=== PATIENT | female | born 1995 | race Two or more races ===

== ENCOUNTER 2024-10-20 09:49 | Inpatient (IN) | payer MEDICAID, SELFPAY ==
[2024-10-20 09:51] VITALS: BMI 21.5
[2024-10-20 10:08] VITALS: BP 112/73; PULSE 83; RESP 17; TEMP 37; O2SAT 100; BMI 20.9
--- NOTE | 2024-10-20 10:30 | XR_ITS ---
Examination: CT abdomen and pelvis without contrast. Coronal 3-D reconstructions. Sagittal 2-D reconstructions. Date and time of exam:October 20, 2024 1205 hours INDICATIONS: Left-sided abdominal pain beginning 3 days ago, history of ulcerative colitis CTDI: vol (mGy): 4.96 DLP: (mGycm): 233 Technique: Axial images of the abdomen have been obtained, 3 mm slice thickness Intravenous contrast material has not been administered. Low dose protocols were performed. One or more of the following dose reduction techniques were used; automated exposure control, adjustment of the mA and/or KV according to patient size, use of iterative reconstruction technique. Findings: No focal liver or splenic lesions Contracted gallbladder No pancreatic mass No renal or ureteral calculi Aorta normal size No bowel obstruction Normal appendix Retroverted uterus No adnexal mass No bladder mass No definite colitis on this noncontrast study Osseous structures intact IMPRESSION: No acute process on this noncontrast study
--- NOTE | 2024-10-20 10:30 | PD.EDRME ---
Rapid Medical Screening Exam RME Arrival date/time: 10/20/24 09:49 29-year-old female presents emergency department for complaints of rectal bleeding patient has diagnosis of ulcerative colitis Chief Complaint: GI Bleed Vital signs: Vital Signs Temperature 98.6 F 10/20/24 10:08 Pulse Rate 83 10/20/24 10:08 Respiratory Rate 17 10/20/24 10:08 Blood Pressure 112/73 10/20/24 10:08 Pulse Oximetry (%) 100 10/20/24 10:08 Oxygen Delivery Method Room Air 10/20/24 10:08
[2024-10-20 11:22] LABS: Basophils % (Auto) 0 % (0-2.5); Eosinophils # (Auto) 0.2 Thou/mm3 (0.0-0.5); Eosinophils % (Auto) 3 % (0-10); Hematocrit 26.9 % (36.0-46.0); Hemoglobin 8.1 g/dL (12.0-16.0); Immature Granulocytes % (Auto) 0 % (0-0); Immature Granulocytes Auto 0.02 Thou/mm3 (0.00-0.00); Lymphocytes # (Auto) 1.6 Thou/mm3 (1.0-4.8); Lymphocytes % (Auto) 21 % (10-50); Mean Corpuscular HGB Conc 30.1 g/dl (31.0-37.0); Mean Corpuscular Hemoglobin 19.1 pg (25.0-35.0); Mean Corpuscular Volume 63 fL (80-100); Monocytes # (Auto) 0.5 Thou/mm3 (0.0-0.8); Monocytes % (Auto) 7 % (0-12); Neutrophils % (Auto) 68 % (37-80); Nucleated Red Blood Cell % 0 /100 WBC (0); Platelet Count 282 Thou/mm3 (140-440); RDW Standard Deviation 37.9 fL (36.4-46.3); Red Blood Count 4.24 Miln/mm3 (4.00-5.20); White Blood Count 7.4 Thou/mm3 (3.6-11.0)
[2024-10-20 11:38] LABS: INR 1.1 (0.9-1.3); Partial Thromboplastin Time 24.7 Seconds (22.0-36.0); Prothrombin Time 12.1 Seconds (9.0-12.2)
[2024-10-20 11:42] LABS: HCG Qualitative,Urine Negative
[2024-10-20 11:49] LABS: Alanine Aminotransferase 11 U/L (10-49); Albumin, Serum 4.6 gm/dL (3.5-5.0); Albumin/Globulin Ratio 1.4 (1.2-2.2); Alkaline Phosphatase 80 U/L (46-116); Anion Gap 10 (7-16); Aspartate Amino Transferase 22 U/L (0-34); BUN/Creatinine Ratio 8 Ratio (12-20); Bilirubin,Total 0.3 mg/dL (0.3-1.2); Blood Urea Nitrogen 5 mg/dL (9-23); Calcium 8.6 mg/dL (8.3-10.6); Calcium (Corrected) 8.6 mg/dL (8.5-10.1); Carbon Dioxide 26.5 mMol/L (20.0-31.0); Chloride 105 mMol/L (98-107); Creatinine (Component) 0.6 mg/dL (0.6-1.3); Estimated Creatinine Clearance 90.9 mL/min (>60); Globulin 3.3 gm/dL (2.3-3.5); Glucose 104 mg/dL (74-106); Lipase 27 U/L (12-53); Osmolality,Calculated 278 (275-295); Potassium 3.6 mMol/L (3.4-5.1); Sodium 141 mMol/L (136-145); Total Protein 7.9 gm/dL (5.7-8.2); eGFR > 60 See Note
--- NOTE | 2024-10-20 13:33 | EDNOTE_ITS ---
<Statement entered by Ashlee Davies MD - 10/31/24 06:17> As co-signing physician, I was present and available for consult prn. I concur with the plan and care as documented by the midlevel provider. ED GI Bleed RME/HPI General Chief complaint: GI Bleed Stated complaint: DARK RED STOOLS Time Seen by Provider: 10/20/24 13:02 Arrival date/time: 10/20/24 09:49 RME / HPI RME / HPI Narrative: 29-year-old female patient with significant history of ulcerative colitis, came in for evaluation regarding bright red blood per rectum. Patient has been having worsening bright red blood per rectum for the last 3 days. Associated with abdominal discomfort. Patient denies any dizziness. Patient currently is not having any PCP however he was seen more than 6 months ago GI MD in [place]. She is not taking any medication for Crohn's disease. Patient denies any dizziness denies any vomiting denies any other complaints no medication was taken prior to arrival. 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 Related Data Previous Rx's ?Medication ?Instructions ?Recorded ferrous sulfate 325 mg (65 mg 325 mg PO BID Microcytos is #60 tabs 09/04/21 iron) tablet Allergies Allergy/AdvReac Type Severity Reaction Status Date / Time Penicillins Allergy Mild RASH Verified 10/20/24 09:51 vancomycin Allergy Mild REDNESS, Verified 10/20/24 09:51 ITCHING tree and shrub pollen Allergy Rash Verified 10/20/24 09:51 Review of Systems Review of Systems Narrative Review of Systems: Review of system reviewed and within normal limits except mentioned in HPI ED Exam Narrative Physical exam: VITAL SIGNS: Reviewed. GENERAL APPEARANCE: Alert and interactive, follows commands, no acute distress, HEAD AND FACE: Non-traumatic. ENT: PERRL, pink conjunctivitis, eyelid no trauma, Mucous membrane moist. NECK: Supple, nontender, no nuchal rigidity. CHEST: No tenderness, no crepitus, no paradoxical movement, no retractions. LUNGS: Clear, well ventilated, symmetric, no rales, no wheezing, no ronchi, no stridor, good breath sounds bilaterally. HEART: Regular rate, regular rhythm, no murmur, no gallops. ABDOMEN: Soft, positive bowel sounds, nondistended, no guarding, nontender, no rebound, no masses, RECTAL: Deferred. GENITAL: Deferred. NEUROLOGICAL: Gross motor function intact sensory function intact, Appropriate for age. MUSCULOSKELETAL: low back nontender, full range of motion. EXTREMITIES: Nontender, full range of motion. SKIN: Color pink, dry, no rash, no lacerations, no abrasions, no contusions. LYMPHATICS: Deferred. Course Quality Measures none Orders Category Date Time Status COVID-19 Screening Questionnaire NOW Care 10/20/24 14:31 Active Decision to Admit X1 Care 10/20/24 14:31 Active Consult to Gastroenterology Stat Cons 10/20/24 14:22 Ordered Diet Clear Liquid Diet 10/20/[address] abdomen pelvis wo con Stat Exams 10/20/24 10:30 Completed CBC Stat Lab 10/20/24 11:01 Completed Comprehensive Metabolic Panel Stat Lab 10/20/24 11:01 Completed HCG Qualitative,Urine Stat Lab 10/20/24 11:00 Completed Lipase Stat Lab 10/20/24 11:01 Completed Partial Thromboplastin Time Stat Lab 10/20/24 11:01 Completed Prothrombin Time with INR Stat Lab 10/20/24 11:01 Completed Stool Culture Stat Lab 10/20/24 15:01 Ordered Folic Acid Med 10/20/24 14:20 Discontinued 1 mg PO X1 ONE MethylPREDNISolone. [SoluMEDROL Inj] Med 10/20/24 14:30 Active 40 mg IVP BID sulfaSALAzine [Azulfidine] Med 10/20/24 14:30 Active 1,000 mg PO BID Vital Signs Vital signs: Vital Signs Temperature 98.6 F 10/20/24 10:08 Pulse Rate 83 10/20/24 10:08 Respiratory Rate 17 10/20/24 10:08 Blood Pressure 112/73 10/20/24 10:08 Pulse Oximetry (%) 100 10/20/24 10:08 Oxygen Delivery Method Room Air 10/20/24 10:08 GI Bleed MDM Narrative MDM Narrative:: 29-year-old female patient with significant history of ulcerative colitis, came in for evaluation regarding bright red blood per rectum. Patient has been having worsening bright red blood per rectum for the last 3 days. Associated with abdominal discomfort. Patient denies any dizziness. Patient currently is not having any PCP however he was seen more than 6 months ago GI MD in [place]. She is not taking any medication for ulcerative colitis. Patient denies any dizziness denies any vomiting denies any other complaints no medication was taken prior to arrival. 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 Patient's hemoglobin today was noted to be 8.1 it was 11.28 months ago. Currently patient is not seen by any GI specialist she had a hard time and not happy with her GI specialist from [place]. CT scan of the abdomen pelvis came back unremarkable. Patient was discharged with the patient. I consulted Dr. Strickland, GI specialist on-call, discussed the case, who advised me to admit the patient for further management. Thank you , Patient data External records reviewed:: None Clinical information provided by:: patient and family Social determinants that could affect healthcare access:: none Patient has the following chronic illnesses:: History of ulcerative colitis How is presenting disease/condition affected by chronic disease/condition?: exacerbated by Evaluation data The following diagnostics were reviewed and interpreted by me:: lab results and radiology exam(s) Lab and/or radiology exams considered but not ordered:: None Interpretation Summary: See results MDM Medications / Prescriptions Medications or Prescriptions considered but not ordered:: None Medication administrations:: Medication Administration History Methylprednisolone Sodium Succinate (Methylprednisolone Sod Succ 40 Mg Vial) 40 mg IVP BID ELAINE Stop: 10/27/24 14:29 Last Admin: 10/20/24 14:46 Dose: 40 mg Documented By: SL Sulfasalazine (Sulfasalazine 500 Mg Tablet) 1,000 mg PO BID ELAINE Stop: 11/19/24 14:29 Discontinued Medications Folic Acid (Folic Acid 1 Mg Tablet) 1 mg PO X1 ONE Stop: 10/20/24 14:21 Solu-Medrol, sulfasalazine, folic acid Consultations Consultation(s) initiated? (list below): Yes Consultation #1 (Physician, Specialty, Details): Dr. Strickland thank you Diagnosis GI bleed differential diagnosis: infectious diarrhea Most likely diagnosis given after review of the tests above:: Lower GI bleed, history of ulcerative colitis Admission Indicated Admission indicated?: indicated Admission Request Was there a request for admission?: Yes Admission Attestation Admission request attestation: Discussed case with [Dr. Gallardo] from Hospitalist service regarding admission. Discussed patients ED course, exam findings, labs, and radiology results. The Hospitalist [agrees] to accept the patient for admission. Disposition Plan Disposition Plan: Admit Discharge Plan Plan Patient Disposition: Admit Acute Care w/in Hospital Discharge Disposition comment: Stable Prescriptions/Referrals Prescriptions/Med Rec: No Action ferrous sulfate 325 mg (65 mg iron) tablet 325 mg PO BID Qty: 60 0RF Referrals: Abdon Garcia MD [Primary Care Provider] - In 1 week Problem List Clinical Impression: Acute lower GI bleeding, History of ulcerative colitis Patient/Caregiver Discharge Instructions Print Language: Malaysian Stand Alone Forms: Nancie Award Info., Patient Portal Info Letter
--- NOTE | 2024-10-20 15:03 | ESHP_ITS ---
Documentation for date of: 10/20/24 [facility] History of Present Illness Chief complaint: bloody bowel movements History of present illness: 29-year-old female with past medical history of ulcerative colitis was admitted to the hospital on 10/20/2024 with a come to the ED with complaints of of bright red blood per rectum for the past few days. On assessment patient stated that she has been having rectal bleeding around 6-7 times during the daytime, but that recently around 3 days ago she started noticing it was darker blood. She stated that she also had abdominal pain and cramping which did not improve with passing a bowel movement. She mentioned that at night even though she did not have a bowel movement normally she was very gassy. She mentioned that she has been seeing multiple pantry steward/stewardess given that she was previously seen 1 here in [facility], but he had close his office. She then follow-up with another pantry steward/stewardess in [place] who told her that she had ulcerative colitis and started her on some on mesalamine p.o. She mentioned that she has had multiple colonoscopies in the last 1 was 1 year ago and that showed ulcerative colitis. She mentions she is currently on no medications for her ulcerative colitis. She also stated that she started feeling weak and more or less dizzy as of lately as well as felt her heart racing. Patient also mentioned that most of her symptoms started around 3 years ago when she was with her child. Since then she has been having on and off bleeding ever since, but that specialist she had been seen prior did not start any medications. She denied any difficulty breathing, chest pain, blood in her urine, changes in vision, or headaches. ED course: Patient came in normotensive and afebrile. Initial labs were relevant for low hemoglobin (8.1), and otherwise unremarkable. Initial imaging included abdomen/pelvis CT which was unremarkable. ER provider contacted GI specialist who stated to admit the patient for colonoscopy and further also colitis workup. After examination of the patient and review of clinical data I feel this patient needs to be admitted to the hospital for further treatment and evaluation of ulcerative colitis. PMH: As above Surgical Hx: None per patient Medications: Multivitamin Social Hx: Admits smoking marijuana, denies any cigarette use or alcohol. Review of Systems Review of Systems Narrative Review of Systems: Constitutional: Denies sweats, Admits weight loss, Denies fever, Denies chills. HEENT: Denies hearing loss, Denies ear pain, Denies postnasal drip, Denies double vision, Denies blurry vision. Respiratory: Denies shortness of breath, Denies cough, Denies wheezing. Cardiovascular: Denies chest pain, Denies palpitations, Denies sudden loss of consciousness. GI: Admits blood in stool, Denies constipation, Admits abdominal pain, Denies difficulty swallowing, Admits nausea denies vomit. : Denies urinary incontinence, Denies pain while urinating, Denies increased urinary frequency. MSK: Denies joint pain, Denies joint swelling, Denies numbness. Skin: Denies rash, Denies itching, Denies easy bruising. Neuro: Denies headaches, Denies dizziness, Denies seizures. Past Medical History Past Medical History NEUROLOGIC: Negative Neurological Disorders or Seizures CARDIAC: Negative Cardiac Disorders or Congestive Heart Failure RESPIRATORY: Positive Asthma; Negative Chronic Obstructive Pulmonary Disease (COPD), Bronchitis, Emphysema, Pneumonia, Pulmonary Fibrosis, Cystic Fibrosis, Tuberculosis, Pulmonary Embolism, Pulmonary Edema or Sleep Apnea GASTROINTESTINAL: Negative Gastrointestinal Disorders GENITOURINARY: Negative Genitourinary Disorders or Renal Disease MUSCULOSKELETAL: Negative Musculoskeletal Disorders ENDOCRINE: Negative Endocrine Disorders, Diabetes Mellitus Type 1 or Diabetes Mellitus Type 2 HEMATOLOGIC: Positive Anemia (TAKES IRON BID); Negative Blood Disorders or Sickle Cell Disease OTHER HISTORY: Negative Autoimmune Disease, Blood Transfusions, Blood Transfusion Reaction, Anesthesia Reactions, Organ Transplant, VRSA, Clostridium Difficile or Cancer Family History FAMILY HISTORY: Positive Family Respiratory Disorders (FATHER-ASTHMA), Family Cardiac Disorders, Family Cancer and Family Surgery; Negative Family Psychiatric Problems, Family Gastrointestinal Problems or Family Anesthesia Reaction Surgical History SURGICAL: Negative Cardiac Surgery, Endocrine Surgery, Ear Surgery, Abdominal Surgery, Joint Replacement, Neurologic Surgery, Mastectomy or Organ Transplant Social History SMOKING STATUS: Never smoker Exam Vital Signs Temp Pulse Resp BP Pulse Ox O2 Del Method 98.6 F 83 17 112/73 100 Room Air 10/20/24 10:08 10/20/24 10:08 10/20/24 10:08 10/20/24 10:08 10/20/24 10:08 10/20/24 10:08 Narrative Exam General: A/O x3, no acute distress, well-nourished, well-developed Eyes: PERRL, EOMI. Anicteric, vision grossly intact. Ears: No ear pain, no ear discharge, Hearing grossly intact. Nose: No nasal discharge. Mouth/Throat: Moist mucous membranes, no redness, no lesions. Neck: Neck supple, non-tender, no cervical lymphadenopathy. Lungs: Clear DEMETRA to auscultation and percussion, No accessory muscle use. Cardio: Normal S1/S2, regular rhythm, no murmurs, no JVD Abdomen: Soft, non-tender, no palpable masses, peristalsis present, no guarding or rebound. Extremities: Symmetrical, no significant deformities, no peripheral edema , non-tender, peripheral pulses presents. Skin: No rashes, no lesions, warm to touch. Neuro: No focal neurological deficits. motor and sensory intact Psych: Cooperative, appropriate mood and effect. Results: Labs 10/21/24 05:21 10/21/24 05:21 Labs: Short CBC 10/20/24 Range/Units 11:01 WBC 7.4 (3.6-11.0) Thou/mm3 Hgb 8.1 L (12.0-16.0) g/dL Hct 26.9 L (36.0-46.0) % Plt Count 282 (140-440) Thou/mm3 BMP 10/20/24 11:01 Sodium 141 Potassium 3.6 Chloride 105 Carbon Dioxide 26.5 BUN 5 L Creatinine 0.6 Glucose 104 Calcium 8.6 Liver Function 10/20/24 Range/Units 11:01 Total Bilirubin 0.3 (0.3-1.2) mg/dL AST 22 (0-34) U/L ALT 11 (10-49) U/L Alkaline Phosphatase 80 (46-116) U/L Albumin 4.6 (3.5-5.0) gm/dL Quality Measures Quality Measures VTE prophylaxis Medications Home Medications and Allergies Home Medications ?Medication ?Instructions ?Recorded ?Confirmed ?Type multivitamin (Daily Multi-Vitamin 1 tab PO QAM 5 10/20/24 History tablet) Allergies Allergy/AdvReac Type Severity Reaction Status Date / Time Penicillins Allergy Mild RASH Verified 10/20/24 09:51 vancomycin Allergy Mild REDNESS, Verified 10/20/24 09:51 ITCHING tree and shrub pollen Allergy Rash Verified 10/20/24 09:51 Visit Medications Acetaminophen (Acetaminophen 325 Mg Tablet) 650 mg PO Q6H PRN PRN Reason: pain and Fever >100.4 Stop: 11/19/24 14:59 Hydrocodone Bitart/Acetaminophen (Hydrocodone/Apap 5/325 Tablet) 1 tab PO Q4HR PRN PRN Reason: PAIN SCALE 4-10(Mod-Sev Stop: 10/25/24 14:59 Methylprednisolone Sodium Succinate (Methylprednisolone Sod Succ 40 Mg Vial) 40 mg IVP BID ELAINE Stop: 10/27/24 14:29 Last Admin: 10/20/24 14:46 Dose: 40 mg Ondansetron HCl (Ondansetron Inj 2 Mg/Ml Inj 2 Ml) 4 mg IV Q6H PRN; Protocol PRN Reason: NAUSEA OR VOMITING Stop: 11/19/24 14:59 Pantoprazole Sodium (Pantoprazole Inj 40 Mg Vial) 40 mg IVP QDAY ELAINE Stop: 11/19/24 15:14 Sulfasalazine (Sulfasalazine 500 Mg Tablet) 1,000 mg PO BID ELAINE Stop: 11/19/24 14:29 Discontinued Medications Folic Acid (Folic Acid 1 Mg Tablet) 1 mg PO X1 ONE Stop: 10/20/24 14:21 Assessment & Plan Plan 29-year-old female with past medical history of ulcerative colitis was admitted to the hospital on 10/20/2024 for lower GI bleed secondary to ulcerative colitis flare and resulting in blood loss anemia. #Ulcerative colitis flareup #Lower GI bleed #Acute blood loss anemia Patient came in with hemoglobin of 8.1 and was previously 11.2 on 02/2024 Patient has been having 6-7 bowel movements per day and have all been bloody. Patient has not been taking any medication for ulcerative colitis at this time Last colonoscopy was 1 year ago. Plan: Type and screen Solu-Medrol 40 mg IV twice daily Sulfasalazine 1 g twice daily Protonix Will transfuse if hemoglobin less than 7 Clear liquid diet for possible colonoscopy tomorrow GI consulted, appreciate commendations Disposition: Patient admitted to med surg for UC flareup. Diet: clear liquid GI prophylaxis: protonix DVT prophylaxis: SCDs in setting of bleed Code: full Case disclosed with Attending Dr. Gill Sena PGY1 Disclaimer: Even though this this note was dictated by speech recognition and even though it was carefully revised there may still be minor errors in supervisor litharge due to voice recognition software. Attending Provider Attestation/Addendum I reviewed labs, imaging, EKG, home medications and prior available records. Face to face evaluation was performed by me. I have personally examined the patient and discussed assessment and plan with the IM team. I reviewed the resident note and agree with the plan with exceptions as below. Ulcerative colitis flare Acute anemia Bright blood per rectum Started IV corticosteroids Started mesalamine Consulted GI: Plan for colonoscopy Monitor H&H
[2024-10-20] MEDS: sulfaSALAzine 500 MG TABLET 1000 MG PO (15:15)
[2024-10-20] MEDS: HYDROcodone/APAP 5/325 TABLET 1 TAB PO (17:17)
[2024-10-20] MEDS: PANTOPRAZOLE INJ 40 MG VIAL IVP (17:27)
[2024-10-20] MEDS: ONDANSETRON INJ 2 MG/ML INJ 2 ML 4 MG IV (17:29)
[2024-10-20] MEDS: SODIUM CHLORIDE 0.9% 1000 ML 1,000 ML 60 ML IV (17:30)
--- NOTE | 2024-10-20 19:34 | ESCONSULT_ITS ---
HPI Data of Consult Requesting Physician: Michael Sena MD Primary Care Provider: Abdon Garcia MD Consult Narrative Reason for consult: Hematochezia bloody diarrhea History of present illness: 29-year-old female evaluated at the request of COKE BURNER/physician pediatric physical therapy assistant Zeke in the emergency room when she presented with weakness dizziness vertigo along with bloody stools getting worse for the last 3 to 4 days but has been having bleeding for the last 6 months He does carry diagnosis ulcerative colitis but has not seen either PCP or a wafer fabrication technician for months She is currently not taking any medication for her underlying diagnosis of ulcerative colitis She had a hemoglobin hematocrit of 11.2 and 34.8 on 02/16/2024 and today it was 8.1 and 26.9 with a platelet count of 282,000 Based on this significant drop in hemoglobin hematocrit and worsening diarrhea and no treatment and the severity of the disease unassessed A decision was made to admit the patient for further evaluation management cc:: cc: Michael Sena MD Review of Systems Review of Systems Systems Reviewed: All systems reviewed, normal except as documented Past Medical History Surgical History OTHER SURGICAL HX: As in the history of present illness Meds Home Medications and Allergies Allergies Allergy/AdvReac Type Severity Reaction Status Date / Time Penicillins Allergy Mild RASH Verified 10/20/24 09:51 vancomycin Allergy Mild REDNESS, Verified 10/20/24 09:51 ITCHING tree and shrub pollen Allergy Rash Verified 10/20/24 09:51 Exam Vital Signs Temp Pulse Resp BP Pulse Ox O2 Del Method 98.6 F 83 17 112/73 100 Room Air 10/20/24 10:08 10/20/24 10:08 10/20/24 10:08 10/20/24 10:08 10/20/24 10:08 10/20/24 10:08 Constitutional Comments: Chronically ill-appearing Routine Respiratory Exam Comments: Normal to auscultation Routine Abdominal Exam Comments: Positive bowel sounds tenderness on deep palpation Results Labs 10/20/24 11:01 10/20/24 11:01 Labs: Short CBC 10/20/24 Range/Units 11:01 WBC 7.4 (3.6-11.0) Thou/mm3 Hgb 8.1 L (12.0-16.0) g/dL Hct 26.9 L (36.0-46.0) % Plt Count 282 (140-440) Thou/mm3 BMP 10/20/24 11:01 Sodium 141 Potassium 3.6 Chloride 105 Carbon Dioxide 26.5 BUN 5 L Creatinine 0.6 Glucose 104 Calcium 8.6 Liver Function 10/20/24 Range/Units 11:01 Total Bilirubin 0.3 (0.3-1.2) mg/dL AST 22 (0-34) U/L ALT 11 (10-49) U/L Alkaline Phosphatase 80 (46-116) U/L Albumin 4.6 (3.5-5.0) gm/dL Assessment and Plan Additional Assessment & Plan Additional Plan: Acute exacerbation of the underlying inflammatory bowel disease Acute posthemorrhagic anemia Plan Complete stool panel Including culture and sensitivity Fecal calprotectin C. difficile by PCR Start the patient on IV Solu-Medrol 40 mg IV every 12 Sulfasalazine 500 mg 2 tablets twice daily will eventually increase it Folic acid 1 mg p.o. daily Once patient stabilizes we will assess the disease via colonoscopy prior to discharge with possible biopsies and further treatment options Thank you very much for the opportunity to participate in the care of this patient
[2024-10-20 20:01] VITALS: BP 100/53; PULSE 82; RESP 17; TEMP 36.9; O2SAT 99
--- NOTE | 2024-10-20 20:37 | PC.NURSE ---
Report called to Radha MAJOR at 2037pm for med surg admit rm [id number].
[2024-10-20 21:01] LABS: C-Reactive Protein < 0.5 mg/dL (0.0-0.9)
[2024-10-20 21:10] LABS: Sed Rate (ESR) 54 mm/hr (0-20)
[2024-10-20 21:32] VITALS: BMI 21.4
[2024-10-20 21:34] VITALS: BP 129/76; PULSE 81; RESP 17; RESP 98; TEMP 36.6; O2SAT 98
[2024-10-21] VITALS (7 sets, daily range): BP systolic 101–139; BP diastolic 60–80; PULSE 62–104; RESP 15–98; TEMP 36.2–37.6; O2SAT 96–100; BMI 21.4
[2024-10-21] MEDS: ACETAMINOPHEN 325 MG TABLET 650 MG PO (00:30)
[2024-10-21 01:43] LABS: Stool for WBCs 3+ (Negative)
[2024-10-21 06:36] LABS: Basophils % (Auto) 0 % (0-2.5); Eosinophils % (Auto) 0 % (0-10); Immature Granulocytes % (Auto) 0 % (0-0); Immature Granulocytes Auto 0.02 Thou/mm3 (0.00-0.00); Lymphocytes # (Auto) 0.9 Thou/mm3 (1.0-4.8); Lymphocytes % (Auto) 10 % (10-50); Mean Corpuscular HGB Conc 30.4 g/dl (31.0-37.0); Mean Corpuscular Hemoglobin 19.7 pg (25.0-35.0); Mean Corpuscular Volume 65 fL (80-100); Monocytes # (Auto) 0.3 Thou/mm3 (0.0-0.8); Monocytes % (Auto) 3 % (0-12); Neutrophils # (Auto) 7.8 Thou/mm3 (1.8-7.7); Neutrophils % (Auto) 87 % (37-80); Nucleated Red Blood Cell % 0 /100 WBC (0); Platelet Count 272 Thou/mm3 (140-440); RDW Standard Deviation 38.9 fL (36.4-46.3); Red Blood Count 4.02 Miln/mm3 (4.00-5.20)
[2024-10-21 06:40] LABS: Hemoglobin 7.9 g/dL (12.0-16.0)
[2024-10-21 07:29] LABS: Alanine Aminotransferase 8 U/L (10-49); Albumin, Serum 4.4 gm/dL (3.5-5.0); Albumin/Globulin Ratio 1.4 (1.2-2.2); Alkaline Phosphatase 74 U/L (46-116); Anion Gap 11 (7-16); Aspartate Amino Transferase 16 U/L (0-34); BUN/Creatinine Ratio 8 Ratio (12-20); Bilirubin,Total 0.4 mg/dL (0.3-1.2); Blood Urea Nitrogen < 5 mg/dL (9-23); Calcium 8.8 mg/dL (8.3-10.6); Calcium (Corrected) 8.8 mg/dL (8.5-10.1); Carbon Dioxide 23.1 mMol/L (20.0-31.0); Chloride 107 mMol/L (98-107); Creatinine (Component) 0.6 mg/dL (0.6-1.3); Estimated Creatinine Clearance 90.9 mL/min (>60); Globulin 3.2 gm/dL (2.3-3.5); Glucose 116 mg/dL (74-106); Magnesium 1.8 mg/dL (1.6-2.6); Osmolality,Calculated 279 (275-295); Potassium 4.4 mMol/L (3.4-5.1); Sodium 141 mMol/L (136-145); Total Protein 7.6 gm/dL (5.7-8.2); eGFR > 60 See Note
--- NOTE | 2024-10-21 09:16 | PD.RESPRO ---
Documentation for date of: 10/21/24 Subjective Subjective Interval history: Patient was seen and examined at bedside this morning. No acute overnight events. Patient this morning has had 3 bowel movements which she stated were better than the previous ones in the sense that they were only some streaks of blood and not entirely bloody. Patient was seen by GI specialist who will perform colonoscopy either tomorrow or Wednesday. Patient also stated that she has been feeling better from her abdominal pain has been tolerating clear liquid diet well. Hemoglobin has been stable at 7.9. No other complaints at this time. Exam Vital Signs Temp Pulse Resp BP Pulse Ox O2 Del Method 97.1 F 80 16 139/78 H 98 Room Air 10/21/24 08:00 10/21/24 08:00 10/21/24 08:00 10/21/24 08:00 10/21/24 08:00 10/21/24 08:00 Narrative Exam General: A/O x3, no acute distress, well-nourished, well-developed Eyes: PERRL, EOMI. Anicteric, vision grossly intact. Ears: No ear pain, no ear discharge, Hearing grossly intact. Nose: No nasal discharge. Mouth/Throat: Moist mucous membranes, no redness, no lesions. Neck: Neck supple, non-tender, no cervical lymphadenopathy. Lungs: Clear DEMETRA to auscultation and percussion, No accessory muscle use. Cardio: Normal S1/S2, regular rhythm, no murmurs, no JVD Abdomen: Soft, non-tender, no palpable masses, peristalsis present, no guarding or rebound. Extremities: Symmetrical, no significant deformities, no peripheral edema , non-tender, peripheral pulses presents. Skin: No rashes, no lesions, warm to touch. Neuro: No focal neurological deficits. motor and sensory intact Psych: Cooperative, appropriate mood and effect. Objective Labs 10/21/24 05:21 10/21/24 05:21 Labs: Laboratory Results - last 24 hr 10/20/24 10/20/24 10/20/24 11:00 11:01 15:34 WBC 7.4 RBC 4.24 Hgb 8.1 L Hct 26.9 L MCV 63 L MCH 19.1 L MCHC 30.1 L RDW Std Deviation 37.9 Plt Count 282 Neut % (Auto) 68 Lymph % (Auto) 21 [place] % (Auto) 7 Eos % (Auto) 3 Baso % (Auto) 0 Neut # (Auto) 5.0 Lymph # (Auto) 1.6 [place] # (Auto) 0.5 Eos # (Auto) 0.2 Baso # (Auto) 0.0 Immature Gran # (Auto) 0.02 H Absolute Nucleated RBC 0.00 Immature Gran % 0 Nucleated RBC % 0 ESR 54 H PT 12.1 INR 1.1 APTT 24.7 Sodium 141 Potassium 3.6 Chloride 105 Carbon Dioxide 26.5 Anion Gap 10 BUN 5 L Creatinine 0.6 Estim Creat Clear Calc 90.9 eGFR > 60 BUN/Creatinine Ratio 8 L Glucose 104 Calculated Osmolality 278 Calcium 8.6 Corrected Calcium 8.6 Magnesium Total Bilirubin 0.3 AST 22 ALT 11 Alkaline Phosphatase 80 C-Reactive Prot, Quant < 0.5 Total Protein 7.9 Albumin 4.6 Globulin 3.3 Albumin/Globulin Ratio 1.4 Lipase 27 TSH Urine HCG, Qual Negative Stool for White Cells Blood Type O Positive Antibody Screen NEGATIVE Blood Bank Wristband ID Yes 10/21/24 10/21/24 00:13 05:21 WBC 9.0 RBC 4.02 Hgb 7.9 L Hct 26.0 L MCV 65 L MCH 19.7 L MCHC 30.4 L RDW Std Deviation 38.9 Plt Count 272 Neut % (Auto) 87 H Lymph % (Auto) 10 [place] % (Auto) 3 Eos % (Auto) 0 Baso % (Auto) 0 Neut # (Auto) 7.8 H Lymph # (Auto) 0.9 L [place] # (Auto) 0.3 Eos # (Auto) 0.0 Baso # (Auto) 0.0 Immature Gran # (Auto) 0.02 H Absolute Nucleated RBC 0.00 Immature Gran % 0 Nucleated RBC % 0 ESR PT INR APTT Sodium 141 Potassium 4.4 D Chloride 107 Carbon Dioxide 23.1 Anion Gap 11 BUN < 5 L Creatinine 0.6 Estim Creat Clear Calc 90.9 eGFR > 60 BUN/Creatinine Ratio 8 L Glucose 116 H Calculated Osmolality 279 Calcium 8.8 Corrected Calcium 8.8 Magnesium 1.8 Total Bilirubin 0.4 AST 16 ALT 8 L Alkaline Phosphatase 74 C-Reactive Prot, Quant Total Protein 7.6 Albumin 4.4 Globulin 3.2 Albumin/Globulin Ratio 1.4 Lipase TSH 0.70 Urine HCG, Qual Stool for White Cells 3+ A Blood Type Antibody Screen Blood Bank Wristband ID Quality Measures Quality Measures VTE prophylaxis Assessment & Plan Assessment Current Active Medications: Generic Name Dose Route Start Last Admin Trade Name Freq PRN Reason Stop Dose Admin Acetaminophen 650 mg 10/20/24 15:00 10/21/24 00:30 Acetaminophen 325 Mg Tablet PO 11/19/24 14:59 650 mg Q6H PRN Administration pain 1-3 and Fever >100.4 Hydrocodone Bitart/Acetaminophen 1 tab 10/20/24 15:00 10/20/24 17:17 Hydrocodone/Apap 5/325 Tablet PO 10/25/24 14:59 1 tab Q4HR PRN Administration PAIN SCALE 4-10(Mod-Sev Folic Acid 1 mg 10/21/24 09:00 Folic Acid 1 Mg Tablet PO 11/20/24 08:59 QDAY ELAINE Methylprednisolone Sodium Succinate 40 mg 10/20/24 14:30 10/20/24 22:31 Methylprednisolone Sod Succ 40 Mg Vial IVP 10/27/24 14:29 40 mg BID ELAINE Administration Ondansetron HCl 4 mg 10/20/24 15:00 10/20/24 17:29 Ondansetron Inj 2 Mg/Ml Inj 2 Ml IV 11/19/24 14:59 4 mg Q6H PRN Administration NAUSEA OR VOMITING Protocol Pantoprazole Sodium 40 mg 10/20/24 15:15 10/20/24 17:27 Pantoprazole Inj 40 Mg Vial IVP 11/19/24 15:14 40 mg QDAY ELAINE Administration Sulfasalazine 1,000 mg 10/20/24 14:30 10/20/24 22:25 Sulfasalazine 500 Mg Tablet PO 11/19/24 14:29 Not Given BID ELAINE Plan 29-year-old female with past medical history of ulcerative colitis was admitted to the hospital on 10/20/2024 for lower GI bleed secondary to ulcerative colitis flare and resulting in blood loss anemia. #Ulcerative colitis flareup #Lower GI bleed #Acute blood loss anemia Patient came in with hemoglobin of 8.1 and was previously 11.2 on 02/2024 Patient has been having 6-7 bowel movements per day and have all been bloody. Patient has not been taking any medication for ulcerative colitis at this time Last colonoscopy was 1 year ago. Hgb today 7.9 Plan: Solu-Medrol 40 mg IV twice daily Sulfasalazine 1 g twice daily Protonix Folic acid Will transfuse if hemoglobin less than 7 Clear liquid diet for possible colonoscopy tomorrow or Wednesday GI consulted, appreciate commendations Disposition: Pending colonoscopy. Diet: clear liquid GI prophylaxis: protonix DVT prophylaxis: SCDs in setting of bleed Code: full Case disclosed with Attending Dr. Gill Sena PGY1 Disclaimer: Even though this this note was dictated by speech recognition and even though it was carefully revised there may still be minor errors in telephone repairer due to voice recognition software. Attending Provider Attestation/Addendum I reviewed labs, imaging, EKG, home medications and prior available records. Face to face evaluation was performed by me. I have personally examined the patient and discussed assessment and plan with the IM team. I reviewed the resident note and agree with the plan with exceptions as below. Ulcerative colitis flare Acute anemia Microcytic anemia Bright blood per rectum Started IV corticosteroids Started mesalamine Clear liquid diet Consulted GI: Plan for colonoscopy Monitor H&H: Stable
[2024-10-21] MEDS: FOLIC ACID 1 MG TABLET PO (09:38)
[2024-10-21] MEDS: sulfaSALAzine 500 MG TABLET 1000 MG PO ×2 (09:41→20:44)
[2024-10-21] MEDS: PANTOPRAZOLE INJ 40 MG VIAL IVP (09:44)
[2024-10-21 12:36] LABS: Path Review Blood Smear Sent to Pathologist
[2024-10-21 16:58] LABS: Clostridium Difficile PCR Negative (Negative)
--- NOTE | 2024-10-21 19:27 | PD.IMPROG ---
Documentation for date of: 10/21/24 Subjective Subjective Interval history: Stool C. difficile toxin negative Patient continues to have diarrhea GoLytely prep Colonoscopy scheduled for tomorrow Exam Vital Signs Temp Pulse Resp BP Pulse Ox O2 Del Method 98.0 F 81 15 105/71 98 Room Air 10/21/24 16:00 10/21/24 16:00 10/21/24 16:00 10/21/24 16:00 10/21/24 16:00 10/21/24 16:00 Objective Labs 10/21/24 05:21 10/21/24 05:21 Labs: Laboratory Results - last 24 hr 10/20/24 10/21/24 10/21/24 11:01 00:13 05:21 WBC 9.0 RBC 4.02 Hgb 7.9 L Hct 26.0 L MCV 65 L MCH 19.7 L MCHC 30.4 L RDW Std Deviation 38.9 Plt Count 272 Neut % (Auto) 87 H Lymph % (Auto) 10 [place] % (Auto) 3 Eos % (Auto) 0 Baso % (Auto) 0 Neut # (Auto) 7.8 H Lymph # (Auto) 0.9 L [place] # (Auto) 0.3 Eos # (Auto) 0.0 Baso # (Auto) 0.0 Immature Gran # (Auto) 0.02 H Absolute Nucleated RBC 0.00 Immature Gran % 0 Nucleated RBC % 0 Smear Path Review Sent to Pathologist ESR 54 H Sodium 141 Potassium 4.4 D Chloride 107 Carbon Dioxide 23.1 Anion Gap 11 BUN < 5 L Creatinine 0.6 Estim Creat Clear Calc 90.9 eGFR > 60 BUN/Creatinine Ratio 8 L Glucose 116 H Calculated Osmolality 279 Calcium 8.8 Corrected Calcium 8.8 Magnesium 1.8 Total Bilirubin 0.4 AST 16 ALT 8 L Alkaline Phosphatase 74 C-Reactive Prot, Quant < 0.5 Total Protein 7.6 Albumin 4.4 Globulin 3.2 Albumin/Globulin Ratio 1.4 TSH 0.70 Stool for White Cells 3+ A Stl C. diff Tox B Gene Negative Impressions Impression: # Chronic diarrhea most likely acute exacerbation of the underlying inflammatory bowel disease Stool for C. difficile negative GoLytely prep Colonoscopy a.m. Assessment & Plan A&P Narrative Acute exacerbation of the underlying inflammatory bowel disease Acute posthemorrhagic anemia Plan Complete stool panel Including culture and sensitivity Fecal calprotectin C. difficile by PCR Start the patient on IV Solu-Medrol 40 mg IV every 12 Sulfasalazine 500 mg 2 tablets twice daily will eventually increase it Folic acid 1 mg p.o. daily Once patient stabilizes we will assess the disease via colonoscopy prior to discharge with possible biopsies and further treatment options Thank you very much for the opportunity to participate in the care of this patient Time Spent With Patient Time: Total time spent is greater than 50% in coordination of care (as documented) at patient's floor/unit and/or counseling patient:
[2024-10-21] MEDS: NA SU/NAHCO3/KC/PEG (Golytely) 4,000 ML BTL 4000 ML PO (19:46)
[2024-10-22] VITALS (15 sets, daily range): BP systolic 97–132; BP diastolic 64–87; PULSE 69–98; RESP 12–97; TEMP 36.2–37.3; O2SAT 96–100
[2024-10-22 06:03] LABS: Basophils % (Auto) 0 % (0-2.5); Eosinophils % (Auto) 0 % (0-10); Hematocrit 23.7 % (36.0-46.0); Immature Granulocytes % (Auto) 0 % (0-0); Immature Granulocytes Auto 0.02 Thou/mm3 (0.00-0.00); Lymphocytes # (Auto) 1.5 Thou/mm3 (1.0-4.8); Lymphocytes % (Auto) 19 % (10-50); Mean Corpuscular HGB Conc 30.8 g/dl (31.0-37.0); Mean Corpuscular Hemoglobin 19.3 pg (25.0-35.0); Mean Corpuscular Volume 63 fL (80-100); Monocytes # (Auto) 0.7 Thou/mm3 (0.0-0.8); Monocytes % (Auto) 8 % (0-12); Neutrophils # (Auto) 5.6 Thou/mm3 (1.8-7.7); Neutrophils % (Auto) 72 % (37-80); Nucleated Red Blood Cell % 0 /100 WBC (0); Platelet Count 255 Thou/mm3 (140-440); RDW Standard Deviation 37.9 fL (36.4-46.3); Red Blood Count 3.79 Miln/mm3 (4.00-5.20); White Blood Count 7.8 Thou/mm3 (3.6-11.0)
[2024-10-22 06:16] LABS: Hemoglobin 7.3 g/dL (12.0-16.0)
[2024-10-22 06:17] LABS: Alanine Aminotransferase 10 U/L (10-49); Albumin, Serum 4.4 gm/dL (3.5-5.0); Albumin/Globulin Ratio 1.5 (1.2-2.2); Alkaline Phosphatase 65 U/L (46-116); Anion Gap 8 (7-16); Aspartate Amino Transferase 16 U/L (0-34); BUN/Creatinine Ratio 12 Ratio (12-20); Bilirubin,Total 0.3 mg/dL (0.3-1.2); Blood Urea Nitrogen 6 mg/dL (9-23); Calcium 9.1 mg/dL (8.3-10.6); Calcium (Corrected) 9.1 mg/dL (8.5-10.1); Carbon Dioxide 27.7 mMol/L (20.0-31.0); Chloride 103 mMol/L (98-107); Creatinine (Component) 0.5 mg/dL (0.6-1.3); Estimated Creatinine Clearance 111.4 mL/min (>60); Globulin 2.9 gm/dL (2.3-3.5); Glucose 110 mg/dL (74-106); Magnesium 1.7 mg/dL (1.6-2.6); Osmolality,Calculated 276 (275-295); Potassium 3.5 mMol/L (3.4-5.1); Sodium 139 mMol/L (136-145); Total Protein 7.3 gm/dL (5.7-8.2); eGFR > 60 See Note
--- NOTE | 2024-10-22 06:20 | ESPR_ITS ---
Documentation for date of: 10/22/24 Subjective Subjective Interval history: Patient was seen and examined at bedside this morning. No acute overnight events. Patient stated that yesterday she had a total of around 14-15 bowel movements and that they became bloody by the end of the day. This morning she also had a bloody bowel movement with a lot of mucus and she finished one of the bottles of GoLytely therefore she was started the other 1. Pending colonoscopy. Hemoglobin downtrending to 7.3. Exam Vital Signs Temp Pulse Resp BP Pulse Ox O2 Del Method 97.1 F 76 17 102/64 96 Room Air 10/22/24 04:00 10/22/24 04:00 10/22/24 04:00 10/22/24 04:00 10/22/24 04:00 10/22/24 04:00 Narrative Exam General: A/O x3, no acute distress, well-nourished, well-developed Eyes: PERRL, EOMI. Anicteric, vision grossly intact. Ears: No ear pain, no ear discharge, Hearing grossly intact. Nose: No nasal discharge. Mouth/Throat: Moist mucous membranes, no redness, no lesions. Neck: Neck supple, non-tender, no cervical lymphadenopathy. Lungs: Clear DEMETRA to auscultation and percussion, No accessory muscle use. Cardio: Normal S1/S2, regular rhythm, no murmurs, no JVD Abdomen: Soft, non-tender, no palpable masses, peristalsis present, no guarding or rebound. Extremities: Symmetrical, no significant deformities, no peripheral edema , non-tender, peripheral pulses presents. Skin: No rashes, no lesions, warm to touch. Neuro: No focal neurological deficits. motor and sensory intact Psych: Cooperative, appropriate mood and effect. Objective Labs 10/22/24 15:38 10/22/24 05:04 Labs: Laboratory Results - last 24 hr 10/21/24 10/21/24 10/22/24 00:13 05:21 05:04 WBC 9.0 7.8 RBC 4.02 3.79 L Hgb 7.9 L 7.3 L Hct 26.0 L 23.7 L MCV 65 L 63 L MCH 19.7 L 19.3 L MCHC 30.4 L 30.8 L RDW Std Deviation 38.9 37.9 Plt Count 272 255 Neut % (Auto) 87 H 72 Lymph % (Auto) 10 19 [place] % (Auto) 3 8 Eos % (Auto) 0 0 Baso % (Auto) 0 0 Neut # (Auto) 7.8 H 5.6 Lymph # (Auto) 0.9 L 1.5 [place] # (Auto) 0.3 0.7 Eos # (Auto) 0.0 0.0 Baso # (Auto) 0.0 0.0 Immature Gran # (Auto) 0.02 H 0.02 H Absolute Nucleated RBC 0.00 0.00 Immature Gran % 0 0 Nucleated RBC % 0 0 Smear Path Review Sent to Pathologist Sodium 141 Potassium 4.4 D Chloride 107 Carbon Dioxide 23.1 Anion Gap 11 BUN < 5 L Creatinine 0.6 Estim Creat Clear Calc 90.9 eGFR > 60 BUN/Creatinine Ratio 8 L Glucose 116 H Calculated Osmolality 279 Calcium 8.8 Corrected Calcium 8.8 Magnesium 1.8 Total Bilirubin 0.4 AST 16 ALT 8 L Alkaline Phosphatase 74 Total Protein 7.6 Albumin 4.4 Globulin 3.2 Albumin/Globulin Ratio 1.4 TSH 0.70 Stl C. diff Tox B Gene Negative Quality Measures Quality Measures VTE prophylaxis Assessment & Plan Assessment Current Active Medications: Generic Name Dose Route Start Last Admin Trade Name Freq PRN Reason Stop Dose Admin Acetaminophen 650 mg 10/20/24 15:00 10/21/24 00:30 Acetaminophen 325 Mg Tablet PO 11/19/24 14:59 650 mg Q6H PRN Administration pain 1-3 and Fever >100.4 Hydrocodone Bitart/Acetaminophen 1 tab 10/20/24 15:00 10/20/24 17:17 Hydrocodone/Apap 5/325 Tablet PO 10/25/24 14:59 1 tab Q4HR PRN Administration PAIN SCALE 4-10(Mod-Sev Folic Acid 1 mg 10/21/24 09:00 10/21/24 09:38 Folic Acid 1 Mg Tablet PO 11/20/24 08:59 1 mg QDAY ELAINE Administration Methylprednisolone Sodium Succinate 40 mg 10/20/24 14:30 10/21/24 20:43 Methylprednisolone Sod Succ 40 Mg Vial IVP 10/27/24 14:29 40 mg BID ELAINE Administration Ondansetron HCl 4 mg 10/20/24 15:00 10/20/24 17:29 Ondansetron Inj 2 Mg/Ml Inj 2 Ml IV 11/19/24 14:59 4 mg Q6H PRN Administration NAUSEA OR VOMITING Protocol Pantoprazole Sodium 40 mg 10/20/24 15:15 10/21/24 09:44 Pantoprazole Inj 40 Mg Vial IVP 11/19/24 15:14 40 mg QDAY ELAINE Administration Sulfasalazine 1,000 mg 10/20/24 14:30 10/21/24 20:44 Sulfasalazine 500 Mg Tablet PO 11/19/24 14:29 1,000 mg BID ELAINE Administration Plan 29-year-old female with past medical history of ulcerative colitis was admitted to the hospital on 10/20/2024 for lower GI bleed secondary to ulcerative colitis flare and resulting in blood loss anemia. #Ulcerative colitis flareup #Lower GI bleed #Acute blood loss anemia Patient came in with hemoglobin of 8.1 and was previously 11.2 on 02/2024 Patient has been having 6-7 bowel movements per day and have all been bloody. Patient has not been taking any medication for ulcerative colitis at this time Last colonoscopy was 1 year ago. Hgb today 7.3 Plan: Solu-Medrol 40 mg IV twice daily Sulfasalazine 1 g twice daily Protonix Folic acid Repeat H/H at 4pm. Will transfuse if hemoglobin less than 7 Clear liquid diet for possible colonoscopy today GI consulted, appreciate commendations Disposition: Pending colonoscopy. Diet: clear liquid GI prophylaxis: protonix DVT prophylaxis: SCDs in setting of bleed Code: full Case disclosed with Attending Dr. Gill Sena PGY1 Disclaimer: Even though this this note was dictated by speech recognition and even though it was carefully revised there may still be minor errors in logistics specialist due to voice recognition software. Attending Provider Attestation/Addendum I reviewed labs, imaging, EKG, home medications and prior available records. Face to face evaluation was performed by me. I have personally examined the patient and discussed assessment and plan with the IM team. I reviewed the resident note and agree with the plan with exceptions as below. Ulcerative colitis flare Acute anemia Microcytic anemia Bright blood per rectum Started IV corticosteroids Started mesalamine Clear liquid diet Consulted GI: Plan for colonoscopy Monitor H&H: Stable
[2024-10-22] MEDS: FOLIC ACID 1 MG TABLET PO (07:30)
[2024-10-22] MEDS: PANTOPRAZOLE INJ 40 MG VIAL IVP (07:30)
[2024-10-22] MEDS: NA SU/NAHCO3/KC/PEG (Golytely) 4,000 ML BTL 4000 ML PO (07:30)
--- NOTE | 2024-10-22 07:40 | PC.SS ---
Patient Noa Ochoa is a 29 Year old female admitted for GI Bleed, UC Flare.?Patient confirmed demographic and contact information. Patient resides at home with family. She reports her mother, Nadiya Batres is her surrogate decision maker [phone]. Patient reports she does not utilize any source of DME to assist with ambulation. Patient is able to complete all ADL's independently. Patient states she wishes to return back home when medically cleared.? D/C plan:? Return home Next of Kin: Mother, Nadiya Batres PCP:? Gill Krishnamurthy
[2024-10-22] MEDS: sulfaSALAzine 500 MG TABLET 1000 MG PO ×2 (08:10→21:23)
[2024-10-22 16:09] LABS: Hematocrit 26.6 % (36.0-46.0)
--- NOTE | 2024-10-22 16:38 | PC.NURSE ---
[facility]24 from [id number].
--- NOTE | 2024-10-22 20:13 | SUR.PHASEI ---
2009. REPORT GIVEN TO KRISTOPHER MAJOR, PATIENT TRANSFERRED BACK TO HER ROOM IN STABLE CONDITION BY RAVEN MAJOR.
[2024-10-23] VITALS (8 sets, daily range): BP systolic 92–129; BP diastolic 57–82; PULSE 67–106; RESP 15–99; TEMP 36–37.2; O2SAT 98–100
[2024-10-23 06:56] LABS: Basophils % (Auto) 0 % (0-2.5); Eosinophils % (Auto) 0 % (0-10); Hematocrit 25.4 % (36.0-46.0); Immature Granulocytes % (Auto) 0 % (0-0); Immature Granulocytes Auto 0.03 Thou/mm3 (0.00-0.00); Lymphocytes # (Auto) 1.3 Thou/mm3 (1.0-4.8); Lymphocytes % (Auto) 15 % (10-50); Mean Corpuscular HGB Conc 29.9 g/dl (31.0-37.0); Mean Corpuscular Hemoglobin 19.3 pg (25.0-35.0); Mean Corpuscular Volume 65 fL (80-100); Monocytes # (Auto) 0.4 Thou/mm3 (0.0-0.8); Monocytes % (Auto) 4 % (0-12); Neutrophils # (Auto) 7.1 Thou/mm3 (1.8-7.7); Neutrophils % (Auto) 80 % (37-80); Nucleated Red Blood Cell % 0 /100 WBC (0); Platelet Count 268 Thou/mm3 (140-440); RDW Standard Deviation 38.7 fL (36.4-46.3); Red Blood Count 3.94 Miln/mm3 (4.00-5.20); White Blood Count 8.9 Thou/mm3 (3.6-11.0)
[2024-10-23 07:07] LABS: Hemoglobin 7.6 g/dL (12.0-16.0)
[2024-10-23 07:16] LABS: Alanine Aminotransferase 9 U/L (10-49); Albumin, Serum 4.4 gm/dL (3.5-5.0); Albumin/Globulin Ratio 1.5 (1.2-2.2); Alkaline Phosphatase 66 U/L (46-116); Anion Gap 12 (7-16); Aspartate Amino Transferase 16 U/L (0-34); BUN/Creatinine Ratio 15 Ratio (12-20); Bilirubin,Total 0.3 mg/dL (0.3-1.2); Blood Urea Nitrogen 9 mg/dL (9-23); Calcium 8.8 mg/dL (8.3-10.6); Calcium (Corrected) 8.8 mg/dL (8.5-10.1); Carbon Dioxide 26.2 mMol/L (20.0-31.0); Chloride 103 mMol/L (98-107); Creatinine (Component) 0.6 mg/dL (0.6-1.3); Estimated Creatinine Clearance 92.8 mL/min (>60); Glucose 105 mg/dL (74-106); Osmolality,Calculated 279 (275-295); Potassium 3.9 mMol/L (3.4-5.1); Sodium 141 mMol/L (136-145); Total Protein 7.4 gm/dL (5.7-8.2); eGFR > 60 See Note
[2024-10-23] MEDS: sulfaSALAzine 500 MG TABLET 1000 MG PO ×2 (08:36→20:11)
[2024-10-23] MEDS: FOLIC ACID 1 MG TABLET PO (08:36)
[2024-10-23] MEDS: PANTOPRAZOLE INJ 40 MG VIAL IVP (08:36)
--- NOTE | 2024-10-23 09:20 | ESPR_ITS ---
Documentation for date of: 10/23/24 Subjective Subjective Interval history: Patient evaluated Added azathioprine to the schedule Diseases problem up to proximal transverse colon Terminal ileum in the right colon is spared Will try to send the patient home once diarrhea is under control Exam Vital Signs Temp Pulse Resp BP Pulse Ox O2 Del Method O2 Flow Rate 98.1 F 84 18 129/82 100 Room Air 3 10/23/24 07:55 10/23/24 07:55 10/23/24 07:55 10/23/24 07:55 10/23/24 07:55 10/23/24 07:55 10/22/24 19:45 Objective Labs 10/23/24 04:30 10/23/24 04:30 Labs: Laboratory Results - last 24 hr 10/22/24 10/23/24 15:38 04:30 WBC 8.9 RBC 3.94 L Hgb 8.0 L 7.6 L Hct 26.6 L 25.4 L MCV 65 L MCH 19.3 L MCHC 29.9 L RDW Std Deviation 38.7 Plt Count 268 Neut % (Auto) 80 Lymph % (Auto) 15 [place] % (Auto) 4 Eos % (Auto) 0 Baso % (Auto) 0 Neut # (Auto) 7.1 Lymph # (Auto) 1.3 [place] # (Auto) 0.4 Eos # (Auto) 0.0 Baso # (Auto) 0.0 Immature Gran # (Auto) 0.03 H Absolute Nucleated RBC 0.00 Immature Gran % 0 Nucleated RBC % 0 Sodium 141 Potassium 3.9 Chloride 103 Carbon Dioxide 26.2 Anion Gap 12 BUN 9 Creatinine 0.6 Estim Creat Clear Calc 92.8 eGFR > 60 BUN/Creatinine Ratio 15 Glucose 105 Calculated Osmolality 279 Calcium 8.8 Corrected Calcium 8.8 Magnesium 2.0 Total Bilirubin 0.3 AST 16 ALT 9 L Alkaline Phosphatase 66 Total Protein 7.4 Albumin 4.4 Globulin 3.0 Albumin/Globulin Ratio 1.5 Impressions Impression: Acute exacerbation of the underlying inflammatory bowel disease Add azathioprine 50 mg p.o. daily Assessment & Plan A&P Narrative Acute exacerbation of the underlying inflammatory bowel disease Acute posthemorrhagic anemia Plan Complete stool panel Including culture and sensitivity Fecal calprotectin C. difficile by PCR Start the patient on IV Solu-Medrol 40 mg IV every 12 Sulfasalazine 500 mg 2 tablets twice daily will eventually increase it Folic acid 1 mg p.o. daily Once patient stabilizes we will assess the disease via colonoscopy prior to discharge with possible biopsies and further treatment options Thank you very much for the opportunity to participate in the care of this patient Time Spent With Patient Time: Total time spent is greater than 50% in coordination of care (as documented) at patient's floor/unit and/or counseling patient:
--- NOTE | 2024-10-23 09:58 | PD.RESPRO ---
Documentation for date of: 10/23/24 Subjective Subjective Interval history: Patient was seen examined bedside this morning. No acute events. Patient underwent colonoscopy yesterday and was found to have inflammatory changes of the left-sided colon up to transverse colon. GI specialist stated that he would like to keep patient for 1 more night for monitoring and advancing diet. Otherwise patient yesterday only had a bowel movements throughout the day and tonight she did not have any bowel movements, but this morning she did have 4 bowel movements which were mostly diarrhea and sometimes with a little bit of blood. No other complaints at this time. Exam Vital Signs Temp Pulse Resp BP Pulse Ox O2 Del Method O2 Flow Rate 98.1 F 84 18 129/82 100 Room Air 3 10/23/24 07:55 10/23/24 07:55 10/23/24 07:55 10/23/24 07:55 10/23/24 07:55 10/23/24 07:55 10/22/24 19:45 Narrative Exam General: A/O x3, no acute distress, well-nourished, well-developed Eyes: PERRL, EOMI. Anicteric, vision grossly intact. Ears: No ear pain, no ear discharge, Hearing grossly intact. Nose: No nasal discharge. Mouth/Throat: Moist mucous membranes, no redness, no lesions. Neck: Neck supple, non-tender, no cervical lymphadenopathy. Lungs: Clear DEMETRA to auscultation and percussion, No accessory muscle use. Cardio: Normal S1/S2, regular rhythm, no murmurs, no JVD Abdomen: Soft, non-tender, no palpable masses, peristalsis present, no guarding or rebound. Extremities: Symmetrical, no significant deformities, no peripheral edema , non-tender, peripheral pulses presents. Skin: No rashes, no lesions, warm to touch. Neuro: No focal neurological deficits. motor and sensory intact Psych: Cooperative, appropriate mood and effect. Objective Labs 10/23/24 04:30 10/23/24 04:30 Labs: Laboratory Results - last 24 hr 10/22/24 10/23/24 15:38 04:30 WBC 8.9 RBC 3.94 L Hgb 8.0 L 7.6 L Hct 26.6 L 25.4 L MCV 65 L MCH 19.3 L MCHC 29.9 L RDW Std Deviation 38.7 Plt Count 268 Neut % (Auto) 80 Lymph % (Auto) 15 [place] % (Auto) 4 Eos % (Auto) 0 Baso % (Auto) 0 Neut # (Auto) 7.1 Lymph # (Auto) 1.3 [place] # (Auto) 0.4 Eos # (Auto) 0.0 Baso # (Auto) 0.0 Immature Gran # (Auto) 0.03 H Absolute Nucleated RBC 0.00 Immature Gran % 0 Nucleated RBC % 0 Sodium 141 Potassium 3.9 Chloride 103 Carbon Dioxide 26.2 Anion Gap 12 BUN 9 Creatinine 0.6 Estim Creat Clear Calc 92.8 eGFR > 60 BUN/Creatinine Ratio 15 Glucose 105 Calculated Osmolality 279 Calcium 8.8 Corrected Calcium 8.8 Magnesium 2.0 Total Bilirubin 0.3 AST 16 ALT 9 L Alkaline Phosphatase 66 Total Protein 7.4 Albumin 4.4 Globulin 3.0 Albumin/Globulin Ratio 1.5 Quality Measures Quality Measures VTE prophylaxis Assessment & Plan Assessment Current Active Medications: Generic Name Dose Route Start Last Admin Trade Name Freq PRN Reason Stop Dose Admin Acetaminophen 650 mg 10/20/24 15:00 10/21/24 00:30 Acetaminophen 325 Mg Tablet PO 11/19/24 14:59 650 mg Q6H PRN Administration pain 1-3 and Fever >100.4 Hydrocodone Bitart/Acetaminophen 1 tab 10/20/24 15:00 10/20/24 17:17 Hydrocodone/Apap 5/325 Tablet PO 10/25/24 14:59 1 tab Q4HR PRN Administration PAIN SCALE 4-10(Mod-Sev Folic Acid 1 mg 10/21/24 09:00 10/23/24 08:36 Folic Acid 1 Mg Tablet PO 11/20/24 08:59 1 mg QDAY ELAINE Administration Methylprednisolone Sodium Succinate 40 mg 10/20/24 14:30 10/23/24 08:35 Methylprednisolone Sod Succ 40 Mg Vial IVP 10/27/24 14:29 40 mg BID ELAINE Administration Ondansetron HCl 4 mg 10/20/24 15:00 10/20/24 17:29 Ondansetron Inj 2 Mg/Ml Inj 2 Ml IV 11/19/24 14:59 4 mg Q6H PRN Administration NAUSEA OR VOMITING Protocol Pantoprazole Sodium 40 mg 10/20/24 15:15 10/23/24 08:36 Pantoprazole Inj 40 Mg Vial IVP 11/19/24 15:14 40 mg QDAY ELAINE Administration Sulfasalazine 1,000 mg 10/20/24 14:30 10/23/24 08:36 Sulfasalazine 500 Mg Tablet PO 11/19/24 14:29 1,000 mg BID ELAINE Administration Plan 29-year-old female with past medical history of ulcerative colitis was admitted to the hospital on 10/20/2024 for lower GI bleed secondary to ulcerative colitis flare and resulting in blood loss anemia. #Ulcerative colitis flareup #Lower GI bleed #Acute blood loss anemia Patient came in with hemoglobin of 8.1 and was previously 11.2 on 02/2024 Patient has been having 6-7 bowel movements per day and have all been bloody. Patient has not been taking any medication for ulcerative colitis at this time Last colonoscopy was 1 year ago. Hgb today 7.6 Colonoscopy that showed inflammatory changes on the left-sided colon all the way to the transverse colon with bleeding. Plan: Solu-Medrol 40 mg IV twice daily Sulfasalazine 1 g twice daily Azthioprine 50 mg qday Protonix Folic acid Will transfuse if hemoglobin less than 7 GI consulted, appreciate commendations Disposition: Pending improvement in numbers of BM. Diet: low fiber GI prophylaxis: protonix DVT prophylaxis: SCDs in setting of bleed Code: full Case disclosed with Attending Dr. Gill Sena PGY1 Disclaimer: Even though this this note was dictated by speech recognition and even though it was carefully revised there may still be minor errors in volunteer services supervisor due to voice recognition software. Attending Provider Attestation/Addendum I reviewed labs, imaging, EKG, home medications and prior available records. Face to face evaluation was performed by me. I have personally examined the patient and discussed assessment and plan with the IM team. I reviewed the resident note and agree with the plan with exceptions as below. Ulcerative colitis flare Acute anemia Microcytic anemia Bright blood per rectum Started IV corticosteroids Started mesalamine Clear liquid diet S/p colonoscopy that showed hemorrhoids and friable rectal mucosa. Biopsy was obtained Monitor H&H: Stable Discussed with GI: Added azathioprine 50 mg daily. Keep for 1 more day
[2024-10-23] MEDS: azaTHIOprine 50 MG TABLET PO (10:58)
--- NOTE | 2024-10-23 15:30 | PC.SS ---
SS follow up note; Pending Dr. Strickland's clearance. Poss discharge home tomorrow.
[2024-10-24] VITALS: BP 102/67; PULSE 86; RESP 18; TEMP 36.4; O2SAT 99
[2024-10-24 04:00] VITALS: BP 102/67; PULSE 86; RESP 18; TEMP 36.4; O2SAT 99
[2024-10-24 05:55] LABS: Basophils % (Auto) 0 % (0-2.5); Eosinophils % (Auto) 0 % (0-10); Hematocrit 26.6 % (36.0-46.0); Immature Granulocytes % (Auto) 0 % (0-0); Immature Granulocytes Auto 0.03 Thou/mm3 (0.00-0.00); Lymphocytes # (Auto) 1.5 Thou/mm3 (1.0-4.8); Lymphocytes % (Auto) 16 % (10-50); Mean Corpuscular HGB Conc 30.1 g/dl (31.0-37.0); Mean Corpuscular Hemoglobin 19.1 pg (25.0-35.0); Mean Corpuscular Volume 64 fL (80-100); Monocytes # (Auto) 0.7 Thou/mm3 (0.0-0.8); Monocytes % (Auto) 8 % (0-12); Neutrophils # (Auto) 6.8 Thou/mm3 (1.8-7.7); Neutrophils % (Auto) 75 % (37-80); Nucleated Red Blood Cell % 0 /100 WBC (0); Platelet Count 281 Thou/mm3 (140-440); RDW Standard Deviation 37.5 fL (36.4-46.3); Red Blood Count 4.19 Miln/mm3 (4.00-5.20)
[2024-10-24 06:21] LABS: Alanine Aminotransferase 7 U/L (10-49); Albumin, Serum 4.7 gm/dL (3.5-5.0); Albumin/Globulin Ratio 1.5 (1.2-2.2); Alkaline Phosphatase 71 U/L (46-116); Anion Gap 8 (7-16); Aspartate Amino Transferase 12 U/L (0-34); BUN/Creatinine Ratio 13 Ratio (12-20); Bilirubin,Total 0.3 mg/dL (0.3-1.2); Blood Urea Nitrogen 8 mg/dL (9-23); Calcium 8.8 mg/dL (8.3-10.6); Calcium (Corrected) 8.8 mg/dL (8.5-10.1); Chloride 104 mMol/L (98-107); Creatinine (Component) 0.6 mg/dL (0.6-1.3); Estimated Creatinine Clearance 92.8 mL/min (>60); Globulin 3.1 gm/dL (2.3-3.5); Glucose 117 mg/dL (74-106); Magnesium 1.9 mg/dL (1.6-2.6); Osmolality,Calculated 278 (275-295); Potassium 4.1 mMol/L (3.4-5.1); Sodium 140 mMol/L (136-145); Total Protein 7.8 gm/dL (5.7-8.2); eGFR > 60 See Note
--- NOTE | 2024-10-24 07:19 | PC.NURSE ---
Pt called, had a bloody BM in the toilet . Upon checking, toilet water is red no stool seen, pt denies dizziness of any problem. will cont to monitor.
[2024-10-24 07:59] VITALS: BP 114/87; PULSE 89; RESP 18; TEMP 36.5; O2SAT 100
[2024-10-24] MEDS: PANTOPRAZOLE 40 MG TABLET PO (08:59)
[2024-10-24] MEDS: FOLIC ACID 1 MG TABLET PO (08:59)
[2024-10-24] MEDS: predniSONE 20 MG TABLET 50 MG PO (08:59)
[2024-10-24] MEDS: sulfaSALAzine 500 MG TABLET 1000 MG PO (08:59)
[2024-10-24] MEDS: azaTHIOprine 50 MG TABLET PO (08:59)
--- NOTE | 2024-10-24 09:23 | PC.SS ---
SS follow up note; Patient will discharge, will need to have bowl movement before discharging home today.
[2024-10-24 10:09] LABS: Hemoglobin 8.3 g/dL (12.0-16.0)
--- NOTE | 2024-10-24 12:03 | ESDS_ITS ---
Planned Discharge Date 10/24/24 DS: Providers Provider Date of admission: 10/20/24 15:57 Primary care physician: Abdon Garcia MD Admitting Provider: Raghu Garland MD Attending Provider on Admission: Akin Stevens MD Consults: 10/20/24 14:22 Consult to Gastroenterology Stat Comment: Lower GI bleed Consulting Provider: Eddie Strickland 10/20/24 21:50 Referral Registered Dietitian Routine Comment: Attending Provider on DC: Akin Stevens MD Discharging Provider: Akin Stevens MD DS: Diagnosis Problem List Completed Was Problem List Reviewed/Reconciled?: Yes Hospital Course Hospital Course Hospital course: 29-year-old female with past medical history of ulcerative colitis was admitted to the hospital on 10/20/2024 for lower GI bleed secondary to ulcerative colitis flare and resulting in blood loss anemia. Came into the ED with complaints of of bright red blood per rectum for the past few days.Patient came in normotensive and afebrile. Initial labs were relevant for low hemoglobin (8.1), and otherwise unremarkable. Initial imaging included abdomen/pelvis CT which was unremarkable. Patient was placed on Solu-Medrol 40 mg twice daily and sulfasalazine 1 g twice daily as well as folic acid. Patient underwent colonoscopy which found friable tissue on the left-sided colon of the way to the transverse colon. Patient remained stable and had less bowel movements by the time of discharge where she was having only around 4-6 bowel movements. Repeat hemoglobin prior to discharge was also stable. Patient did not require any b lood transfusion throughout the hospital stay. At the time of discharge patient was stable enough to be discharged home. Discharge plan: Please follow your primary care physician within 1 week upon discharge You have been started on azathioprine 50 mg daily You have been started on folic acid 1 mg tablet daily You have been started pantoprazole 40 mg daily for 30 days You have been started on sulfasalazine 1000 mg twice daily You have been started on prednisone 5 mg tablets with taper instructions. Taper instructions are as follows 25 mg (5 tablets) twice daily for 7 days 20 mg (4 tablets) twice daily for 7 days 15 mg (3 tablets) twice daily for 7 days 10 mg (2 tablets) twice daily for 7 days 5 mg (1 tablet) twice daily for 7 days 5 mg (1 tablet) (daily for 7 days Please come back to the ER if symptoms persist or worsen Problem list: #Ulcerative colitis flareup #Lower GI bleed #Acute blood loss anemia Case disclosed with Attending Dr. Rodney Sena PGY1 Disclaimer: Even though this this note was dictated by speech recognition and even though it was carefully revised there may still be minor errors in electrifier operator due to voice recognition software. Status at Discharge Overall status at discharge: patient is progressing back to baseline Time Spent with Patient Time attestation: Total time spent providing and/or coordinating discharge services:>30 min Time spent: Less than 30 minutes Exam Vital Signs Temp Pulse Resp BP Pulse Ox O2 Del Method O2 Flow Rate 97.7 F 89 18 114/87 H 100 Room Air 3 10/24/24 07:59 10/24/24 07:59 10/24/24 07:59 10/24/24 07:59 10/24/24 07:59 10/24/24 07:59 10/24/24 04:00 Narrative Exam General: A/O x3, no acute distress, well-nourished, well-developed Eyes: PERRL, EOMI. Anicteric, vision grossly intact. Ears: No ear pain, no ear discharge, Hearing grossly intact. Nose: No nasal discharge. Mouth/Throat: Moist mucous membranes, no redness, no lesions. Neck: Neck supple, non-tender, no cervical lymphadenopathy. Lungs: Clear DEMETRA to auscultation and percussion, No accessory muscle use. Cardio: Normal S1/S2, regular rhythm, no murmurs, no JVD Abdomen: Soft, non-tender, no palpable masses, peristalsis present, no guarding or rebound. Extremities: Symmetrical, no significant deformities, no peripheral edema , non-tender, peripheral pulses presents. Skin: No rashes, no lesions, warm to touch. Neuro: No focal neurological deficits. motor and sensory intact Psych: Cooperative, appropriate mood and effect. Discharge Plan Plan Patient Disposition: HOME (Self Care) Care Plan Goals: Please follow your primary care physician within 1 week upon discharge You have been started on azathioprine 50 mg daily You have been started on folic acid 1 mg tablet daily You have been started pantoprazole 40 mg daily for 30 days You have been started on sulfasalazine 1000 mg twice daily You have been started on prednisone 5 mg tablets with taper instructions. Taper instructions are as follows 25 mg (5 tablets) twice daily for 7 days 20 mg (4 tablets) twice daily for 7 days 15 mg (3 tablets) twice daily for 7 days 10 mg (2 tablets) twice daily for 7 days 5 mg (1 tablet) twice daily for 7 days 5 mg (1 tablet) (daily for 7 days Please come back to the ER if symptoms persist or worsen Prescriptions/Referrals Prescriptions/Med Rec: New sulfasalazine 500 mg Tablet 1,000 mg PO BID 30 Days Qty: 120 0RF azathioprine 50 mg Tablet 50 mg PO QDAY 30 Days Qty: 30 0RF folic acid 1 mg Tablet 1 mg PO QDAY 30 Days Qty: 30 0RF prednisone 5 mg tablet See Taper PO QDAY Qty: 217 0RF Taper: Prednisone Taper 25 mg TWICE A DAY for 7 Days and 0 Hour 20 mg TWICE A DAY for 7 Days and 0 Hour 15 mg TWICE A DAY for 7 Days and 0 Hour 10 mg TWICE A DAY for 7 Days 5 mg TWICE A DAY for 7 Days 5 mg DAILY for 7 Days pantoprazole 40 mg tablet,delayed release (DR/EC) 40 mg PO QDAY Qty: 30 0RF Continued multivitamin [Daily Multi-Vitamin] Tablet 1 tab PO QAM Referrals: [facility] [Outside] Abdon Garcia MD [Primary Care Provider] - Patient/Caregiver Discharge Instructions Other Discharge Activity Instructions:: Please follow your primary care physician within 1 week upon discharge If you do not have a primary care physician you can follow up at the [facility]. You have been started on azathioprine 50 mg daily You have been started on folic acid 1 mg tablet daily You have been started pantoprazole 40 mg daily for 30 days You have been started on sulfasalazine 1000 mg twice daily You have been started on prednisone 5 mg tablets with taper instructions. Taper instructions are as follows 25 mg (5 tablets) twice daily for 7 days 20 mg (4 tablets) twice daily for 7 days 15 mg (3 tablets) twice daily for 7 days 10 mg (2 tablets) twice daily for 7 days 5 mg (1 tablet) twice daily for 7 days 5 mg (1 tablet) (daily for 7 days Please come back to the ER if symptoms persist or worsen Education Materials: Colitis Ulcerative Dc Print Language: Faroese Stand Alone Forms: Nancie Award Info., Patient Portal Info Letter Discharge Order Discharge Orders: Discharge (Routine); Ordered 10/24/24 Ordered By: Michael Sena Quality Discharge Quality Measures VTE prophylaxis Attestestation MD Attestation I attest that I was physically present for the evaluation, physical examination, lab and imaging review of the patient with the residents. I discussed the case with the residents and agree with the findings and plans of care as documented above. Akin Stevens MD
--- NOTE | 2024-10-24 19:53 | PD.IMPROG ---
Documentation for date of: 10/24/24 Subjective Subjective Interval history: Late entry for the note Case discussed with internal medicine team Patient will be sent home with the following medications Prednisone 50 mg once a day to be tapered off over 6 weeks Sulfasalazine 500 mg tablet 2 tablets twice daily Folic acid 1 mg p.o. daily Azathioprine 50 mg once a day Patient will be followed in the [facility] internal medicine clinic Exam Vital Signs Temp Pulse Resp BP Pulse Ox O2 Del Method O2 Flow Rate 97.7 F 89 18 114/87 H 100 Room Air 3 10/24/24 07:59 10/24/24 07:59 10/24/24 07:59 10/24/24 07:59 10/24/24 07:59 10/24/24 07:59 10/24/24 04:00 Objective Labs 10/24/24 09:20 10/24/24 04:40 Labs: Laboratory Results - last 24 hr 10/24/24 10/24/24 04:40 09:20 WBC 9.0 RBC 4.19 Hgb 8.0 L 8.3 L Hct 26.6 L 27.0 L MCV 64 L MCH 19.1 L MCHC 30.1 L RDW Std Deviation 37.5 Plt Count 281 Neut % (Auto) 75 Lymph % (Auto) 16 [place] % (Auto) 8 Eos % (Auto) 0 Baso % (Auto) 0 Neut # (Auto) 6.8 Lymph # (Auto) 1.5 [place] # (Auto) 0.7 Eos # (Auto) 0.0 Baso # (Auto) 0.0 Immature Gran # (Auto) 0.03 H Absolute Nucleated RBC 0.00 Immature Gran % 0 Nucleated RBC % 0 Sodium 140 Potassium 4.1 Chloride 104 Carbon Dioxide 28.0 Anion Gap 8 BUN 8 L Creatinine 0.6 Estim Creat Clear Calc 92.8 eGFR > 60 BUN/Creatinine Ratio 13 Glucose 117 H Calculated Osmolality 278 Calcium 8.8 Corrected Calcium 8.8 Magnesium 1.9 Total Bilirubin 0.3 AST 12 ALT 7 L Alkaline Phosphatase 71 Total Protein 7.8 Albumin 4.7 Globulin 3.1 Albumin/Globulin Ratio 1.5 Impressions Impression: Acute exacerbation of the underlying inflammatory bowel disease Plan As under HPI Assessment & Plan A&P Narrative Acute exacerbation of the underlying inflammatory bowel disease Acute posthemorrhagic anemia Plan Complete stool panel Including culture and sensitivity Fecal calprotectin C. difficile by PCR Start the patient on IV Solu-Medrol 40 mg IV every 12 Sulfasalazine 500 mg 2 tablets twice daily will eventually increase it Folic acid 1 mg p.o. daily Once patient stabilizes we will assess the disease via colonoscopy prior to discharge with possible biopsies and further treatment options Thank you very much for the opportunity to participate in the care of this patient Time Spent With Patient Time: Total time spent is greater than 50% in coordination of care (as documented) at patient's floor/unit and/or counseling patient:
[2024-10-26 06:30] LABS: Giardia Result NOT DETECTED
[2024-10-31 06:56] LABS: Calprotectin, Stool* 3040 mcg/g
[2024-11-02 06:24] LABS: ANCA Screen POSITIVE (NEGATIVE); Myeloperoxidase Ab <1.0 AI (<1.0); Proteinase-3 Ab <1.0 AI (<1.0)
== END 2024-10-24 11:09 | disposition home or self-care (01) | DRG 245 ==
LOC: SERX 14:31 → SERHOLD 17:37 → S3NX 10-21 15:26
PROVIDERS: Nurse Practitioner Primary Care; Specialist; Admitting Provider Student in an Organized Health Care Education/Training Program; Emergency Provider Emergency Medicine; PCP Family Medicine; Visit Provider Student in an Organized Health Care Education/Training Program
PROC: 0DJD8ZZ Inspection of Lower Intestinal Tract, Via Natural or Artificial Opening Endoscopic (ICD-10-PCS; CPT 45378; principal; 2024-10-22 19:00)
DX: K51.911 Ulcerative colitis, unspecified with rectal bleeding (principal); D62 Acute posthemorrhagic anemia; D50.9 Iron deficiency anemia, unspecified; K64.9 Unspecified hemorrhoids; Z79.624 Long term (current) use of inhibitors of nucleotide synthesis
CPT/HCPCS: 36415; 74176; 80053; 81025; 83690; 83735; 83993; 84443; 85014; 85018; 85025; 85610; 85652; 85730; 86021; 86036; 86140; 86850; 86900; 86901; 87015; 87045; 87046; 87205; 87329; 87493; 87899; 96374; 96375; 99285; J1200; J2250; J2405; J2470; J2919; J3010; J7030; J7500; J7512; A9270

== ENCOUNTER 2024-10-31 14:46 | Outpatient (AMB) | payer MEDICAID, SELFPAY ==
[2024-10-31 15:24] VITALS: BP 129/86; PULSE 81; RESP 17; TEMP 36.8; O2SAT 100
--- NOTE | 2024-10-31 15:24 | PD.RESCLINIC ---
Vital Signs 10/31/24 15:24 Height 1.47 m Height Method Stated Weight 43.602 kg Weight Measurement Method Standing Scale BMI 20.0 BP 129/86 H Blood Pressure Source Automatic Cuff Blood Pressure Location Right Upper Arm Position Sitting Respiration 17 Pulse 81 Pulse Source Monitor Temp 98.2 F Temp Source Temporal Artery Scan Pulse Oximetry (%) 100 Oxygen Delivery Method Room Air Allergies/Meds Allergies & Medications Allergies Penicillins Allergy (Mild, Verified 10/31/24 15:25) RASH vancomycin Allergy (Mild, Verified 10/31/24 15:25) REDNESS, ITCHING tree and shrub pollen Allergy (Verified 10/31/24 15:25) Rash Medication Reconciliation multivitamin (Daily Multi-Vitamin tablet) 1 tab PO QAM 10/20/24 [History Confirmed 10/31/24] prednisone 5 mg tablet See Taper PO QDAY #217 tabs 10/24/24 [Rx Confirmed 10/31/24] azathioprine 50 mg tablet 50 mg PO BID 30 days #60 tabs 10/31/24 [Rx] folic acid 1 mg tablet 1 mg PO QDAY 30 days #30 tabs 10/31/24 [Rx] pantoprazole 40 mg tablet,delayed release 40 mg PO QDAY #30 tabs 10/31/24 [Rx] sulfasalazine 500 mg tablet 1,000 mg (2 x 500 mg) PO TID 30 days #180 tabs 10/31/24 [Rx] MA Intake Visit Data Collection New Patient or Established: Established Patient (seen at [facility] within 3 years) Seen by Clinical Staff ONLY (RN/MA): No Pain Present Currently: Yes Pain Location: Abdomen Pain scale:: 7 Pain Scale Used: Goldman-Waters/Numerical Swing Ride Operator Required: No PCP or OBGYN visit in last 3 months: Yes Date of Last PCP or OBGYN visit: 10/24/24 Hx Now: No Date of Last Menstrual Period: 10/17/24 Do You Feel Safe at Home: Yes Authorities Contacted: N/A Smoking Status Smoking Status: Never smoker Immunization / Flu Flu Vaccine in the Last 12 Months: No Flu Vaccine Exclusion Criteria: No Exclusion Criteria Past Medical History Past Medical History NEUROLOGIC: Negative Neurological Disorders or Seizures CARDIAC: Negative Cardiac Disorders or Congestive Heart Failure RESPIRATORY: Positive Asthma (under control. Did not need to use inhaler in yrs.); Negative Chronic Obstructive Pulmonary Disease (COPD), Bronchitis, Emphysema, Pneumonia, Pulmonary Fibrosis, Cystic Fibrosis, Tuberculosis, Pulmonary Embolism, Pulmonary Edema or Sleep Apnea GASTROINTESTINAL: Positive Gastrointestinal Disorders, Gastrointestinal Bleed (x4 yrs heavy rectal bleeding, clots at times) and Ulcerative Colitis (x4 yrs); Negative Diverticulitis or Ulcer GENITOURINARY: Negative Genitourinary Disorders or Renal Disease ENDOCRINE: Negative Endocrine Disorders, Diabetes Mellitus Type 1 or Diabetes Mellitus Type 2 HEMATOLOGIC: Positive Anemia; Negative Blood Disorders or Sickle Cell Disease OTHER HISTORY: Negative Autoimmune Disease, Falls, Blood Transfusions, Anesthesia Reactions, Organ Transplant, VRSA, Clostridium Difficile or Cancer Family History FAMILY HISTORY: Positive Family Respiratory Disorders (uncle- stage 4 lung ca), Family Cardiac Disorders, Family Gastrointestinal Problems (uncle- stage 4 cirrhosis, hep B, ), Family Cancer (uncle- lung ca) and Family Surgery; Negative Family Psychiatric Problems or Family Anesthesia Reaction Surgical History SURGICAL: Negative Organ Transplant Social History SMOKING STATUS: Smoking status: Never smoker SECOND HAND EXPOSURE: second hand exposure: No (heavy medical marijuana x10 yrs- QUIT a month ago.) ALCOHOL: Alcohol Intake: Never HOUSING: Housing: Apartment LIVES WITH: Lives With: Family Patient Portal Questionaires PHQ-9 PHQ-2 Over the last 2 weeks, how often have you been bothered by any of the following problems? 1. Little interest or pleasure in doing things: not at all 2. Feeling down, depressed, or hopeless: not at all Total score: 0 PHQ-9 3. Trouble falling or staying asleep, or sleeping too much: Not at all 4. Feeling tired or having little energy: Not at all 5. Poor appetite or overeating: Not at all 6. Feeling bad about yourself - or that you are a failure or have let yourself or your family down: Not at all 7. Trouble concentrating on things, such as reading the newspaper or watching television: Not at all 8. Moving or speaking so slowly that other people could have noticed? - Or the opposite - being so fidgety or restless that you have been moving around a lot more than usual: not at all 9. Thoughts that you would be better off or of hurting yourself in some way: Not at all Total score: 0 If you checked off any problems, how difficult have these problems made it for you to do your work, take care of things at home, or get along with other people?: not difficult at all Source: Developed by Drs. Jony Milner, Becca Reid, Mario Ramsey and colleagues, with an educational jakob from [employer]. Depression screen completed yes Social History Living Situation History Marital Status: Single Lives With: Family Housing: Apartment Housing Other:: Patient resides in an apartment with his fiance, daughter, and mother. Tobacco History Smoking Status: Never smoker Second Hand Smoke Exposure: No (heavy medical marijuana x10 yrs- QUIT a month ago.) Alcohol History Alcohol Intake: Never Substance Use History Substance Use: last taken a month ago Domestic Abuse History Do You Feel Safe at Home: Yes Review of Systems Report any current symptoms Only answer those that you have currently: Past Medical History Past Medical History Have you ever been diagnosed with any of the following: Neurological Problems Seizures: No Cardiology Problems Congestive Heart Failure: No Respiratory Problems Chronic Obstructive Pulmonary Disease (COPD): No Asthma: Yes (under control. Did not need to use inhaler in yrs.) Bronchitis: No Emphysema: No Pneumonia: No Pulmonary Fibrosis: No Tuberculosis: No Pulmonary Embolism: No Pulmonary Edema: No Sleep Apnea: No Stomache/Intestinal Problems Gastrointestinal Bleed: Yes (x4 yrs heavy rectal bleeding, clots at times) Ulcerative Colitis: Yes (x4 yrs) Diverticulitis: No Ulcer: No Genital/Urinary Problems Renal Disease: No Endocrine Problems Diabetes Mellitus Type 1: No Diabetes Mellitus Type 2: No Blood Problems Anemia: Yes Sickle Cell Disease: No Other Problems Autoimmune Disease: No Falls: No Blood Transfusions: No Anesthesia Reactions: No Organ Transplant: No VRSA: No Clostridium Difficile: No Cancer: No History of Present Illness HPI Narrative 29-year-old female with past medical history of ulcerative colitis was seen at the [facility] due to recent hospital admission due to UC flare. Patient was discharged on regimen for UC, but states that she is still having around 10 bloody BM per day with atleast 4 at night which wake her up. She also states she has been having abdominal pain and cramps as well. She mentioned she has felt chills and weakness, but has not felt dizzy. Patient also mentioned she noticed her urine change color. No other complaints at this time. Discussed with GI specialist who stated to change azathioprine to 50mg BID and sulfasalazine to 3gm per day. Review of Systems Review of Systems Narrative Review of Systems: Constitutional: Denies sweats, Denies weight loss/gain, Denies fever, Admits chills. HEENT: Denies hearing loss, Denies ear pain, Denies postnasal drip, Denies double vision, Denies blurry vision. Respiratory: Denies shortness of breath, Denies cough, Denies wheezing. Cardiovascular: Denies chest pain, Denies palpitations, Denies sudden loss of consciousness. GI: Admits blood in stool, Denies constipation, Admits abdominal pain, Denies difficulty swallowing, Denies nausea or vomit. : Denies urinary incontinence, Denies pain while urinating, Admits changes in urine Denies increased urinary frequency. MSK: Denies joint pain, Denies joint swelling, Denies numbness. Skin: Denies rash, Denies itching, Denies easy bruising. Neuro: Denies headaches, Denies dizziness, Denies seizures. Objective/Exam General Limitations: no limitations General Appearance: alert, cooperative and well groomed Head Head exam: atraumatic, normocephalic and normal inspection Eye Eye exam: Present normal appearance, PERRL and EOMI ENT ENT exam: Present normal exam, normal oropharynx and mucous membranes moist Neck Neck exam: Present normal inspection and full ROM Resp Respiratory exam: Present normal lung sounds bilaterally Card Cardiovascular exam: Present regular rate, normal rhythm and normal heart sounds Abdominal Abdominal exam: Present soft and normal bowel sounds Abdominal tenderness: Present LUQ and LLQ Extremities Extremities exam: Present normal inspection, full ROM and normal capillary refill Neuro Neurological exam: Present alert, oriented X3 and CN II-XII intact Psych Psychiatric exam: Present normal affect and normal mood Assessment & Plan Diagnosis / Problem List (1) Ulcerative colitis: Status: Acute Qualifiers: Ulcerative colitis location: unspecified ulcerative colitis location Digestive disease complication type: unspecified complication Qualified Code(s): K51.919 - Ulcerative colitis, unspecified with unspecified complications Assessment & Plan: Patient still having around 10 bloody BM per day with atleast 4 been at night. Also having Abd pain and cramping Plan: Increase azathioprine to 50mg BID and sulfasalazine to 1 gm TID Ordered CBC to assess hemoglobin Continue prednisone taper refilled folic acid and pantoprazole (2) Unspecified abnormal findings in urine: Status: Acute Assessment & Plan: Patient states having dark urine Plan: UA ordered Additional Plan Disincrease azathioprine and sulfasalzine Case disclosed with Attending Dr. Gopal Sena PGY1 Disclaimer: Even though this this note was dictated by speech recognition and even though it was carefully revised there may still be minor errors in specialist physician due to voice recognition software. Office Procedures [facility] Level of Care Nursing/Assessment Patient Status: Established Patient Nursing Assessment/Reassessment: Medication Reconciliation, Update PMH in EMR and Vital Signs Coordination of Care: Complex Care and Chronic Disease 1-5, Education Complex Pt/Fam, Consent,records obtained, informed consent, Lab and Imaging orders, Results/Orders obtained and Staff clarify orders Established Patient Charge Established Patient Point Assignment: 110 Established Patient Point Charge: EP Level 3 (80-115)
== END 2024-10-31 15:44 | disposition home or self-care (01) ==
LOC: HODAHC 14:46
PROVIDERS: Supervising Provider Internal Medicine
DX: K51.90 Ulcerative colitis, unspecified, without complications (principal); R82.998 Other abnormal findings in urine
CPT/HCPCS: 99213; G0463

== ENCOUNTER 2024-11-01 08:37 | Inpatient (IN) | payer MEDICAID, SELFPAY ==
[2024-11-01 08:46] VITALS: BP 150/76; PULSE 139; RESP 16; TEMP 37.3; O2SAT 99; BMI 20.5
--- NOTE | 2024-11-01 08:52 | PD.EDRME ---
Rapid Medical Screening Exam [facility] Arrival date/time: 11/01/24 08:37 29-year-old female with a history of ulcerative colitis presents to the emergency room with a chief complaint of rectal bleeding. Patient states she has more than 10 episodes of bloody stools. Patient was admitted for a flareup of ulcerative colitis last week and was sent to the emergency room by Dr. Gallardo. I have greeted and performed a focused initial assessment of this patient. A comprehensive ED assessment and evaluation of the patient, analysis of all test results, and completion of the medical decision making process will be conducted by additional ED providers. Chief Complaint: GI Bleed Vital signs: Vital Signs Temperature 99.2 F 11/01/24 08:46 Pulse Rate 139 H 11/01/24 08:46 Respiratory Rate 16 11/01/24 08:46 Blood Pressure 150/76 H 11/01/24 08:46 Pulse Oximetry (%) 99 11/01/24 08:46 Oxygen Delivery Method Room Air 11/01/24 08:46 Vital signs reviewed by provider: Yes
[2024-11-01 09:30] LABS: Basophils # (Auto) 0.1 Thou/mm3 (0.0-0.2); Basophils % (Auto) 0 % (0-2.5); Eosinophils % (Auto) 0 % (0-10); Hematocrit 29.1 % (36.0-46.0); Immature Granulocytes % (Auto) 1 % (0-0); Immature Granulocytes Auto 0.17 Thou/mm3 (0.00-0.00); Lymphocytes # (Auto) 2.9 Thou/mm3 (1.0-4.8); Lymphocytes % (Auto) 16 % (10-50); Mean Corpuscular HGB Conc 29.6 g/dl (31.0-37.0); Mean Corpuscular Volume 64 fL (80-100); Monocytes # (Auto) 1.8 Thou/mm3 (0.0-0.8); Monocytes % (Auto) 10 % (0-12); Neutrophils # (Auto) 13.5 Thou/mm3 (1.8-7.7); Neutrophils % (Auto) 73 % (37-80); Nucleated Red Blood Cell % 1 /100 WBC (0); Platelet Count 436 Thou/mm3 (140-440); Red Blood Count 4.53 Miln/mm3 (4.00-5.20); White Blood Count 18.4 Thou/mm3 (3.6-11.0)
[2024-11-01 09:38] LABS: Collection Type, Urine Clean Catch
[2024-11-01 09:45] LABS: HCG Qualitative,Urine Negative
[2024-11-01 09:47] LABS: Hemoglobin 8.6 g/dL (12.0-16.0)
[2024-11-01 09:50] LABS: INR 1.2 (0.9-1.3); Prothrombin Time 12.7 Seconds (9.0-12.2)
[2024-11-01 09:53] LABS: Alanine Aminotransferase 8 U/L (10-49); Albumin, Serum 4.7 gm/dL (3.5-5.0); Albumin/Globulin Ratio 1.6 (1.2-2.2); Alkaline Phosphatase 68 U/L (46-116); Anion Gap 14 (7-16); Aspartate Amino Transferase 19 U/L (0-34); BUN/Creatinine Ratio 14 Ratio (12-20); Bilirubin,Total 0.3 mg/dL (0.3-1.2); Blood Urea Nitrogen 10 mg/dL (9-23); Calcium 9.4 mg/dL (8.3-10.6); Calcium (Corrected) 9.4 mg/dL (8.5-10.1); Carbon Dioxide 27.3 mMol/L (20.0-31.0); Chloride 98 mMol/L (98-107); Creatinine (Component) 0.7 mg/dL (0.6-1.3); Estimated Creatinine Clearance 77.9 mL/min (>60); Globulin 2.9 gm/dL (2.3-3.5); Glucose 103 mg/dL (74-106); Lipase 27 U/L (12-53); Osmolality,Calculated 276 (275-295); Potassium 3.2 mMol/L (3.4-5.1); Sodium 139 mMol/L (136-145); Total Protein 7.6 gm/dL (5.7-8.2); eGFR > 60 See Note
[2024-11-01 09:55] LABS: Bacteria,Urine Rare; Bilirubin,Urine Negative (Negative); Blood,Urine Trace (Negative); Color,Urine Drk-Yellow (Lt Yel-Yel); Glucose, Urine Negative (Negative); Ketones,Urine Negative (Negative); Leukocyte Esterase,Urine Positive (Negative); Nitrite,Urine Negative (Negative); PH,Urine 6.5 (5.0-7.0); Protein,Urine 1+ (Neg - Trace); RBC,Urine 8 /hpf (0-3); Specific Gravity,Urine 1.026 (1.001-1.035); Squamous Epithelial Cell,Urine 13 /hpf (0-5); Urobilinogen,Urine Negative mg/dL (0.0-1.0); WBC,Urine 9 /hpf (0-5)
[2024-11-01 09:59] LABS: Clarity,Urine Hazy (Clear/Hazy)
[2024-11-01 10:05] VITALS: BP 127/86; PULSE 93; RESP 18; TEMP 37.3; O2SAT 100
--- NOTE | 2024-11-01 10:25 | PD.EDADULT ---
ED General RME/HPI General Chief complaint: GI Bleed Stated complaint: DR MEEKS SENT FOR BLEEDING ULCERATIVE COLITISGERMAIN Time Seen by Provider: 11/01/24 08:55 Arrival date/time: 11/01/24 08:37 RME / HPI RME / HPI narrative: 11/01/24 08:37 29-year-old female with a history of ulcerative colitis presents to the emergency room with a chief complaint of rectal bleeding. Patient states she has more than 10 episodes of bloody stools. Patient was admitted for a flareup of ulcerative colitis last week and was sent to the emergency room by Dr. Meeks. I have greeted and performed a focused initial assessment of this patient. A comprehensive ED assessment and evaluation of the patient, analysis of all test results, and completion of the medical decision making process will be conducted by additional ED providers. DR. DAVIES MAIN ED EVALUATION: 29 year old female with past medical history significant for ulcerative colitis, currently being treated, presents to the Emergency Department with complaints of nausea, vomiting x7-8 episodes, diarrhea with rectal bleeding x10+ episodes with mucus but mostly blood, and left-sided abdominal pain. Onset of symptoms today. Associated symptoms include generalized weakness, shakiness, chills, and subjective fevers. She states she is currently being treated for ulcerative colitis but the medicines are not working. She had a colonoscopy done last week by Dr. Strickland. Related Data Home Medications ?Medication ?Instructions ?Recorded ?Confirmed multivitamin (Daily Multi-Vitamin 1 tab PO QAM 10/20/24 10/31/24 tablet) Previous Rx's ?Medication ?Instructions ?Recorded prednisone 5 mg tablet See Taper PO QDAY #217 tabs 10/24/24 azathioprine 50 mg tablet 50 mg PO BID 30 days #60 tabs 10/31/24 folic acid 1 mg tablet 1 mg PO QDAY 30 days #30 tabs 10/31/24 pantoprazole 40 mg tablet,delayed 40 mg PO QDAY #30 tabs 10/31/24 release sulfasalazine 500 mg tablet 1,000 mg (2 x 500 mg) PO TID 30 10/31/24 days #180 tabs Allergies Allergy/AdvReac Type Severity Reaction Status Date / Time Penicillins Allergy Mild RASH Verified 11/01/24 08:40 vancomycin Allergy Mild REDNESS, Verified 11/01/24 08:40 ITCHING tree and shrub pollen Allergy Rash Verified 11/01/24 08:40 Review of Systems Review of Systems Systems Reviewed: All systems reviewed, normal except as documented Narrative Review of Systems: GEN: + shakiness, + chills, + subjective fevers, no weight loss EYES: No discharge, no visual changes, no pain HEENT: No ear pain, no congestion, no sore throat PULM: No shortness of breath, no cough, no congestion CV: No chest pain, no dyspnea on exertion, no palpitations GI: + nausea, + vomiting x7-8 episodes, + diarrhea with rectal bleeding x10+ episodes with mucus but mostly blood, + left-sided abdominal pain, no constipation : No frequency, no urgency and no dysuria MUSC/SKEL: No joint pain, no back pain SKIN: No rash PSYCH: No hallucinations, no depression HEME/LYMPH: No easy bleeding or bruising tendencies NEURO: + generalized weakness, no headache Past Medical History Past Medical History RESPIRATORY: Positive Asthma (under control. Did not need to use inhaler in yrs.) GASTROINTESTINAL: Positive Gastrointestinal Disorders, Gastrointestinal Bleed (x4 yrs heavy rectal bleeding, clots at times) and Ulcerative Colitis (x4 yrs) HEMATOLOGIC: Positive Anemia Family History FAMILY HISTORY: Positive Family Respiratory Disorders, Family Cardiac Disorders, Family Gastrointestinal Problems, Family Cancer and Family Surgery Surgical History SURGICAL: Positive Oral Surgery ([place] teeth removed) Social History SMOKING STATUS: Never smoker SECOND HAND EXPOSURE: No (heavy medical marijuana x10 yrs- QUIT a month ago.) SUBSTANCE USE: does not use ALCOHOL: Never ED Exam Narrative Physical exam: GENERAL APPEARANCE: alert and oriented x 4, well-developed, well-nourished, no acute distress, pallor VITALS: All vitals were reviewed and the pulse ox is 100% on room air, which is normal according to my interpretation. HEENT: Normocephalic, atraumatic; pupils equal, round, reactive to light; EOMI; mucous membranes pink, moist; oropharynx clear NECK: Supple LUNGS: CTABL; no wheezes, no rales, no rhonchi HEART: Regular rate, regular rhythm; normal S1, S2; no murmurs ABDOMEN: non distended; normal BS; soft, there is left lower quadrant tenderness, no rebound; no masses, no organomegaly, no hernia BACK: no CVA tenderness EXTREMITIES: atraumatic; no edema NEUROLOGIC: awake; alert and oriented x4; cranial nerves II-XII grossly intact; no focal sensory or motor deficits PSYCHIATRIC: appropriate mood and affect SKIN: warm, dry, pallor; no rashes Course Quality Measures none Orders Category Date Time Status CT Screening NOW Care 11/01/24 10:25 Active Insert IV NOW Care 11/01/24 11:[address] abdomen pelvis w con Stat Exams 11/01/24 10:25 Completed Blood Culture (Lab) Stat Lab 11/01/24 10:28 Received CBC Stat Lab 11/01/24 09:20 Completed CMP [Comprehensive Metabolic Panel] Stat Lab 11/01/24 09:20 Completed Cocci Serology IgM with reflex to IgG [Cocci Serology, Lab 11/01/24 13:05 Received Unk History] Stat HCG Qualitative,Urine Stat Lab 11/01/24 09:23 Completed Lactate (Lactic Acid) Stat Lab 11/01/24 10:22 Completed Lipase Stat Lab 11/01/24 09:20 Completed PT [Prothrombin Time with INR] Stat Lab 11/01/24 09:20 Completed PTT [Partial Thromboplastin Time] Stat Lab 11/01/24 09:20 Completed Procalcitonin Stat Lab 11/01/24 10:22 Completed Quantiferon-TB* Stat Lab 11/01/24 13:05 Received Type and Screen Stat Lab 11/01/24 09:20 Completed UA [Urinalysis] Stat Lab 11/01/24 09:23 Completed Urine Culture Stat Lab 11/01/24 09:23 Received MethylPREDNISolone. [SoluMEDROL Inj] Med 11/01/24 12:49 Discontinued 40 mg IVP X1 ONE Ondansetron Inj [Zofran Inj] Med 11/01/24 10:32 Discontinued 4 mg IVP X1 ONE Sodium Chloride 0.9% 1000 ml [Ns] 1,000 ml Med 11/01/24 10:32 Discontinued IV 999 mls/hr Vital Signs Vital signs: Vital Signs Temperature 99.2 F 11/01/24 08:46 Pulse Rate 139 H 11/01/24 08:46 Respiratory Rate 16 11/01/24 08:46 Blood Pressure 150/76 H 11/01/24 08:46 Pulse Oximetry (%) 99 11/01/24 08:46 Oxygen Delivery Method Room Air 11/01/24 08:46 Discharge Plan Plan Patient Disposition: Admit Acute Care w/in Hospital Prescriptions/Referrals Prescriptions/Med Rec: No Action azathioprine 50 mg tablet 50 mg PO BID 30 Days Qty: 60 1RF folic acid 1 mg tablet 1 mg PO QDAY 30 Days Qty: 30 0RF pantoprazole 40 mg tablet,delayed release (DR/EC) 40 mg PO QDAY Qty: 30 0RF sulfasalazine 500 mg tablet 1,000 mg PO TID 30 Days Qty: 180 1RF multivitamin [Daily Multi-Vitamin] Tablet 1 tab PO QAM prednisone 5 mg tablet See Taper PO QDAY Qty: 217 0RF Taper: Prednisone Taper 25 mg TWICE A DAY for 7 Days and 0 Hour 20 mg TWICE A DAY for 7 Days and 0 Hour 15 mg TWICE A DAY for 7 Days and 0 Hour 10 mg TWICE A DAY for 7 Days 5 mg TWICE A DAY for 7 Days 5 mg DAILY for 7 Days Referrals: Michael Bueno MD [Primary Care Provider] - In 1 week Problem List Clinical Impression: Ulcerative colitis, Exacerbation of ulcerative colitis, Rectal bleed Patient/Caregiver Discharge Instructions Print Language: Lithuanian Stand Alone Forms: Nancie Award Info., Patient Portal Info Letter MDM Narrative [facility] hospital course: I, Mounika Sotelo am scribing for and in the presence of Dr. Davies. Clinical Information Provided by patient and spouse Medical Records Reviewed [facility] Meds/Rx Considered, not Ordered None Labs/Rad/Tests considered, not Ordered None Chronic Illness/Social Conditions Add or document further as needed: She states she is currently being treated for ulcerative colitis but the medicines are not working. She had a colonoscopy done last week by Dr. Strickland. Lab Interpretation Labs: interpreted by pa Lab(s) interpretation(s): ulcerative colitis WBC 18.4 Imaging Radiology reports / interpretation(s): Procedure(s): CT abdomen pelvis w con Accession Number(s): [id number] cc: Giovani Sherman MD; Michael Bueno MD; Ashlee Davies MD~ Examination: CT abdomen with intravenous contrast CT pelvis with intravenous contrast 2-D coronal reconstructions 2-D sagittal reconstructions Date and time of exam:October 24, 2024 1121 hours COMPARISON: October 20, 2024 INDICATIONS: Diagnosis of ulcerative colitis, rectal bleeding today. CTDI: vol (mGy) 4.52 DLP: (mGycm) 212 Technique: Multiple axial sections of the abdomen and pelvis have been obtained. 64 slice high-resolution scanner used. 3 mm axial sections have been obtained, post intravenous injection 60 cc [id number] 2-D sagittal, coronal reconstructions obtained. Low dose protocols were performed. One or more of the following dose reduction techniques were used; automated exposure control, adjustment of the mA and/or KV according to patient size, use of iterative reconstruction technique. Findings: No focal liver or splenic lesion No gallstones No pancreatic mass No renal or ureteral calculi, no hydronephrosis Aorta normal size No pericecal inflammatory change The entire colon shows wall thickening and hyperemia including the rectum, colitis pattern 16mm left ovarian cyst Urinary bladder intact IMPRESSION: Diffuse moderately severe colitis pattern consistent with the patient's diagnosis of ulcerative colitis 16mm left ovarian cyst Dictated By: Giovani Sherman MD Medication Administration(s) Medication Administration History Discontinued Medications Sodium Chloride (Ns) 1,000 mls @ 999 mls/hr IV .Q1H1M ONE Stop: 11/01/24 11:32 Last Infusion: 11/01/24 13:08 Dose: Infused Documented By: Admin: 11/01/24 11:42 Dose: 999 mls/hr Documented By: ASHOK Methylprednisolone Sodium Succinate (Methylprednisolone Sod Succ 40 Mg Vial) 40 mg IVP X1 ONE Stop: 11/01/24 12:50 Ondansetron HCl (Ondansetron Inj 2 Mg/Ml Inj 2 Ml) 4 mg IVP X1 ONE; Protocol Stop: 11/01/24 10:33 Last Admin: 11/01/24 11:42 Dose: 4 mg Documented By: ASHOK Consultations/Discussions re: Management Consult #1: Date/time: 11/01/24 12:50 pm Physician, specialty, service, details: Discussed test HPI, PMHx, lab, radiology results and/or management with Dr. Strickland. Will consult an admission to the hospitalist. Dr. Strickland recommended cocci, TB test, and starting the patient on Solumedrol Inj 40 mg IVP x1. Consult #2: Date/time: 11/01/24 1:12 pm Physician, specialty, service, details: Discussed test HPI, PMHx, lab, radiology results and/or management with hospitalist Dr. Queen. Will admit for further evaluation and management. Accepts patient for admission. Diagnosis Differential diagnosis: ulcerative colitis, GI bleed, abdominal pain Most likely dx, and/or detailed dx discussion: Ulcerative colitis Exacerbation of ulcerative colitis Rectal bleeding Dispositon Disposition: Admit
[2024-11-01 10:38] LABS: Lactate (Lactic Acid) 1.5 mMol/L (0.4-2.0)
[2024-11-01 11:04] LABS: Procalcitonin 0.13 ng/ml (0.0-0.49)
[2024-11-01] MEDS: ONDANSETRON INJ 2 MG/ML INJ 2 ML 4 MG IVP (11:42)
[2024-11-01] MEDS: SODIUM CHLORIDE 0.9% 1000 ML 1,000 ML 999 ML IV (11:42)
[2024-11-01 13:10] LABS: Quantiferon-TB* See Sep Rpt
[2024-11-01] MEDS: RINGERS LACTATED 1000 ML 1,000 ML 75 ML IV (13:35)
--- NOTE | 2024-11-01 14:53 | ESHP_ITS ---
<Statement entered by Keyona Queen MD - 11/06/24 14:41> I reviewed above note and agree with findings and plans. I have also personally examined the patient with medicine team and went over assessment and plan with medical team including hospitality intern and resident physician. Documentation for date of: 11/01/24 HPI History of Present Illness Chief complaint: n/v and bloody diarrhea History of present illness: Ms. Ochoa is a 29-year-old female with past medical history significant for ulcerative colitis who presented to the ED with bloody diarrhea x 10 episodes at least and nausea/vomiting x 7 episodes this morning. Patient states that she was just discharged last week, and saw her PCP yesterday, with similar symptoms of persistent bloody diarrhea up to at least 10 times a day, and often wakes her up at night. However, the nausea vomiting is new, and started this morning. Patient also noticed that her urine has changed to bright yellow. Patient also endorses chills, weakness bilateral flank pain and severe abdominal cramps prior to having the urge to defecate. Patient's home medications of azathioprine was increased from 50 mg daily to 50 mg twice daily as well as sulfasalazine 1 g to 3 g total. Patient also was on her steroid taper at 25 mg daily. Otherwise, patient denies any foul smell in her urine, frequency and urine, chest pain, headaches, dizziness, blurry vision. Of note, patient's last menstrual period was 10/17/2024. In the ED, patient was given Zofran, 1 L bolus, methylprednisolone 40 mg IV x 1. ED course: Patient presented with blood pressure 150/76, with a heart rate of 139, temp 99.2, suggesting hemodynamically stable vitals. Labs significant for leukocytosis of 18.4, low hemoglobin of 8.6, microcytic anemia, elevated PT, low potassium of 3.2, 1+ protein in urine, trace blood in urine 8 RBC and urine. Cocci IgM pending, hepatitis panel nonreactive, TB test pending. CT abdomen pelvis showed diffuse moderately severe colitis and a 16 mm left ovarian cyst. No renal or ureteral calculi seen or pyelonephritis seen. Patient was admitted for further management of IBD flare. After examination of the patient and review of clinical data I feel this patient needs to be admitted to the hospital for further treatment and evaluation of ulcerative colitis flare. Review of Systems Review of Systems Systems Reviewed: All systems reviewed, normal except as documented Past Medical History Past Medical History Comments PMH COMMENT: PMH: As above Surgical Hx: None per patient Medications: Multivitamin Social Hx: Admits smoking marijuana, denies any cigarette use or alcohol. Exam Vital Signs Temp Pulse Resp BP Pulse Ox O2 Del Method 99.1 F 93 18 127/86 H 100 Room Air 11/01/24 10:05 11/01/24 10:11/01/24 10:05 11/01/24 10:05 11/01/24 10:11/01/24 10:05 Narrative Exam General Appearance: Pt in mild distress, ill-appearing, young female. Conversational, well developed. HEENT: NC/AT, no scleral icterus, no conjunctival pallor, dry mucous membranes Lungs: CTAB, no wheezes or crackles appreciated CVS: RRR, S1/S2 heard, no murmurs or rubs appreciated ABD: Soft, mild tenderness to suprapubic region and bilateral costovertebral regions, bowel sounds heard EXT: no deformity/edema/lesions/cyanosis/clubbing, radial pulses 2+ BL, DP pulses 2 + BL SKIN: Skin exam normal without any rashes. Neuro: A&O x 3. No gross neurological deficits. Motor and sensory grossly intact in B/L UL and LL. Psych: Appropriate mood and affect Results: Labs 11/01/24 09:20 11/01/24 09:20 Labs: Short CBC 11/01/24 Range/Units 09:20 WBC 18.4 H (3.6-11.0) Thou/mm3 Hgb 8.6 L (12.0-16.0) g/dL Hct 29.1 L (36.0-46.0) % Plt Count 436 D (140-440) Thou/mm3 BMP 11/01/24 09:20 Sodium 139 Potassium 3.2 L Chloride 98 Carbon Dioxide 27.3 BUN 10 Creatinine 0.7 Glucose 103 Calcium 9.4 Liver Function 11/01/24 Range/Units 09:20 Total Bilirubin 0.3 (0.3-1.2) mg/dL AST 19 (0-34) U/L ALT 8 L (10-49) U/L Alkaline Phosphatase 68 (46-116) U/L Albumin 4.7 (3.5-5.0) gm/dL Urine 11/01/24 Range/Units 09:23 Urine Color Drk-Yellow A (Lt Yel-Yel) Urine Clarity Hazy (Clear/Hazy) Urine pH 6.5 (5.0-7.0) Ur Specific [place] 1.026 (1.001-1.035) Urine Protein 1+ A (Neg - Trace) Urine Glucose (UA) Negative (Negative) Quality Measures Quality Measures none Medications Home Medications and Allergies Home Medications ?Medication ?Instructions ?Recorded ?Confirmed ?Type multivitamin (Daily Multi-Vitamin 1 tab PO QAM 5 10/31/24 History tablet) Allergies Allergy/AdvReac Type Severity Reaction Status Date / Time Penicillins Allergy Mild RASH Verified 11/01/24 08:40 vancomycin Allergy Mild REDNESS, Verified 11/01/24 08:40 ITCHING tree and shrub pollen Allergy Rash Verified 11/01/24 08:40 Visit Medications Acetaminophen (Acetaminophen 325 Mg Tablet) 650 mg PO Q6H PRN PRN Reason: Fever > 100.4 or Pain 1-3 Stop: 12/01/24 13:13 Azathioprine (Azathioprine 50 Mg Tablet) 50 mg PO BID [facility] Stop: 12/01/24 14:14 Folic Acid (Folic Acid 1 Mg Tablet) 1 mg PO QDAY [facility] Stop: 12/01/24 14:14 Lactated Ringer's (Lactated Ringers) 1,000 mls @ 75 mls/hr IV .[id number] [facility] Stop: 12/01/24 13:14 Last Admin: 11/01/24 13:35 Dose: 75 mls/hr Methylprednisolone Sodium Succinate (Methylprednisolone Sod Succ 40 Mg Vial) 40 mg IVP QDAY [facility] Stop: 11/09/24 08:59 Ondansetron HCl (Ondansetron Inj 2 Mg/Ml Inj 2 Ml) 4 mg IVP Q6HR PRN; Protocol PRN Reason: NAUSEA OR VOMITING Stop: 12/01/24 13:19 Pantoprazole Sodium (Pantoprazole Inj 40 Mg Vial) 40 mg IVP Q12HR [facility] Stop: 12/01/24 20:59 Sulfasalazine (Sulfasalazine 500 Mg Tablet) 1,000 mg PO TID [facility] Stop: 12/01/24 14:14 Discontinued Medications Sodium Chloride (Ns) 1,000 mls @ 999 mls/hr IV .Q1H1M ONE Stop: 11/01/24 11:32 Last Infusion: 11/01/24 13:08 Dose: Infused Methylprednisolone Sodium Succinate (Methylprednisolone Sod Succ 40 Mg Vial) 40 mg IVP X1 ONE Stop: 11/01/24 12:50 Last Admin: 11/01/24 13:33 Dose: 40 mg Ondansetron HCl (Ondansetron Inj 2 Mg/Ml Inj 2 Ml) 4 mg IVP X1 ONE; Protocol Stop: 11/01/24 10:33 Last Admin: 11/01/24 11:42 Dose: 4 mg Assessment & Plan Plan 29-year-old female with past medical history of ulcerative colitis was admitted to the hospital on 10/20/2024 for lower GI bleed secondary to ulcerative colitis flare and resulting in blood loss anemia. #Ulcerative colitis flareup #Lower GI bleed #Acute blood loss anemia Patient came in with hemoglobin of 8.1 and was previously 11.2 on 02/2024 Patient has been having 6-7 bowel movements per day and have all been bloody. Patient has not been taking any medication for ulcerative colitis at this time Last colonoscopy was 1 year ago and last admission, 1 week ago Plan: Type and screen Solu-Medrol 40 mg IV twice daily Sulfasalazine 1 g TID daily Azathioprine 100mg QD Protonix IV BID Will transfuse if hemoglobin less than 7 CLD Stool studies C-diff Cocci, Hep panel, TB for biologics GI consulted, appreciate commendations Disposition: Patient admitted to [facility] for UC flareup. Diet: clear liquid GI prophylaxis: protonix DVT prophylaxis: SCDs in setting of bleed Code: full Patient's plan and care discussed with my attending, Dr. Bret Xie MD PGY-2
[2024-11-01 14:59] VITALS: BP 111/75; PULSE 98; RESP 18; TEMP 37.1; O2SAT 100
[2024-11-01 15:13] LABS: Hepatitis A Antibody IgM Non Reactive (Non React); Hepatitis B Core Antibody IgM Non Reactive (Non React); Hepatitis B Surface Antigen Non Reactive (Non React); Hepatitis C Antibody Non Reactive (Non React)
[2024-11-01] MEDS: FOLIC ACID 1 MG TABLET PO (15:21)
[2024-11-01] MEDS: sulfaSALAzine 500 MG TABLET 1000 MG PO ×2 (15:21→21:44)
[2024-11-01] MEDS: azaTHIOprine 50 MG TABLET PO ×2 (15:21→16:24)
[2024-11-01] MEDS: LEVOFLOXACIN/D5W 750MG IVPB 750 MG/150 ML BAG 100 MG IV (15:21)
[2024-11-01 17:29] VITALS: BP 117/76; PULSE 83; RESP 16; TEMP 36.5; O2SAT 100
[2024-11-01 17:30] VITALS: BMI 19.5
--- NOTE | 2024-11-01 19:29 | PD.IMCONS ---
HPI Data of Consult Requesting Physician: Keyona Qeuen MD Primary Care Provider: Michael Sena MD Consult Narrative Reason for consult: Bloody stools multiple episodes History of present illness: 29 years old female sent to the emergency room with multiple episodes of bloody diarrhea She has a history of confirmed inflammatory bowel disease on the previous colonoscopy done on previous admission which shows inflammatory changes all the way up to the proximal transverse colon Patient was started on sulfasalazine folic acid azathioprine and IV Solu-Medrol in the hospital and she was sent home on a tapering dose of prednisone The problems have not improved And she came back to the emergency room CT scan of the abdomen pelvis shows inflammatory changes of the colon on the left side cc:: cc: Keyona Queen MD Review of Systems Review of Systems Systems Reviewed: All systems reviewed, normal except as documented Past Medical History Surgical History OTHER SURGICAL HX: As in the history of present illness Meds Home Medications and Allergies Home Medications ?Medication ?Instructions ?Recorded ?Confirmed ?Type multivitamin (Daily Multi-Vitamin 1 tab PO QAM 10/20/24 10/31/24 History tablet) Allergies Allergy/AdvReac Type Severity Reaction Status Date / Time Penicillins Allergy Mild RASH Verified 11/01/24 08:40 vancomycin Allergy Mild REDNESS, Verified 11/01/24 08:40 ITCHING tree and shrub pollen Allergy Rash Verified 11/01/24 08:40 Exam Vital Signs Temp Pulse Resp BP Pulse Ox O2 Del Method 97.7 F 83 16 117/76 100 Room Air 11/01/24 17:29 11/01/24 17:29 11/01/24 17:29 11/01/24 17:29 11/01/24 17:29 11/01/24 17:29 Constitutional Comments: Chronically ill-appearing Routine Respiratory Exam Comments: Normal to auscultation Routine Abdominal Exam Comments: Tenderness minimal positive bowel sounds Results Labs 11/03/24 04:55 11/03/24 04:55 Labs: Short CBC 11/01/24 Range/Units 09:20 WBC 18.4 H (3.6-11.0) Thou/mm3 Hgb 8.6 L (12.0-16.0) g/dL Hct 29.1 L (36.0-46.0) % Plt Count 436 D (140-440) Thou/mm3 BMP 11/01/24 09:20 Sodium 139 Potassium 3.2 L Chloride 98 Carbon Dioxide 27.3 BUN 10 Creatinine 0.7 Glucose 103 Calcium 9.4 Liver Function 11/01/24 Range/Units 09:20 Total Bilirubin 0.3 (0.3-1.2) mg/dL AST 19 (0-34) U/L ALT 8 L (10-49) U/L Alkaline Phosphatase 68 (46-116) U/L Albumin 4.7 (3.5-5.0) gm/dL Urine 11/01/24 Range/Units 09:23 Urine Color Drk-Yellow A (Lt Yel-Yel) Urine Clarity Hazy (Clear/Hazy) Urine pH 6.5 (5.0-7.0) Ur Specific [place] 1.026 (1.001-1.035) Urine Protein 1+ A (Neg - Trace) Urine Glucose (UA) Negative (Negative) Assessment and Plan Additional Assessment & Plan Additional Plan: # Acute exacerbation of the underlying inflammatory bowel disease ulcerative colitis , No response to conservative management with sulfasalazine folic acid oral prednisone and azathioprine Plan Complete stool panel IV Solu-Medrol Cocci serologies QuantiFERON serum testing for TB Once the above results come back negative Recommend Inflectra 5 mg/kg body weight first dose in the hospital after proper authorization from the insurance carrier for the whole year Dosing is as follows 0-week first dose Week 2 second dose Week 4 third dose After that dose every 8 weeks CRP Thank you very much for the opportunity to participate in the care of this patient
[2024-11-01 20:00] VITALS: BP 129/73; PULSE 79; RESP 18; TEMP 36.2; O2SAT 100
[2024-11-01 21:14] LABS: Stool for WBCs 2+ (Negative)
[2024-11-01] MEDS: PANTOPRAZOLE INJ 40 MG VIAL IVP (21:43)
[2024-11-02] VITALS (13 sets, daily range): BP systolic 106–139; BP diastolic 56–90; PULSE 72–89; RESP 16–18; TEMP 36.1–37; O2SAT 99–100
[2024-11-02] MEDS: RINGERS LACTATED 1000 ML 1,000 ML 75 ML IV ×2 (02:35→17:32)
[2024-11-02] MEDS: sulfaSALAzine 500 MG TABLET 1000 MG PO ×3 (05:47→21:14)
[2024-11-02 06:19] LABS: Basophils % (Auto) 0 % (0-2.5); Eosinophils % (Auto) 0 % (0-10); Hematocrit 20.2 % (36.0-46.0); Immature Granulocytes % (Auto) 1 % (0-0); Immature Granulocytes Auto 0.11 Thou/mm3 (0.00-0.00); Lymphocytes # (Auto) 1.6 Thou/mm3 (1.0-4.8); Lymphocytes % (Auto) 13 % (10-50); Mean Corpuscular HGB Conc 30.7 g/dl (31.0-37.0); Mean Corpuscular Hemoglobin 19.2 pg (25.0-35.0); Mean Corpuscular Volume 63 fL (80-100); Monocytes # (Auto) 1.1 Thou/mm3 (0.0-0.8); Monocytes % (Auto) 9 % (0-12); Neutrophils # (Auto) 9.5 Thou/mm3 (1.8-7.7); Neutrophils % (Auto) 77 % (37-80); Nucleated Red Blood Cell # 0.04 Thou/mm3 (0.00-0.00); Nucleated Red Blood Cell % 0 /100 WBC (0); Platelet Count 261 Thou/mm3 (140-440); Red Blood Count 3.23 Miln/mm3 (4.00-5.20); White Blood Count 12.3 Thou/mm3 (3.6-11.0)
[2024-11-02 06:22] LABS: Hemoglobin 6.2 g/dL (12.0-16.0)
[2024-11-02 06:41] LABS: Alanine Aminotransferase < 7 U/L (10-49); Albumin, Serum 3.6 gm/dL (3.5-5.0); Albumin/Globulin Ratio 1.7 (1.2-2.2); Alkaline Phosphatase 49 U/L (46-116); Anion Gap 12 (7-16); Aspartate Amino Transferase < 10 U/L (0-34); BUN/Creatinine Ratio 13 Ratio (12-20); Bilirubin,Total 0.3 mg/dL (0.3-1.2); Blood Urea Nitrogen < 5 mg/dL (9-23); Calcium 8.1 mg/dL (8.3-10.6); Calcium (Corrected) 8.4 mg/dL (8.5-10.1); Chloride 103 mMol/L (98-107); Creatinine (Component) 0.4 mg/dL (0.6-1.3); Estimated Creatinine Clearance 136.4 mL/min (>60); Globulin 2.1 gm/dL (2.3-3.5); Glucose 109 mg/dL (74-106); Magnesium 1.8 mg/dL (1.6-2.6); Osmolality,Calculated 277 (275-295); Potassium 3.8 mMol/L (3.4-5.1); Sodium 140 mMol/L (136-145); Total Protein 5.7 gm/dL (5.7-8.2); eGFR > 60 See Note
--- NOTE | 2024-11-02 06:42 | PC.NURSE ---
pt's HGB 6.2, HCT 20.2, Dr. Fletcher was made aware.
[2024-11-02] MEDS: POTASSIUM CHLORIDE 20 mEq TABCR PO (09:27)
[2024-11-02] MEDS: FOLIC ACID 1 MG TABLET PO (09:28)
[2024-11-02] MEDS: Magnesium Sulfate 2 GM Ivpb 2 GM/50 ML BAG IV (09:28)
[2024-11-02] MEDS: PANTOPRAZOLE INJ 40 MG VIAL IVP ×2 (09:28→21:14)
--- NOTE | 2024-11-02 10:37 | PC.SS ---
Noa Ochoa is a 29-year-old female admitted to Med Surg for IBD Flare Vs Intractable N/V/D. SS conducted bedside contact with the patient to complete initial assessment and to discuss discharge planning. Role and reason explained. Patient confirmed demographic information. Patient identifies her Mother Nadiya Batres [phone] as her surrogate decision maker. Pt states she is able to complete all ADL?s independently. No need for any source of DME. Pts PCP is Dr. Sami Sena. Pharmacy of choice is [facility] on [address]. Discharge options discussed and the pt wishes to return home.? Family will provide transportation upon DC. No further intervention required at this time, health social work professor would be available to address any further concerns. DC Plan: Home Contact: Mother Nadiya Address: Confirmed on face sheet PCP: Gretchen
[2024-11-02] MEDS: azaTHIOprine 50 MG TABLET 100 MG PO (10:46)
[2024-11-02 11:35] LABS: Clostridium Difficile PCR Negative (Negative)
[2024-11-02 11:57] LABS: Cocci Serology, IgM Positive (Negative)
[2024-11-02 11:58] LABS: Cocid Sro, CF/ID (UCD) NO CHG* See Sep Rpt
--- NOTE | 2024-11-02 14:24 | ESPR_ITS ---
<Statement entered by Keyona Queen MD - 11/08/24 15:43> I reviewed above note and agree with findings and plans. I have also personally examined the patient with medicine team and went over assessment and plan with medical team including agriculture internship and resident physician. Documentation for date of: 11/02/24 Subjective Subjective Interval history: Overnight, no acute events reported. Patient continues to have bloody bowel movements, and has had about 5 since this morning at 4 AM. Patient's vital signs are stable. White count has decreased from 18-12. Patient hemoglobin was low at 6.2, and will transfuse 2 units packed RBCs. Otherwise, patient denies having any nausea or vomiting. And would like to have more solid foods. C. difficile is negative. Pending TB testing. Cocci IgM positive. Exam Vital Signs Temp Pulse Resp BP Pulse Ox O2 Del Method 97.6 F 80 18 107/60 99 Room Air 11/02/24 13:32 11/02/24 13:32 11/02/24 13:32 11/02/24 13:32 11/02/24 13:32 11/02/24 08:00 Narrative Exam General Appearance: Pt in mild distress, ill-appearing, young female. Conversational, well developed. HEENT: NC/AT, no scleral icterus, no conjunctival pallor, dry mucous membranes Lungs: CTAB, no wheezes or crackles appreciated CVS: RRR, S1/S2 heard, no murmurs or rubs appreciated ABD: Soft, mild tenderness to suprapubic region and bilateral costovertebral regions, bowel sounds heard EXT: no deformity/edema/lesions/cyanosis/clubbing, radial pulses 2+ BL, DP pulses 2 + BL SKIN: Skin exam normal without any rashes. Neuro: A&O x 3. No gross neurological deficits. Motor and sensory grossly intact in B/L UL and LL. Psych: Appropriate mood and affect Objective Labs 11/02/24 05:31 11/02/24 05:31 Labs: Laboratory Results - last 24 hr 11/01/24 11/01/24 11/01/24 09:20 10:22 13:05 WBC RBC Hgb Hct MCV MCH MCHC RDW Std Deviation Plt Count Neut % (Auto) Lymph % (Auto) [place] % (Auto) Eos % (Auto) Baso % (Auto) Neut # (Auto) Lymph # (Auto) [place] # (Auto) Eos # (Auto) Baso # (Auto) Immature Gran # (Auto) Absolute Nucleated RBC Immature Gran % Nucleated RBC % Sodium Potassium Chloride Carbon Dioxide Anion Gap BUN Creatinine Estim Creat Clear Calc eGFR BUN/Creatinine Ratio Glucose Calculated Osmolality Calcium Corrected Calcium Magnesium Total Bilirubin AST ALT Alkaline Phosphatase Total Protein Albumin Globulin Albumin/Globulin Ratio Stool for White Cells Stl C. diff Tox B Gene Coccidioides IgM Ab Positive A Hepatitis A IgM Ab Non Reactive Hep Bs Antigen Non Reactive Hep B Core IgM Ab Non Reactive Hepatitis C Antibody Non Reactive Blood Type O Positive Antibody Screen NEGATIVE Crossmatch See Detail Blood Bank Wristband ID Yes 11/01/24 11/02/24 18:10 05:31 WBC 12.3 H D RBC 3.23 L Hgb 6.2 L* D Hct 20.2 L* MCV 63 L MCH 19.2 L MCHC 30.7 L RDW Std Deviation 38.0 Plt Count 261 D Neut % (Auto) 77 Lymph % (Auto) 13 [place] % (Auto) 9 Eos % (Auto) 0 Baso % (Auto) 0 Neut # (Auto) 9.5 H Lymph # (Auto) 1.6 [place] # (Auto) 1.1 H Eos # (Auto) 0.0 Baso # (Auto) 0.0 Immature Gran # (Auto) 0.11 H Absolute Nucleated RBC 0.04 H Immature Gran % 1 H Nucleated RBC % 0 Sodium 140 Potassium 3.8 D Chloride 103 Carbon Dioxide 25.0 Anion Gap 12 BUN < 5 L Creatinine 0.4 L Estim Creat Clear Calc 136.4 eGFR > 60 BUN/Creatinine Ratio 13 Glucose 109 H Calculated Osmolality 277 Calcium 8.1 L Corrected Calcium 8.4 L Magnesium 1.8 Total Bilirubin 0.3 AST < 10 ALT < 7 L Alkaline Phosphatase 49 D Total Protein 5.7 Albumin 3.6 D Globulin 2.1 L Albumin/Globulin Ratio 1.7 Stool for White Cells 2+ A Stl C. diff Tox B Gene Negative Coccidioides IgM Ab Hepatitis A IgM Ab Hep Bs Antigen Hep B Core IgM Ab Hepatitis C Antibody Blood Type Antibody Screen Crossmatch Blood Bank Wristband ID Quality Measures Quality Measures none Assessment & Plan Assessment Current Active Medications: Generic Name Dose Route Start Last Admin Trade Name Freq PRN Reason Stop Dose Admin Acetaminophen 650 mg 11/01/24 13:14 Acetaminophen 325 Mg Tablet PO 12/01/24 13:13 Q6H PRN Fever > 100.4 or Pain 1-3 Azathioprine 100 mg 11/02/24 09:00 11/02/24 10:46 Azathioprine 50 Mg Tablet PO 12/02/24 08:59 100 mg DAILY ELAINE Administration Folic Acid 1 mg 11/01/24 14:15 11/02/24 09:28 Folic Acid 1 Mg Tablet PO 12/01/24 14:14 1 mg QDAY ELAINE Administration Lactated Ringer's 1,000 mls @ 75 mls/hr 11/01/24 13:15 11/02/24 02:35 Lactated Ringers IV 12/01/24 13:14 75 mls/hr .[id number] ELAINE Administration Methylprednisolone Sodium Succinate 40 mg 11/01/24 21:00 11/02/24 09:28 Methylprednisolone Sod Succ 40 Mg Vial IVP 11/08/24 20:59 40 mg BID ELAINE Administration Ondansetron HCl 4 mg 11/01/24 13:20 Ondansetron Inj 2 Mg/Ml Inj 2 Ml IVP 12/01/24 13:19 Q6HR PRN NAUSEA OR VOMITING Protocol Pantoprazole Sodium 40 mg 11/01/24 21:00 11/02/24 09:28 Pantoprazole Inj 40 Mg Vial IVP 12/01/24 20:59 40 mg Q12HR ELAINE Administration Sulfasalazine 1,000 mg 11/01/24 14:15 11/02/24 13:15 Sulfasalazine 500 Mg Tablet PO 12/01/24 14:14 1,000 mg TID ELAINE Administration Plan 29-year-old female with past medical history of ulcerative colitis was admitted to the hospital on 10/20/2024 for lower GI bleed secondary to ulcerative colitis flare and resulting in blood loss anemia. #Ulcerative colitis flareup #Lower GI bleed #Acute blood loss anemia Patient came in with hemoglobin of 8.1 and was previously 11.2 on 02/2024 Patient has been having 6-7 bowel movements per day and have all been bloody. Patient has not been taking any medication for ulcerative colitis at this time Last colonoscopy was 1 year ago and last admission, 1 week ago Cdiff, Hep panel negative Plan: Solu-Medrol 40 mg IV twice daily Sulfasalazine 1 g TID daily Azathioprine 100mg QD Protonix IV BID Will transfuse if hemoglobin less than 7 CLD transition to solids Stool studies TB testing GI consulted, appreciate commendations #Coccidiomycosis Patient denied any URTI except for chills and night sweats. During routine lab workup prior to starting possible biologics for patients IBD flare, Cocci IgM was positive -Ordered CXR 2V -Fluconazole 400mg QD -Consider ID consult Health Maintenance: Disposition: Patient admitted to [facility] for UC flareup. Diet: clear liquid --> solids GI prophylaxis: protonix DVT prophylaxis: SCDs in setting of bleed Code: full Patient's plan and care discussed with my attending, Dr. Bret Xie MD PGY-2
--- NOTE | 2024-11-02 15:08 | XR_ITS ---
Examination: PA and lateral chest 2 views TECHNIQUE: Upright PA and lateral chest 2 views Date and time: November 02, 2024 2155 hours INDICATIONS: Positive cocci titer with chills today FINDINGS: Normal heart size Lungs are clear. The osseous structures are intact IMPRESSION: No active disease
[2024-11-02 16:47] LABS: Hematocrit 33.2 % (36.0-46.0); Hemoglobin 10.9 g/dL (12.0-16.0)
[2024-11-02] MEDS: FLUCONAZOLE 100 MG TABLET 400 MG PO (17:30)
[2024-11-03] VITALS (7 sets, daily range): BP systolic 108–126; BP diastolic 67–77; PULSE 61–96; RESP 17–18; TEMP 36.1–36.8; O2SAT 98–100; BMI 19.6
[2024-11-03] MEDS: sulfaSALAzine 500 MG TABLET 1000 MG PO ×3 (05:00→21:00)
[2024-11-03] MEDS: RINGERS LACTATED 1000 ML 1,000 ML 75 ML IV ×2 (05:02→19:07)
[2024-11-03 05:13] LABS: Basophils % (Auto) 0 % (0-2.5); Eosinophils % (Auto) 0 % (0-10); Hematocrit 31.9 % (36.0-46.0); Hemoglobin 10.3 g/dL (12.0-16.0); Immature Granulocytes % (Auto) 1 % (0-0); Immature Granulocytes Auto 0.13 Thou/mm3 (0.00-0.00); Lymphocytes % (Auto) 9 % (10-50); Mean Corpuscular HGB Conc 32.3 g/dl (31.0-37.0); Mean Corpuscular Hemoglobin 22.4 pg (25.0-35.0); Mean Corpuscular Volume 69 fL (80-100); Monocytes # (Auto) 0.5 Thou/mm3 (0.0-0.8); Monocytes % (Auto) 4 % (0-12); Neutrophils # (Auto) 9.4 Thou/mm3 (1.8-7.7); Neutrophils % (Auto) 85 % (37-80); Nucleated Red Blood Cell # 0.02 Thou/mm3 (0.00-0.00); Nucleated Red Blood Cell % 0 /100 WBC (0); Platelet Count 264 Thou/mm3 (140-440)
[2024-11-03 05:41] LABS: Alanine Aminotransferase < 7 U/L (10-49); Albumin, Serum 3.8 gm/dL (3.5-5.0); Albumin/Globulin Ratio 1.6 (1.2-2.2); Alkaline Phosphatase 55 U/L (46-116); Anion Gap 11 (7-16); Aspartate Amino Transferase 10 U/L (0-34); BUN/Creatinine Ratio 10 Ratio (12-20); Bilirubin,Total 0.4 mg/dL (0.3-1.2); Blood Urea Nitrogen < 5 mg/dL (9-23); Calcium 8.6 mg/dL (8.3-10.6); Calcium (Corrected) 8.8 mg/dL (8.5-10.1); Carbon Dioxide 24.8 mMol/L (20.0-31.0); Chloride 104 mMol/L (98-107); Creatinine (Component) 0.5 mg/dL (0.6-1.3); Estimated Creatinine Clearance 109.1 mL/min (>60); Globulin 2.4 gm/dL (2.3-3.5); Glucose 145 mg/dL (74-106); Osmolality,Calculated 279 (275-295); Potassium 4.4 mMol/L (3.4-5.1); Sodium 140 mMol/L (136-145); Total Protein 6.2 gm/dL (5.7-8.2); eGFR > 60 See Note
[2024-11-03] MEDS: FLUCONAZOLE 100 MG TABLET 400 MG PO (08:22)
[2024-11-03] MEDS: FOLIC ACID 1 MG TABLET PO (08:23)
[2024-11-03] MEDS: azaTHIOprine 50 MG TABLET 100 MG PO (08:23)
[2024-11-03] MEDS: PANTOPRAZOLE INJ 40 MG VIAL IVP ×2 (08:23→20:47)
--- NOTE | 2024-11-03 11:54 | ESPR_ITS ---
<Statement entered by Keyona Queen MD - 11/08/24 15:44> I reviewed above note and agree with findings and plans. I have also personally examined the patient with medicine team and went over assessment and plan with medical team including legal internship and resident physician. Documentation for date of: 11/03/24 Subjective Subjective Interval history: Patient seen examined at bedside this morning. No acute overnight events. Patient still having multiple bowel movements which are mostly bloody. Yesterday she had a total of around 10 bowel movements and most of them were bloody. Overnight around 3 AM patient started having bowel movements and up to this morning she had already had 7 bowel movements which were bloody, but the last 1 she stated that did not have any blood and was a little bit more solid than previous ones. Patient was a little bit sentimental given that she knew that if her ulcerative colitis did not improve she will require surgery. Patient was given comfort and she was more calm by the end of the assessment knowing that surgery is the last resort and that we will try and control her flareup with medication at this time. She had no other complaints. Exam Vital Signs Temp Pulse Resp BP Pulse Ox O2 Del Method 98.0 F 75 18 126/75 99 Room Air 11/03/24 08:00 11/03/24 11:27 11/03/24 08:00 11/03/24 08:00 11/03/24 08:00 11/03/24 08:00 Narrative Exam General: A/O x3, no acute distress, well-nourished, well-developed Eyes: PERRL, EOMI. Anicteric, vision grossly intact. Ears: No ear pain, no ear discharge, Hearing grossly intact. Nose: No nasal discharge. Mouth/Throat: Moist mucous membranes, no redness, no lesions. Neck: Neck supple, non-tender, no cervical lymphadenopathy. Lungs: Clear DEMETRA to auscultation and percussion, No accessory muscle use. Cardio: Normal S1/S2, regular rhythm, no murmurs, no JVD Abdomen: Soft, non-tender, no palpable masses, peristalsis present, no guarding or rebound. Extremities: Symmetrical, no significant deformities, no peripheral edema , non-tender, peripheral pulses presents. Skin: No rashes, no lesions, warm to touch. Neuro: No focal neurological deficits. motor and sensory intact Psych: Cooperative, appropriate mood and effect. Objective Labs 11/03/24 04:55 11/03/24 04:55 Labs: Laboratory Results - last 24 hr 11/01/24 11/01/24 11/02/24 09:20 13:05 16:40 WBC RBC Hgb 10.9 L D Hct 33.2 L D MCV MCH MCHC RDW Std Deviation Plt Count Neut % (Auto) Lymph % (Auto) [place] % (Auto) Eos % (Auto) Baso % (Auto) Neut # (Auto) Lymph # (Auto) [place] # (Auto) Eos # (Auto) Baso # (Auto) Immature Gran # (Auto) Absolute Nucleated RBC Immature Gran % Nucleated RBC % Sodium Potassium Chloride Carbon Dioxide Anion Gap BUN Creatinine Estim Creat Clear Calc eGFR BUN/Creatinine Ratio Glucose Calculated Osmolality Calcium Corrected Calcium Magnesium Total Bilirubin AST ALT Alkaline Phosphatase Total Protein Albumin Globulin Albumin/Globulin Ratio Coccidioides IgM Ab Positive A Blood Type O Positive Antibody Screen NEGATIVE Crossmatch See Detail Blood Bank Wristband ID Yes 11/03/24 04:55 WBC 11.0 RBC 4.60 Hgb 10.3 L Hct 31.9 L MCV 69 L MCH 22.4 L MCHC 32.3 RDW Std Deviation 54.0 H Plt Count 264 Neut % (Auto) 85 H Lymph % (Auto) 9 L [place] % (Auto) 4 Eos % (Auto) 0 Baso % (Auto) 0 Neut # (Auto) 9.4 H Lymph # (Auto) 1.0 [place] # (Auto) 0.5 Eos # (Auto) 0.0 Baso # (Auto) 0.0 Immature Gran # (Auto) 0.13 H Absolute Nucleated RBC 0.02 H Immature Gran % 1 H Nucleated RBC % 0 Sodium 140 Potassium 4.4 D Chloride 104 Carbon Dioxide 24.8 Anion Gap 11 BUN < 5 L Creatinine 0.5 L Estim Creat Clear Calc 109.1 eGFR > 60 BUN/Creatinine Ratio 10 L Glucose 145 H Calculated Osmolality 279 Calcium 8.6 Corrected Calcium 8.8 Magnesium 2.0 Total Bilirubin 0.4 AST 10 ALT < 7 L Alkaline Phosphatase 55 Total Protein 6.2 Albumin 3.8 Globulin 2.4 Albumin/Globulin Ratio 1.6 Coccidioides IgM Ab Blood Type Antibody Screen Crossmatch Blood Bank Wristband ID Quality Measures Quality Measures none Assessment & Plan Assessment Current Active Medications: Generic Name Dose Route Start Last Admin Trade Name Freq PRN Reason Stop Dose Admin Acetaminophen 650 mg 11/01/24 13:14 Acetaminophen 325 Mg Tablet PO 12/01/24 13:13 Q6H PRN Fever > 100.4 or Pain 1-3 Azathioprine 100 mg 11/02/24 09:00 11/03/24 08:23 Azathioprine 50 Mg Tablet PO 12/02/24 08:59 100 mg DAILY ELAINE Administration Fluconazole 400 mg 11/02/24 17:00 11/03/24 08:22 Fluconazole 100 Mg Tablet PO 11/09/24 16:59 400 mg QDAY ELAINE Administration Folic Acid 1 mg 11/01/24 14:15 11/03/24 08:23 Folic Acid 1 Mg Tablet PO 12/01/24 14:14 1 mg QDAY ELAINE Administration Lactated Ringer's 1,000 mls @ 75 mls/hr 11/01/24 13:15 11/03/24 05:02 Lactated Ringers IV 12/01/24 13:14 75 mls/hr .[id number] ELAINE Administration Methylprednisolone Sodium Succinate 40 mg 11/01/24 21:00 11/03/24 08:23 Methylprednisolone Sod Succ 40 Mg Vial IVP 11/08/24 20:59 40 mg BID ELAINE Administration Ondansetron HCl 4 mg 11/01/24 13:20 Ondansetron Inj 2 Mg/Ml Inj 2 Ml IVP 12/01/24 13:19 Q6HR PRN NAUSEA OR VOMITING Protocol Pantoprazole Sodium 40 mg 11/01/24 21:00 11/03/24 08:23 Pantoprazole Inj 40 Mg Vial IVP 12/01/24 20:59 40 mg Q12HR ELAINE Administration Sulfasalazine 1,000 mg 11/01/24 14:15 11/03/24 05:00 Sulfasalazine 500 Mg Tablet PO 12/01/24 14:14 1,000 mg TID ELAINE Administration Plan 29-year-old female with past medical history of ulcerative colitis was admitted to the hospital on 10/20/2024 for lower GI bleed secondary to ulcerative colitis flare and resulting in blood loss anemia. #Ulcerative colitis flareup #Lower GI bleed #Acute blood loss anemia Patient came in with hemoglobin of 6.2 and was previously 8.6 on 11/01/2024 Patient has been having 6-7 bowel movements per day and have all been bloody. Patient has not been taking any medication for ulcerative colitis at this time Hgb today 10.3 Colonoscopy on previous admission showed inflammatory changes on the left-sided colon all the way to the transverse colon with bleeding. Got 2 units of PRBC transfused during this admission at the time of this note. Plan: Solu-Medrol 40 mg IV twice daily Sulfasalazine 1 g three times a daily Azthioprine 100 mg qday Protonix BID Folic acid Will transfuse if hemoglobin less than 7 GI consulted, appreciate commendations #Coccidiomycosis Patient denied any URTI except for chills and night sweats. During routine lab workup prior to starting possible biologics for patients IBD flare, Cocci IgM was positive -Ordered CXR 2V -Fluconazole 400mg QD -repeat cocci -ID consulted, appreciate recommendations Disposition: Pending improvement in numbers of BM and repeat cocci Diet: PUD GI prophylaxis: protonix DVT prophylaxis: SCDs in setting of bleed Code: full Case disclosed with Attending Dr. Bret Sena PGY1 Disclaimer: Even though this this note was dictated by speech recognition and even though it was carefully revised there may still be minor errors in web methods developer due to voice recognition software.
[2024-11-03 12:43] LABS: Cocci Serology, IgM Negative (Negative)
--- NOTE | 2024-11-03 13:25 | ESPR_ITS ---
Documentation for date of: 11/03/24 Subjective Subjective Interval history: Patient evaluated asked internal medicine team to repeat the cocci serologies Blood sample from the previous cocci serology has been already sent to [facility] Exam Vital Signs Temp Pulse Resp BP Pulse Ox O2 Del Method 97.4 F 85 17 108/69 100 Room Air 11/03/24 12:00 11/03/24 12:00 11/03/24 12:00 11/03/24 12:00 11/03/24 12:00 11/03/24 12:00 Objective Labs 11/03/24 04:55 11/03/24 04:55 Labs: Laboratory Results - last 24 hr 11/01/24 11/02/24 11/03/24 09:20 16:40 04:55 WBC 11.0 RBC 4.60 Hgb 10.9 L D 10.3 L Hct 33.2 L D 31.9 L MCV 69 L MCH 22.4 L MCHC 32.3 RDW Std Deviation 54.0 H Plt Count 264 Neut % (Auto) 85 H Lymph % (Auto) 9 L [place] % (Auto) 4 Eos % (Auto) 0 Baso % (Auto) 0 Neut # (Auto) 9.4 H Lymph # (Auto) 1.0 [place] # (Auto) 0.5 Eos # (Auto) 0.0 Baso # (Auto) 0.0 Immature Gran # (Auto) 0.13 H Absolute Nucleated RBC 0.02 H Immature Gran % 1 H Nucleated RBC % 0 Sodium 140 Potassium 4.4 D Chloride 104 Carbon Dioxide 24.8 Anion Gap 11 BUN < 5 L Creatinine 0.5 L Estim Creat Clear Calc 109.1 eGFR > 60 BUN/Creatinine Ratio 10 L Glucose 145 H Calculated Osmolality 279 Calcium 8.6 Corrected Calcium 8.8 Magnesium 2.0 Total Bilirubin 0.4 AST 10 ALT < 7 L Alkaline Phosphatase 55 Total Protein 6.2 Albumin 3.8 Globulin 2.4 Albumin/Globulin Ratio 1.6 Coccidioides IgM Ab Crossmatch See Detail 11/03/24 10:14 WBC RBC Hgb Hct MCV MCH MCHC RDW Std Deviation Plt Count Neut % (Auto) Lymph % (Auto) [place] % (Auto) Eos % (Auto) Baso % (Auto) Neut # (Auto) Lymph # (Auto) [place] # (Auto) Eos # (Auto) Baso # (Auto) Immature Gran # (Auto) Absolute Nucleated RBC Immature Gran % Nucleated RBC % Sodium Potassium Chloride Carbon Dioxide Anion Gap BUN Creatinine Estim Creat Clear Calc eGFR BUN/Creatinine Ratio Glucose Calculated Osmolality Calcium Corrected Calcium Magnesium Total Bilirubin AST ALT Alkaline Phosphatase Total Protein Albumin Globulin Albumin/Globulin Ratio Coccidioides IgM Ab Negative Crossmatch Impressions Impression: # Acute exacerbation of the underlying inflammatory bowel disease that is ulcerative colitis # Posthemorrhagic anemia secondary to above Waiting cocci serologies confirmation Assessment & Plan A&P Narrative # Acute exacerbation of the underlying inflammatory bowel disease ulcerative colitis , No response to conservative management with sulfasalazine folic acid oral prednisone and azathioprine Plan Complete stool panel IV Solu-Medrol Cocci serologies QuantiFERON serum testing for TB Once the above results come back negative Recommend Inflectra 5 mg/kg body weight first dose in the hospital after proper authorization from the insurance carrier for the whole year Dosing is as follows 0-week first dose Week 2 second dose Week 4 third dose After that dose every 8 weeks CRP Thank you very much for the opportunity to participate in the care of this patient Time Spent With Patient Time: Total time spent is greater than 50% in coordination of care (as documented) at patient's floor/unit and/or counseling patient:
--- NOTE | 2024-11-03 15:26 | PC.SS ---
Rounding: on IV Steroids, will DC home when ready
[2024-11-04] VITALS (8 sets, daily range): BP systolic 106–130; BP diastolic 62–92; PULSE 70–98; RESP 16–21; TEMP 36.1–36.8; O2SAT 98–99
[2024-11-04] MEDS: sulfaSALAzine 500 MG TABLET 1000 MG PO ×3 (05:12→21:14)
[2024-11-04 05:27] LABS: Basophils % (Auto) 0 % (0-2.5); Eosinophils % (Auto) 0 % (0-10); Hematocrit 29.2 % (36.0-46.0); Hemoglobin 9.5 g/dL (12.0-16.0); Immature Granulocytes % (Auto) 1 % (0-0); Immature Granulocytes Auto 0.11 Thou/mm3 (0.00-0.00); Lymphocytes # (Auto) 1.3 Thou/mm3 (1.0-4.8); Lymphocytes % (Auto) 9 % (10-50); Mean Corpuscular HGB Conc 32.5 g/dl (31.0-37.0); Mean Corpuscular Hemoglobin 22.5 pg (25.0-35.0); Mean Corpuscular Volume 69 fL (80-100); Monocytes # (Auto) 0.8 Thou/mm3 (0.0-0.8); Monocytes % (Auto) 6 % (0-12); Neutrophils # (Auto) 12.2 Thou/mm3 (1.8-7.7); Neutrophils % (Auto) 84 % (37-80); Nucleated Red Blood Cell % 0 /100 WBC (0); Platelet Count 289 Thou/mm3 (140-440); RDW Standard Deviation 55.1 fL (36.4-46.3); Red Blood Count 4.23 Miln/mm3 (4.00-5.20); White Blood Count 14.5 Thou/mm3 (3.6-11.0)
[2024-11-04 06:12] LABS: Alanine Aminotransferase < 7 U/L (10-49); Albumin, Serum 3.6 gm/dL (3.5-5.0); Albumin/Globulin Ratio 1.6 (1.2-2.2); Alkaline Phosphatase 56 U/L (46-116); Anion Gap 12 (7-16); Aspartate Amino Transferase 10 U/L (0-34); BUN/Creatinine Ratio 16 Ratio (12-20); Bilirubin,Total 0.3 mg/dL (0.3-1.2); Blood Urea Nitrogen 8 mg/dL (9-23); Calcium 8.2 mg/dL (8.3-10.6); Calcium (Corrected) 8.5 mg/dL (8.5-10.1); Chloride 103 mMol/L (98-107); Creatinine (Component) 0.5 mg/dL (0.6-1.3); Globulin 2.2 gm/dL (2.3-3.5); Glucose 133 mg/dL (74-106); Magnesium 1.8 mg/dL (1.6-2.6); Osmolality,Calculated 283 (275-295); Potassium 4.2 mMol/L (3.4-5.1); Sodium 142 mMol/L (136-145); Total Protein 5.8 gm/dL (5.7-8.2); eGFR > 60 See Note
--- NOTE | 2024-11-04 07:51 | ESPR_ITS ---
<Statement entered by Keyona Queen MD - 11/08/24 15:45> I reviewed above note and agree with findings and plans. I have also personally examined the patient with medicine team and went over assessment and plan with medical team including news intern and resident physician. Documentation for date of: 11/04/24 Subjective Subjective Interval history: Patient seen examined at bedside this morning. Patient says she has been nauseated since yesterday evening after dinner.. Yesterday patient had around 8-10 bowel movements with most of them still being bloody. This morning patient has already had around 4 bowel movements since last night. Hemoglobin is 9.5 today from 10.3 yesterday and she did spike WBC which is most likely reactive due to steroids. Patient's repeat cocci IgM came back negative. Otherwise labs look fairly unremarkable. Exam Vital Signs Temp Pulse Resp BP Pulse Ox O2 Del Method 97.6 F 70 16 117/63 99 Room Air 11/04/24 04:00 11/04/24 04:00 11/04/24 04:00 11/04/24 04:00 11/04/24 04:00 11/04/24 04:00 Narrative Exam General: A/O x3, no acute distress, well-nourished, well-developed Eyes: PERRL, EOMI. Anicteric, vision grossly intact. Ears: No ear pain, no ear discharge, Hearing grossly intact. Nose: No nasal discharge. Mouth/Throat: Moist mucous membranes, no redness, no lesions. Neck: Neck supple, non-tender, no cervical lymphadenopathy. Lungs: Clear DEMETRA to auscultation and percussion, No accessory muscle use. Cardio: Normal S1/S2, regular rhythm, no murmurs, no JVD Abdomen: Soft, non-tender, no palpable masses, peristalsis present, no guarding or rebound. Extremities: Symmetrical, no significant deformities, no peripheral edema , non-tender, peripheral pulses presents. Skin: No rashes, no lesions, warm to touch. Neuro: No focal neurological deficits. motor and sensory intact Psych: Cooperative, appropriate mood and effect. Objective Labs 11/04/24 04:41 11/04/24 04:41 Labs: Laboratory Results - last 24 hr 11/03/24 11/04/24 10:14 04:41 WBC 14.5 H RBC 4.23 Hgb 9.5 L Hct 29.2 L MCV 69 L MCH 22.5 L MCHC 32.5 RDW Std Deviation 55.1 H Plt Count 289 Neut % (Auto) 84 H Lymph % (Auto) 9 L [place] % (Auto) 6 Eos % (Auto) 0 Baso % (Auto) 0 Neut # (Auto) 12.2 H Lymph # (Auto) 1.3 [place] # (Auto) 0.8 Eos # (Auto) 0.0 Baso # (Auto) 0.0 Immature Gran # (Auto) 0.11 H Absolute Nucleated RBC 0.00 Immature Gran % 1 H Nucleated RBC % 0 Sodium 142 Potassium 4.2 Chloride 103 Carbon Dioxide 27.0 Anion Gap 12 BUN 8 L Creatinine 0.5 L Estim Creat Clear Calc 103.0 eGFR > 60 BUN/Creatinine Ratio 16 Glucose 133 H Calculated Osmolality 283 Calcium 8.2 L Corrected Calcium 8.5 Magnesium 1.8 Total Bilirubin 0.3 AST 10 ALT < 7 L Alkaline Phosphatase 56 Total Protein 5.8 Albumin 3.6 Globulin 2.2 L Albumin/Globulin Ratio 1.6 Coccidioides IgM Ab Negative Quality Measures Quality Measures none Assessment & Plan Assessment Current Active Medications: Generic Name Dose Route Start Last Admin Trade Name Freq PRN Reason Stop Dose Admin Acetaminophen 650 mg 11/01/24 13:14 Acetaminophen 325 Mg Tablet PO 12/01/24 13:13 Q6H PRN Fever > 100.4 or Pain 1-3 Azathioprine 100 mg 11/02/24 09:00 11/03/24 08:23 Azathioprine 50 Mg Tablet PO 12/02/24 08:59 100 mg DAILY ELAINE Administration Fluconazole 400 mg 11/02/24 17:00 11/03/24 08:22 Fluconazole 100 Mg Tablet PO 11/09/24 16:59 400 mg QDAY ELAINE Administration Folic Acid 1 mg 11/01/24 14:15 11/03/24 08:23 Folic Acid 1 Mg Tablet PO 12/01/24 14:14 1 mg QDAY ELAINE Administration Lactated Ringer's 1,000 mls @ 75 mls/hr 11/01/24 13:15 11/03/24 19:07 Lactated Ringers IV 12/01/24 13:14 75 mls/hr .[id number] ELAINE Administration Methylprednisolone Sodium Succinate 40 mg 11/01/24 21:00 11/03/24 20:46 Methylprednisolone Sod Succ 40 Mg Vial IVP 11/08/24 20:59 40 mg BID ELAINE Administration Ondansetron HCl 4 mg 11/01/24 13:20 Ondansetron Inj 2 Mg/Ml Inj 2 Ml IVP 12/01/24 13:19 Q6HR PRN NAUSEA OR VOMITING Protocol Pantoprazole Sodium 40 mg 11/01/24 21:00 11/03/24 20:47 Pantoprazole Inj 40 Mg Vial IVP 12/01/24 20:59 40 mg Q12HR ELAINE Administration Sulfasalazine 1,000 mg 11/01/24 14:15 11/04/24 05:12 Sulfasalazine 500 Mg Tablet PO 12/01/24 14:14 1,000 mg TID ELAINE Administration Plan 29-year-old female with past medical history of ulcerative colitis was admitted to the hospital on 10/20/2024 for lower GI bleed secondary to ulcerative colitis flare and resulting in blood loss anemia. #Ulcerative colitis flareup #Lower GI bleed #Acute blood loss anemia Patient came in with hemoglobin of 6.2 and was previously 8.6 on 11/01/2024 Patient has been having 6-7 bowel movements per day and have all been bloody. Patient has not been taking any medication for ulcerative colitis at this time Hgb today 9.5 Colonoscopy on previous admission showed inflammatory changes on the left-sided colon all the way to the transverse colon with bleeding. Got 2 units of PRBC transfused during this admission at the time of this note. Still having 8-10 BM mostly bloody Plan: Solu-Medrol 40 mg IV twice daily Sulfasalazine 1 g three times a daily Azthioprine 100 mg qday Protonix BID Folic acid Will start Inflectra 5 mg/kg body weight first dose in the hospital on Wednesday if Nestor states cocci was negative. Will transfuse if hemoglobin less than 7 GI consulted, appreciate commendations #Nausea Patient has been having nausea since yesterday evening No blood in vomit, today had 400ml output in vomit Plan: Abd XR did not show SBO Zofran as needed Will continue to monitor #Coccidiomycosis Patient denied any URTI except for chills and night sweats. During routine lab workup prior to starting possible biologics for patients IBD flare, Cocci IgM was positive Plan: -Discontinued Fluconazole 400mg QD -repeat cocci negative -ID consulted, appreciate recommendations Disposition: Pending improvement in numbers of BM and repeat cocci Diet: PUD GI prophylaxis: protonix DVT prophylaxis: SCDs in setting of bleed Code: full Case disclosed with Attending Dr. Bret Sena PGY1 Disclaimer: Even though this this note was dictated by speech recognition and even though it was carefully revised there may still be minor errors in cable assembler due to voice recognition software.
[2024-11-04] MEDS: ONDANSETRON INJ 2 MG/ML INJ 2 ML 4 MG IVP (08:17)
--- NOTE | 2024-11-04 08:17 | PC.NURSE ---
dr Gallardo in to see pt, emesis of 400mls noted at this time, will cont. to monitor.
[2024-11-04] MEDS: RINGERS LACTATED 1000 ML 1,000 ML 75 ML IV ×2 (08:20→20:33)
[2024-11-04] MEDS: PANTOPRAZOLE INJ 40 MG VIAL IVP ×2 (08:54→20:33)
[2024-11-04] MEDS: FOLIC ACID 1 MG TABLET PO (08:55)
[2024-11-04] MEDS: FLUCONAZOLE 100 MG TABLET 400 MG PO (08:55)
[2024-11-04] MEDS: azaTHIOprine 50 MG TABLET 100 MG PO (08:56)
--- NOTE | 2024-11-04 10:09 | XR_ITS ---
Examination: Abdomen AP single view Technique: AP portable supine abdomen, single view Exam date and time: November 04, 2024 1019 hrs. Indications: Abdominal pain beginning 4 days ago Findings: Moderate stool throughout the colon No obstruction No free air Osseous structures intact Impression: Nonobstructive bowel gas pattern
[2024-11-04 14:14] LABS: Cocci Serology, IgG Negative (Negative)
--- NOTE | 2024-11-04 14:16 | ESPR_ITS ---
Documentation for date of: 11/04/24 Subjective Subjective Interval history: Spoke with the internal medicine team Repeat cocci serology is negative After discussion we will wait for the [facility] test And hold off infusion of Inflectra Exam Vital Signs Temp Pulse Resp BP Pulse Ox O2 Del Method 97.8 F 78 18 124/92 H 99 Room Air 11/04/24 11:50 11/04/24 11:50 11/04/24 11:50 11/04/24 11:50 11/04/24 11:50 11/04/24 11:50 Objective Labs 11/04/24 04:41 11/04/24 04:41 Labs: Laboratory Results - last 24 hr 11/03/24 11/04/24 10:14 04:41 WBC 14.5 H RBC 4.23 Hgb 9.5 L Hct 29.2 L MCV 69 L MCH 22.5 L MCHC 32.5 RDW Std Deviation 55.1 H Plt Count 289 Neut % (Auto) 84 H Lymph % (Auto) 9 L [place] % (Auto) 6 Eos % (Auto) 0 Baso % (Auto) 0 Neut # (Auto) 12.2 H Lymph # (Auto) 1.3 [place] # (Auto) 0.8 Eos # (Auto) 0.0 Baso # (Auto) 0.0 Immature Gran # (Auto) 0.11 H Absolute Nucleated RBC 0.00 Immature Gran % 1 H Nucleated RBC % 0 Sodium 142 Potassium 4.2 Chloride 103 Carbon Dioxide 27.0 Anion Gap 12 BUN 8 L Creatinine 0.5 L Estim Creat Clear Calc 103.0 eGFR > 60 BUN/Creatinine Ratio 16 Glucose 133 H Calculated Osmolality 283 Calcium 8.2 L Corrected Calcium 8.5 Magnesium 1.8 Total Bilirubin 0.3 AST 10 ALT < 7 L Alkaline Phosphatase 56 Total Protein 5.8 Albumin 3.6 Globulin 2.2 L Albumin/Globulin Ratio 1.6 Coccidioides IgG Ab Negative Impressions Impression: # Inflammatory bowel disease acute exacerbation not responding to traditional therapy I feel comfortable giving her the Inflectra but we can wait for the cocci serologies to come back from [facility] Repeat cocci serology testing is negative here I do believe it was a laboratory error on the first 1 Assessment & Plan A&P Narrative # Acute exacerbation of the underlying inflammatory bowel disease ulcerative colitis , No response to conservative management with sulfasalazine folic acid oral prednisone and azathioprine Plan Complete stool panel IV Solu-Medrol Cocci serologies QuantiFERON serum testing for TB Once the above results come back negative Recommend Inflectra 5 mg/kg body weight first dose in the hospital after proper authorization from the insurance carrier for the whole year Dosing is as follows 0-week first dose Week 2 second dose Week 4 third dose After that dose every 8 weeks CRP Thank you very much for the opportunity to participate in the care of this patient Time Spent With Patient Time: Total time spent is greater than 50% in coordination of care (as documented) at patient's floor/unit and/or counseling patient:
[2024-11-05] VITALS (8 sets, daily range): BP systolic 107–120; BP diastolic 65–85; PULSE 61–95; RESP 16–20; TEMP 36.2–36.9; O2SAT 96–100
[2024-11-05] MEDS: sulfaSALAzine 500 MG TABLET 1000 MG PO ×3 (05:13→21:54)
[2024-11-05 05:57] LABS: Basophils # (Auto) 0.1 Thou/mm3 (0.0-0.2); Basophils % (Auto) 0 % (0-2.5); Eosinophils % (Auto) 0 % (0-10); Hematocrit 31.3 % (36.0-46.0); Hemoglobin 9.9 g/dL (12.0-16.0); Immature Granulocytes % (Auto) 1 % (0-0); Immature Granulocytes Auto 0.16 Thou/mm3 (0.00-0.00); Lymphocytes # (Auto) 1.4 Thou/mm3 (1.0-4.8); Lymphocytes % (Auto) 8 % (10-50); Mean Corpuscular HGB Conc 31.6 g/dl (31.0-37.0); Mean Corpuscular Hemoglobin 22.7 pg (25.0-35.0); Mean Corpuscular Volume 72 fL (80-100); Monocytes # (Auto) 1.1 Thou/mm3 (0.0-0.8); Monocytes % (Auto) 6 % (0-12); Neutrophils # (Auto) 14.9 Thou/mm3 (1.8-7.7); Neutrophils % (Auto) 84 % (37-80); Nucleated Red Blood Cell % 0 /100 WBC (0); Platelet Count 298 Thou/mm3 (140-440); RDW Standard Deviation 58.9 fL (36.4-46.3); Red Blood Count 4.36 Miln/mm3 (4.00-5.20); White Blood Count 17.6 Thou/mm3 (3.6-11.0)
[2024-11-05 06:58] LABS: Alanine Aminotransferase < 7 U/L (10-49); Albumin, Serum 3.9 gm/dL (3.5-5.0); Albumin/Globulin Ratio 1.6 (1.2-2.2); Alkaline Phosphatase 60 U/L (46-116); Anion Gap 13 (7-16); Aspartate Amino Transferase 11 U/L (0-34); BUN/Creatinine Ratio 12 Ratio (12-20); Bilirubin,Total 0.4 mg/dL (0.3-1.2); Blood Urea Nitrogen 6 mg/dL (9-23); Calcium 8.6 mg/dL (8.3-10.6); Calcium (Corrected) 8.7 mg/dL (8.5-10.1); Carbon Dioxide 25.2 mMol/L (20.0-31.0); Chloride 101 mMol/L (98-107); Creatinine (Component) 0.5 mg/dL (0.6-1.3); Globulin 2.4 gm/dL (2.3-3.5); Glucose 108 mg/dL (74-106); Magnesium 1.8 mg/dL (1.6-2.6); Osmolality,Calculated 276 (275-295); Potassium 4.2 mMol/L (3.4-5.1); Sodium 139 mMol/L (136-145); Total Protein 6.3 gm/dL (5.7-8.2); eGFR > 60 See Note
[2024-11-05] MEDS: FOLIC ACID 1 MG TABLET PO (09:44)
[2024-11-05] MEDS: azaTHIOprine 50 MG TABLET 100 MG PO (09:44)
[2024-11-05] MEDS: PANTOPRAZOLE INJ 40 MG VIAL IVP ×2 (09:45→20:50)
[2024-11-05] MEDS: RINGERS LACTATED 1000 ML 1,000 ML 75 ML IV ×2 (09:46→23:01)
--- NOTE | 2024-11-05 10:49 | ESPR_ITS ---
Documentation for date of: 11/05/24 Subjective Subjective Interval history: Waiting results from [facility] for confirmation of the cocci serologies although I do believe the repeat cocci serology are negative She is asymptomatic I feel extremely comfortable giving her the Inflectra Exam Vital Signs Temp Pulse Resp BP Pulse Ox O2 Del Method 98.0 F 90 18 120/79 99 Room Air 11/05/24 07:45 11/05/24 07:45 11/05/24 07:45 11/05/24 07:45 11/05/24 07:45 11/05/24 04:00 Objective Labs 11/05/24 05:41 11/05/24 05:41 Labs: Laboratory Results - last 24 hr 11/03/24 11/05/24 10:14 05:41 WBC 17.6 H RBC 4.36 Hgb 9.9 L Hct 31.3 L MCV 72 L MCH 22.7 L MCHC 31.6 RDW Std Deviation 58.9 H Plt Count 298 Neut % (Auto) 84 H Lymph % (Auto) 8 L [place] % (Auto) 6 Eos % (Auto) 0 Baso % (Auto) 0 Neut # (Auto) 14.9 H Lymph # (Auto) 1.4 [place] # (Auto) 1.1 H Eos # (Auto) 0.0 Baso # (Auto) 0.1 Immature Gran # (Auto) 0.16 H Absolute Nucleated RBC 0.00 Immature Gran % 1 H Nucleated RBC % 0 Sodium 139 Potassium 4.2 Chloride 101 Carbon Dioxide 25.2 Anion Gap 13 BUN 6 L Creatinine 0.5 L Estim Creat Clear Calc 103.0 eGFR > 60 BUN/Creatinine Ratio 12 Glucose 108 H Calculated Osmolality 276 Calcium 8.6 Corrected Calcium 8.7 Magnesium 1.8 Total Bilirubin 0.4 AST 11 ALT < 7 L Alkaline Phosphatase 60 Total Protein 6.3 Albumin 3.9 Globulin 2.4 Albumin/Globulin Ratio 1.6 Coccidioides IgG Ab Negative Impressions Impression: # Inflammatory bowel disease with acute exacerbation responded to the addition of therapy Recommend Inflectra infusion after [facility] results Assessment & Plan A&P Narrative # Acute exacerbation of the underlying inflammatory bowel disease ulcerative colitis , No response to conservative management with sulfasalazine folic acid oral prednisone and azathioprine Plan Complete stool panel IV Solu-Medrol Cocci serologies QuantiFERON serum testing for TB Once the above results come back negative Recommend Inflectra 5 mg/kg body weight first dose in the hospital after proper authorization from the insurance carrier for the whole year Dosing is as follows 0-week first dose Week 2 second dose Week 4 third dose After that dose every 8 weeks CRP Thank you very much for the opportunity to participate in the care of this patient Time Spent With Patient Time: Total time spent is greater than 50% in coordination of care (as documented) at patient's floor/unit and/or counseling patient:
--- NOTE | 2024-11-05 10:53 | ESPR_ITS ---
<Statement entered by Keyona Queen MD - 11/10/24 12:35> I reviewed above note and agree with findings and plans. I have also personally examined the patient with medicine team and went over assessment and plan with medical team including international accounting manager and resident physician. Documentation for date of: 11/05/24 Subjective Subjective Interval history: No acute overnight events. Patient seen and examined at bedside and states that she has already had 3 BMs today that are bloody. She also endorses nausea that is well-controlled with antiemetics on board. Updated her that we are currently awaiting her cocci results from [facility] and depending on those results may or may not start infliximab. Otherwise, vital signs stable, WBC increased from 14 to 17, hemoglobin stable at 9.9, CHEM panel unremarkable. Stool culture final result negative. Exam Vital Signs Temp Pulse Resp BP Pulse Ox O2 Del Method 98.0 F 90 18 120/79 99 Room Air 11/05/24 07:45 11/05/24 07:45 11/05/24 07:45 11/05/24 07:45 11/05/24 07:45 11/05/24 04:00 Narrative Exam General: AOx3, no acute distress, able to speak full sentences HEENT: NC/AT, mucous membranes moist, bilateral sclera anicteric Cardiovascular: regular rate and rhythm, S1/S2 present, no murmurs appreciated Pulmonary: clear to auscultation bilaterally, no rales/rhonchi/wheezes Abdominal: tender to palpation in left abdomen, soft, non-distended, no rebound/guarding, normal bowel sounds present Musculoskeletal: normal ROM, no peripheral edema Skin: warm and dry, intact, no rashes Neuro: CN II-XII intact, no focal deficits Objective Labs 11/05/24 05:41 11/05/24 05:41 Labs: Laboratory Results - last 24 hr 11/03/24 11/05/24 10:14 05:41 WBC 17.6 H RBC 4.36 Hgb 9.9 L Hct 31.3 L MCV 72 L MCH 22.7 L MCHC 31.6 RDW Std Deviation 58.9 H Plt Count 298 Neut % (Auto) 84 H Lymph % (Auto) 8 L [place] % (Auto) 6 Eos % (Auto) 0 Baso % (Auto) 0 Neut # (Auto) 14.9 H Lymph # (Auto) 1.4 [place] # (Auto) 1.1 H Eos # (Auto) 0.0 Baso # (Auto) 0.1 Immature Gran # (Auto) 0.16 H Absolute Nucleated RBC 0.00 Immature Gran % 1 H Nucleated RBC % 0 Sodium 139 Potassium 4.2 Chloride 101 Carbon Dioxide 25.2 Anion Gap 13 BUN 6 L Creatinine 0.5 L Estim Creat Clear Calc 103.0 eGFR > 60 BUN/Creatinine Ratio 12 Glucose 108 H Calculated Osmolality 276 Calcium 8.6 Corrected Calcium 8.7 Magnesium 1.8 Total Bilirubin 0.4 AST 11 ALT < 7 L Alkaline Phosphatase 60 Total Protein 6.3 Albumin 3.9 Globulin 2.4 Albumin/Globulin Ratio 1.6 Coccidioides IgG Ab Negative Quality Measures Quality Measures none Assessment & Plan Assessment Current Active Medications: Generic Name Dose Route Start Last Admin Trade Name Freq PRN Reason Stop Dose Admin Acetaminophen 650 mg 11/01/24 13:14 Acetaminophen 325 Mg Tablet PO 12/01/24 13:13 Q6H PRN Fever > 100.4 or Pain 1-3 Azathioprine 100 mg 11/02/24 09:00 11/05/24 09:44 Azathioprine 50 Mg Tablet PO 12/02/24 08:59 100 mg DAILY ELAINE Administration Folic Acid 1 mg 11/01/24 14:15 11/05/24 09:44 Folic Acid 1 Mg Tablet PO 12/01/24 14:14 1 mg QDAY ELAINE Administration Lactated Ringer's 1,000 mls @ 75 mls/hr 11/01/24 13:15 11/05/24 09:46 Lactated Ringers IV 12/01/24 13:14 75 mls/hr .[id number] ELAINE Administration Methylprednisolone Sodium Succinate 40 mg 11/01/24 21:00 11/05/24 09:44 Methylprednisolone Sod Succ 40 Mg Vial IVP 11/08/24 20:59 40 mg BID ELAINE Administration Ondansetron HCl 4 mg 11/01/24 13:20 11/04/24 08:17 Ondansetron Inj 2 Mg/Ml Inj 2 Ml IVP 12/01/24 13:19 4 mg Q6HR PRN Administration NAUSEA OR VOMITING Protocol Pantoprazole Sodium 40 mg 11/01/24 21:00 11/05/24 09:45 Pantoprazole Inj 40 Mg Vial IVP 06/27/25 20:59 40 mg Q12HR ELAINE Administration Sulfasalazine 1,000 mg 11/01/24 14:15 11/05/24 05:13 Sulfasalazine 500 Mg Tablet PO 12/01/24 14:14 1,000 mg TID ELAINE Administration Plan Noa Ochoa is a 29-year-old female with a past medical history of ulcerative colitis who was admitted on 11/01/2024 for lower GI bleed secondary to ulcerative colitis flare resulting in blood loss anemia. #Ulcerative colitis flare #Lower GI bleed #Acute blood loss anemia Presented on 11/01 with hemoglobin of 8.6 that dropped to 6.2 overnight and was transfused 2 unit PRBC. Prior to admission, endorsed having 15+ BMs per day and recently has been in the single digits. Colonoscopy on previous admission showed inflammatory changes on the left-sided colon all the way to the transverse colon with bleeding. CT A/P showed severe colitis pattern of entire colon. Pathology report of left colon showed chronic active colitis with architectural changes and cryptitis, ANCA positive, P ANCA titer 1:80. On 10/21, stool positive for 3+ WBCs and calprotectin 3040. C. difficile negative, pending Giardia, H. pylori, and norovirus. ? GI following, appreciate recommendations ? Methylprednisolone 40 mg IV twice daily (11/01-) ? Sulfasalazine 1 g p.o. 3 times daily (11/01-) ? Azathioprine 100 mg p.o. daily (11/02-) ? Follow-up [facility] cocci results and if negative, start Inflectra 5 mg/kg body weight #Nausea/vomiting Patient endorses nausea and nonbloody emesis. Abdominal XR did not show signs of SBO. ? Zofran as needed #Coccidiomycosis Denies any URTI except for chills and night sweats. Routine lab workup prior to starting possible biologics for IBD flare showed positive Cocci IgM, however repeat was negative. Fluconazole has since been discontinued. ? ID following, appreciate recommendations ? Follow-up [facility] results Hospital management: Disposition: Pending [facility] cocci results and possibly infliximab treatment Fluids: Not indicated Diet: PUD/GERD diet Lines: PIV DVT prophylaxis: SCDs given GI bleed GI prophylaxis: Pantoprazole 40 mg IV twice daily CODE STATUS: full code ----- Plan discussed with attending physician Dr. Bret Baker MD PGY-1 Internal Medicine
[2024-11-05] MEDS: ONDANSETRON INJ 2 MG/ML INJ 2 ML 4 MG IVP (21:18)
[2024-11-06] VITALS (8 sets, daily range): BP systolic 107–139; BP diastolic 71–90; PULSE 72–129; RESP 15–21; TEMP 36.1–37; O2SAT 98–99
[2024-11-06] MEDS: sulfaSALAzine 500 MG TABLET 1000 MG PO ×3 (05:09→21:06)
[2024-11-06 05:23] LABS: Basophils % (Auto) 0 % (0-2.5); Eosinophils % (Auto) 0 % (0-10); Hematocrit 28.2 % (36.0-46.0); Hemoglobin 9.2 g/dL (12.0-16.0); Immature Granulocytes % (Auto) 1 % (0-0); Immature Granulocytes Auto 0.09 Thou/mm3 (0.00-0.00); Lymphocytes % (Auto) 8 % (10-50); Mean Corpuscular HGB Conc 32.6 g/dl (31.0-37.0); Mean Corpuscular Hemoglobin 22.7 pg (25.0-35.0); Mean Corpuscular Volume 70 fL (80-100); Monocytes # (Auto) 0.6 Thou/mm3 (0.0-0.8); Monocytes % (Auto) 5 % (0-12); Neutrophils # (Auto) 10.6 Thou/mm3 (1.8-7.7); Neutrophils % (Auto) 86 % (37-80); Nucleated Red Blood Cell % 0 /100 WBC (0); Platelet Count 283 Thou/mm3 (140-440); RDW Standard Deviation 56.8 fL (36.4-46.3); Red Blood Count 4.06 Miln/mm3 (4.00-5.20); White Blood Count 12.3 Thou/mm3 (3.6-11.0)
[2024-11-06] MEDS: RINGERS LACTATED 1000 ML 1,000 ML 75 ML IV ×2 (05:57→21:10)
[2024-11-06 06:02] LABS: Alanine Aminotransferase < 7 U/L (10-49); Albumin, Serum 3.5 gm/dL (3.5-5.0); Albumin/Globulin Ratio 1.6 (1.2-2.2); Alkaline Phosphatase 51 U/L (46-116); Anion Gap 11 (7-16); Aspartate Amino Transferase 12 U/L (0-34); BUN/Creatinine Ratio 13 Ratio (12-20); Bilirubin,Total 0.4 mg/dL (0.3-1.2); Blood Urea Nitrogen < 5 mg/dL (9-23); Calcium 8.1 mg/dL (8.3-10.6); Calcium (Corrected) 8.5 mg/dL (8.5-10.1); Carbon Dioxide 26.2 mMol/L (20.0-31.0); Chloride 103 mMol/L (98-107); Creatinine (Component) 0.4 mg/dL (0.6-1.3); Estimated Creatinine Clearance 128.7 mL/min (>60); Globulin 2.2 gm/dL (2.3-3.5); Glucose 102 mg/dL (74-106); Magnesium 1.8 mg/dL (1.6-2.6); Osmolality,Calculated 276 (275-295); Potassium 4.1 mMol/L (3.4-5.1); Sodium 140 mMol/L (136-145); Total Protein 5.7 gm/dL (5.7-8.2); eGFR > 60 See Note
[2024-11-06 07:39] LABS: Giardia Result NOT DETECTED; Norovirus, EIA (Stool)* NOT DETECTED
--- NOTE | 2024-11-06 08:20 | PC.NURSE ---
Rounding with MD lobato, pt currently having episodes of tachycardia reaching 180's however not sustaining no complains of chest pain. VS 133/87- 118 HR 0/10 pain, 98% RA. New orders EKG.
[2024-11-06] MEDS: azaTHIOprine 50 MG TABLET 100 MG PO (08:30)
[2024-11-06] MEDS: ONDANSETRON INJ 2 MG/ML INJ 2 ML 4 MG IVP ×2 (08:31→16:16)
[2024-11-06] MEDS: PANTOPRAZOLE INJ 40 MG VIAL IVP ×2 (08:31→21:05)
[2024-11-06] MEDS: FOLIC ACID 1 MG TABLET PO (08:35)
--- NOTE | 2024-11-06 08:42 | EKG_ITS ---
[facility] Test Date: 2024-11-06 Pat Name: [employer] [facility] Gender: Female Visualization Developer: BRIANNA : 1995 Requested By: Tigre Baker Order Number: [id number] Reading MD: Tigre Baker Measurements Intervals [place] Rate: 93 P: 71 [place]: 131 QRS: 53 QRSD: 79 T: 57 QT: 308 QTc: 385 Interpretive Statements SINUS RHYTHM POSSIBLE LEFT ATRIAL ENLARGEMENT Compared to ECG 07/12/2022 12:15:32 No significant changes /store/S0/[id number]/[id number].pdf
--- NOTE | 2024-11-06 09:27 | ESPR_ITS ---
<Statement entered by Keyona Queen MD - 11/10/24 14:49> I reviewed above note and agree with findings and plans. I have also personally examined the patient with medicine team and went over assessment and plan with medical team including food and beverage intern and resident physician. Documentation for date of: 11/06/24 Subjective Subjective Interval history: No acute overnight events. Seen and examined at bedside and patient recently had blood bowel movement with subsequent nausea and vomiting. Heart rate noted to be in 160s-180s per staff and upon evaluation in 160s that decreased to 110s after giving antiemetic. Reevaluation later showed HR in 90s and EKG revealed NSR, also with HR in 90s. Patient did endorse palpitations but no chest pain, lightheadedness, or shortness of breath. Otherwise, spoke to infectious disease regarding cocci results, which have not been received by [facility] but also pending TB QuantiFERON gold. Thus, will have to continue to wait prior to starting infliximab. Exam Vital Signs Temp Pulse Resp BP Pulse Ox O2 Del Method 98.1 F 72 15 114/74 99 Room Air 11/06/24 04:00 11/06/24 04:00 11/06/24 04:00 11/06/24 04:00 11/06/24 04:00 11/06/24 04:00 Narrative Exam General: AOx3, mild distress from N/V, able to speak full sentences HEENT: NC/AT, mucous membranes moist, bilateral sclera anicteric Cardiovascular: tachycardic, regular rhythm, S1/S2 present, no murmurs appreciated Pulmonary: clear to auscultation bilaterally, no rales/rhonchi/wheezes Abdominal: tender to palpation in left abdomen, soft, non-distended, no rebound/guarding, normal bowel sounds present Musculoskeletal: normal ROM, no peripheral edema Skin: warm and dry, intact, no rashes Neuro: CN II-XII intact, no focal deficits Objective Labs 11/06/24 04:56 11/06/24 04:56 Labs: Laboratory Results - last 24 hr 11/01/24 11/06/24 18:10 04:56 WBC 12.3 H D RBC 4.06 Hgb 9.2 L Hct 28.2 L MCV 70 L MCH 22.7 L MCHC 32.6 RDW Std Deviation 56.8 H Plt Count 283 Neut % (Auto) 86 H Lymph % (Auto) 8 L [place] % (Auto) 5 Eos % (Auto) 0 Baso % (Auto) 0 Neut # (Auto) 10.6 H Lymph # (Auto) 1.0 [place] # (Auto) 0.6 Eos # (Auto) 0.0 Baso # (Auto) 0.0 Immature Gran # (Auto) 0.09 H Absolute Nucleated RBC 0.00 Immature Gran % 1 H Nucleated RBC % 0 Sodium 140 Potassium 4.1 Chloride 103 Carbon Dioxide 26.2 Anion Gap 11 BUN < 5 L Creatinine 0.4 L Estim Creat Clear Calc 128.7 eGFR > 60 BUN/Creatinine Ratio 13 Glucose 102 Calculated Osmolality 276 Calcium 8.1 L Corrected Calcium 8.5 Magnesium 1.8 Total Bilirubin 0.4 AST 12 ALT < 7 L Alkaline Phosphatase 51 Total Protein 5.7 Albumin 3.5 Globulin 2.2 L Albumin/Globulin Ratio 1.6 Stl Giardia Antigen NOT DETECTED Stool Norovirus Ag NOT DETECTED Quality Measures Quality Measures none Assessment & Plan Assessment Current Active Medications: Generic Name Dose Route Start Last Admin Trade Name Freq PRN Reason Stop Dose Admin Acetaminophen 650 mg 11/01/24 13:14 Acetaminophen 325 Mg Tablet PO 12/01/24 13:13 Q6H PRN Fever > 100.4 or Pain 1-3 Azathioprine 100 mg 11/02/24 09:00 11/06/24 08:30 Azathioprine 50 Mg Tablet PO 12/02/24 08:59 100 mg DAILY ELAINE Administration Folic Acid 1 mg 11/01/24 14:15 11/06/24 08:35 Folic Acid 1 Mg Tablet PO 12/01/24 14:14 1 mg QDAY ELAINE Administration Lactated Ringer's 1,000 mls @ 75 mls/hr 11/01/24 13:15 11/06/24 05:57 Lactated Ringers IV 12/01/24 13:14 75 mls/hr .[id number] ELAINE Administration Methylprednisolone Sodium Succinate 40 mg 11/01/24 21:00 11/06/24 08:35 Methylprednisolone Sod Succ 40 Mg Vial IVP 11/08/24 20:59 40 mg BID ELAINE Administration Ondansetron HCl 4 mg 11/01/24 13:20 11/06/24 08:31 Ondansetron Inj 2 Mg/Ml Inj 2 Ml IVP 12/01/24 13:19 4 mg Q6HR PRN Administration NAUSEA OR VOMITING Protocol Pantoprazole Sodium 40 mg 11/01/24 21:00 11/06/24 08:31 Pantoprazole Inj 40 Mg Vial IVP 12/01/24 20:59 40 mg Q12HR ELAINE Administration Simethicone 80 mg 11/05/24 14:26 Simethicone 80 Mg Chew PO 12/05/24 14:25 QID PRN GAS Sulfasalazine 1,000 mg 11/01/24 14:15 11/06/24 05:09 Sulfasalazine 500 Mg Tablet PO 12/01/24 14:14 1,000 mg TID ELAINE Administration Plan Noa Ochoa is a 29-year-old female with a past medical history of ulcerative colitis who was admitted on 11/01/2024 for lower GI bleed secondary to ulcerative colitis flare resulting in blood loss anemia. #Ulcerative colitis flare #Lower GI bleed #Acute blood loss anemia Presented on 11/01 with hemoglobin of 8.6 that dropped to 6.2 overnight and was transfused 2 unit PRBC. Prior to admission, endorsed having 15+ BMs per day and recently has been in the single digits. Colonoscopy on previous admission showed inflammatory changes on the left-sided colon all the way to the transverse colon with bleeding. CT A/P showed severe colitis pattern of entire colon. Pathology report of left colon showed chronic active colitis with architectural changes and cryptitis, ANCA positive, P ANCA titer 1:80. On 10/21, stool positive for 3+ WBCs and calprotectin 3040. C. difficile negative, pending Giardia, H. pylori, and norovirus. ? GI following, appreciate recommendations ? Methylprednisolone 40 mg IV twice daily (11/01-) ? Sulfasalazine 1 g p.o. 3 times daily (11/01-) ? Azathioprine 100 mg p.o. daily (11/02-) ? Follow-up [facility] cocci results and if negative, start Inflectra 5 mg/kg body weight #Nausea/vomiting Patient endorses nausea and nonbloody emesis. Abdominal XR did not show signs of SBO. ? Zofran as needed #Coccidiomycosis Denies any URTI except for chills and night sweats. Routine lab workup prior to starting possible biologics for IBD flare showed positive Cocci IgM, however repeat was negative. Fluconazole has since been discontinued. ? ID following, appreciate recommendations ? Follow-up [facility] results Hospital management: Disposition: Pending [facility] cocci results and possibly infliximab treatment Fluids: Not indicated Diet: PUD/GERD diet Lines: PIV DVT prophylaxis: SCDs given GI bleed GI prophylaxis: Pantoprazole 40 mg IV twice daily CODE STATUS: full code ----- Plan discussed with attending physician Dr. Bret Baker MD PGY-1 Internal Medicine
--- NOTE | 2024-11-06 09:35 | ESPR_ITS ---
Subjective Subjective Interval history: cocci neg on f/u but original should still be sent to [facility]. if not, then be sure it is sent. empiric flucon 400/day ok in the interim. ok to wait for qtf too for the biological agent to start. Exam Vital Signs Temp Pulse Resp BP Pulse Ox O2 Del Method 98.1 F 72 15 114/74 99 Room Air 11/06/24 04:00 11/06/24 04:00 11/06/24 04:00 11/06/24 04:00 11/06/24 04:00 11/06/24 04:00 Narrative Exam no O2 need. no rash. cxr neg. ok to give flucon 400/day till data back even with neg test 2d later and neg cxr as the rx for ibd is immunosuppressive Objective - Internal Medicine Labs 11/06/24 04:56 11/06/24 04:56 Labs: Laboratory Results - last 24 hr 11/01/24 11/06/24 18:10 04:56 WBC 12.3 H D RBC 4.06 Hgb 9.2 L Hct 28.2 L MCV 70 L MCH 22.7 L MCHC 32.6 RDW Std Deviation 56.8 H Plt Count 283 Neut % (Auto) 86 H Lymph % (Auto) 8 L [place] % (Auto) 5 Eos % (Auto) 0 Baso % (Auto) 0 Neut # (Auto) 10.6 H Lymph # (Auto) 1.0 [place] # (Auto) 0.6 Eos # (Auto) 0.0 Baso # (Auto) 0.0 Immature Gran # (Auto) 0.09 H Absolute Nucleated RBC 0.00 Immature Gran % 1 H Nucleated RBC % 0 Sodium 140 Potassium 4.1 Chloride 103 Carbon Dioxide 26.2 Anion Gap 11 BUN < 5 L Creatinine 0.4 L Estim Creat Clear Calc 128.7 eGFR > 60 BUN/Creatinine Ratio 13 Glucose 102 Calculated Osmolality 276 Calcium 8.1 L Corrected Calcium 8.5 Magnesium 1.8 Total Bilirubin 0.4 AST 12 ALT < 7 L Alkaline Phosphatase 51 Total Protein 5.7 Albumin 3.5 Globulin 2.2 L Albumin/Globulin Ratio 1.6 Stl Giardia Antigen NOT DETECTED Stool Norovirus Ag NOT DETECTED Assessment & Plan A&P Narrative will screen for hiv. note that hep c testing neg and cocci may be false pos as repeat test neg 2d later us with flare multiple allergies ok to treat with flucon 400/day and ok to wait on the qtf before starting the biological agent as that is often more immunosuppressive than steroids alone although for short term, steroid rx often works rather well Time Spent With Patient Time: Total time spent is greater than 50% in coordination of care (as documented) at patient's floor/unit and/or counseling patient:
--- NOTE | 2024-11-06 09:36 | PD.RESHP ---
Documentation for date of: 11/06/24 HPI History of Present Illness History of present illness: Ms. Ochoa is a 29-year-old female with past medical history of ulcerative colitis that presented to the hospital with multiple episodes of bloody bowel movements. ID was consulted due to positive cocci IgM. Repeat cocci was negative for IgM and IgG. Pending Nestor confirmatory test. Patient seen and assessed at bedside and she is denying any signs of shortness of breath or coughing. Patient also denies any recent contact with people with TB which is also pending. We will check HIV and start patient on fluconazole 400 mg daily as patient is immunocompromised from medication for ulcerative colitis. Once UC Nestor test comes back we will adjust medication pending results. Dr Grider spoke with [facility] and unfortunately they did not have any results as of now. Exam Vital Signs Temp Pulse Resp BP Pulse Ox O2 Del Method 98.1 F 72 15 114/74 99 Room Air 11/06/24 04:00 11/06/24 04:00 11/06/24 04:00 11/06/24 04:00 11/06/24 04:00 11/06/24 04:00 Narrative Exam General: AOx3, patient resting comfortably in bed. Not in acute distress. Cardiovascular: tachycardic, regular rhythm, S1/S2 present, no murmurs appreciated Pulmonary: clear to auscultation bilaterally, no rales/rhonchi/wheezes, breathing well on room air. Abdominal: Mild tenderness to palpation in left abdomen, soft, non-distended, no rebound/guarding, normal bowel sounds present Musculoskeletal: normal ROM, no peripheral edema Skin: warm and dry, intact, no rashes Results: Labs 11/06/24 04:56 11/06/24 04:56 Labs: Short CBC 11/06/24 Range/Units 04:56 WBC 12.3 H D (3.6-11.0) Thou/mm3 Hgb 9.2 L (12.0-16.0) g/dL Hct 28.2 L (36.0-46.0) % Plt Count 283 (140-440) Thou/mm3 BMP 11/06/24 04:56 Sodium 140 Potassium 4.1 Chloride 103 Carbon Dioxide 26.2 BUN < 5 L Creatinine 0.4 L Glucose 102 Calcium 8.1 L Liver Function 11/06/24 Range/Units 04:56 Total Bilirubin 0.4 (0.3-1.2) mg/dL AST 12 (0-34) U/L ALT < 7 L (10-49) U/L Alkaline Phosphatase 51 (46-116) U/L Albumin 3.5 (3.5-5.0) gm/dL Quality Measures Quality Measures none Medications Home Medications and Allergies Home Medications ?Medication ?Instructions ?Recorded ?Confirmed ?Type multivitamin (Daily Multi-Vitamin 1 tab PO QAM 10/20/24 10/31/24 History tablet) Allergies Allergy/AdvReac Type Severity Reaction Status Date / Time Penicillins Allergy Mild RASH Verified 11/01/24 08:40 vancomycin Allergy Mild REDNESS, Verified 11/01/24 08:40 ITCHING tree and shrub pollen Allergy Rash Verified 11/01/24 08:40 Visit Medications Acetaminophen (Acetaminophen 325 Mg Tablet) 650 mg PO Q6H PRN PRN Reason: Fever > 100.4 or Pain 1-3 Stop: 12/01/24 13:13 Azathioprine (Azathioprine 50 Mg Tablet) 100 mg PO DAILY [facility] Stop: 12/02/24 08:59 Last Admin: 11/06/24 08:30 Dose: 100 mg Folic Acid (Folic Acid 1 Mg Tablet) 1 mg PO QDAY [facility] Stop: 12/01/24 14:14 Last Admin: 11/06/24 08:35 Dose: 1 mg Lactated Ringer's (Lactated Ringers) 1,000 mls @ 75 mls/hr IV .[id number] [facility] Stop: 12/01/24 13:14 Last Admin: 11/06/24 05:57 Dose: 75 mls/hr Methylprednisolone Sodium Succinate (Methylprednisolone Sod Succ 40 Mg Vial) 40 mg IVP BID [facility] Stop: 11/08/24 20:59 Last Admin: 11/06/24 08:35 Dose: 40 mg Ondansetron HCl (Ondansetron Inj 2 Mg/Ml Inj 2 Ml) 4 mg IVP Q6HR PRN; Protocol PRN Reason: NAUSEA OR VOMITING Stop: 12/01/24 13:19 Last Admin: 11/06/24 08:31 Dose: 4 mg Pantoprazole Sodium (Pantoprazole Inj 40 Mg Vial) 40 mg IVP Q12HR [facility] Stop: 12/01/24 20:59 Last Admin: 11/06/24 08:31 Dose: 40 mg Simethicone (Simethicone 80 Mg Chew) 80 mg PO QID PRN PRN Reason: GAS Stop: 12/05/24 14:25 Sulfasalazine (Sulfasalazine 500 Mg Tablet) 1,000 mg PO TID [facility] Stop: 12/01/24 14:14 Last Admin: 11/06/24 05:09 Dose: 1,000 mg Discontinued Medications Azathioprine (Azathioprine 50 Mg Tablet) 50 mg PO BID [facility] Stop: 12/01/24 14:14 Last Admin: 11/01/24 15:21 Dose: 50 mg Azathioprine (Azathioprine 50 Mg Tablet) 50 mg PO X1 ONE Stop: 11/01/24 16:01 Last Admin: 11/01/24 16:24 Dose: 50 mg Fluconazole (Fluconazole 100 Mg Tablet) 400 mg PO QDAY [facility] Stop: 11/09/24 16:59 Last Admin: 11/04/24 08:55 Dose: 400 mg Sodium Chloride (Ns) 1,000 mls @ 999 mls/hr IV .Q1H1M ONE Stop: 11/01/24 11:32 Last Infusion: 11/01/24 13:08 Dose: Infused Levofloxacin/Dextrose (Levaquin Ivpb) 750 mg in 150 mls @ 100 mls/hr IV X1 ONE Stop: 11/01/24 16:35 Last Infusion: 11/01/24 16:51 Dose: Infused Magnesium Sulfate (Magnesium Sulfate Ivpb) 2 gm in 50 mls @ 25 mls/hr IV X1 ONE Stop: 11/02/24 10:31 Last Admin: 11/02/24 09:28 Dose: 25 mls/hr Methylprednisolone Sodium Succinate (Methylprednisolone Sod Succ 40 Mg Vial) 40 mg IVP X1 ONE Stop: 11/01/24 12:50 Last Admin: 11/01/24 13:33 Dose: 40 mg Methylprednisolone Sodium Succinate (Methylprednisolone Sod Succ 40 Mg Vial) 40 mg IVP QDAY [facility] Stop: 11/09/24 08:59 Ondansetron HCl (Ondansetron Inj 2 Mg/Ml Inj 2 Ml) 4 mg IVP X1 ONE; Protocol Stop: 11/01/24 10:33 Last Admin: 11/01/24 11:42 Dose: 4 mg Potassium Chloride (Potassium Chloride 20 Meq Tabcr) 20 meq PO X1 ONE Stop: 11/02/24 08:34 Last Admin: 11/02/24 09:27 Dose: 20 meq Assessment & Plan Plan Noa Ochoa is a 29-year-old female with a past medical history of ulcerative colitis who was admitted on 11/01/2024 for lower GI bleed secondary to ulcerative colitis flare resulting in blood loss anemia. ID consulted due to positive cocci IgM. #Coccidiomycosis Denies any URTI. Ppositive Cocci IgM, however repeat was negative. Fluconazole 400 mg daily given immune compression from UC medications ? Follow-up [facility] results - Follow-up rapid HIV test results #Ulcerative colitis flare #Lower GI bleed #Acute blood loss anemia #Nausea/vomiting Continue management per primary team Case discussed with attending Dr Marni Ford MD PGY3
--- NOTE | 2024-11-06 09:42 | PD.IMPROG ---
Documentation for date of: 11/06/24 Subjective Subjective Interval history: Cocci serologies are pending from [facility] Patient remains symptomatic No pulmonary symptoms Patient is on Diflucan Will follow the ID recommendations Exam Vital Signs Temp Pulse Resp BP Pulse Ox O2 Del Method 98.1 F 72 15 114/74 99 Room Air 11/06/24 04:00 11/06/24 04:00 11/06/24 04:00 11/06/24 04:00 11/06/24 04:00 11/06/24 04:00 Objective Labs 11/06/24 14:44 11/06/24 04:56 Labs: Laboratory Results - last 24 hr 11/01/24 11/06/24 18:10 04:56 WBC 12.3 H D RBC 4.06 Hgb 9.2 L Hct 28.2 L MCV 70 L MCH 22.7 L MCHC 32.6 RDW Std Deviation 56.8 H Plt Count 283 Neut % (Auto) 86 H Lymph % (Auto) 8 L Greer % (Auto) 5 Eos % (Auto) 0 Baso % (Auto) 0 Neut # (Auto) 10.6 H Lymph # (Auto) 1.0 Greer # (Auto) 0.6 Eos # (Auto) 0.0 Baso # (Auto) 0.0 Immature Gran # (Auto) 0.09 H Absolute Nucleated RBC 0.00 Immature Gran % 1 H Nucleated RBC % 0 Sodium 140 Potassium 4.1 Chloride 103 Carbon Dioxide 26.2 Anion Gap 11 BUN < 5 L Creatinine 0.4 L Estim Creat Clear Calc 128.7 eGFR > 60 BUN/Creatinine Ratio 13 Glucose 102 Calculated Osmolality 276 Calcium 8.1 L Corrected Calcium 8.5 Magnesium 1.8 Total Bilirubin 0.4 AST 12 ALT < 7 L Alkaline Phosphatase 51 Total Protein 5.7 Albumin 3.5 Globulin 2.2 L Albumin/Globulin Ratio 1.6 Stl Giardia Antigen NOT DETECTED Stool Norovirus Ag NOT DETECTED Impressions Impression: Acute exacerbation of the underlying inflammatory bowel disease Initial set of cocci serologies positive for IgM the second set is negative Results are pending from [facility] Continue current management Assessment & Plan A&P Narrative will screen for hiv. note that hep c testing neg and cocci may be false pos as repeat test neg 2d later us with flare multiple allergies Time Spent With Patient Time: Total time spent is greater than 50% in coordination of care (as documented) at patient's floor/unit and/or counseling patient:
--- NOTE | 2024-11-06 10:28 | ESCONSULT_ITS ---
<Statement entered by Todd Grider MD - 11/08/24 13:34> pt seen with resident. all findings confirmed. plans/recs as listed HPI Data of Consult Requesting Physician: Keyona Queen MD Admitting Provider: Keyona Queen MD Attending Provider: Keyona Queen MD Primary Care Provider: Michael Sena MD Consult Narrative History of present illness: Ms. Ochoa is a 29-year-old female with past medical history of ulcerative colitis that presented to the hospital with multiple episodes of bloody bowel movements. ID was consulted due to positive cocci IgM. Repeat cocci was negative for IgM and IgG. Pending Nestor confirmatory test. Patient seen and assessed at bedside and she is denying any signs of shortness of breath or coughing. Patient also denies any recent contact with people with TB which is also pending. We will check HIV and start patient on fluconazole 400 mg daily as patient is immunocompromised from medication for ulcerative colitis. Once UC Nestor test comes back we will adjust medication pending results. Dr Grider spoke with [facility] and unfortunately they did not have any results as of now. cc:: cc: Keyona Queen MD Exam Vital Signs Temp Pulse Resp BP Pulse Ox O2 Del Method 97 F 129 H 16 120/86 H 99 Room Air 11/06/24 08:00 11/06/24 10:09 11/06/24 08:00 11/06/24 08:00 11/06/24 08:00 11/06/24 08:00 Narrative Exam General: AOx3, patient resting comfortably in bed. Not in acute distress. Cardiovascular: tachycardic, regular rhythm, S1/S2 present, no murmurs appreciated Pulmonary: clear to auscultation bilaterally, no rales/rhonchi/wheezes, breathing well on room air. Abdominal: Mild tenderness to palpation in left abdomen, soft, non-distended, no rebound/guarding, normal bowel sounds present Musculoskeletal: normal ROM, no peripheral edema Skin: warm and dry, intact, no rashes Results Labs 11/06/24 04:56 11/06/24 04:56 Labs: Short CBC 11/06/24 Range/Units 04:56 WBC 12.3 H D (3.6-11.0) Thou/mm3 Hgb 9.2 L (12.0-16.0) g/dL Hct 28.2 L (36.0-46.0) % Plt Count 283 (140-440) Thou/mm3 BMP 11/06/24 04:56 Sodium 140 Potassium 4.1 Chloride 103 Carbon Dioxide 26.2 BUN < 5 L Creatinine 0.4 L Glucose 102 Calcium 8.1 L Liver Function 11/06/24 Range/Units 04:56 Total Bilirubin 0.4 (0.3-1.2) mg/dL AST 12 (0-34) U/L ALT < 7 L (10-49) U/L Alkaline Phosphatase 51 (46-116) U/L Albumin 3.5 (3.5-5.0) gm/dL Quality Measures Quality Measures none Medications Home Medications and Allergies Home Medications ?Medication ?Instructions ?Recorded ?Confirmed ?Type multivitamin (Daily Multi-Vitamin 1 tab PO QAM 5 10/31/24 History tablet) Allergies Allergy/AdvReac Type Severity Reaction Status Date / Time Penicillins Allergy Mild RASH Verified 11/01/24 08:40 vancomycin Allergy Mild REDNESS, Verified 11/01/24 08:40 ITCHING tree and shrub pollen Allergy Rash Verified 11/01/24 08:40 Visit Medications Acetaminophen (Acetaminophen 325 Mg Tablet) 650 mg PO Q6H PRN PRN Reason: Fever > 100.4 or Pain 1-3 Stop: 12/01/24 13:13 Azathioprine (Azathioprine 50 Mg Tablet) 100 mg PO DAILY [facility] Stop: 12/02/24 08:59 Last Admin: 11/06/24 08:30 Dose: 100 mg Fluconazole (Fluconazole 100 Mg Tablet) 400 mg PO QDAY [facility] Stop: 11/14/24 08:59 Folic Acid (Folic Acid 1 Mg Tablet) 1 mg PO QDAY [facility] Stop: 12/01/24 14:14 Last Admin: 11/06/24 08:35 Dose: 1 mg Lactated Ringer's (Lactated Ringers) 1,000 mls @ 75 mls/hr IV .[id number] [facility] Stop: 12/01/24 13:14 Last Admin: 11/06/24 05:57 Dose: 75 mls/hr Methylprednisolone Sodium Succinate (Methylprednisolone Sod Succ 40 Mg Vial) 40 mg IVP BID [facility] Stop: 11/08/24 20:59 Last Admin: 11/06/24 08:35 Dose: 40 mg Ondansetron HCl (Ondansetron Inj 2 Mg/Ml Inj 2 Ml) 4 mg IVP Q6HR PRN; Protocol PRN Reason: NAUSEA OR VOMITING Stop: 12/01/24 13:19 Last Admin: 11/06/24 08:31 Dose: 4 mg Pantoprazole Sodium (Pantoprazole Inj 40 Mg Vial) 40 mg IVP Q12HR [facility] Stop: 12/01/24 20:59 Last Admin: 11/06/24 08:31 Dose: 40 mg Simethicone (Simethicone 80 Mg Chew) 80 mg PO QID PRN PRN Reason: GAS Stop: 12/05/24 14:25 Sulfasalazine (Sulfasalazine 500 Mg Tablet) 1,000 mg PO TID [facility] Stop: 12/01/24 14:14 Last Admin: 11/06/24 05:09 Dose: 1,000 mg Discontinued Medications Azathioprine (Azathioprine 50 Mg Tablet) 50 mg PO BID [facility] Stop: 12/01/24 14:14 Last Admin: 11/01/24 15:21 Dose: 50 mg Azathioprine (Azathioprine 50 Mg Tablet) 50 mg PO X1 ONE Stop: 11/01/24 16:01 Last Admin: 11/01/24 16:24 Dose: 50 mg Fluconazole (Fluconazole 100 Mg Tablet) 400 mg PO QDAY [facility] Stop: 11/09/24 16:59 Last Admin: 11/04/24 08:55 Dose: 400 mg Sodium Chloride (Ns) 1,000 mls @ 999 mls/hr IV .Q1H1M ONE Stop: 11/01/24 11:32 Last Infusion: 11/01/24 13:08 Dose: Infused Levofloxacin/Dextrose (Levaquin Ivpb) 750 mg in 150 mls @ 100 mls/hr IV X1 ONE Stop: 11/01/24 16:35 Last Infusion: 11/01/24 16:51 Dose: Infused Magnesium Sulfate (Magnesium Sulfate Ivpb) 2 gm in 50 mls @ 25 mls/hr IV X1 ONE Stop: 11/02/24 10:31 Last Admin: 11/02/24 09:28 Dose: 25 mls/hr Methylprednisolone Sodium Succinate (Methylprednisolone Sod Succ 40 Mg Vial) 40 mg IVP X1 ONE Stop: 11/01/24 12:50 Last Admin: 11/01/24 13:33 Dose: 40 mg Methylprednisolone Sodium Succinate (Methylprednisolone Sod Succ 40 Mg Vial) 40 mg IVP QDAY [facility] Stop: 11/09/24 08:59 Ondansetron HCl (Ondansetron Inj 2 Mg/Ml Inj 2 Ml) 4 mg IVP X1 ONE; Protocol Stop: 11/01/24 10:33 Last Admin: 11/01/24 11:42 Dose: 4 mg Potassium Chloride (Potassium Chloride 20 Meq Tabcr) 20 meq PO X1 ONE Stop: 11/02/24 08:34 Last Admin: 11/02/24 09:27 Dose: 20 meq Assessment & Plan Plan Noa Ochoa is a 29-year-old female with a past medical history of ulcerative colitis who was admitted on 11/01/2024 for lower GI bleed secondary to ulcerative colitis flare resulting in blood loss anemia. ID consulted due to positive cocci IgM. #Coccidiomycosis Denies any URTI. Ppositive Cocci IgM, however repeat was negative. Fluconazole 400 mg daily given immune compression from UC medications ? Follow-up [facility] results - Follow-up rapid HIV test results #Ulcerative colitis flare #Lower GI bleed #Acute blood loss anemia #Nausea/vomiting Continue management per primary team Case discussed with attending Dr Marni Ford MD PGY3
[2024-11-06 12:41] LABS: Coccid Serology, CF (UCD)* See Sep Rpt
--- NOTE | 2024-11-06 14:25 | PC.NURSE ---
CLEANER WALL called d/t tachycardia, sob per pt.
--- NOTE | 2024-11-06 14:46 | ESCONSULT_ITS ---
RE: [employer] : 1995 DATE OF CONSULTATION: 11/06/2024 REFERRING PHYSICIAN: Dr. Queen. REASON FOR CONSULTATION: Inflammatory bowel disease flare-up. HISTORY OF PRESENT ILLNESS: The patient is a 29-year-old who has been having some blood in her stools for a few weeks. She had blood in her stools before and was given a diagnosis of ulcerative colitis. She was followed by others and had some mesalamine and other treatments, none of which seemed to work very well. More recently, she was changed to infliximab as noted by GI. She has a past history of no surgeries. ALLERGIES: NOTED WITH VANCOMYCIN AND PENICILLIN LISTED AND THERE IS ALSO SOME ENVIRONMENTAL ALLERGIES. IMMUNIZATIONS: Unavailable. FAMILY HISTORY: Noncontributory with no significant family history other than there is a maternal uncle with cirrhosis and lung cancer noted. He in August. Father has had some other illnesses. SH: lives with an uncle and a brother MEDICAL PROBLEMS: Include primarily the ulcerative colitis. She is 1, para 1. PHYSICAL EXAMINATION: The patient has a benign abdomen. She has been breathing comfortably on room air. There is no distress. She is loquacious and not ill-appearing. 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 She does not recall a prior PPD skin test or prior TB. 2. Probable false positive cocci w/o data from [facility] we cannot be sure and she has no respiratory symptoms. It makes sense to just leave her on fluconazole 400 mg daily until the test results are back from [facility]. If they were not sent to [facility] inadvertently, then you can ask for one to be sent there and draw it today or tomorrow morning. The positives from today will be sent out to [facility] tomorrow, so I will check on her briefly on Wednesday if she remains, but she should go home very soon. If you want to wait for her QuantiFERON test, that would be fine but it can be followed up on as an outpatient as well. DT: 09:58:59 TT: 10:47:00 Ref: [id number] - TID: [id number] MTDD
--- NOTE | 2024-11-06 14:47 | EVENTNT_ITS ---
Documentation for date of: 11/06/24 Event Note Event Note: Rapid response called at approximately 2:30 PM for tachycardia with heart rate in low 100s and shortness of breath. Upon arrival, BP 133/88, saturating 90% on room air. Patient states that she feels palpitations and some shortness of breath but no chest pain or lightheadedness. Noted to have sinus tachycardia in a.m. as shown by EKG after episode of emesis but resolved. Given episode of emesis and bloody BMs, H&H ordered that showed stable hemoglobin and given 1 L bolus of LR for possible hypovolemia. Otherwise, patient's vitals remained stable and will continue to monitor at this time. If patient remains symptomat ic, will consider starting beta-michael if symptoms persist. ----- Plan discussed with attending physician Dr. Bret Baker MD PGY-1 Internal Medicine
[2024-11-06 14:53] LABS: Hematocrit 30.6 % (36.0-46.0)
[2024-11-06 15:32] LABS: Thyroid Stimulating Hormone 0.53 uIU/mL (0.55-4.78)
[2024-11-06] MEDS: RINGERS LACTATED 1000 ML 500 ML 999 ML IV (16:23)
[2024-11-07] VITALS: BP 96/64; PULSE 82; RESP 16; TEMP 36.1; O2SAT 96
[2024-11-07 04:00] VITALS: BP 96/64; PULSE 78; RESP 18; TEMP 36.1; O2SAT 99
[2024-11-07 05:37] LABS: Basophils % (Auto) 0 % (0-2.5); Eosinophils % (Auto) 0 % (0-10); Hematocrit 26.7 % (36.0-46.0); Immature Granulocytes % (Auto) 1 % (0-0); Immature Granulocytes Auto 0.04 Thou/mm3 (0.00-0.00); Lymphocytes % (Auto) 12 % (10-50); Mean Corpuscular HGB Conc 32.6 g/dl (31.0-37.0); Mean Corpuscular Hemoglobin 22.8 pg (25.0-35.0); Mean Corpuscular Volume 70 fL (80-100); Monocytes # (Auto) 0.4 Thou/mm3 (0.0-0.8); Monocytes % (Auto) 5 % (0-12); Neutrophils % (Auto) 83 % (37-80); Nucleated Red Blood Cell % 0 /100 WBC (0); Platelet Count 235 Thou/mm3 (140-440); RDW Standard Deviation 58.3 fL (36.4-46.3); Red Blood Count 3.81 Miln/mm3 (4.00-5.20); White Blood Count 8.5 Thou/mm3 (3.6-11.0)
[2024-11-07 06:01] LABS: Anion Gap 12 (7-16); BUN/Creatinine Ratio 13 Ratio (12-20); Blood Urea Nitrogen < 5 mg/dL (9-23); Calcium 7.9 mg/dL (8.3-10.6); Carbon Dioxide 26.3 mMol/L (20.0-31.0); Chloride 103 mMol/L (98-107); Creatinine (Component) 0.4 mg/dL (0.6-1.3); Estimated Creatinine Clearance 128.7 mL/min (>60); Glucose 107 mg/dL (74-106); Magnesium 1.8 mg/dL (1.6-2.6); Osmolality,Calculated 278 (275-295); Phosphorous 4.3 mg/dL (2.4-5.1); Potassium 3.8 mMol/L (3.4-5.1); Sodium 141 mMol/L (136-145); eGFR > 60 See Note
[2024-11-07] MEDS: sulfaSALAzine 500 MG TABLET 1000 MG PO ×3 (06:03→21:17)
[2024-11-07 06:09] LABS: Hemoglobin 8.7 g/dL (12.0-16.0)
[2024-11-07 08:00] VITALS: BP 113/73; PULSE 78; PULSE 83; RESP 16; TEMP 36.2; O2SAT 98
[2024-11-07] MEDS: ONDANSETRON INJ 2 MG/ML INJ 2 ML 4 MG IVP ×2 (08:25→17:21)
[2024-11-07] MEDS: PANTOPRAZOLE INJ 40 MG VIAL IVP ×2 (08:27→20:05)
[2024-11-07] MEDS: azaTHIOprine 50 MG TABLET 100 MG PO (08:27)
[2024-11-07] MEDS: FLUCONAZOLE 100 MG TABLET 400 MG PO (08:28)
[2024-11-07] MEDS: FOLIC ACID 1 MG TABLET PO (08:28)
[2024-11-07 09:11] LABS: HIV (1&2) Antibody Rapid Non-Reactive
--- NOTE | 2024-11-07 09:14 | PD.RESPRO ---
Documentation for date of: 11/07/24 Subjective Subjective Interval history: No acute overnight events. Seen and examined at bedside and had another episode of nausea and vomiting after her bowel movement. States that she tends to have most of her bowel movements in the morning after waking up and feels nauseous afterwards. Recommended to request for antiemetic prior to breakfast or in AM before BM to help alleviate symptoms. Otherwise, she does not have any other complaints. Noted to have mildly elevated HR in 110s but noted to happen prior after N/V. ID started fluconazole to empirically treat for cocci and now currently awaiting for QuantiFERON gold results prior to starting infliximab. Exam Vital Signs Temp Pulse Resp BP Pulse Ox O2 Del Method 96.9 F 78 18 96/64 99 Room Air 11/07/24 04:00 11/07/24 04:00 11/07/24 04:00 11/07/24 04:00 11/07/24 04:00 11/07/24 04:00 Narrative Exam General: AOx3, mild distress from N/V, able to speak full sentences HEENT: NC/AT, mucous membranes moist, bilateral sclera anicteric Cardiovascular: tachycardic, regular rhythm, S1/S2 present, no murmurs appreciated Pulmonary: clear to auscultation bilaterally, no rales/rhonchi/wheezes Abdominal: tender to palpation in left abdomen, soft, non-distended, no rebound/guarding, normal bowel sounds present Musculoskeletal: normal ROM, no peripheral edema Skin: warm and dry, intact, no rashes Neuro: CN II-XII intact, no focal deficits Objective Labs 11/12/24 05:32 11/12/24 05:32 Labs: Laboratory Results - last 24 hr 11/06/24 11/07/24 14:44 04:51 WBC 8.5 RBC 3.81 L Hgb 10.0 L 8.7 L Hct 30.6 L 26.7 L MCV 70 L MCH 22.8 L MCHC 32.6 RDW Std Deviation 58.3 H Plt Count 235 D Neut % (Auto) 83 H Lymph % (Auto) 12 [place] % (Auto) 5 Eos % (Auto) 0 Baso % (Auto) 0 Neut # (Auto) 7.0 Lymph # (Auto) 1.0 [place] # (Auto) 0.4 Eos # (Auto) 0.0 Baso # (Auto) 0.0 Immature Gran # (Auto) 0.04 H Absolute Nucleated RBC 0.00 Immature Gran % 1 H Nucleated RBC % 0 Sodium 141 Potassium 3.8 Chloride 103 Carbon Dioxide 26.3 Anion Gap 12 BUN < 5 L Creatinine 0.4 L Estim Creat Clear Calc 128.7 eGFR > 60 BUN/Creatinine Ratio 13 Glucose 107 H Calculated Osmolality 278 Calcium 7.9 L Phosphorus 4.3 Magnesium 1.8 TSH 0.53 L Free T4 1.70 HIV 1&2 Antibody Rapid Non-Reactive Quality Measures Quality Measures none Assessment & Plan Assessment Current Active Medications: Generic Name Dose Route Start Last Admin Trade Name Freq PRN Reason Stop Dose Admin Acetaminophen 650 mg 11/01/24 13:14 Acetaminophen 325 Mg Tablet PO 12/01/24 13:13 Q6H PRN Fever > 100.4 or Pain 1-3 Azathioprine 100 mg 11/02/24 09:00 11/07/24 08:27 Azathioprine 50 Mg Tablet PO 12/02/24 08:59 100 mg DAILY ELAINE Administration Fluconazole 400 mg 11/07/24 09:00 11/07/24 08:28 Fluconazole 100 Mg Tablet PO 11/14/24 08:59 400 mg QDAY ELAINE Administration Folic Acid 1 mg 11/01/24 14:15 11/07/24 08:28 Folic Acid 1 Mg Tablet PO 12/01/24 14:14 1 mg QDAY ELAINE Administration Lactated Ringer's 1,000 mls @ 75 mls/hr 11/01/24 13:15 11/06/24 21:10 Lactated Ringers IV 12/01/24 13:14 75 mls/hr .[id number] ELAINE Administration Methylprednisolone Sodium Succinate 40 mg 11/01/24 21:00 11/07/24 08:27 Methylprednisolone Sod Succ 40 Mg Vial IVP 11/08/24 20:59 40 mg BID ELAINE Administration Ondansetron HCl 4 mg 11/01/24 13:20 11/07/24 08:25 Ondansetron Inj 2 Mg/Ml Inj 2 Ml IVP 12/01/24 13:19 4 mg Q6HR PRN Administration NAUSEA OR VOMITING Protocol Pantoprazole Sodium 40 mg 11/01/24 21:00 11/07/24 08:27 Pantoprazole Inj 40 Mg Vial IVP 12/01/24 20:59 40 mg Q12HR ELAINE Administration Simethicone 80 mg 06/01/25 14:26 Simethicone 80 Mg Chew PO 12/05/24 14:25 QID PRN GAS Sulfasalazine 1,000 mg 11/01/24 14:15 11/07/24 06:03 Sulfasalazine 500 Mg Tablet PO 12/01/24 14:14 1,000 mg TID ELAINE Administration Plan Noa Ochoa is a 29-year-old female with a past medical history of ulcerative colitis who was admitted on 11/01/2024 for lower GI bleed secondary to ulcerative colitis flare resulting in blood loss anemia. #Ulcerative colitis flare #Lower GI bleed #Acute blood loss anemia, resolved s/p transfusion Presented on 11/01 with hemoglobin of 8.6 that dropped to 6.2 overnight and was transfused 2 unit PRBC. Prior to admission, endorsed having 15+ BMs per day and recently has been in the single digits. Colonoscopy on previous admission showed inflammatory changes on the left-sided colon all the way to the transverse colon with bleeding. CT A/P showed severe colitis pattern of entire colon. Pathology report of left colon showed chronic active colitis with architectural changes and cryptitis, ANCA positive, P ANCA titer 1:80. On 10/21, stool positive for 3+ WBCs and calprotectin 3040. C. difficile, Giardia, norovirus negative, pending H. pylori. ? GI following, appreciate recommendations ? Methylprednisolone 40 mg IV twice daily (11/01-) ? Sulfasalazine 1 g p.o. 3 times daily (11/01-) ? Azathioprine 100 mg p.o. daily (11/02-) ? Follow-up [facility] cocci results and QuantiFERON gold and if negative, start Inflectra 5 mg/kg body weight ? Monitor hemoglobin and transfuse if less than 7 #Nausea/vomiting Patient endorses nausea and nonbloody emesis. Abdominal XR did not show signs of SBO. ? Zofran as needed #Coccidiomycosis Denies any URTI except for chills and night sweats. Routine lab workup prior to starting possible biologics for IBD flare showed positive Cocci IgM, however repeat was negative. Fluconazole has since been discontinued. ? ID following, appreciate recommendations ? Fluconazole 400 mg p.o. daily ? Follow-up [facility] results Hospital management: Disposition: Pending [facility] cocci QuantiFERON gold results and possibly infliximab treatment Diet: PUD/GERD diet Lines: PIV DVT prophylaxis: SCDs given GI bleed GI prophylaxis: Pantoprazole 40 mg IV twice daily CODE STATUS: full code ----- Plan discussed with attending physician Dr. Bret Baker MD PGY-1 Internal Medicine Attending Provider Attestation/Addendum 29-year-old with ulcerative colitis presenting with bloody diarrhea found to have ulcerative colitis flare and blood loss anemia. Patient initially started on steroids, sulfasalazine, azathioprine with minimal improvement and still continues to have +10 bowel movements. Plan to start patient on immunologic's however coccidiomycosis IgM positive for which we will wait for confirmatory test and QuantiFERON pending prior to starting any immunologic therapy. Will continue to monitor the patient closely and reassured patient about our plan.I reviewed above note and agree with findings and plans. I have also personally examined the patient with medicine team and went over assessment and plan with medical team including video intern and resident physician.
--- NOTE | 2024-11-07 10:43 | PC.SS ---
SS follow up note; Patient is still having bloody Bowl movements and nausea. Patient will discharge home when medically cleared.
--- NOTE | 2024-11-07 11:47 | ESPR_ITS ---
Documentation for date of: 11/07/24 Subjective Subjective Interval history: Reading serum QuantiFERON testing As well as cocci results from [facility] Did have episode of nausea vomiting in the morning and none since then I agree with the plan of giving antiemetics in the morning but given at nighttime before she goes to sleep so she can have a better morning Exam Vital Signs Temp Pulse Resp BP Pulse Ox O2 Del Method 97.1 F 83 16 113/73 98 Room Air 11/07/24 08:00 11/07/24 08:00 11/07/24 08:00 11/07/24 08:00 11/07/24 08:00 11/07/24 08:00 Objective Labs 11/07/24 04:51 11/07/24 04:51 Labs: Laboratory Results - last 24 hr 11/06/24 11/07/24 14:44 04:51 WBC 8.5 RBC 3.81 L Hgb 10.0 L 8.7 L Hct 30.6 L 26.7 L MCV 70 L MCH 22.8 L MCHC 32.6 RDW Std Deviation 58.3 H Plt Count 235 D Neut % (Auto) 83 H Lymph % (Auto) 12 [place] % (Auto) 5 Eos % (Auto) 0 Baso % (Auto) 0 Neut # (Auto) 7.0 Lymph # (Auto) 1.0 [place] # (Auto) 0.4 Eos # (Auto) 0.0 Baso # (Auto) 0.0 Immature Gran # (Auto) 0.04 H Absolute Nucleated RBC 0.00 Immature Gran % 1 H Nucleated RBC % 0 Sodium 141 Potassium 3.8 Chloride 103 Carbon Dioxide 26.3 Anion Gap 12 BUN < 5 L Creatinine 0.4 L Estim Creat Clear Calc 128.7 eGFR > 60 BUN/Creatinine Ratio 13 Glucose 107 H Calculated Osmolality 278 Calcium 7.9 L Phosphorus 4.3 Magnesium 1.8 TSH 0.53 L Free T4 1.70 HIV 1&2 Antibody Rapid Non-Reactive Impressions Impression: Acute exacerbation of the underlying inflammatory bowel disease/ulcerative colitis Awaiting appropriate testing to make the decision Assessment & Plan A&P Narrative will screen for hiv. note that hep c testing neg and cocci may be false pos as repeat test neg 2d later us with flare multiple allergies ok to treat with flucon 400/day and ok to wait on the qtf before starting the biological agent as that is often more immunosuppressive than steroids alone although for short term, steroid rx often works rather well Time Spent With Patient Time: Total time spent is greater than 50% in coordination of care (as documented) at patient's floor/unit and/or counseling patient:
[2024-11-07 12:00] VITALS: BP 112/76; PULSE 83; PULSE 91; RESP 16; TEMP 37; O2SAT 98
[2024-11-07] MEDS: RINGERS LACTATED 1000 ML 1,000 ML 75 ML IV (13:30)
[2024-11-07 16:00] VITALS: BP 119/73; PULSE 80; PULSE 91; RESP 16; TEMP 36.1; O2SAT 100
[2024-11-07 20:00] VITALS: BP 117/77; PULSE 90; RESP 16; TEMP 37.1; O2SAT 97
[2024-11-07] MEDS: ACETAMINOPHEN 325 MG TABLET 650 MG PO (21:17)
[2024-11-08] VITALS: BP 102/65; PULSE 62; PULSE 70; RESP 16; TEMP 36.6; O2SAT 98
[2024-11-08] MEDS: RINGERS LACTATED 1000 ML 1,000 ML 75 ML IV ×2 (03:07→16:50)
[2024-11-08 04:00] VITALS: BP 113/74; PULSE 74; PULSE 92; RESP 16; TEMP 36.8; O2SAT 99
[2024-11-08] MEDS: sulfaSALAzine 500 MG TABLET 1000 MG PO ×3 (05:18→21:10)
[2024-11-08 05:48] LABS: Basophils % (Auto) 0 % (0-2.5); Eosinophils % (Auto) 0 % (0-10); Hematocrit 30.3 % (36.0-46.0); Hemoglobin 9.4 g/dL (12.0-16.0); Immature Granulocytes % (Auto) 1 % (0-0); Immature Granulocytes Auto 0.05 Thou/mm3 (0.00-0.00); Lymphocytes # (Auto) 0.9 Thou/mm3 (1.0-4.8); Lymphocytes % (Auto) 10 % (10-50); Mean Corpuscular Hemoglobin 22.9 pg (25.0-35.0); Mean Corpuscular Volume 74 fL (80-100); Monocytes # (Auto) 0.4 Thou/mm3 (0.0-0.8); Monocytes % (Auto) 5 % (0-12); Neutrophils # (Auto) 7.3 Thou/mm3 (1.8-7.7); Neutrophils % (Auto) 84 % (37-80); Nucleated Red Blood Cell % 0 /100 WBC (0); Platelet Count 211 Thou/mm3 (140-440); RDW Standard Deviation 61.1 fL (36.4-46.3); White Blood Count 8.7 Thou/mm3 (3.6-11.0)
[2024-11-08 06:37] LABS: Anion Gap 13 (7-16); BUN/Creatinine Ratio 10 Ratio (12-20); Blood Urea Nitrogen < 5 mg/dL (9-23); Calcium 8.6 mg/dL (8.3-10.6); Carbon Dioxide 27.1 mMol/L (20.0-31.0); Chloride 101 mMol/L (98-107); Creatinine (Component) 0.5 mg/dL (0.6-1.3); Glucose 136 mg/dL (74-106); Magnesium 1.8 mg/dL (1.6-2.6); Osmolality,Calculated 280 (275-295); Phosphorous 4.6 mg/dL (2.4-5.1); Potassium 4.1 mMol/L (3.4-5.1); Sodium 141 mMol/L (136-145); eGFR > 60 See Note
[2024-11-08 06:48] LABS: Calprotectin, Stool* 3350 mcg/g; Helicobacter pylori Ag, Stool* NOT DETECTED (NOT DETECTED)
[2024-11-08 08:00] VITALS: BP 119/76; PULSE 91; PULSE 94; RESP 20; TEMP 36.8; O2SAT 100
[2024-11-08] MEDS: ONDANSETRON INJ 2 MG/ML INJ 2 ML 4 MG IVP (08:14)
[2024-11-08] MEDS: PANTOPRAZOLE INJ 40 MG VIAL IVP ×2 (08:15→21:11)
[2024-11-08] MEDS: FLUCONAZOLE 100 MG TABLET 400 MG PO (08:15)
[2024-11-08] MEDS: FOLIC ACID 1 MG TABLET PO (08:16)
[2024-11-08] MEDS: azaTHIOprine 50 MG TABLET 100 MG PO (08:16)
[2024-11-08 08:49] VITALS: BMI 19.6
--- NOTE | 2024-11-08 11:04 | PD.RESPRO ---
Documentation for date of: 11/08/24 Subjective Subjective Interval history: No acute overnight events. Seen and examined at bedside and heart rate elevated in 160s after an emotional phone call with family at home. Did have 4 episodes of bloody bowel movements this morning but was able to hold down her breakfast. Still pending cocci results from [facility] as well as TB results. Other than tachycardia, vital signs stable. Hemoglobin stable at 9.4 and chem panel largely unremarkable. GI and ID following, appreciate recommendations. Exam Vital Signs Temp Pulse Resp BP Pulse Ox O2 Del Method 98.3 F 94 20 119/76 100 Room Air 11/08/24 08:00 11/08/24 08:00 11/08/24 08:00 11/08/24 08:00 11/08/24 08:00 11/08/24 08:00 Narrative Exam General: AOx3, mild distress from N/V, able to speak full sentences HEENT: NC/AT, mucous membranes moist, bilateral sclera anicteric Cardiovascular: tachycardic, regular rhythm, S1/S2 present, no murmurs appreciated Pulmonary: clear to auscultation bilaterally, no rales/rhonchi/wheezes Abdominal: tender to palpation in left abdomen, soft, non-distended, no rebound/guarding, normal bowel sounds present Musculoskeletal: normal ROM, no peripheral edema Skin: warm and dry, intact, no rashes Neuro: CN II-XII intact, no focal deficits Objective Labs 11/12/24 05:32 11/12/24 05:32 Labs: Laboratory Results - last 24 hr 11/01/24 11/08/24 18:10 05:10 WBC 8.7 RBC 4.10 Hgb 9.4 L Hct 30.3 L MCV 74 L MCH 22.9 L MCHC 31.0 RDW Std Deviation 61.1 H Plt Count 211 Neut % (Auto) 84 H Lymph % (Auto) 10 [place] % (Auto) 5 Eos % (Auto) 0 Baso % (Auto) 0 Neut # (Auto) 7.3 Lymph # (Auto) 0.9 L [place] # (Auto) 0.4 Eos # (Auto) 0.0 Baso # (Auto) 0.0 Immature Gran # (Auto) 0.05 H Absolute Nucleated RBC 0.00 Immature Gran % 1 H Nucleated RBC % 0 Sodium 141 Potassium 4.1 Chloride 101 Carbon Dioxide 27.1 Anion Gap 13 BUN < 5 L Creatinine 0.5 L Estim Creat Clear Calc 103.0 eGFR > 60 BUN/Creatinine Ratio 10 L Glucose 136 H Calculated Osmolality 280 Calcium 8.6 Phosphorus 4.6 Magnesium 1.8 Stool Calprotectin 3350 H Stool H. pylori Ag NOT DETECTED Quality Measures Quality Measures none Assessment & Plan Assessment Current Active Medications: Generic Name Dose Route Start Last Admin Trade Name Freq PRN Reason Stop Dose Admin Acetaminophen 650 mg 11/01/24 13:14 11/07/24 21:17 Acetaminophen 325 Mg Tablet PO 12/01/24 13:13 650 mg Q6H PRN Administration Fever > 100.4 or Pain 1-3 Azathioprine 100 mg 11/02/24 09:00 11/08/24 08:16 Azathioprine 50 Mg Tablet PO 12/02/24 08:59 100 mg DAILY ELAINE Administration Fluconazole 400 mg 11/07/24 09:00 11/08/24 08:15 Fluconazole 100 Mg Tablet PO 11/14/24 08:59 400 mg QDAY ELAINE Administration Folic Acid 1 mg 11/01/24 14:15 11/08/24 08:16 Folic Acid 1 Mg Tablet PO 12/01/24 14:14 1 mg QDAY ELAINE Administration Lactated Ringer's 1,000 mls @ 75 mls/hr 11/01/24 13:15 11/08/24 03:07 Lactated Ringers IV 12/01/24 13:14 75 mls/hr .[id number] ELAINE Administration Methylprednisolone Sodium Succinate 40 mg 11/01/24 21:00 11/08/24 08:15 Methylprednisolone Sod Succ 40 Mg Vial IVP 11/08/24 20:59 40 mg BID ELAINE Administration Ondansetron HCl 4 mg 11/01/24 13:20 11/08/24 08:14 Ondansetron Inj 2 Mg/Ml Inj 2 Ml IVP 12/01/24 13:19 4 mg Q6HR PRN Administration NAUSEA OR VOMITING Protocol Pantoprazole Sodium 40 mg 11/01/24 21:00 11/08/24 08:15 Pantoprazole Inj 40 Mg Vial IVP 12/01/24 20:59 40 mg Q12HR ELAINE Administration Simethicone 80 mg 11/05/24 14:26 Simethicone 80 Mg Chew PO 12/05/24 14:25 QID PRN GAS Sulfasalazine 1,000 mg 11/01/24 14:15 11/08/24 05:18 Sulfasalazine 500 Mg Tablet PO 12/01/24 14:14 1,000 mg TID ELAINE Administration Plan Noa Ochoa is a 29-year-old female with a past medical history of ulcerative colitis who was admitted on 11/01/2024 for lower GI bleed secondary to ulcerative colitis flare resulting in blood loss anemia. #Ulcerative colitis flare #Lower GI bleed #Acute blood loss anemia, resolved s/p transfusion Presented on 11/01 with hemoglobin of 8.6 that dropped to 6.2 overnight and was transfused 2 unit PRBC. Prior to admission, endorsed having 15+ BMs per day and recently has been in the single digits. Colonoscopy on previous admission showed inflammatory changes on the left-sided colon all the way to the transverse colon with bleeding. CT A/P showed severe colitis pattern of entire colon. Pathology report of left colon showed chronic active colitis with architectural changes and cryptitis, ANCA positive, P ANCA titer 1:80. On 10/21, stool positive for 3+ WBCs and calprotectin 3040. C. difficile, Giardia, norovirus negative, pending H. pylori. ? GI following, appreciate recommendations ? Methylprednisolone 40 mg IV twice daily (11/01-) ? Sulfasalazine 1 g p.o. 3 times daily (11/01-) ? Azathioprine 100 mg p.o. daily (11/02-) ? Follow-up [facility] cocci results and QuantiFERON gold and if negative, start Inflectra 5 mg/kg body weight ? Monitor hemoglobin and transfuse if less than 7 #Nausea/vomiting Patient endorses nausea and nonbloody emesis. Abdominal XR did not show signs of SBO. ? Zofran as needed #Coccidiomycosis Denies any URTI except for chills and night sweats. Routine lab workup prior to starting possible biologics for IBD flare showed positive Cocci IgM, however repeat was negative. Fluconazole has since been discontinued. ? ID following, appreciate recommendations ? Fluconazole 400 mg p.o. daily ? Follow-up [facility] results Hospital management: Disposition: Pending [facility] cocci QuantiFERON gold results and possibly infliximab treatment Diet: PUD/GERD diet Lines: PIV DVT prophylaxis: SCDs given GI bleed GI prophylaxis: Pantoprazole 40 mg IV twice daily CODE STATUS: full code ----- Plan discussed with attending physician Dr. Bret Baker MD PGY-1 Internal Medicine Attending Provider Attestation/Addendum 29-year-old with ulcerative colitis presenting with bloody diarrhea found to have ulcerative colitis flare and blood loss anemia. Patient initially started on steroids, sulfasalazine, azathioprine with minimal improvement and still continues to have +10 bowel movements. Plan to start patient on immunologic's however coccidiomycosis IgM positive for which we will wait for confirmatory test and QuantiFERON pending prior to starting any immunologic therapy. Will continue to monitor the patient closely and reassured patient about our plan.I reviewed above note and agree with findings and plans. I have also personally examined the patient with medicine team and went over assessment and plan with medical team including internal audit consultant and resident physician.
[2024-11-08 12:00] VITALS: BP 108/67; PULSE 89; RESP 18; TEMP 37.2; O2SAT 99
--- NOTE | 2024-11-08 13:35 | PD.IMPROG ---
Documentation for date of: 11/08/24 Subjective Subjective Interval history: Patient has been asymptomatic with blood in the stool and diarrhea Waiting QuantiFERON testing as well as cocci serology results from [facility] Exam Vital Signs Temp Pulse Resp BP Pulse Ox O2 Del Method 98.3 F 94 20 119/76 100 Room Air 11/08/24 08:00 11/08/24 08:00 11/08/24 08:00 11/08/24 08:00 11/08/24 08:00 11/08/24 08:00 Objective Labs 11/08/24 05:10 11/08/24 05:10 Labs: Laboratory Results - last 24 hr 11/01/24 11/08/24 18:10 05:10 WBC 8.7 RBC 4.10 Hgb 9.4 L Hct 30.3 L MCV 74 L MCH 22.9 L MCHC 31.0 RDW Std Deviation 61.1 H Plt Count 211 Neut % (Auto) 84 H Lymph % (Auto) 10 [place] % (Auto) 5 Eos % (Auto) 0 Baso % (Auto) 0 Neut # (Auto) 7.3 Lymph # (Auto) 0.9 L [place] # (Auto) 0.4 Eos # (Auto) 0.0 Baso # (Auto) 0.0 Immature Gran # (Auto) 0.05 H Absolute Nucleated RBC 0.00 Immature Gran % 1 H Nucleated RBC % 0 Sodium 141 Potassium 4.1 Chloride 101 Carbon Dioxide 27.1 Anion Gap 13 BUN < 5 L Creatinine 0.5 L Estim Creat Clear Calc 103.0 eGFR > 60 BUN/Creatinine Ratio 10 L Glucose 136 H Calculated Osmolality 280 Calcium 8.6 Phosphorus 4.6 Magnesium 1.8 Stool Calprotectin 3350 H Stool H. pylori Ag NOT DETECTED Impressions Impression: # Acute exacerbation of the underlying inflammatory bowel disease Waiting QuantiFERON serum testing as well as cocci serology from [facility] Assessment & Plan A&P Narrative will screen for hiv. note that hep c testing neg and cocci may be false pos as repeat test neg 2d later us with flare multiple allergies ok to treat with flucon 400/day and ok to wait on the qtf before starting the biological agent as that is often more immunosuppressive than steroids alone although for short term, steroid rx often works rather well Time Spent With Patient Time: Total time spent is greater than 50% in coordination of care (as documented) at patient's floor/unit and/or counseling patient:
--- NOTE | 2024-11-08 13:40 | PD.IDPROG ---
Subjective Subjective Interval history: ok to wait on qtf and cocci as outpt as cxr neg Exam Vital Signs Temp Pulse Resp BP Pulse Ox O2 Del Method 98.3 F 94 20 119/76 100 Room Air 11/08/24 08:00 11/08/24 08:00 11/08/24 08:00 11/08/24 08:00 11/08/24 08:00 11/08/24 08:00 Narrative Exam limited visit Objective - Internal Medicine Labs 11/08/24 05:10 11/08/24 05:10 Labs: Laboratory Results - last 24 hr 11/01/24 11/08/24 18:10 05:10 WBC 8.7 RBC 4.10 Hgb 9.4 L Hct 30.3 L MCV 74 L MCH 22.9 L MCHC 31.0 RDW Std Deviation 61.1 H Plt Count 211 Neut % (Auto) 84 H Lymph % (Auto) 10 [place] % (Auto) 5 Eos % (Auto) 0 Baso % (Auto) 0 Neut # (Auto) 7.3 Lymph # (Auto) 0.9 L [place] # (Auto) 0.4 Eos # (Auto) 0.0 Baso # (Auto) 0.0 Immature Gran # (Auto) 0.05 H Absolute Nucleated RBC 0.00 Immature Gran % 1 H Nucleated RBC % 0 Sodium 141 Potassium 4.1 Chloride 101 Carbon Dioxide 27.1 Anion Gap 13 BUN < 5 L Creatinine 0.5 L Estim Creat Clear Calc 103.0 eGFR > 60 BUN/Creatinine Ratio 10 L Glucose 136 H Calculated Osmolality 280 Calcium 8.6 Phosphorus 4.6 Magnesium 1.8 Stool Calprotectin 3350 H Stool H. pylori Ag NOT DETECTED Assessment & Plan A&P Narrative will screen for hiv. note that hep c testing neg and cocci may be false pos as repeat test neg 2d later us with flare multiple allergies ok to treat with flucon 400/day and ok to wait on the qtf before starting the biological agent as that is often more immunosuppressive than steroids alone although for short term, steroid rx often works rather well ok to monitor as outpt as cxr is neg Time Spent With Patient Time: Total time spent is greater than 50% in coordination of care (as documented) at patient's floor/unit and/or counseling patient:
[2024-11-08 16:00] VITALS: BP 126/77; PULSE 83; RESP 16; TEMP 36.4; O2SAT 100
[2024-11-08 20:00] VITALS: BP 130/87; PULSE 76; PULSE 89; RESP 17; TEMP 37.2; O2SAT 100
[2024-11-09] VITALS (8 sets, daily range): BP systolic 114–150; BP diastolic 75–96; PULSE 80–147; RESP 16–20; TEMP 36.3–38.1; O2SAT 98–100
[2024-11-09] MEDS: sulfaSALAzine 500 MG TABLET 1000 MG PO ×3 (05:24→21:33)
[2024-11-09 05:26] LABS: Anion Gap 11 (7-16); BUN/Creatinine Ratio 10 Ratio (12-20); Blood Urea Nitrogen < 5 mg/dL (9-23); Calcium 7.7 mg/dL (8.3-10.6); Chloride 102 mMol/L (98-107); Creatinine (Component) 0.5 mg/dL (0.6-1.3); Glucose 93 mg/dL (74-106); Magnesium 1.7 mg/dL (1.6-2.6); Osmolality,Calculated 278 (275-295); Phosphorous 2.7 mg/dL (2.4-5.1); Potassium 3.4 mMol/L (3.4-5.1); Sodium 141 mMol/L (136-145); eGFR > 60 See Note
[2024-11-09] MEDS: RINGERS LACTATED 1000 ML 1,000 ML 75 ML IV (05:28)
[2024-11-09] MEDS: ONDANSETRON INJ 2 MG/ML INJ 2 ML 4 MG IVP ×2 (05:53→16:28)
[2024-11-09 06:08] LABS: Basophils % (Auto) 1 % (0-2.5); Eosinophils # (Auto) 0.1 Thou/mm3 (0.0-0.5); Eosinophils % (Auto) 1 % (0-10); Hematocrit 27.5 % (36.0-46.0); Immature Granulocytes % (Auto) 1 % (0-0); Immature Granulocytes Auto 0.05 Thou/mm3 (0.00-0.00); Lymphocytes # (Auto) 1.3 Thou/mm3 (1.0-4.8); Lymphocytes % (Auto) 15 % (10-50); Mean Corpuscular HGB Conc 31.3 g/dl (31.0-37.0); Mean Corpuscular Hemoglobin 23.3 pg (25.0-35.0); Mean Corpuscular Volume 75 fL (80-100); Monocytes # (Auto) 0.4 Thou/mm3 (0.0-0.8); Monocytes % (Auto) 5 % (0-12); Neutrophils # (Auto) 6.5 Thou/mm3 (1.8-7.7); Neutrophils % (Auto) 77 % (37-80); Nucleated Red Blood Cell % 0 /100 WBC (0); Platelet Count 260 Thou/mm3 (140-440); RDW Standard Deviation 62.4 fL (36.4-46.3); Red Blood Count 3.69 Miln/mm3 (4.00-5.20); White Blood Count 8.4 Thou/mm3 (3.6-11.0)
[2024-11-09 06:12] LABS: Hemoglobin 8.6 g/dL (12.0-16.0)
[2024-11-09] MEDS: PANTOPRAZOLE INJ 40 MG VIAL IVP ×2 (08:48→21:32)
[2024-11-09] MEDS: POTASSIUM CHLORIDE 20 mEq TABCR 40 MEQ PO (08:48)
[2024-11-09] MEDS: azaTHIOprine 50 MG TABLET 100 MG PO (08:48)
[2024-11-09] MEDS: FLUCONAZOLE 100 MG TABLET 400 MG PO (08:48)
[2024-11-09] MEDS: FOLIC ACID 1 MG TABLET PO (08:49)
--- NOTE | 2024-11-09 11:17 | ESPR_ITS ---
Documentation for date of: 11/09/24 Subjective Subjective Interval history: No acute overnight events. Seen and examined at bedside and heart rate slightly elevated in low 100s and patient endorses palpitations. Given drop in hemoglobin from 9.4 to 8.6, suspect hypovolemia and will give IVF bolus according to patient's body weight. Otherwise, had 4 bloody bowel movements this morning and after experienced nausea but no vomiting. Quantiferon results came back indeterminate and cocci reults from [facility] still pending at this time, so will reach out to infectious disease for further recommendations. Exam Vital Signs Temp Pulse Resp BP Pulse Ox O2 Del Method 98.8 F 130 H 18 150/96 H 99 Room Air 11/09/24 08:00 11/09/24 08:00 11/09/24 08:00 11/09/24 08:00 11/09/24 08:00 11/09/24 08:00 Narrative Exam General: AOx3, mild distress from N/V, able to speak full sentences HEENT: NC/AT, mucous membranes moist, bilateral sclera anicteric Cardiovascular: tachycardic, regular rhythm, S1/S2 present, no murmurs appreciated Pulmonary: clear to auscultation bilaterally, no rales/rhonchi/wheezes Abdominal: tender to palpation in left abdomen, soft, non-distended, no rebound/guarding, normal bowel sounds present Musculoskeletal: normal ROM, no peripheral edema Skin: warm and dry, intact, no rashes Neuro: CN II-XII intact, no focal deficits Objective Labs 11/12/24 05:32 11/12/24 05:32 Labs: Laboratory Results - last 24 hr 11/01/24 11/09/24 13:05 04:35 WBC 8.4 RBC 3.69 L Hgb 8.6 L Hct 27.5 L MCV 75 L MCH 23.3 L MCHC 31.3 RDW Std Deviation 62.4 H Plt Count 260 D Neut % (Auto) 77 Lymph % (Auto) 15 [place] % (Auto) 5 Eos % (Auto) 1 Baso % (Auto) 1 Neut # (Auto) 6.5 Lymph # (Auto) 1.3 [place] # (Auto) 0.4 Eos # (Auto) 0.1 Baso # (Auto) 0.0 Immature Gran # (Auto) 0.05 H Absolute Nucleated RBC 0.00 Immature Gran % 1 H Nucleated RBC % 0 Sodium 141 Potassium 3.4 D Chloride 102 Carbon Dioxide 28.0 Anion Gap 11 BUN < 5 L Creatinine 0.5 L Estim Creat Clear Calc 103.0 eGFR > 60 BUN/Creatinine Ratio 10 L Glucose 93 Calculated Osmolality 278 Calcium 7.7 L Phosphorus 2.7 Magnesium 1.7 TB Test (QFT) See Sep Rpt Quality Measures Quality Measures none Assessment & Plan Assessment Current Active Medications: Generic Name Dose Route Start Last Admin Trade Name Freq PRN Reason Stop Dose Admin Acetaminophen 650 mg 11/01/24 13:14 11/07/24 21:17 Acetaminophen 325 Mg Tablet PO 12/01/24 13:13 650 mg Q6H PRN Administration Fever > 100.4 or Pain 1-3 Azathioprine 100 mg 11/02/24 09:00 11/09/24 08:48 Azathioprine 50 Mg Tablet PO 12/02/24 08:59 100 mg DAILY ELAINE Administration Fluconazole 400 mg 11/07/24 09:00 11/09/24 08:48 Fluconazole 100 Mg Tablet PO 11/14/24 08:59 400 mg QDAY ELAINE Administration Folic Acid 1 mg 11/01/24 14:15 11/09/24 08:49 Folic Acid 1 Mg Tablet PO 12/01/24 14:14 1 mg QDAY ELAINE Administration Lactated Ringer's 1,000 mls @ 75 mls/hr 11/01/24 13:15 11/09/24 05:28 Lactated Ringers IV 12/01/24 13:14 75 mls/hr .[id number] ELAINE Administration Ondansetron HCl 4 mg 11/01/24 13:20 11/09/24 05:53 Ondansetron Inj 2 Mg/Ml Inj 2 Ml IVP 12/01/24 13:19 4 mg Q6HR PRN Administration NAUSEA OR VOMITING Protocol Pantoprazole Sodium 40 mg 11/01/24 21:00 11/09/24 08:48 Pantoprazole Inj 40 Mg Vial IVP 12/01/24 20:59 40 mg Q12HR ELAINE Administration Simethicone 80 mg 11/05/24 14:26 Simethicone 80 Mg Chew PO 12/05/24 14:25 QID PRN GAS Sulfasalazine 1,000 mg 11/01/24 14:15 11/09/24 05:24 Sulfasalazine 500 Mg Tablet PO 12/01/24 14:14 1,000 mg TID [facility] Administration Plan Noa Ochoa is a 29-year-old female with a past medical history of ulcerative colitis who was admitted on 11/01/2024 for lower GI bleed secondary to ulcerative colitis flare resulting in blood loss anemia. #Ulcerative colitis flare #Lower GI bleed #Acute blood loss anemia, resolved s/p transfusion Presented on 11/01 with hemoglobin of 8.6 that dropped to 6.2 overnight and was transfused 2 unit PRBC. Prior to admission, endorsed having 15+ BMs per day and recently has been in the single digits. Colonoscopy on previous admission showed inflammatory changes on the left-sided colon all the way to the transverse colon with bleeding. CT A/P showed severe colitis pattern of entire colon. Pathology report of left colon showed chronic active colitis with architectural changes and cryptitis, ANCA positive, P ANCA titer 1:80. On 10/21, stool positive for 3+ WBCs and calprotectin 3040. C. difficile, Giardia, norovirus negative, pending H. pylori. ? GI following, appreciate recommendations ? Methylprednisolone 40 mg IV BID (11/01-11/08) -> TID (11/09-) ? Sulfasalazine 1 g p.o. 3 times daily (11/01-) ? Azathioprine 100 mg p.o. daily (11/02-) ? Follow-up [facility] cocci results and QuantiFERON gold and if negative, start Inflectra 5 mg/kg body weight ? QuantiFERON indeterminate ? Cocci results pending from [facility] ? Monitor hemoglobin and transfuse if less than 7 #Nausea/vomiting #Sinus tachycardia Patient endorses nausea and nonbloody emesis. Abdominal XR did not show signs of SBO. Sinus tachycardia likely secondary to nausea/vomiting and loose, bloody bowel movements. ? Zofran as needed ? 500 cc IVF bolus x1; if continues to be tachycardic, will give an additional 500 cc IVF bolus #Chronic normocytic anemia #Mixed blood loss anemia from ulcerative colitis and iron deficiency anemia Iron 9, TIBC wnl, iron saturation 3%, ferritin wnl. ? Ferrous sulfate 325 mg p.o. every other day #Coccidiomycosis Denies any URTI except for chills and night sweats. Routine lab workup prior to starting possible biologics for IBD flare showed positive Cocci IgM, however repeat was negative. Fluconazole has since been discontinued. ? ID following, appreciate recommendations ? Fluconazole 400 mg p.o. daily ? Follow-up [facility] results Hospital management: Disposition: Pending [facility] cocci QuantiFERON gold results and possibly infliximab treatment Diet: PUD/GERD diet Lines: PIV DVT prophylaxis: SCDs given GI bleed GI prophylaxis: Pantoprazole 40 mg IV twice daily CODE STATUS: full code ----- Plan discussed with attending physician Dr. Bret Baker MD PGY-1 Internal Medicine Attending Provider Attestation/Addendum 29-year-old with ulcerative colitis presenting with bloody diarrhea found to have ulcerative colitis flare and blood loss anemia. Patient initially started on steroids, sulfasalazine, azathioprine with minimal improvement and still continues to have +10 bowel movements. Plan to start patient on immunologic's however coccidiomycosis IgM positive for which we will wait for confirmatory test and QuantiFERON pending prior to starting any immunologic therapy. Will continue to monitor the patient closely and reassured patient about our plan.I reviewed above note and agree with findings and plans. I have also personally examined the patient with medicine team and went over assessment and plan with medical team including music intern and resident physician.
[2024-11-09] MEDS: RINGERS LACTATED 1000 ML 500 ML 999 ML IV ×2 (11:26→15:04)
--- NOTE | 2024-11-09 13:37 | PC.SS ---
Rounding: Pending TB and Cocci
[2024-11-09 13:52] LABS: Quantiferon-TB* See Sep Rpt
--- NOTE | 2024-11-09 14:47 | EKG_ITS ---
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
[2024-11-09] MEDS: LORazepam 0.5 MG TABLET PO (14:57)
[2024-11-09] MEDS: RINGERS LACTATED 1000 ML 1,000 ML 90 ML IV (15:18)
[2024-11-09 15:29] LABS: Hematocrit 29.8 % (36.0-46.0); Hemoglobin 9.2 g/dL (12.0-16.0)
[2024-11-09] MEDS: Magnesium Sulfate 4 GM Ivpb 4 GM/50 ML BAG IV (15:36)
[2024-11-09] MEDS: POTASSIUM CHLORIDE 20 mEq TABCR PO (15:37)
[2024-11-09 15:50] LABS: Ferritin 18 ng/mL (7.3-270.7); Iron 9 mcg/dL (50-170); Percent Iron Saturation 3 % (20-55); Total Iron Binding Capacity 299 mcg/dL (250-425); Unsaturated Iron Binding 290 (225-295)
--- NOTE | 2024-11-09 16:11 | PD.RESEVENT ---
Documentation for date of: 11/09/24 Event Note Event Note: Rapid response called for elevated heart rate in 160s to 180s at around 3 PM. At bedside patient endorsed palpitations but no shortness of breath or chest pain. Saturating 90% on room air, BP 127/90, afebrile. She has noted to go tachycardic when standing up and using the restroom but states that she also feels palpitations when lying down at times as well. She was given 500 cc LR bolus in a.m. and will give another 500 cc LR bolus now, give low-dose Ativan (0.5 mg x 1), obtain H&H, iron panel, and repeat EKG. K this morning 3.4 and given 40 mill equivalents, will give another 20 mEq now. Magnesium 1.7 and will start giving 4 g now as well. Consider giving propranolol vs metoprolol if heart rate continues to be elevated. H&H noted to be improved from this morning, increasing from 8.6 to 9.2 and EKG showed sinus tachycardia. ----- Plan discussed with attending physician Dr. Bret Baker MD PGY-1 Internal Medicine
[2024-11-09] MEDS: METOPROLOL SUCCINATE XL 25 MG TABCR PO (17:35)
[2024-11-09] MEDS: FERROUS SULF 325 MG TABLET PO (17:35)
[2024-11-09] MEDS: RINGERS LACTATED 1000 ML 1,000 ML 999 ML IV (17:36)
[2024-11-09] MEDS: ACETAMINOPHEN 325 MG TABLET 650 MG PO (18:03)
--- NOTE | 2024-11-09 20:18 | PD.IMPROG ---
Documentation for date of: 11/09/24 Subjective Subjective Interval history: Patient evaluated She had a bout of tachycardia requiring IV fluids Cocci serology still pending QuantiFERON is indeterminate Exam Vital Signs Temp Pulse Resp BP Pulse Ox O2 Del Method 97.4 F 147 H 18 137/90 H 98 Room Air 11/09/24 16:00 11/09/24 17:35 11/09/24 16:00 11/09/24 17:35 11/09/24 16:00 11/09/24 16:00 Objective Labs 11/09/24 14:53 11/09/24 04:35 Labs: Laboratory Results - last 24 hr 11/01/24 11/09/24 11/09/24 13:05 04:35 14:53 WBC 8.4 RBC 3.69 L Hgb 8.6 L 9.2 L Hct 27.5 L 29.8 L MCV 75 L MCH 23.3 L MCHC 31.3 RDW Std Deviation 62.4 H Plt Count 260 D Neut % (Auto) 77 Lymph % (Auto) 15 [place] % (Auto) 5 Eos % (Auto) 1 Baso % (Auto) 1 Neut # (Auto) 6.5 Lymph # (Auto) 1.3 [place] # (Auto) 0.4 Eos # (Auto) 0.1 Baso # (Auto) 0.0 Immature Gran # (Auto) 0.05 H Absolute Nucleated RBC 0.00 Immature Gran % 1 H Nucleated RBC % 0 Sodium 141 Potassium 3.4 D Chloride 102 Carbon Dioxide 28.0 Anion Gap 11 BUN < 5 L Creatinine 0.5 L Estim Creat Clear Calc 103.0 eGFR > 60 BUN/Creatinine Ratio 10 L Glucose 93 Calculated Osmolality 278 Calcium 7.7 L Phosphorus 2.7 Magnesium 1.7 Iron 9 L TIBC 299 Iron Saturation 3 L Unsat Iron Binding 290 Ferritin 18 TB Test (QFT) See Sep Rpt Impressions Impression: # Acute resolution of the underlying inflammatory bowel disease that is ulcerative colitis with failure of therapy at the moment # Recurrent bouts of tachycardia recommend cardiology consultation Awaiting final results of cocci serologies and ID recommendations for anti-TNF's Assessment & Plan A&P Narrative will screen for hiv. note that hep c testing neg and cocci may be false pos as repeat test neg 2d later us with flare multiple allergies ok to treat with flucon 400/day and ok to wait on the qtf before starting the biological agent as that is often more immunosuppressive than steroids alone although for short term, steroid rx often works rather well ok to monitor as outpt as cxr is neg Time Spent With Patient Time: Total time spent is greater than 50% in coordination of care (as documented) at patient's floor/unit and/or counseling patient:
[2024-11-10] VITALS (12 sets, daily range): BP systolic 106–134; BP diastolic 68–84; PULSE 80–130; RESP 14–22; TEMP 36–36.7; O2SAT 96–99
[2024-11-10] MEDS: sulfaSALAzine 500 MG TABLET 1000 MG PO ×3 (05:29→21:17)
[2024-11-10] MEDS: RINGERS LACTATED 1000 ML 1,000 ML 90 ML IV ×2 (05:29→17:51)
[2024-11-10 06:10] LABS: Basophils % (Auto) 1 % (0-2.5); Eosinophils % (Auto) 0 % (0-10); Hematocrit 26.6 % (36.0-46.0); Immature Granulocytes % (Auto) 1 % (0-0); Immature Granulocytes Auto 0.05 Thou/mm3 (0.00-0.00); Lymphocytes # (Auto) 1.2 Thou/mm3 (1.0-4.8); Lymphocytes % (Auto) 15 % (10-50); Mean Corpuscular HGB Conc 32.7 g/dl (31.0-37.0); Mean Corpuscular Volume 70 fL (80-100); Monocytes # (Auto) 0.6 Thou/mm3 (0.0-0.8); Monocytes % (Auto) 7 % (0-12); Neutrophils # (Auto) 6.3 Thou/mm3 (1.8-7.7); Neutrophils % (Auto) 77 % (37-80); Nucleated Red Blood Cell % 0 /100 WBC (0); Platelet Count 328 Thou/mm3 (140-440); RDW Standard Deviation 60.4 fL (36.4-46.3); Red Blood Count 3.78 Miln/mm3 (4.00-5.20); White Blood Count 8.1 Thou/mm3 (3.6-11.0)
[2024-11-10 06:14] LABS: Hemoglobin 8.7 g/dL (12.0-16.0)
[2024-11-10 06:37] LABS: Alanine Aminotransferase < 7 U/L (10-49); Albumin, Serum 3.5 gm/dL (3.5-5.0); Albumin/Globulin Ratio 1.8 (1.2-2.2); Alkaline Phosphatase 44 U/L (46-116); Anion Gap 11 (7-16); Aspartate Amino Transferase 11 U/L (0-34); BUN/Creatinine Ratio 13 Ratio (12-20); Bilirubin,Total 0.4 mg/dL (0.3-1.2); Blood Urea Nitrogen < 5 mg/dL (9-23); Calcium (Corrected) 8.4 mg/dL (8.5-10.1); Carbon Dioxide 26.3 mMol/L (20.0-31.0); Chloride 99 mMol/L (98-107); Creatinine (Component) 0.4 mg/dL (0.6-1.3); Estimated Creatinine Clearance 128.7 mL/min (>60); Glucose 94 mg/dL (74-106); Magnesium 1.8 mg/dL (1.6-2.6); Osmolality,Calculated 269 (275-295); Phosphorous 3.4 mg/dL (2.4-5.1); Sodium 136 mMol/L (136-145); Total Protein 5.5 gm/dL (5.7-8.2); eGFR > 60 See Note
[2024-11-10] MEDS: FLUCONAZOLE 100 MG TABLET 400 MG PO (08:50)
[2024-11-10] MEDS: FOLIC ACID 1 MG TABLET PO (08:51)
[2024-11-10] MEDS: PANTOPRAZOLE INJ 40 MG VIAL IVP ×2 (08:51→21:17)
[2024-11-10] MEDS: azaTHIOprine 50 MG TABLET 100 MG PO (08:51)
--- NOTE | 2024-11-10 09:03 | ESPR_ITS ---
Subjective Subjective Interval history: here per others. will review again prn Exam Vital Signs Temp Pulse Resp BP Pulse Ox O2 Del Method 97.3 F 107 H 18 134/79 H 99 Room Air 11/10/24 04:00 11/10/24 04:00 11/10/24 04:00 11/10/24 04:00 11/10/24 04:00 11/10/24 04:00 Narrative Exam limited eval Objective - Internal Medicine Labs 11/10/24 05:39 11/10/24 05:39 Labs: Laboratory Results - last 24 hr 11/09/24 11/10/24 14:53 05:39 WBC 8.1 RBC 3.78 L Hgb 9.2 L 8.7 L Hct 29.8 L 26.6 L MCV 70 L MCH 23.0 L MCHC 32.7 RDW Std Deviation 60.4 H Plt Count 328 D Neut % (Auto) 77 Lymph % (Auto) 15 [place] % (Auto) 7 Eos % (Auto) 0 Baso % (Auto) 1 Neut # (Auto) 6.3 Lymph # (Auto) 1.2 [place] # (Auto) 0.6 Eos # (Auto) 0.0 Baso # (Auto) 0.0 Immature Gran # (Auto) 0.05 H Absolute Nucleated RBC 0.00 Immature Gran % 1 H Nucleated RBC % 0 Sodium 136 Potassium 4.0 D Chloride 99 Carbon Dioxide 26.3 Anion Gap 11 BUN < 5 L Creatinine 0.4 L Estim Creat Clear Calc 128.7 eGFR > 60 BUN/Creatinine Ratio 13 Glucose 94 Calculated Osmolality 269 L Calcium 8.0 L Corrected Calcium 8.4 L Phosphorus 3.4 Magnesium 1.8 Iron 9 L TIBC 299 Iron Saturation 3 L Unsat Iron Binding 290 Ferritin 18 Total Bilirubin 0.4 AST 11 ALT < 7 L Alkaline Phosphatase 44 L Total Protein 5.5 L Albumin 3.5 Globulin 2.0 L Albumin/Globulin Ratio 1.8 Assessment & Plan A&P Narrative will screen for hiv. note that hep c testing neg and cocci may be false pos as repeat test neg 2d later us with flare multiple allergies ok to treat with flucon 400/day and ok to wait on the qtf before starting the biological agent as that is often more immunosuppressive than steroids alone although for short term, steroid rx often works rather well ok to monitor as outpt as cxr is neg. it may take several days to get the qtf back, so your choice to have her here or at home. response to rx is not instantaneous. will see again prn Time Spent With Patient Time: Total time spent is greater than 50% in coordination of care (as documented) at patient's floor/unit and/or counseling patient:
[2024-11-10] MEDS: ONDANSETRON INJ 2 MG/ML INJ 2 ML 4 MG IVP (09:20)
--- NOTE | 2024-11-10 10:36 | PD.IMPROG ---
Documentation for date of: 11/10/24 Subjective Subjective Interval history: Results from [facility] are not back As per ID recommendation I believe patient can be discharged home tomorrow on Diflucan to be followed in the internal medicine clinic of the [facility] Exam Vital Signs Temp Pulse Resp BP Pulse Ox O2 Del Method 97.9 F 124 H 18 121/77 99 Room Air 11/10/24 08:00 11/10/24 08:00 11/10/24 08:00 11/10/24 08:00 11/10/24 08:00 11/10/24 08:00 Objective Labs 11/10/24 05:39 11/10/24 05:39 Labs: Laboratory Results - last 24 hr 11/09/24 11/10/24 14:53 05:39 WBC 8.1 RBC 3.78 L Hgb 9.2 L 8.7 L Hct 29.8 L 26.6 L MCV 70 L MCH 23.0 L MCHC 32.7 RDW Std Deviation 60.4 H Plt Count 328 D Neut % (Auto) 77 Lymph % (Auto) 15 [place] % (Auto) 7 Eos % (Auto) 0 Baso % (Auto) 1 Neut # (Auto) 6.3 Lymph # (Auto) 1.2 [place] # (Auto) 0.6 Eos # (Auto) 0.0 Baso # (Auto) 0.0 Immature Gran # (Auto) 0.05 H Absolute Nucleated RBC 0.00 Immature Gran % 1 H Nucleated RBC % 0 Sodium 136 Potassium 4.0 D Chloride 99 Carbon Dioxide 26.3 Anion Gap 11 BUN < 5 L Creatinine 0.4 L Estim Creat Clear Calc 128.7 eGFR > 60 BUN/Creatinine Ratio 13 Glucose 94 Calculated Osmolality 269 L Calcium 8.0 L Corrected Calcium 8.4 L Phosphorus 3.4 Magnesium 1.8 Iron 9 L TIBC 299 Iron Saturation 3 L Unsat Iron Binding 290 Ferritin 18 Total Bilirubin 0.4 AST 11 ALT < 7 L Alkaline Phosphatase 44 L Total Protein 5.5 L Albumin 3.5 Globulin 2.0 L Albumin/Globulin Ratio 1.8 Impressions Impression: 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 note that hep c testing neg and cocci may be false pos as repeat test neg 2d later us with flare multiple allergies ok to treat with flucon 400/day and ok to wait on the qtf before starting the biological agent as that is often more immunosuppressive than steroids alone although for short term, steroid rx often works rather well ok to monitor as outpt as cxr is neg. it may take several days to get the qtf back, so your choice to have her here or at home. response to rx is not instantaneous. will see again prn Time Spent With Patient Time: Total time spent is greater than 50% in coordination of care (as documented) at patient's floor/unit and/or counseling patient:
--- NOTE | 2024-11-10 10:58 | PD.RESPRO ---
Documentation for date of: 11/10/24 Subjective Subjective Interval history: No acute overnight events. 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 Still endorses nausea but well-controlled with current antiemetic. Steroids increased to TID instead of BID and currently pending [facility] cocci results as well as repeat quanti-FERON results prior to starting infliximab. Called [facility] regarding cocci results and those collected 11/02 and those collected on 11/06 will be read on Wednesday. Regarding sinus tachycardia, patient received 2 L IV fluid on top of maintenance IVF yesterday. Reviewed medications and none that likely contributed sinus tachycardia. Did have a temperature of 100.6 ?F yesterday and was given Tylenol. Given that heart rate remained elevated given one-time dose of metoprolol succinate 25 mg and on next day heart rate improved into the low 100s, but will give another unit PRBC as likely causes due to hypovolemia from nausea and vomiting and bloody stools. Exam Vital Signs Temp Pulse Resp BP Pulse Ox O2 Del Method 97.9 F 124 H 18 121/77 99 Room Air 11/10/24 08:00 11/10/24 08:00 11/10/24 08:00 11/10/24 08:00 11/10/24 08:00 11/10/24 08:00 Narrative Exam General: AOx3, mild distress from N/V, able to speak full sentences HEENT: NC/AT, mucous membranes moist, bilateral sclera anicteric Cardiovascular: tachycardic, regular rhythm, S1/S2 present, no murmurs appreciated Pulmonary: clear to auscultation bilaterally, no rales/rhonchi/wheezes Abdominal: tender to palpation in left abdomen, soft, non-distended, no rebound/guarding, normal bowel sounds present Musculoskeletal: normal ROM, no peripheral edema Skin: warm and dry, intact, no rashes Neuro: CN II-XII intact, no focal deficits Objective Labs 11/12/24 05:32 11/12/24 05:32 Labs: Laboratory Results - last 24 hr 11/09/24 11/10/24 14:53 05:39 WBC 8.1 RBC 3.78 L Hgb 9.2 L 8.7 L Hct 29.8 L 26.6 L MCV 70 L MCH 23.0 L MCHC 32.7 RDW Std Deviation 60.4 H Plt Count 328 D Neut % (Auto) 77 Lymph % (Auto) 15 [place] % (Auto) 7 Eos % (Auto) 0 Baso % (Auto) 1 Neut # (Auto) 6.3 Lymph # (Auto) 1.2 [place] # (Auto) 0.6 Eos # (Auto) 0.0 Baso # (Auto) 0.0 Immature Gran # (Auto) 0.05 H Absolute Nucleated RBC 0.00 Immature Gran % 1 H Nucleated RBC % 0 Sodium 136 Potassium 4.0 D Chloride 99 Carbon Dioxide 26.3 Anion Gap 11 BUN < 5 L Creatinine 0.4 L Estim Creat Clear Calc 128.7 eGFR > 60 BUN/Creatinine Ratio 13 Glucose 94 Calculated Osmolality 269 L Calcium 8.0 L Corrected Calcium 8.4 L Phosphorus 3.4 Magnesium 1.8 Iron 9 L TIBC 299 Iron Saturation 3 L Unsat Iron Binding 290 Ferritin 18 Total Bilirubin 0.4 AST 11 ALT < 7 L Alkaline Phosphatase 44 L Total Protein 5.5 L Albumin 3.5 Globulin 2.0 L Albumin/Globulin Ratio 1.8 Quality Measures Quality Measures none Assessment & Plan Assessment Current Active Medications: Generic Name Dose Route Start Last Admin Trade Name Freq PRN Reason Stop Dose Admin Acetaminophen 650 mg 11/01/24 13:14 11/09/24 18:03 Acetaminophen 325 Mg Tablet PO 12/01/24 13:13 650 mg Q6H PRN Administration Fever > 100.4 or Pain 1-3 Azathioprine 100 mg 11/02/24 09:00 11/10/24 08:51 Azathioprine 50 Mg Tablet PO 12/02/24 08:59 100 mg DAILY ELAINE Administration Fluconazole 400 mg 11/07/24 09:00 11/10/24 08:50 Fluconazole 100 Mg Tablet PO 11/14/24 08:59 400 mg QDAY ELAINE Administration Folic Acid 1 mg 11/01/24 14:15 11/10/24 08:51 Folic Acid 1 Mg Tablet PO 12/01/24 14:14 1 mg QDAY ELAINE Administration Lactated Ringer's 1,000 mls @ 90 mls/hr 11/09/24 11:53 11/10/24 05:29 Lactated Ringers IV 12/09/24 11:52 90 mls/hr .[id number] ELAINE Administration Methylprednisolone Sodium Succinate 40 mg 11/09/24 17:00 11/10/24 05:29 Methylprednisolone Sod Succ 40 Mg Vial IVP 11/16/24 16:59 40 mg Q8HR ELAINE Administration Ondansetron HCl 4 mg 11/01/24 13:20 11/10/24 09:20 Ondansetron Inj 2 Mg/Ml Inj 2 Ml IVP 12/01/24 13:19 4 mg Q6HR PRN Administration NAUSEA OR VOMITING Protocol Pantoprazole Sodium 40 mg 11/01/24 21:00 11/10/24 08:51 Pantoprazole Inj 40 Mg Vial IVP 12/01/24 20:59 40 mg Q12HR ELAINE Administration Simethicone 80 mg 11/05/24 14:26 Simethicone 80 Mg Chew PO 12/05/24 14:25 QID PRN GAS Sulfasalazine 1,000 mg 11/01/24 14:15 11/10/24 05:29 Sulfasalazine 500 Mg Tablet PO 12/01/24 14:14 1,000 mg TID ELAINE Administration Plan Noa Ochoa is a 29-year-old female with a past medical history of ulcerative colitis who was admitted on 11/01/2024 for lower GI bleed secondary to ulcerative colitis flare resulting in blood loss anemia. #Ulcerative colitis flare #Lower GI bleed #Acute blood loss anemia, resolved s/p transfusion Presented on 11/01 with hemoglobin of 8.6 that dropped to 6.2 overnight and was transfused 2 unit PRBC. Prior to admission, endorsed having 15+ BMs per day and recently has been in the single digits. Colonoscopy on previous admission showed inflammatory changes on the left-sided colon all the way to the transverse colon with bleeding. CT A/P showed severe colitis pattern of entire colon. Pathology report of left colon showed chronic active colitis with architectural changes and cryptitis, ANCA positive, P ANCA titer 1:80. On 10/21, stool positive for 3+ WBCs and calprotectin 3040. C. difficile, Giardia, norovirus negative, pending H. pylori. ? GI following, appreciate recommendations ? Methylprednisolone 40 mg IV BID (11/01-11/08) -> TID (11/09-) ? Sulfasalazine 1 g p.o. 3 times daily (11/01-) ? Azathioprine 100 mg p.o. daily (11/02-) ? Follow-up [facility] cocci results and QuantiFERON gold and if negative, start Inflectra 5 mg/kg body weight ? QuantiFERON indeterminate, repeat ordered ? Cocci results pending from [facility] ? Monitor hemoglobin and transfuse if less than 7 #Nausea/vomiting #Sinus tachycardia Patient endorses nausea and nonbloody emesis. Abdominal XR did not show signs of SBO. Sinus tachycardia likely secondary to nausea/vomiting and loose, bloody bowel movements. Received 2 L IV fluid on top of maintenance IVF yesterday. Reviewed medications and none that likely contributed sinus tachycardia. Did have a temperature of 100.6 ?F yesterday and was given Tylenol. Given that heart rate remained elevated given one-time dose of metoprolol succinate 25 mg and on next day heart rate improved into the low 100s, but will give another unit PRBC as likely causes due to hypovolemia from nausea and vomiting and bloody stools. ? Zofran as needed ? Will transfuse 1 unit PRBC ? Follow-up posttransfusion H&H #Chronic normocytic anemia #Mixed blood loss anemia from ulcerative colitis and iron deficiency anemia Iron 9, TIBC wnl, iron saturation 3%, ferritin wnl. ? Recommend iron supplementation upon discharge or outpatient given currently in IBD flare #Coccidiomycosis Denies any URTI except for chills and night sweats. Routine lab workup prior to starting possible biologics for IBD flare showed positive Cocci IgM, however repeat was negative. Fluconazole has since been discontinued. ? ID following, appreciate recommendations ? Fluconazole 400 mg p.o. daily ? Follow-up [facility] results Hospital management: Disposition: Pending [facility] cocci QuantiFERON gold results and possibly infliximab treatment Diet: PUD/GERD diet Lines: PIV DVT prophylaxis: SCDs given GI bleed GI prophylaxis: Pantoprazole 40 mg IV twice daily CODE STATUS: full code ----- Plan discussed with attending physician Dr. Brte Baker MD PGY-1 Internal Medicine Attending Provider Attestation/Addendum 29-year-old with ulcerative colitis presenting with bloody diarrhea found to have ulcerative colitis flare and blood loss anemia. Patient initially started on steroids, sulfasalazine, azathioprine with minimal improvement and still continues to have +10 bowel movements. Plan to start patient on immunologic's however coccidiomycosis IgM positive for which we will wait for confirmatory test and QuantiFERON indeterminant for which we will need a repeat test. Continues to have significant bowel movements anywhere ranging from 5-10 with blood-tinged. Will continue to monitor the patient closely and reassured patient about our plan.I reviewed above note and agree with findings and plans. I have also personally examined the patient with medicine team and went over assessment and plan with medical team including internal controls manager and resident physician.
--- NOTE | 2024-11-10 14:19 | PC.SS ---
SS follow up note; Patient is pending Cocci and TB results.
[2024-11-10 19:53] LABS: Hematocrit 30.7 % (36.0-46.0); Hemoglobin 10.1 g/dL (12.0-16.0)
[2024-11-10] MEDS: ACETAMINOPHEN 325 MG TABLET 650 MG PO (20:47)
--- NOTE | 2024-11-10 23:28 | PC.NURSE ---
patient transferred to room 277 at [id number]
[2024-11-11] VITALS (8 sets, daily range): BP systolic 117–136; BP diastolic 74–85; PULSE 65–110; RESP 15–21; TEMP 36.1–36.4; O2SAT 98–99
[2024-11-11] MEDS: sulfaSALAzine 500 MG TABLET 1000 MG PO ×3 (05:12→21:09)
[2024-11-11 06:29] LABS: Basophils # (Auto) 0.1 Thou/mm3 (0.0-0.2); Basophils % (Auto) 1 % (0-2.5); Eosinophils % (Auto) 0 % (0-10); Hematocrit 32.5 % (36.0-46.0); Hemoglobin 10.5 g/dL (12.0-16.0); Immature Granulocytes % (Auto) 1 % (0-0); Immature Granulocytes Auto 0.09 Thou/mm3 (0.00-0.00); Lymphocytes # (Auto) 1.4 Thou/mm3 (1.0-4.8); Lymphocytes % (Auto) 12 % (10-50); Mean Corpuscular HGB Conc 32.3 g/dl (31.0-37.0); Mean Corpuscular Hemoglobin 23.6 pg (25.0-35.0); Mean Corpuscular Volume 73 fL (80-100); Monocytes # (Auto) 0.8 Thou/mm3 (0.0-0.8); Monocytes % (Auto) 8 % (0-12); Neutrophils # (Auto) 8.8 Thou/mm3 (1.8-7.7); Neutrophils % (Auto) 79 % (37-80); Nucleated Red Blood Cell % 0 /100 WBC (0); Platelet Count 354 Thou/mm3 (140-440); RDW Standard Deviation 62.3 fL (36.4-46.3); Red Blood Count 4.45 Miln/mm3 (4.00-5.20); White Blood Count 11.2 Thou/mm3 (3.6-11.0)
[2024-11-11 06:44] LABS: Alanine Aminotransferase 10 U/L (10-49); Albumin/Globulin Ratio 1.7 (1.2-2.2); Alkaline Phosphatase 48 U/L (46-116); Anion Gap 12 (7-16); BUN/Creatinine Ratio 10 Ratio (12-20); Bilirubin,Total 0.5 mg/dL (0.3-1.2); Blood Urea Nitrogen < 5 mg/dL (9-23); Calcium 9.4 mg/dL (8.3-10.6); Calcium (Corrected) 9.4 mg/dL (8.5-10.1); Carbon Dioxide 26.8 mMol/L (20.0-31.0); Chloride 98 mMol/L (98-107); Creatinine (Component) 0.5 mg/dL (0.6-1.3); Globulin 2.3 gm/dL (2.3-3.5); Glucose 131 mg/dL (74-106); Magnesium 1.8 mg/dL (1.6-2.6); Osmolality,Calculated 273 (275-295); Phosphorous 4.8 mg/dL (2.4-5.1); Potassium 3.8 mMol/L (3.4-5.1); Sodium 137 mMol/L (136-145); Total Protein 6.3 gm/dL (5.7-8.2); eGFR > 60 See Note
[2024-11-11] MEDS: RINGERS LACTATED 1000 ML 1,000 ML 90 ML IV ×2 (06:44→18:29)
[2024-11-11] MEDS: ONDANSETRON INJ 2 MG/ML INJ 2 ML 4 MG IVP (07:34)
[2024-11-11] MEDS: FLUCONAZOLE 100 MG TABLET 400 MG PO (08:53)
[2024-11-11] MEDS: FOLIC ACID 1 MG TABLET PO (08:54)
[2024-11-11] MEDS: PANTOPRAZOLE INJ 40 MG VIAL IVP ×2 (08:54→21:09)
[2024-11-11] MEDS: azaTHIOprine 50 MG TABLET 100 MG PO (10:48)
--- NOTE | 2024-11-11 11:20 | PC.NURSE ---
Pt HR went up to 165 but when entering room back down to 119. Dr. Fisher notified.
--- NOTE | 2024-11-11 12:09 | ESPR_ITS ---
<Statement entered by Ebony Hendrix MD - 11/11/24 13:49> I Ebony Hendrix MD reviewed the note and agree with the resident's assessment & plan with exceptions as below. I have personally reviewed labs, imaging, home meds/prior records, examined the patient, formulated and discussed management plan with the IM team. A 29-year-old F with Hx of ulcerative colitis with recurrent flares admitted for UC flare. Patient continued to have hematochezia with frequent bowel movements. GI is on board, continue azathioprine, sulfasalazine and methylprednisolone. Pending infectious workup prior to initiation of monoclonals. Will reach out to GI regarding possible initiation of rectal mesalamine/sulfasalazine. Will give IV ferrous gluconate once infections ruled out. Documentation for date of: 11/11/24 Subjective Subjective Interval history: The patient was seen and examined at the bedside. No acute overnight events were reported. However, the patient continues to experience multiple episodes of bloody diarrhea. At bedside , she expressed frustration, stating she does not feel she is improving. Results from [facility] for coccidioidomycosis are still pending. The QuantiFERON test was indeterminate, and a second QuantiFERON test is also pending. Infliximab can't be started at this point. Gastroenterology is involved in the case. They recommended initiating NH hydrocortisone to help alleviate symptoms. However, definitive treatment will likely involve either infliximab or surgical intervention. Given the patient?s age and current clinical condition, GI favors a conservative approach at this time. We will continue the current management plan and closely follow up on pending coccidioidomycosis and tuberculosis testing. The situation, treatment options, were explained to the patient in detail. She verbalized understanding. Exam Vital Signs Temp Pulse Resp BP Pulse Ox O2 Del Method 97.4 F 84 19 117/74 98 Room Air 11/11/24 12:11/11/24 12:11/11/24 12:11/11/24 12:11/11/24 12:11/11/24 12:00 Narrative Exam General: AOx3, mild distress from N/V, able to speak full sentences HEENT: NC/AT, mucous membranes moist, bilateral sclera anicteric Cardiovascular: tachycardic, regular rhythm, S1/S2 present, no murmurs appreciated Pulmonary: clear to auscultation bilaterally, no rales/rhonchi/wheezes Abdominal: tender to palpation in left abdomen, soft, non-distended, no rebound/guarding, normal bowel sounds present Musculoskeletal: normal ROM, no peripheral edema Skin: warm and dry, intact, no rashes Neuro: CN II-XII intact, no focal deficits Objective Labs 11/11/24 05:13 11/11/24 05:13 Labs: Laboratory Results - last 24 hr 11/01/24 11/10/24 11/10/24 09:20 11:28 19:40 WBC RBC Hgb 10.1 L Hct 30.7 L MCV MCH MCHC RDW Std Deviation Plt Count Neut % (Auto) Lymph % (Auto) [place] % (Auto) Eos % (Auto) Baso % (Auto) Neut # (Auto) Lymph # (Auto) [place] # (Auto) Eos # (Auto) Baso # (Auto) Immature Gran # (Auto) Absolute Nucleated RBC Immature Gran % Nucleated RBC % Sodium Potassium Chloride Carbon Dioxide Anion Gap BUN Creatinine Estim Creat Clear Calc eGFR BUN/Creatinine Ratio Glucose Calculated Osmolality Calcium Corrected Calcium Phosphorus Magnesium Total Bilirubin ALT Alkaline Phosphatase Total Protein Albumin Globulin Albumin/Globulin Ratio Blood Type O Positive Antibody Screen NEGATIVE Crossmatch See Detail See Detail Blood Bank Wristband ID Yes 11/11/24 05:13 WBC 11.2 H RBC 4.45 Hgb 10.5 L Hct 32.5 L MCV 73 L MCH 23.6 L MCHC 32.3 RDW Std Deviation 62.3 H Plt Count 354 Neut % (Auto) 79 Lymph % (Auto) 12 [place] % (Auto) 8 Eos % (Auto) 0 Baso % (Auto) 1 Neut # (Auto) 8.8 H Lymph # (Auto) 1.4 [place] # (Auto) 0.8 Eos # (Auto) 0.0 Baso # (Auto) 0.1 Immature Gran # (Auto) 0.09 H Absolute Nucleated RBC 0.00 Immature Gran % 1 H Nucleated RBC % 0 Sodium 137 Potassium 3.8 Chloride 98 Carbon Dioxide 26.8 Anion Gap 12 BUN < 5 L Creatinine 0.5 L Estim Creat Clear Calc 103.0 eGFR > 60 BUN/Creatinine Ratio 10 L Glucose 131 H Calculated Osmolality 273 L Calcium 9.4 Corrected Calcium 9.4 Phosphorus 4.8 Magnesium 1.8 Total Bilirubin 0.5 ALT 10 Alkaline Phosphatase 48 Total Protein 6.3 Albumin 4.0 D Globulin 2.3 Albumin/Globulin Ratio 1.7 Blood Type Antibody Screen Crossmatch Blood Bank Wristband ID Quality Measures Quality Measures none Assessment & Plan Assessment Current Active Medications: Generic Name Dose Route Start Last Admin Trade Name Freq PRN Reason Stop Dose Admin Acetaminophen 650 mg 11/01/24 13:14 11/10/24 20:47 Acetaminophen 325 Mg Tablet PO 12/01/24 13:13 650 mg Q6H PRN Administration Fever > 100.4 or Pain 1-3 Azathioprine 100 mg 11/02/24 09:00 11/11/24 10:48 Azathioprine 50 Mg Tablet PO 12/02/24 08:59 100 mg DAILY ELAINE Administration Fluconazole 400 mg 11/07/24 09:00 11/11/24 08:53 Fluconazole 100 Mg Tablet PO 11/14/24 08:59 400 mg QDAY ELAINE Administration Folic Acid 1 mg 11/01/24 14:15 11/11/24 08:54 Folic Acid 1 Mg Tablet PO 12/01/24 14:14 1 mg QDAY ELAINE Administration Lactated Ringer's 1,000 mls @ 90 mls/hr 11/09/24 11:53 11/11/24 06:44 Lactated Ringers IV 12/09/24 11:52 90 mls/hr .Q11H7M ELAINE Administration Methylprednisolone Sodium Succinate 40 mg 11/09/24 17:00 11/11/24 05:13 Methylprednisolone Sod Succ 40 Mg Vial IVP 11/16/24 16:59 40 mg Q8HR ELAINE Administration Ondansetron HCl 4 mg 11/01/24 13:20 11/11/24 07:34 Ondansetron Inj 2 Mg/Ml Inj 2 Ml IVP 12/01/24 13:19 4 mg Q6HR PRN Administration NAUSEA OR VOMITING Protocol Pantoprazole Sodium 40 mg 11/01/24 21:00 11/11/24 08:54 Pantoprazole Inj 40 Mg Vial IVP 12/01/24 20:59 40 mg Q12HR ELAINE Administration Simethicone 80 mg 11/05/24 14:26 Simethicone 80 Mg Chew PO 12/05/24 14:25 QID PRN GAS Sulfasalazine 1,000 mg 11/01/24 14:15 11/11/24 05:12 Sulfasalazine 500 Mg Tablet PO 12/01/24 14:14 1,000 mg TID [facility] Administration Plan Noa Ochoa is a 29-year-old female with a past medical history of ulcerative colitis who was admitted on 11/01/2024 for lower GI bleed secondary to ulcerative colitis flare resulting in blood loss anemia. #Ulcerative colitis flare #Lower GI bleed #Acute blood loss anemia, resolved s/p transfusion Presented on 11/01 with hemoglobin of 8.6 that dropped to 6.2 overnight and was transfused 2 unit PRBC. Prior to admission, endorsed having 15+ BMs per day and recently has been in the single digits. Colonoscopy on previous admission showed inflammatory changes on the left-sided colon all the way to the transverse colon with bleeding. CT A/P showed severe colitis pattern of entire colon. Pathology report of left colon showed chronic active colitis with architectural changes and cryptitis, ANCA positive, P ANCA titer 1:80. On 10/21, stool positive for 3+ WBCs and calprotectin 3040. C. difficile, Giardia, norovirus negative ? GI following, appreciate recommendations ? Methylprednisolone 40 mg IV BID (11/01-11/08) -> TID (11/09-) ? Sulfasalazine 1 g p.o. 3 times daily (11/01-) ? Azathioprine 100 mg p.o. daily (11/02-) ? Follow-up [facility] cocci results and QuantiFERON gold and if negative ? QuantiFERON indeterminate, repeat ordered ? Cocci results pending from [facility] ? Monitor hemoglobin and transfuse if less than 7 #Nausea/vomiting-resolved #Sinus tachycardia most likely due to underlying anemia ? Zofran as needed ? monitore H and H , transfuse as needed #Chronic normocytic anemia #Mixed blood loss anemia from ulcerative colitis and iron deficiency anemia Iron 9, TIBC wnl, iron saturation 3%, ferritin wnl. ? Recommend iron supplementation upon discharge or outpatient given currently in IBD flare #?Coccidiomycosis Denies any URTI except for chills and night sweats. Routine lab workup prior to starting possible biologics for IBD flare showed positive Cocci IgM, however repeat was negative. Fluconazole has since been discontinued. ? ID following, appreciate recommendations ? Fluconazole 400 mg p.o. daily ? Follow-up [facility] results Hospital management: Disposition: Pending [facility] cocci QuantiFERON gold results and possibly infliximab treatment Diet: PUD/GERD diet Lines: PIV DVT prophylaxis: SCDs given GI bleed GI prophylaxis: Pantoprazole 40 mg IV twice daily CODE STATUS: full code Patient care was discussed with attending physician Dr. Hendrix. Violeta Nesbitt MD PGY-2 I have carefully reviewed this document. Due to imperfections in the voice software, there could be grammatical errors including phonetic/typographic errors. This in no way compromises the medical care the patient is receiving
--- NOTE | 2024-11-11 16:50 | ESPR_ITS ---
Documentation for date of: 11/11/24 Subjective Subjective Interval history: 29 years old female evaluated She is on telemetry now because of her tachycardia and arrhythmia episodes Case discussed with internal medicine team Added hydrocortisone enema 1 at bedtime Patient most likely can be discharged home hopefully soon with the all the medications she is already on Exam Vital Signs Temp Pulse Resp BP Pulse Ox O2 Del Method 97.4 F 84 19 117/74 98 Room Air 11/11/24 12:00 11/11/24 12:00 11/11/24 12:00 11/11/24 12:00 11/11/24 12:00 11/11/24 12:00 Objective Labs 11/11/24 05:13 11/11/24 05:13 Labs: Laboratory Results - last 24 hr 11/10/24 11/10/24 11/11/24 11:28 19:40 05:13 WBC 11.2 H RBC 4.45 Hgb 10.1 L 10.5 L Hct 30.7 L 32.5 L MCV 73 L MCH 23.6 L MCHC 32.3 RDW Std Deviation 62.3 H Plt Count 354 Neut % (Auto) 79 Lymph % (Auto) 12 [place] % (Auto) 8 Eos % (Auto) 0 Baso % (Auto) 1 Neut # (Auto) 8.8 H Lymph # (Auto) 1.4 [place] # (Auto) 0.8 Eos # (Auto) 0.0 Baso # (Auto) 0.1 Immature Gran # (Auto) 0.09 H Absolute Nucleated RBC 0.00 Immature Gran % 1 H Nucleated RBC % 0 Sodium 137 Potassium 3.8 Chloride 98 Carbon Dioxide 26.8 Anion Gap 12 BUN < 5 L Creatinine 0.5 L Estim Creat Clear Calc 103.0 eGFR > 60 BUN/Creatinine Ratio 10 L Glucose 131 H Calculated Osmolality 273 L Calcium 9.4 Corrected Calcium 9.4 Phosphorus 4.8 Magnesium 1.8 Total Bilirubin 0.5 ALT 10 Alkaline Phosphatase 48 Total Protein 6.3 Albumin 4.0 D Globulin 2.3 Albumin/Globulin Ratio 1.7 Crossmatch See Detail Impressions Impression: Acute exacerbation of the underlying inflammatory bowel disease Continue current management Add hydrocortisone enema Assessment & Plan A&P Narrative will screen for hiv. note that hep c testing neg and cocci may be false pos as repeat test neg 2d later us with flare multiple allergies ok to treat with flucon 400/day and ok to wait on the qtf before starting the biological agent as that is often more immunosuppressive than steroids alone although for short term, steroid rx often works rather well ok to monitor as outpt as cxr is neg. it may take several days to get the qtf back, so your choice to have her here or at home. response to rx is not instantaneous. will see again prn Time Spent With Patient Time: Total time spent is greater than 50% in coordination of care (as documented) at patient's floor/unit and/or counseling patient:
[2024-11-11] MEDS: HYDROCORTISONE ENEMA 100 MG/60 ML BTL PR (21:10)
[2024-11-12] VITALS: BP 109/75; PULSE 65; PULSE 98; RESP 19; TEMP 36.4; O2SAT 100
[2024-11-12 04:00] VITALS: BP 120/77; PULSE 106; PULSE 63; RESP 18; TEMP 37.2; O2SAT 99
[2024-11-12] MEDS: sulfaSALAzine 500 MG TABLET 1000 MG PO ×3 (05:14→21:05)
[2024-11-12] MEDS: RINGERS LACTATED 1000 ML 1,000 ML 90 ML IV ×2 (06:24→17:41)
[2024-11-12 06:25] LABS: Basophils # (Auto) 0.1 Thou/mm3 (0.0-0.2); Basophils % (Auto) 1 % (0-2.5); Eosinophils % (Auto) 0 % (0-10); Hematocrit 31.4 % (36.0-46.0); Hemoglobin 9.8 g/dL (12.0-16.0); Immature Granulocytes % (Auto) 1 % (0-0); Immature Granulocytes Auto 0.08 Thou/mm3 (0.00-0.00); Lymphocytes # (Auto) 1.3 Thou/mm3 (1.0-4.8); Lymphocytes % (Auto) 15 % (10-50); Mean Corpuscular HGB Conc 31.2 g/dl (31.0-37.0); Mean Corpuscular Hemoglobin 23.7 pg (25.0-35.0); Mean Corpuscular Volume 76 fL (80-100); Monocytes # (Auto) 0.7 Thou/mm3 (0.0-0.8); Monocytes % (Auto) 9 % (0-12); Neutrophils # (Auto) 6.3 Thou/mm3 (1.8-7.7); Neutrophils % (Auto) 74 % (37-80); Nucleated Red Blood Cell # 0.02 Thou/mm3 (0.00-0.00); Nucleated Red Blood Cell % 0 /100 WBC (0); Platelet Count 440 Thou/mm3 (140-440); Red Blood Count 4.14 Miln/mm3 (4.00-5.20); White Blood Count 8.4 Thou/mm3 (3.6-11.0)
[2024-11-12 07:27] LABS: Alanine Aminotransferase 9 U/L (10-49); Albumin, Serum 3.7 gm/dL (3.5-5.0); Albumin/Globulin Ratio 1.8 (1.2-2.2); Alkaline Phosphatase 46 U/L (46-116); Anion Gap 12 (7-16); BUN/Creatinine Ratio 13 Ratio (12-20); Bilirubin,Total 0.3 mg/dL (0.3-1.2); Blood Urea Nitrogen < 5 mg/dL (9-23); Calcium 8.8 mg/dL (8.3-10.6); Carbon Dioxide 28.8 mMol/L (20.0-31.0); Chloride 101 mMol/L (98-107); Creatinine (Component) 0.4 mg/dL (0.6-1.3); Estimated Creatinine Clearance 128.7 mL/min (>60); Globulin 2.1 gm/dL (2.3-3.5); Glucose 110 mg/dL (74-106); Magnesium 1.8 mg/dL (1.6-2.6); Osmolality,Calculated 281 (275-295); Phosphorous 4.6 mg/dL (2.4-5.1); Potassium 3.8 mMol/L (3.4-5.1); Sodium 142 mMol/L (136-145); Total Protein 5.8 gm/dL (5.7-8.2); eGFR > 60 See Note
[2024-11-12] MEDS: ONDANSETRON INJ 2 MG/ML INJ 2 ML 4 MG IVP (07:47)
[2024-11-12 08:00] VITALS: BP 130/83; PULSE 111; PULSE 83; RESP 19; TEMP 36.7; O2SAT 99
[2024-11-12] MEDS: FLUCONAZOLE 100 MG TABLET 400 MG PO (08:33)
[2024-11-12] MEDS: PANTOPRAZOLE INJ 40 MG VIAL IVP ×2 (08:33→21:05)
[2024-11-12] MEDS: azaTHIOprine 50 MG TABLET 100 MG PO (08:33)
[2024-11-12] MEDS: FOLIC ACID 1 MG TABLET PO (08:33)
--- NOTE | 2024-11-12 10:44 | PC.SS ---
SS follow up note; Pending Cocci and TB results. Patient will discharge home when medically cleared.
[2024-11-12 12:00] VITALS: BP 119/78; PULSE 73; PULSE 75; RESP 14; TEMP 36.7; O2SAT 99
--- NOTE | 2024-11-12 12:01 | ESPR_ITS ---
<Statement entered by Keyona Queen MD - 11/24/24 14:04> I reviewed above note and agree with findings and plans. I have also personally examined the patient with medicine team and went over assessment and plan with medical team including international student counselor and resident physician. Documentation for date of: 11/12/24 Subjective Subjective Interval history: Patient was seen and examined at bedside. Overnight patient had a 9 bloody bowel movement. Yesterday patient received one-time hydrocortisone enema which appears to ease her abdominal cramping, however patient still complaining of multiple bowel movements. Hemoglobin appears to be stable, 9.8, the rest of the labs within normal limits. Patient still have on and off tachycardia, most likely related to anemia, will continue close monitor. Still pending cocci [facility] and TB result. Patient was informed about the current management and plan. Exam Vital Signs Temp Pulse Resp BP Pulse Ox O2 Del Method 98.0 F 83 19 130/83 99 Room Air 11/12/24 08:00 11/12/24 08:00 11/12/24 08:00 11/12/24 08:00 11/12/24 08:00 11/12/24 08:00 Narrative Exam General: AOx3, mild distress from N/V, able to speak full sentences HEENT: NC/AT, mucous membranes moist, bilateral sclera anicteric Cardiovascular: tachycardic, regular rhythm, S1/S2 present, no murmurs appreciated Pulmonary: clear to auscultation bilaterally, no rales/rhonchi/wheezes Abdominal: tender to palpation in left abdomen, soft, non-distended, no rebound/guarding, normal bowel sounds present Musculoskeletal: normal ROM, no peripheral edema Skin: warm and dry, intact, no rashes Neuro: CN II-XII intact, no focal deficits Objective Labs 11/12/24 05:32 11/12/24 05:32 Labs: Laboratory Results - last 24 hr 11/12/24 05:32 WBC 8.4 RBC 4.14 Hgb 9.8 L Hct 31.4 L MCV 76 L MCH 23.7 L MCHC 31.2 RDW Std Deviation 65.0 H Plt Count 440 D Neut % (Auto) 74 Lymph % (Auto) 15 [place] % (Auto) 9 Eos % (Auto) 0 Baso % (Auto) 1 Neut # (Auto) 6.3 Lymph # (Auto) 1.3 [place] # (Auto) 0.7 Eos # (Auto) 0.0 Baso # (Auto) 0.1 Immature Gran # (Auto) 0.08 H Absolute Nucleated RBC 0.02 H Immature Gran % 1 H Nucleated RBC % 0 Sodium 142 Potassium 3.8 Chloride 101 Carbon Dioxide 28.8 Anion Gap 12 BUN < 5 L Creatinine 0.4 L Estim Creat Clear Calc 128.7 eGFR > 60 BUN/Creatinine Ratio 13 Glucose 110 H Calculated Osmolality 281 Calcium 8.8 Corrected Calcium 9.0 Phosphorus 4.6 Magnesium 1.8 Total Bilirubin 0.3 ALT 9 L Alkaline Phosphatase 46 Total Protein 5.8 Albumin 3.7 Globulin 2.1 L Albumin/Globulin Ratio 1.8 Quality Measures Quality Measures none Assessment & Plan Assessment Current Active Medications: Generic Name Dose Route Start Last Admin Trade Name Freq PRN Reason Stop Dose Admin Acetaminophen 650 mg 11/01/24 13:14 11/10/24 20:47 Acetaminophen 325 Mg Tablet PO 12/01/24 13:13 650 mg Q6H PRN Administration Fever > 100.4 or Pain 1-3 Azathioprine 100 mg 11/02/24 09:00 11/12/24 08:33 Azathioprine 50 Mg Tablet PO 12/02/24 08:59 100 mg DAILY ELAINE Administration Fluconazole 400 mg 11/07/24 09:00 11/12/24 08:33 Fluconazole 100 Mg Tablet PO 11/14/24 08:59 400 mg QDAY ELAINE Administration Folic Acid 1 mg 11/01/24 14:15 11/12/24 08:33 Folic Acid 1 Mg Tablet PO 12/01/24 14:14 1 mg QDAY ELAINE Administration Lactated Ringer's 1,000 mls @ 90 mls/hr 11/09/24 11:53 11/12/24 06:24 Lactated Ringers IV 12/09/24 11:52 90 mls/hr .Q11H7M ELAINE Administration Methylprednisolone Sodium Succinate 40 mg 11/09/24 17:00 11/12/24 05:15 Methylprednisolone Sod Succ 40 Mg Vial IVP 11/16/24 16:59 40 mg Q8HR ELAINE Administration Ondansetron HCl 4 mg 11/01/24 13:20 11/12/24 07:47 Ondansetron Inj 2 Mg/Ml Inj 2 Ml IVP 12/01/24 13:19 4 mg Q6HR PRN Administration NAUSEA OR VOMITING Protocol Pantoprazole Sodium 40 mg 11/01/24 21:00 11/12/24 08:33 Pantoprazole Inj 40 Mg Vial IVP 12/01/24 20:59 40 mg Q12HR ELAINE Administration Simethicone 80 mg 11/05/24 14:26 Simethicone 80 Mg Chew PO 12/05/24 14:25 QID PRN GAS Sulfasalazine 1,000 mg 11/01/24 14:15 11/12/24 05:14 Sulfasalazine 500 Mg Tablet PO 12/01/24 14:14 1,000 mg TID ELAINE Administration Plan Noa Ochoa is a 29-year-old female with a past medical history of ulcerative colitis who was admitted on 11/01/2024 for lower GI bleed secondary to ulcerative colitis flare resulting in blood loss anemia. #Ulcerative colitis flare #Lower GI bleed #Acute blood loss anemia, resolved s/p transfusion Presented on 11/01 with hemoglobin of 8.6 that dropped to 6.2 overnight and was transfused 2 unit PRBC. Prior to admission, endorsed having 15+ BMs per day and recently has been in the single digits. Colonoscopy on previous admission showed inflammatory changes on the left-sided colon all the way to the transverse colon with bleeding. CT A/P showed severe colitis pattern of entire colon. Pathology report of left colon showed chronic active colitis with architectural changes and cryptitis, ANCA positive, P ANCA titer 1:80. On 10/21, stool positive for 3+ WBCs and calprotectin 3040. C. difficile, Giardia, norovirus negative ? GI following, appreciate recommendations ? Methylprednisolone 40 mg IV BID (11/01-11/08) -> TID (11/09-) ? Sulfasalazine 1 g p.o. 3 times daily (11/01-) ? Azathioprine 100 mg p.o. daily (11/02-) ? Follow-up [facility] cocci results and QuantiFERON gold and if negative ? QuantiFERON indeterminate, repeat ordere ? Cocci results pending from [facility] ? Monitor hemoglobin and transfuse if less than 7 #Nausea/vomiting-resolved #Sinus tachycardia most likely due to underlying anemia ? Zofran as needed ? monitore H and H , transfuse as needed #Chronic normocytic anemia #Mixed blood loss anemia from ulcerative colitis and iron deficiency anemia Iron 9, TIBC wnl, iron saturation 3%, ferritin wnl. ? Recommend iron supplementation upon discharge or outpatient given currently in IBD flare #?Coccidiomycosis Denies any URTI except for chills and night sweats. Routine lab workup prior to starting possible biologics for IBD flare showed positive Cocci IgM, however repeat was negative. ?Empirically treating with fluconazole 400 daily ? ID following, appreciate recommendations ? Follow-up [facility] results Hospital management: Disposition: Pending [facility] cocci QuantiFERON gold results and possibly infliximab treatment Diet: PUD/GERD diet Lines: PIV DVT prophylaxis: SCDs given GI bleed GI prophylaxis: Pantoprazole 40 mg IV twice daily CODE STATUS: full code Patient care was discussed with attending physician Dr. Bret Nesbitt MD PGY-2 I have carefully reviewed this document. Due to imperfections in the voice software, there could be grammatical errors including phonetic/typographic errors. This in no way compromises the medical care the patient is receiving
[2024-11-12 16:00] VITALS: BP 124/80; PULSE 100; PULSE 83; RESP 18; TEMP 36.6; O2SAT 97
[2024-11-12 20:00] VITALS: BP 134/94; PULSE 83; PULSE 87; RESP 17; TEMP 36.3; O2SAT 100
--- NOTE | 2024-11-12 20:12 | PD.IMPROG ---
Documentation for date of: 11/12/24 Subjective Subjective Interval history: Patient evaluated still having bloody bowel movements Hydrocortisone enema to continue daily at bedtime it was not a as needed order which have changed Exam Vital Signs Temp Pulse Resp BP Pulse Ox O2 Del Method 97.9 F 83 18 124/80 97 Room Air 11/12/24 16:00 11/12/24 16:00 11/12/24 16:00 11/12/24 16:00 11/12/24 16:00 11/12/24 16:00 Objective Labs 11/12/24 05:32 11/12/24 05:32 Labs: Laboratory Results - last 24 hr 11/12/24 05:32 WBC 8.4 RBC 4.14 Hgb 9.8 L Hct 31.4 L MCV 76 L MCH 23.7 L MCHC 31.2 RDW Std Deviation 65.0 H Plt Count 440 D Neut % (Auto) 74 Lymph % (Auto) 15 [place] % (Auto) 9 Eos % (Auto) 0 Baso % (Auto) 1 Neut # (Auto) 6.3 Lymph # (Auto) 1.3 [place] # (Auto) 0.7 Eos # (Auto) 0.0 Baso # (Auto) 0.1 Immature Gran # (Auto) 0.08 H Absolute Nucleated RBC 0.02 H Immature Gran % 1 H Nucleated RBC % 0 Sodium 142 Potassium 3.8 Chloride 101 Carbon Dioxide 28.8 Anion Gap 12 BUN < 5 L Creatinine 0.4 L Estim Creat Clear Calc 128.7 eGFR > 60 BUN/Creatinine Ratio 13 Glucose 110 H Calculated Osmolality 281 Calcium 8.8 Corrected Calcium 9.0 Phosphorus 4.6 Magnesium 1.8 Total Bilirubin 0.3 ALT 9 L Alkaline Phosphatase 46 Total Protein 5.8 Albumin 3.7 Globulin 2.1 L Albumin/Globulin Ratio 1.8 Impressions Impression: Acute exacerbation of the underlying inflammatory bowel disease Hydrocortisone enema daily Continue other meds Assessment & Plan A&P Narrative will screen for hiv. note that hep c testing neg and cocci may be false pos as repeat test neg 2d later us with flare multiple allergies ok to treat with flucon 400/day and ok to wait on the qtf before starting the biological agent as that is often more immunosuppressive than steroids alone although for short term, steroid rx often works rather well ok to monitor as outpt as cxr is neg. it may take several days to get the qtf back, so your choice to have her here or at home. response to rx is not instantaneous. will see again prn Time Spent With Patient Time: Total time spent is greater than 50% in coordination of care (as documented) at patient's floor/unit and/or counseling patient:
--- NOTE | 2024-11-12 20:55 | PC.NURSE ---
2025-spoke to Dr Bailey about hydrocortisone enema ordered since our pharmacy is not here anymore, Dr bailey stated to change order to give x1 enema tomorrow 11/13 at 0900 only and then HS as scheduled.
[2024-11-13] VITALS: BP 121/86; PULSE 68; PULSE 89; RESP 17; TEMP 36.3; O2SAT 99
[2024-11-13 04:00] VITALS: BP 124/85; PULSE 69; PULSE 90; RESP 16; TEMP 36.4; O2SAT 100
[2024-11-13] MEDS: RINGERS LACTATED 1000 ML 1,000 ML 90 ML IV ×2 (05:17→18:34)
[2024-11-13] MEDS: sulfaSALAzine 500 MG TABLET 1000 MG PO ×3 (05:17→21:59)
[2024-11-13 06:03] LABS: Basophils # (Auto) 0.1 Thou/mm3 (0.0-0.2); Basophils % (Auto) 1 % (0-2.5); Eosinophils % (Auto) 0 % (0-10); Hematocrit 32.4 % (36.0-46.0); Hemoglobin 10.3 g/dL (12.0-16.0); Immature Granulocytes % (Auto) 1 % (0-0); Immature Granulocytes Auto 0.14 Thou/mm3 (0.00-0.00); Lymphocytes # (Auto) 1.4 Thou/mm3 (1.0-4.8); Lymphocytes % (Auto) 14 % (10-50); Mean Corpuscular HGB Conc 31.8 g/dl (31.0-37.0); Mean Corpuscular Volume 76 fL (80-100); Monocytes # (Auto) 0.8 Thou/mm3 (0.0-0.8); Monocytes % (Auto) 8 % (0-12); Neutrophils # (Auto) 7.8 Thou/mm3 (1.8-7.7); Neutrophils % (Auto) 76 % (37-80); Nucleated Red Blood Cell % 0 /100 WBC (0); Platelet Count 506 Thou/mm3 (140-440); RDW Standard Deviation 65.5 fL (36.4-46.3); Red Blood Count 4.29 Miln/mm3 (4.00-5.20); White Blood Count 10.3 Thou/mm3 (3.6-11.0)
[2024-11-13 06:30] LABS: Alanine Aminotransferase 9 U/L (10-49); Albumin/Globulin Ratio 1.9 (1.2-2.2); Alkaline Phosphatase 55 U/L (46-116); Anion Gap 13 (7-16); BUN/Creatinine Ratio 13 Ratio (12-20); Bilirubin,Total 0.3 mg/dL (0.3-1.2); Blood Urea Nitrogen < 5 mg/dL (9-23); Calcium 9.3 mg/dL (8.3-10.6); Calcium (Corrected) 9.3 mg/dL (8.5-10.1); Carbon Dioxide 25.9 mMol/L (20.0-31.0); Chloride 98 mMol/L (98-107); Creatinine (Component) 0.4 mg/dL (0.6-1.3); Estimated Creatinine Clearance 128.7 mL/min (>60); Globulin 2.1 gm/dL (2.3-3.5); Glucose 113 mg/dL (74-106); Osmolality,Calculated 272 (275-295); Potassium 3.9 mMol/L (3.4-5.1); Sodium 137 mMol/L (136-145); Total Protein 6.1 gm/dL (5.7-8.2); eGFR > 60 See Note
[2024-11-13 08:00] VITALS: BP 128/84; PULSE 116; PULSE 73; RESP 12; TEMP 36.4; O2SAT 98
[2024-11-13] MEDS: FOLIC ACID 1 MG TABLET PO (08:47)
[2024-11-13] MEDS: PANTOPRAZOLE INJ 40 MG VIAL IVP ×2 (08:47→22:00)
[2024-11-13] MEDS: azaTHIOprine 50 MG TABLET 100 MG PO (08:47)
[2024-11-13] MEDS: FLUCONAZOLE 100 MG TABLET 400 MG PO (08:47)
[2024-11-13] MEDS: ONDANSETRON INJ 2 MG/ML INJ 2 ML 4 MG IVP (08:59)
[2024-11-13] MEDS: HYDROCORTISONE ENEMA 100 MG/60 ML BTL PR (10:12)
[2024-11-13] MEDS: LOPERAMIDE 2 MG CAPSULE PO ×2 (11:19→21:59)
--- NOTE | 2024-11-13 11:56 | PD.RESPRO ---
Documentation for date of: 11/13/24 Subjective Subjective Interval history: No acute overnight events. Patient seen and examined at bedside and endorsed palpitations and shortness of breath. Vital signs showed heart rate of 130-140, saturating 99% on room air, BP 128/84. No episode of vomiting but did have 4 bloody BMs this morning. States that she had 12 yesterday but may have been due to the hydrocortisone enema that she received. Will receive her second dose this a.m. given that she was unable to receive it last night. Touch base with GI and will continue to manage and patient on current regimen. Cocci and TB currently pending at this time. Exam Vital Signs Temp Pulse Resp BP Pulse Ox O2 Del Method 97.6 F 73 12 128/84 98 Room Air 11/13/24 08:00 11/13/24 08:00 11/13/24 08:00 11/13/24 08:00 11/13/24 08:00 11/13/24 08:00 Narrative Exam General: AOx3, mild distress from N/V, able to speak full sentences HEENT: NC/AT, mucous membranes moist, bilateral sclera anicteric Cardiovascular: tachycardic, regular rhythm, S1/S2 present, no murmurs appreciated Pulmonary: clear to auscultation bilaterally, no rales/rhonchi/wheezes Abdominal: tender to palpation in left abdomen, soft, non-distended, no rebound/guarding, normal bowel sounds present Musculoskeletal: normal ROM, no peripheral edema Skin: warm and dry, intact, no rashes Neuro: CN II-XII intact, no focal deficits Objective Labs 11/14/24 07:54 11/14/24 07:54 Labs: Laboratory Results - last 24 hr 11/13/24 04:54 WBC 10.3 RBC 4.29 Hgb 10.3 L Hct 32.4 L MCV 76 L MCH 24.0 L MCHC 31.8 RDW Std Deviation 65.5 H Plt Count 506 H D Neut % (Auto) 76 Lymph % (Auto) 14 [place] % (Auto) 8 Eos % (Auto) 0 Baso % (Auto) 1 Neut # (Auto) 7.8 H Lymph # (Auto) 1.4 [place] # (Auto) 0.8 Eos # (Auto) 0.0 Baso # (Auto) 0.1 Immature Gran # (Auto) 0.14 H Absolute Nucleated RBC 0.00 Immature Gran % 1 H Nucleated RBC % 0 Sodium 137 Potassium 3.9 Chloride 98 Carbon Dioxide 25.9 Anion Gap 13 BUN < 5 L Creatinine 0.4 L Estim Creat Clear Calc 128.7 eGFR > 60 BUN/Creatinine Ratio 13 Glucose 113 H Calculated Osmolality 272 L Calcium 9.3 Corrected Calcium 9.3 Total Bilirubin 0.3 ALT 9 L Alkaline Phosphatase 55 Total Protein 6.1 Albumin 4.0 Globulin 2.1 L Albumin/Globulin Ratio 1.9 Quality Measures Quality Measures none Assessment & Plan Assessment Current Active Medications: Generic Name Dose Route Start Last Admin Trade Name Freq PRN Reason Stop Dose Admin Acetaminophen 650 mg 11/01/24 13:14 11/10/24 20:47 Acetaminophen 325 Mg Tablet PO 12/01/24 13:13 650 mg Q6H PRN Administration Fever > 100.4 or Pain 1-3 Azathioprine 100 mg 11/02/24 09:00 11/13/24 08:47 Azathioprine 50 Mg Tablet PO 12/02/24 08:59 100 mg DAILY ELAINE Administration Fluconazole 400 mg 11/07/24 09:00 11/13/24 08:47 Fluconazole 100 Mg Tablet PO 11/14/24 08:59 400 mg QDAY ELAINE Administration Folic Acid 1 mg 11/01/24 14:15 11/13/24 08:47 Folic Acid 1 Mg Tablet PO 12/01/24 14:14 1 mg QDAY ELAINE Administration Hydrocortisone 100 mg 11/13/24 21:00 Hydrocortisone Enema 100 Mg/60 Ml Btl CO 12/13/24 20:59 HS ELAINE Lactated Ringer's 1,000 mls @ 90 mls/hr 11/09/24 11:53 11/13/24 05:17 Lactated Ringers IV 12/09/24 11:52 90 mls/hr .Q11H7M ELAINE Administration Loperamide HCl 2 mg 11/13/24 10:00 11/13/24 11:19 Loperamide 2 Mg Capsule PO 11/20/24 09:59 2 mg BID ELAINE Administration Methylprednisolone Sodium Succinate 40 mg 11/09/24 17:00 11/13/24 05:17 Methylprednisolone Sod Succ 40 Mg Vial IVP 11/16/24 16:59 40 mg Q8HR ELAINE Administration Ondansetron HCl 4 mg 11/01/24 13:20 11/13/24 08:59 Ondansetron Inj 2 Mg/Ml Inj 2 Ml IVP 12/01/24 13:19 4 mg Q6HR PRN Administration NAUSEA OR VOMITING Protocol Pantoprazole Sodium 40 mg 11/01/24 21:00 11/13/24 08:47 Pantoprazole Inj 40 Mg Vial IVP 12/01/24 20:59 40 mg Q12HR ELAINE Administration Simethicone 80 mg 11/05/24 14:26 Simethicone 80 Mg Chew PO 12/05/24 14:25 QID PRN GAS Sulfasalazine 1,000 mg 11/01/24 14:15 11/13/24 05:17 Sulfasalazine 500 Mg Tablet PO 12/01/24 14:14 1,000 mg TID ELAINE Administration Plan Noa Ochoa is a 29-year-old female with a past medical history of ulcerative colitis who was admitted on 11/01/2024 for lower GI bleed secondary to ulcerative colitis flare resulting in blood loss anemia. #Ulcerative colitis flare #Lower GI bleed #Acute blood loss anemia, resolved s/p transfusion Presented on 11/01 with hemoglobin of 8.6 that dropped to 6.2 overnight and was transfused 2 unit PRBC. Prior to admission, endorsed having 15+ BMs per day and recently has been in the single digits. Colonoscopy on previous admission showed inflammatory changes on the left-sided colon all the way to the transverse colon with bleeding. CT A/P showed severe colitis pattern of entire colon. Pathology report of left colon showed chronic active colitis with architectural changes and cryptitis, ANCA positive, P ANCA titer 1:80. On 10/21, stool positive for 3+ WBCs and calprotectin 3040. C. difficile, Giardia, norovirus negative ? GI following, appreciate recommendations ? Methylprednisolone 40 mg IV BID (11/01-11/08) -> TID (11/09-) ? Hydrocortisone 100 mg CO HS ? Sulfasalazine 1 g p.o. 3 times daily (11/01-) ? Azathioprine 100 mg p.o. daily (11/02-) ? Loperamide 2 mg p.o. BID ? Follow-up [facility] cocci results and repeat QuantiFERON gold ? Monitor hemoglobin and transfuse if less than 7 #Nausea/vomiting, improving #Sinus tachycardia most likely due to underlying anemia ? Zofran as needed ? Monitor H and H, transfuse as needed ? LR at 90 cc/hr #Chronic normocytic anemia #Mixed blood loss anemia from ulcerative colitis and iron deficiency anemia Iron 9, TIBC wnl, iron saturation 3%, ferritin wnl. ? Recommend iron supplementation upon discharge or outpatient given currently in IBD flare #? Coccidiomycosis Denies any URTI except for chills and night sweats. Routine lab workup prior to starting possible biologics for IBD flare showed positive Cocci IgM, however repeat was negative. ? Empirically treating with fluconazole 400 daily ? ID following, appreciate recommendations ? Follow-up [facility] results Hospital management: Disposition: Pending [facility] cocci QuantiFERON gold results and possibly infliximab treatment Diet: PUD/GERD diet Lines: PIV DVT prophylaxis: SCDs given GI bleed GI prophylaxis: Pantoprazole 40 mg IV twice daily CODE STATUS: full code ----- Plan discussed with attending physician Dr. Bennie Baker MD PGY-1 Internal Medicine Attending Provider Attestation/Addendum I, Lisa Avery, DO, attest that I was physically present for the [place] portions of the service and evaluated the patient with the resident and I reviewed and discussed the case with the resident and agree with the resident's findings and plans of care as documented above Patient seen eval this a.m. She states that she had about 12 bloody bowel movements this morning. She remains tachycardic and complains of palpitations. Will give IV fluid boluses. Patient became very tearful and states that she much rather go home and feels like she is not getting any better. It appears that the hydrocortisone enema made her have more bowel movements. She has been frustrated about being able to follow-up outpatient as she has been lost to follow-up with her primary and GI due to change in providers at these facilities. Recommend for patient to follow-up with [facility] so that her referrals can be made and infliximab can be ordered. QuantiFERON is still pending otherwise. Will touch base with GI regarding coordinating the infusions.
[2024-11-13 12:00] VITALS: BP 134/93; PULSE 87; PULSE 92; RESP 12; TEMP 37.1; O2SAT 99
--- NOTE | 2024-11-13 13:10 | PC.NURSE ---
Pt feels heart is beating out of chest, HR 130s. Dr. Avery notified. Ordered NS bolus. BP 135/82
[2024-11-13] MEDS: SODIUM CHLORIDE 0.9% 1000 ML 1,000 ML 999 ML IV (13:19)
--- NOTE | 2024-11-13 14:42 | PC.RT ---
Late entry, rounding note: Continues to have bloody BMs, tachychardic. Dr. Strickland is following. Patient to discharge home when medically clear.
[2024-11-13 15:54] VITALS: BMI 19.6
[2024-11-13 16:00] VITALS: BP 142/92; PULSE 95; PULSE 99; RESP 21; TEMP 36.8; O2SAT 100
[2024-11-13 20:00] VITALS: BP 130/85; PULSE 97; RESP 14; TEMP 37.1; O2SAT 99
--- NOTE | 2024-11-13 21:18 | PD.IMPROG ---
Documentation for date of: 11/13/24 Subjective Subjective Interval history: Case discussed with internal medicine team Cocci serology still pending Add loperamide 2 mg twice daily Wait for cocci serology before final decision can be made Exam Vital Signs Temp Pulse Resp BP Pulse Ox O2 Del Method 98.8 F 97 14 130/85 H 99 Room Air 11/13/24 20:00 11/13/24 20:00 11/13/24 20:00 11/13/24 20:00 11/13/24 20:00 11/13/24 20:00 Objective Labs 11/13/24 04:54 11/13/24 04:54 Labs: Laboratory Results - last 24 hr 11/13/24 04:54 WBC 10.3 RBC 4.29 Hgb 10.3 L Hct 32.4 L MCV 76 L MCH 24.0 L MCHC 31.8 RDW Std Deviation 65.5 H Plt Count 506 H D Neut % (Auto) 76 Lymph % (Auto) 14 [place] % (Auto) 8 Eos % (Auto) 0 Baso % (Auto) 1 Neut # (Auto) 7.8 H Lymph # (Auto) 1.4 [place] # (Auto) 0.8 Eos # (Auto) 0.0 Baso # (Auto) 0.1 Immature Gran # (Auto) 0.14 H Absolute Nucleated RBC 0.00 Immature Gran % 1 H Nucleated RBC % 0 Sodium 137 Potassium 3.9 Chloride 98 Carbon Dioxide 25.9 Anion Gap 13 BUN < 5 L Creatinine 0.4 L Estim Creat Clear Calc 128.7 eGFR > 60 BUN/Creatinine Ratio 13 Glucose 113 H Calculated Osmolality 272 L Calcium 9.3 Corrected Calcium 9.3 Total Bilirubin 0.3 ALT 9 L Alkaline Phosphatase 55 Total Protein 6.1 Albumin 4.0 Globulin 2.1 L Albumin/Globulin Ratio 1.9 Impressions Impression: Acute exacerbation of the underlying inflammatory bowel disease that is ulcerative colitis Plan as under HPI Assessment & Plan A&P Narrative will screen for hiv. note that hep c testing neg and cocci may be false pos as repeat test neg 2d later us with flare multiple allergies ok to treat with flucon 400/day and ok to wait on the qtf before starting the biological agent as that is often more immunosuppressive than steroids alone although for short term, steroid rx often works rather well ok to monitor as outpt as cxr is neg. it may take several days to get the qtf back, so your choice to have her here or at home. response to rx is not instantaneous. will see again prn Time Spent With Patient Time: Total time spent is greater than 50% in coordination of care (as documented) at patient's floor/unit and/or counseling patient:
[2024-11-14] VITALS (7 sets, daily range): BP systolic 124–141; BP diastolic 83–90; PULSE 66–124; RESP 14–23; TEMP 36.2–36.8; O2SAT 98–99
[2024-11-14] MEDS: RINGERS LACTATED 1000 ML 1,000 ML 90 ML IV ×2 (05:14→14:23)
[2024-11-14] MEDS: sulfaSALAzine 500 MG TABLET 1000 MG PO ×3 (05:14→21:28)
[2024-11-14 08:16] LABS: Basophils # (Auto) 0.1 Thou/mm3 (0.0-0.2); Basophils % (Auto) 1 % (0-2.5); Eosinophils % (Auto) 0 % (0-10); Hematocrit 30.8 % (36.0-46.0); Hemoglobin 9.7 g/dL (12.0-16.0); Immature Granulocytes % (Auto) 1 % (0-0); Immature Granulocytes Auto 0.09 Thou/mm3 (0.00-0.00); Lymphocytes # (Auto) 0.7 Thou/mm3 (1.0-4.8); Lymphocytes % (Auto) 6 % (10-50); Mean Corpuscular HGB Conc 31.5 g/dl (31.0-37.0); Mean Corpuscular Volume 76 fL (80-100); Monocytes # (Auto) 0.6 Thou/mm3 (0.0-0.8); Monocytes % (Auto) 6 % (0-12); Neutrophils # (Auto) 9.1 Thou/mm3 (1.8-7.7); Neutrophils % (Auto) 86 % (37-80); Nucleated Red Blood Cell % 0 /100 WBC (0); Platelet Count 528 Thou/mm3 (140-440); RDW Standard Deviation 66.2 fL (36.4-46.3); Red Blood Count 4.04 Miln/mm3 (4.00-5.20); White Blood Count 10.6 Thou/mm3 (3.6-11.0)
--- NOTE | 2024-11-14 08:35 | PC.CC ---
Addendum entered and electronically signed by Zee Alvarez [facility] 11/17/24 15:46: Auth status remains Requested . Written order for flex care infusion, consent and clinical notes forwarded to [facility]. [facility] to follow-up on auth. Addendum entered and electronically signed by Zee Alvarez [facility] 11/17/24 11:12: Auth status remains Requested . Patient received 1st infliximab infusion 11/16. Next dose is due November 30. Addendum entered and electronically signed by Zee Alvarez [facility] 11/16/24 12:31: Auth status remains Requested . Patient likely to receive 1st infliximab infusion today. If so, next dose is due November 30. Addendum entered and electronically signed by Zee Alvarez [facility] 11/15/24 11:26: [employer] [facility] has received auth request and is viewable on [employer] portal. Auth # [id number], current status is Requested . Will follow-up on status. Original Note: Faxed infliximab prior authorization request to [employer]. Anticipate response within 5 business days. May call [employer] at [phone] or check [employer] portal for status. Signed order for Flex Care infusion and first consent obtained from Dr. Baker. Will follow-up on auth status.
[2024-11-14] MEDS: FOLIC ACID 1 MG TABLET PO (08:43)
[2024-11-14] MEDS: azaTHIOprine 50 MG TABLET 100 MG PO (08:43)
[2024-11-14] MEDS: PANTOPRAZOLE INJ 40 MG VIAL IVP ×2 (08:43→21:27)
[2024-11-14] MEDS: LOPERAMIDE 2 MG CAPSULE PO ×2 (08:43→21:28)
[2024-11-14 08:49] LABS: Alanine Aminotransferase 9 U/L (10-49); Albumin, Serum 3.7 gm/dL (3.5-5.0); Albumin/Globulin Ratio 1.8 (1.2-2.2); Alkaline Phosphatase 48 U/L (46-116); Anion Gap 11 (7-16); BUN/Creatinine Ratio 13 Ratio (12-20); Bilirubin,Total 0.3 mg/dL (0.3-1.2); Blood Urea Nitrogen 5 mg/dL (9-23); Calcium 8.9 mg/dL (8.3-10.6); Calcium (Corrected) 9.1 mg/dL (8.5-10.1); Carbon Dioxide 28.3 mMol/L (20.0-31.0); Chloride 100 mMol/L (98-107); Creatinine (Component) 0.4 mg/dL (0.6-1.3); Estimated Creatinine Clearance 128.7 mL/min (>60); Globulin 2.1 gm/dL (2.3-3.5); Glucose 109 mg/dL (74-106); Osmolality,Calculated 275 (275-295); Potassium 3.8 mMol/L (3.4-5.1); Sodium 139 mMol/L (136-145); Total Protein 5.8 gm/dL (5.7-8.2); eGFR > 60 See Note
--- NOTE | 2024-11-14 10:37 | ESPR_ITS ---
<Statement entered by Violeta Nesbitt MD - 11/14/24 12:55> Patient is a 29-year-old female with past medical history of ulcerative colitis was admitted for ulcerative colitis flare, acute blood loss anemia requiring treatment and management. GI is on board, Patient was seen and examined at bedside, still endorses multiple bowel movement, however denies any nausea, abdominal cramping, or vomiting Vital signs revealed sinus tachycardia on and off Labs were reviewed which showed stable hemoglobin, no need for transfusion at this point. [facility] cocci came back negative, fluconazole was discontinued Pending QuantiFERON as well as we will obtain PPD test Will touch base with GI, regarding interferon infusion inpatient, however currently patient still having bloody bowel movement, tachycardic, anemic, not ready to be discharged, will follow-up with TB results, follow-up with GI final recs about further management and plan. I personally saw and examined the patient and discussed the assessment and plan with the entire medicine team, including my attending , Violeta Nesbitt M.D. PGY-2 Disclaimer: Despite multiple revisions, due to the dictation software being used, the document bellow may not be free of grammatical errors including phonetic/typographic errors. However, this does not deter from our commitment to providing health care in the patient's best interest in mind. Documentation for date of: 11/14/24 Subjective Subjective Interval history: No acute overnight events. Seen and examined at bedside and patient tachycardic and endorsing palpitations, but after leaving her room and patient is able to rest, tachycardia resolves. Thus far, she has had approximately 6 BMs but states that they have been becoming less bloody over time, more formed, and if blood is present it is usually in the stool itself. Cocci results came back negative and QuantiFERON results will likely come back on . In meantime we will place PPD for insurance measures in case QuantiFERON comes back indeterminate again. Exam Vital Signs Temp Pulse Resp BP Pulse Ox O2 Del Method 97.1 F 97 17 141/84 H 99 Room Air 11/14/24 08:00 11/14/24 08:00 11/14/24 08:00 11/14/24 08:00 11/14/24 08:00 11/14/24 08:00 Narrative Exam General: AOx3, mild distress from N/V, able to speak full sentences HEENT: NC/AT, mucous membranes moist, bilateral sclera anicteric Cardiovascular: tachycardic, regular rhythm, S1/S2 present, no murmurs appreciated Pulmonary: clear to auscultation bilaterally, no rales/rhonchi/wheezes Abdominal: tender to palpation in left abdomen, soft, non-distended, no rebound/guarding, normal bowel sounds present Musculoskeletal: normal ROM, no peripheral edema Skin: warm and dry, intact, no rashes Neuro: CN II-XII intact, no focal deficits Objective Labs 11/14/24 07:54 11/14/24 07:54 Labs: Laboratory Results - last 24 hr 11/06/24 11/14/24 12:00 07:54 WBC 10.6 RBC 4.04 Hgb 9.7 L Hct 30.8 L MCV 76 L MCH 24.0 L MCHC 31.5 RDW Std Deviation 66.2 H Plt Count 528 H Neut % (Auto) 86 H Lymph % (Auto) 6 L [place] % (Auto) 6 Eos % (Auto) 0 Baso % (Auto) 1 Neut # (Auto) 9.1 H Lymph # (Auto) 0.7 L [place] # (Auto) 0.6 Eos # (Auto) 0.0 Baso # (Auto) 0.1 Immature Gran # (Auto) 0.09 H Absolute Nucleated RBC 0.00 Immature Gran % 1 H Nucleated RBC % 0 Sodium 139 Potassium 3.8 Chloride 100 Carbon Dioxide 28.3 Anion Gap 11 BUN 5 L Creatinine 0.4 L Estim Creat Clear Calc 128.7 eGFR > 60 BUN/Creatinine Ratio 13 Glucose 109 H Calculated Osmolality 275 Calcium 8.9 Corrected Calcium 9.1 Total Bilirubin 0.3 ALT 9 L Alkaline Phosphatase 48 Total Protein 5.8 Albumin 3.7 Globulin 2.1 L Albumin/Globulin Ratio 1.8 Coccidioides Ab See Sep Rpt Quality Measures Quality Measures none Assessment & Plan Assessment Current Active Medications: Generic Name Dose Route Start Last Admin Trade Name Freq PRN Reason Stop Dose Admin Acetaminophen 650 mg 11/01/24 13:14 11/10/24 20:47 Acetaminophen 325 Mg Tablet PO 12/01/24 13:13 650 mg Q6H PRN Administration Fever > 100.4 or Pain 1-3 Azathioprine 100 mg 11/02/24 09:00 11/14/24 08:43 Azathioprine 50 Mg Tablet PO 12/02/24 08:59 100 mg DAILY ELAINE Administration Folic Acid 1 mg 11/01/24 14:15 11/14/24 08:43 Folic Acid 1 Mg Tablet PO 12/01/24 14:14 1 mg QDAY ELAINE Administration Hydrocortisone 100 mg 11/13/24 21:00 11/13/24 21:52 Hydrocortisone Enema 100 Mg/60 Ml Btl AR 12/13/24 20:59 Not Given HS ELAINE Lactated Ringer's 1,000 mls @ 90 mls/hr 11/09/24 11:53 11/14/24 05:14 Lactated Ringers IV 12/09/24 11:52 90 mls/hr .Q11H7M ELAINE Administration Loperamide HCl 2 mg 11/13/24 10:00 11/14/24 08:43 Loperamide 2 Mg Capsule PO 11/20/24 09:59 2 mg BID ELAINE Administration Methylprednisolone Sodium Succinate 40 mg 11/09/24 17:00 11/14/24 05:14 Methylprednisolone Sod Succ 40 Mg Vial IVP 11/16/24 16:59 40 mg Q8HR ELAINE Administration Ondansetron HCl 4 mg 11/01/24 13:20 11/13/24 08:59 Ondansetron Inj 2 Mg/Ml Inj 2 Ml IVP 12/01/24 13:19 4 mg Q6HR PRN Administration NAUSEA OR VOMITING Protocol Pantoprazole Sodium 40 mg 11/01/24 21:00 11/14/24 08:43 Pantoprazole Inj 40 Mg Vial IVP 12/01/24 20:59 40 mg Q12HR ELAINE Administration Simethicone 80 mg 11/05/24 14:26 Simethicone 80 Mg Chew PO 12/05/24 14:25 QID PRN GAS Sulfasalazine 1,000 mg 11/01/24 14:15 11/14/24 05:14 Sulfasalazine 500 Mg Tablet PO 12/01/24 14:14 1,000 mg TID ELAINE Administration Fady Ochoa is a 29-year-old female with a past medical history of ulcerative colitis who was admitted on 11/01/2024 for lower GI bleed secondary to ulcerative colitis flare resulting in blood loss anemia. #Ulcerative colitis flare #Lower GI bleed #Acute blood loss anemia, resolved s/p transfusion Presented on 11/01 with hemoglobin of 8.6 that dropped to 6.2 overnight and was transfused 2 unit PRBC. Prior to admission, endorsed having 15+ BMs per day and recently has been in the single digits. Colonoscopy on previous admission showed inflammatory changes on the left-sided colon all the way to the transverse colon with bleeding. CT A/P showed severe colitis pattern of entire colon. Pathology report of left colon showed chronic active colitis with architectural changes and cryptitis, ANCA positive, P ANCA titer 1:80. On 10/21, stool positive for 3+ WBCs and calprotectin 3040. C. difficile, Giardia, norovirus negative ? GI following, appreciate recommendations ? Methylprednisolone 40 mg IV BID (11/01-11/08) -> TID (11/09-) ? Hydrocortisone 100 mg AR HS ? Sulfasalazine 1 g p.o. 3 times daily (11/01-) ? Azathioprine 100 mg p.o. daily (11/02-) ? Loperamide 2 mg p.o. BID ? Follow-up repeat QuantiFERON and PPD testing ? Monitor hemoglobin and transfuse if less than 7 #Nausea/vomiting, improving #Sinus tachycardia most likely due to underlying anemia ? Zofran as needed ? Monitor H and H, transfuse as needed ? LR at 90 cc/hr #Chronic normocytic anemia #Mixed blood loss anemia from ulcerative colitis and iron deficiency anemia Iron 9, TIBC wnl, iron saturation 3%, ferritin wnl. ? Recommend iron supplementation upon discharge or outpatient given currently in IBD flare #? Coccidiomycosis, ruled out Denies any URTI except for chills and night sweats. Routine lab workup prior to starting possible biologics for IBD flare showed positive Cocci IgM, however repeat was negative and UCD results were negative so fluconazole was DC'd. ? ID following, appreciate recommendations Hospital management: Disposition: Pending QuantiFERON/PPD results and possibly infliximab treatment Diet: PUD/GERD diet Lines: PIV DVT prophylaxis: SCDs given GI bleed GI prophylaxis: Pantoprazole 40 mg IV twice daily CODE STATUS: full code ----- Plan discussed with attending physician Dr. Kamryn Baker MD PGY-1 Internal Medicine Attending Provider Attestation/Addendum I have examined the patient, reviewed labs and imaging findings, discussed the case with the resident(s), and reviewed entered orders. I agree with the plan of care as outlined in this note, with these additional summaries/recommendations: Patient seen at bedside. No acute overnight events. Patient still endorses bloody bowel movements secondary to ulcerative colitis flare. Continue IV Solu- Medrol, sulfasalazine, azathioprine and hydrocortisone enema. QuantiFERON returned inconclusive. We will order PPD in anticipation of starting infliximab infusions. Possible infusion inpatient versus outpatient. Gastroenterology following, recommendations appreciated. Cocci returned negative from [facility] and discontinue fluconazole. Loperamide added to regimen today. Zofran as needed for nausea and vomiting. Patient updated on the plan and in agreement. Please see residents note for additional details and management. Dr. Kamryn MD
[2024-11-14] MEDS: TUBERCULIN PPD INJ 5 UNIT/0.1 ML DOSE ID (11:54)
--- NOTE | 2024-11-14 12:03 | PC.NURSE ---
FOLLOWED UP WITH PHARMACY REGARDING HYDROCORTISONE ENEMA, PATIENT DID NOT RECEIVE IT LAST NIGHT, AND ASK IF THE MEDICATION IS AVAILABLE. SPOKE TO PHARMACIST ESME, STATED SHE WILL CHECK ON THE MEDICATION AND LET NURSING STAFF KNOW.
[2024-11-14] MEDS: RINGERS LACTATED 1000 ML 500 ML 999 ML IV (14:58)
[2024-11-14] MEDS: hydrOXYzine HCL 25 MG TABLET PO (18:24)
[2024-11-14 19:24] LABS: Magnesium 1.6 mg/dL (1.6-2.6)
--- NOTE | 2024-11-14 19:38 | PD.IMPROG ---
Documentation for date of: 11/14/24 Subjective Subjective Interval history: Cocci serology from [facility] are negative Fluconazole has been discontinued Waiting for the QuantiFERON serum testing that should be available morning And if negative Will get the first dose of Inflectra for authorization to be given at 0 weeks, 2 weeks, 4 weeks, then every 8 weeks Exam Vital Signs Temp Pulse Resp BP Pulse Ox O2 Del Method 98.3 F 114 H 21 H 124/88 H 99 Room Air 11/14/24 16:00 11/14/24 16:00 11/14/24 16:00 11/14/24 16:00 11/14/24 16:00 11/14/24 16:00 Objective Labs 11/14/24 07:54 11/14/24 07:54 Labs: Laboratory Results - last 24 hr 11/06/24 11/14/24 11/14/24 12:00 07:54 18:20 WBC 10.6 RBC 4.04 Hgb 9.7 L Hct 30.8 L MCV 76 L MCH 24.0 L MCHC 31.5 RDW Std Deviation 66.2 H Plt Count 528 H Neut % (Auto) 86 H Lymph % (Auto) 6 L [place] % (Auto) 6 Eos % (Auto) 0 Baso % (Auto) 1 Neut # (Auto) 9.1 H Lymph # (Auto) 0.7 L [place] # (Auto) 0.6 Eos # (Auto) 0.0 Baso # (Auto) 0.1 Immature Gran # (Auto) 0.09 H Absolute Nucleated RBC 0.00 Immature Gran % 1 H Nucleated RBC % 0 Sodium 139 Potassium 3.8 Chloride 100 Carbon Dioxide 28.3 Anion Gap 11 BUN 5 L Creatinine 0.4 L Estim Creat Clear Calc 128.7 eGFR > 60 BUN/Creatinine Ratio 13 Glucose 109 H Calculated Osmolality 275 Calcium 8.9 Corrected Calcium 9.1 Magnesium 1.6 Total Bilirubin 0.3 ALT 9 L Alkaline Phosphatase 48 Total Protein 5.8 Albumin 3.7 Globulin 2.1 L Albumin/Globulin Ratio 1.8 Coccidioides Ab See Sep Rpt Impressions Impression: # Inflammatory bowel disease with acute exacerbation not responding to patient therapy Waiting for QuantiFERON serum testing Then start on anti-TNF's Assessment & Plan A&P Narrative will screen for hiv. note that hep c testing neg and cocci may be false pos as repeat test neg 2d later us with flare multiple allergies ok to treat with flucon 400/day and ok to wait on the qtf before starting the biological agent as that is often more immunosuppressive than steroids alone although for short term, steroid rx often works rather well ok to monitor as outpt as cxr is neg. it may take several days to get the qtf back, so your choice to have her here or at home. response to rx is not instantaneous. will see again prn Time Spent With Patient Time: Total time spent is greater than 50% in coordination of care (as documented) at patient's floor/unit and/or counseling patient:
[2024-11-15] VITALS: BP 124/85; PULSE 100; RESP 14; TEMP 36.6; O2SAT 97
[2024-11-15] MEDS: RINGERS LACTATED 1000 ML 1,000 ML 90 ML IV ×2 (02:02→13:10)
[2024-11-15 04:00] VITALS: BP 145/80; PULSE 100; PULSE 102; RESP 16; TEMP 36.3; O2SAT 98
[2024-11-15] MEDS: sulfaSALAzine 500 MG TABLET 1000 MG PO ×3 (07:37→21:48)
[2024-11-15 08:00] VITALS: BP 136/96; PULSE 130; PULSE 150; RESP 15; TEMP 37.2; O2SAT 98
[2024-11-15] MEDS: FOLIC ACID 1 MG TABLET PO (08:19)
[2024-11-15] MEDS: azaTHIOprine 50 MG TABLET 100 MG PO (08:19)
[2024-11-15] MEDS: Magnesium Sulfate 4 GM Ivpb 4 GM/50 ML BAG IV (08:19)
[2024-11-15] MEDS: LOPERAMIDE 2 MG CAPSULE PO ×2 (08:19→21:48)
[2024-11-15] MEDS: PANTOPRAZOLE INJ 40 MG VIAL IVP (08:19)
[2024-11-15 08:31] LABS: Basophils # (Auto) 0.1 Thou/mm3 (0.0-0.2); Basophils % (Auto) 1 % (0-2.5); Eosinophils % (Auto) 0 % (0-10); Hematocrit 32.4 % (36.0-46.0); Hemoglobin 10.4 g/dL (12.0-16.0); Immature Granulocytes % (Auto) 1 % (0-0); Immature Granulocytes Auto 0.07 Thou/mm3 (0.00-0.00); Lymphocytes # (Auto) 1.7 Thou/mm3 (1.0-4.8); Lymphocytes % (Auto) 17 % (10-50); Mean Corpuscular HGB Conc 32.1 g/dl (31.0-37.0); Mean Corpuscular Hemoglobin 23.5 pg (25.0-35.0); Mean Corpuscular Volume 73 fL (80-100); Monocytes # (Auto) 0.4 Thou/mm3 (0.0-0.8); Monocytes % (Auto) 4 % (0-12); Neutrophils # (Auto) 7.6 Thou/mm3 (1.8-7.7); Neutrophils % (Auto) 77 % (37-80); Nucleated Red Blood Cell % 0 /100 WBC (0); Platelet Count 520 Thou/mm3 (140-440); RDW Standard Deviation 64.8 fL (36.4-46.3); Red Blood Count 4.42 Miln/mm3 (4.00-5.20); White Blood Count 9.9 Thou/mm3 (3.6-11.0)
[2024-11-15] MEDS: ONDANSETRON INJ 2 MG/ML INJ 2 ML 4 MG IVP ×2 (08:33→17:19)
[2024-11-15 08:49] LABS: Anion Gap 11 (7-16); BUN/Creatinine Ratio 12 Ratio (12-20); Blood Urea Nitrogen 6 mg/dL (9-23); Calcium 8.7 mg/dL (8.3-10.6); Carbon Dioxide 29.8 mMol/L (20.0-31.0); Chloride 97 mMol/L (98-107); Creatinine (Component) 0.5 mg/dL (0.6-1.3); Glucose 105 mg/dL (74-106); Magnesium 1.6 mg/dL (1.6-2.6); Osmolality,Calculated 273 (275-295); Phosphorous 3.5 mg/dL (2.4-5.1); Potassium 3.3 mMol/L (3.4-5.1); Sodium 138 mMol/L (136-145); eGFR > 60 See Note
[2024-11-15] MEDS: RINGERS LACTATED 1000 ML 500 ML 999 ML IV (09:12)
--- NOTE | 2024-11-15 10:44 | ESPR_ITS ---
<Statement entered by Violeta Nesbitt MD - 11/15/24 12:56> Patient seen and examined at bedside No acute overnight events Patient stable, however has tachycardia on and off, continue close monitoring, there might be component of anxiety as well, yesterday hydroxyzine was given which appears to helped with symptoms. Hemoglobin is stable, up trended from 9.7-10.4, although patient had total of 16 bowel movements since yesterday, not bloody, brown, loose. Patient per GI receiving hydrocortisone at bedtime enemas Still pending TB rule out, hopefully tomorrow will get results and will decide regarding inpatient infliximab infusion. GI is on board, and closely monitoring the case. The plan and current management was explained in detail, all questions and concerns were addressed. I personally saw and examined the patient and discussed the assessment and plan with the entire medicine team, including my attending , Violeta Nesbitt M.D. PGY-2 Disclaimer: Despite multiple revisions, due to the dictation software being used, the document bellow may not be free of grammatical errors including phonetic/typographic errors. However, this does not deter from our commitment to providing health care in the patient's best interest in mind. Documentation for date of: 11/15/24 Subjective Subjective Interval history: No acute overnight events. Seen and examined at bedside and patient continues to be tachycardic and endorses palpitations but no CP or shortness of breath and hemodynamically stable and saturating well on room air. Will give 500 cc IVF bolus and if still tachycardic, will try hydroxazine again. States that she had 10 bowel movements yesterday and so far has had 6 today, but states that there is less blood. Unable to obtain hydrocortison enemas at night so will speak to pharmacy regarding this. Otherwise, hemoglobin is stable and chem panel showed hypokalemia that was replenished. Will await fro TB results to finalize prior to starting infliximab. Exam Vital Signs Temp Pulse Resp BP Pulse Ox O2 Del Method 98.9 F 130 H 15 136/96 H 98 Room Air 11/15/24 08:00 11/15/24 08:00 11/15/24 08:00 11/15/24 08:00 11/15/24 08:00 11/15/24 08:00 Narrative Exam General: AOx3, mild distress from N/V, able to speak full sentences HEENT: NC/AT, mucous membranes moist, bilateral sclera anicteric Cardiovascular: tachycardic, regular rhythm, S1/S2 present, no murmurs appreciated Pulmonary: clear to auscultation bilaterally, no rales/rhonchi/wheezes Abdominal: tender to palpation in left abdomen, soft, non-distended, no rebound/guarding, normal bowel sounds present Musculoskeletal: normal ROM, no peripheral edema Skin: warm and dry, intact, no rashes Neuro: CN II-XII intact, no focal deficits Objective Labs 11/15/24 08:05 11/15/24 08:05 Labs: Laboratory Results - last 24 hr 11/14/24 11/15/24 18:20 08:05 WBC 9.9 RBC 4.42 Hgb 10.4 L Hct 32.4 L MCV 73 L MCH 23.5 L MCHC 32.1 RDW Std Deviation 64.8 H Plt Count 520 H Neut % (Auto) 77 Lymph % (Auto) 17 [place] % (Auto) 4 Eos % (Auto) 0 Baso % (Auto) 1 Neut # (Auto) 7.6 Lymph # (Auto) 1.7 [place] # (Auto) 0.4 Eos # (Auto) 0.0 Baso # (Auto) 0.1 Immature Gran # (Auto) 0.07 H Absolute Nucleated RBC 0.00 Immature Gran % 1 H Nucleated RBC % 0 Sodium 138 Potassium 3.3 L D Chloride 97 L Carbon Dioxide 29.8 Anion Gap 11 BUN 6 L Creatinine 0.5 L Estim Creat Clear Calc 103.0 eGFR > 60 BUN/Creatinine Ratio 12 Glucose 105 Calculated Osmolality 273 L Calcium 8.7 Phosphorus 3.5 Magnesium 1.6 1.6 Quality Measures Quality Measures none Assessment & Plan Assessment Current Active Medications: Generic Name Dose Route Start Last Admin Trade Name Freq PRN Reason Stop Dose Admin Acetaminophen 650 mg 11/01/24 13:14 11/10/24 20:47 Acetaminophen 325 Mg Tablet PO 12/01/24 13:13 650 mg Q6H PRN Administration Fever > 100.4 or Pain 1-3 Azathioprine 100 mg 11/02/24 09:00 11/15/24 08:19 Azathioprine 50 Mg Tablet PO 12/02/24 08:59 100 mg DAILY ELAINE Administration Folic Acid 1 mg 11/01/24 14:15 11/15/24 08:19 Folic Acid 1 Mg Tablet PO 12/01/24 14:14 1 mg QDAY ELAINE Administration Hydrocortisone 100 mg 11/14/24 21:00 11/14/24 21:25 Hydrocortisone Enema 100 Mg/60 Ml Btl PA 12/14/24 20:59 Not Given HS ELAINE Lactated Ringer's 1,000 mls @ 90 mls/hr 11/09/24 11:53 11/15/24 02:02 Lactated Ringers IV 12/09/24 11:52 90 mls/hr .Q11H7M ELAINE Administration Magnesium Sulfate 4 gm in 50 mls @ 12.5 mls/hr 11/15/24 07:44 11/15/24 08:19 Magnesium Sulfate Ivpb IV 11/15/24 11:43 12.5 mls/hr X1 ONE Administration Loperamide HCl 2 mg 11/13/24 10:00 11/15/24 08:19 Loperamide 2 Mg Capsule PO 11/20/24 09:59 2 mg BID ELAINE Administration Methylprednisolone Sodium Succinate 40 mg 11/09/24 17:00 11/15/24 07:37 Methylprednisolone Sod Succ 40 Mg Vial IVP 11/16/24 16:59 40 mg Q8HR ELAINE Administration Ondansetron HCl 4 mg 11/01/24 13:20 11/15/24 08:33 Ondansetron Inj 2 Mg/Ml Inj 2 Ml IVP 12/01/24 13:19 4 mg Q6HR PRN Administration NAUSEA OR VOMITING Protocol Pantoprazole Sodium 40 mg 11/15/24 21:00 Pantoprazole 40 Mg Tablet PO 12/15/24 20:59 BID ELAINE Protocol Potassium Chloride 20 meq 11/15/24 12:30 Potassium Chloride 20 Meq Tabcr PO 11/15/24 12:31 X1 ONE Sulfasalazine 1,000 mg 11/01/24 14:15 11/15/24 07:37 Sulfasalazine 500 Mg Tablet PO 12/01/24 14:14 1,000 mg TID ELAINE Administration Plan Noa Ochoa is a 29-year-old female with a past medical history of ulcerative colitis who was admitted on 11/01/2024 for lower GI bleed secondary to ulcerative colitis flare resulting in blood loss anemia. #Ulcerative colitis flare #Lower GI bleed #Acute blood loss anemia, resolved s/p transfusion Presented on 11/01 with hemoglobin of 8.6 that dropped to 6.2 overnight and was transfused 2 unit PRBC. Prior to admission, endorsed having 15+ BMs per day and recently has been in the single digits. Colonoscopy on previous admission showed inflammatory changes on the left-sided colon all the way to the transverse colon with bleeding. CT A/P showed severe colitis pattern of entire colon. Pathology report of left colon showed chronic active colitis with architectural changes and cryptitis, ANCA positive, P ANCA titer 1:80. On 10/21, stool positive for 3+ WBCs and calprotectin 3040. C. difficile, Giardia, norovirus negative. ? GI following, appreciate recommendations ? Methylprednisolone 40 mg IV BID (11/01-11/08) -> TID (11/09-) ? Hydrocortisone 100 mg PA HS ? Sulfasalazine 1 g p.o. 3 times daily (11/01-) ? Azathioprine 100 mg p.o. daily (11/02-) ? Loperamide 2 mg p.o. BID ? Follow-up repeat QuantiFERON and PPD testing ? Monitor hemoglobin and transfuse if less than 7 #Nausea/vomiting, improving #Sinus tachycardia most likely due to underlying anemia ? Zofran as needed ? Monitor H and H, transfuse as needed ? LR at 90 cc/hr #Chronic normocytic anemia #Mixed blood loss anemia from ulcerative colitis and iron deficiency anemia Iron 9, TIBC wnl, iron saturation 3%, ferritin wnl. ? Recommend iron supplementation upon discharge or outpatient given currently in IBD flare #? Coccidiomycosis, ruled out Denies any URTI except for chills and night sweats. Routine lab workup prior to starting possible biologics for IBD flare showed positive Cocci IgM, however repeat was negative and UCD results were negative so fluconazole was DC'd. ? ID following, appreciate recommendations Hospital management: Disposition: Pending QuantiFERON/PPD results and possibly infliximab treatment Diet: PUD/GERD diet Lines: PIV DVT prophylaxis: SCDs given GI bleed GI prophylaxis: Pantoprazole 40 mg IV twice daily CODE STATUS: full code ----- Plan discussed with attending physician Dr. Kamryn Baker MD PGY-1 Internal Medicine Attending Provider Attestation/Addendum I have examined the patient, reviewed labs and imaging findings, discussed the case with the resident(s), and reviewed entered orders. I agree with the plan of care as outlined in this note, with these additional summaries/recommendations: Patient seen at bedside. No acute overnight events. Today patient reports she has had 7 bowel movements thus far still slightly bloody but overall some improvement in bloody diarrhea. Gastroenterology following for UC flare and patient will continue IV Solu-Medrol, sulfasalazine, azithromycin powering, and loperamide. Continue Zofran as needed for nausea. Oral intake remains labile between 0-100%. Pharmacy working on helping arrange infliximab infusions prior to discharge. PPD results pending. Patient has had intermittent episodes of sinus tachycardia throughout hospitalization for the last 9 days. Over the last couple days it appeared to be improving with less frequent episodes although patient is sustaining in the 130s today. Most likely reaction to significant inflammation from UC although patient may benefit from BB or CCB. Consult cardiology, recommendations appreciated. Patient updated on the plan and in agreement. All questions answered to satisfaction. Please see residents note for additional details of management. Dr. Kamryn MD
[2024-11-15] MEDS: POTASSIUM CHLORIDE 20 mEq TABCR 40 MEQ PO (10:53)
--- NOTE | 2024-11-15 11:56 | PC.SS ---
Rounding note: PPD will be read 11/16. Patient to discahrge home when medically clear.
[2024-11-15 12:00] VITALS: BP 137/93; PULSE 132; PULSE 134; RESP 17; TEMP 36.3; O2SAT 99
--- NOTE | 2024-11-15 13:00 | EKG_ITS ---
[facility] Test Date: 2024-11-15 Pat Name: [employer] [facility] Regional Engineer: DARLENE : 1995 Requested By: Sami Jansen Order Number: [id number] Reading MD: Sami Jansen Measurements Intervals [place] Rate: 129 P: 33 MN: 117 QRS: 32 QRSD: 76 T: 32 QT: 276 QTc: 406 Interpretive Statements SINUS TACHYCARDIA WITH SHORT MN INTERVAL ABNORMAL RHYTHM ECG Compared to ECG 11/09/2024 14:56:37 Short MN interval now present /[id number]/[id number]
[2024-11-15] MEDS: POTASSIUM CHLORIDE 20 mEq TABCR PO (13:21)
[2024-11-15 16:00] VITALS: BP 120/85; PULSE 118; PULSE 121; RESP 18; TEMP 37; O2SAT 98
[2024-11-15] MEDS: hydrOXYzine HCL 25 MG TABLET PO (18:29)
--- NOTE | 2024-11-15 19:41 | PD.IMPROG ---
Documentation for date of: 11/15/24 Subjective Subjective Interval history: 29 years old female evaluated PPD will be back tomorrow is negative she will be given the first dose of infliximab 5 mg/kg body weight Exam Vital Signs Temp Pulse Resp BP Pulse Ox O2 Del Method 98.6 F 121 H 18 120/85 H 98 Room Air 11/15/24 16:00 11/15/24 16:00 11/15/24 16:00 11/15/24 16:00 11/15/24 16:00 11/15/24 16:00 Objective Labs 11/16/24 08:29 11/16/24 08:29 Labs: Laboratory Results - last 24 hr 11/15/24 08:05 WBC 9.9 RBC 4.42 Hgb 10.4 L Hct 32.4 L MCV 73 L MCH 23.5 L MCHC 32.1 RDW Std Deviation 64.8 H Plt Count 520 H Neut % (Auto) 77 Lymph % (Auto) 17 [place] % (Auto) 4 Eos % (Auto) 0 Baso % (Auto) 1 Neut # (Auto) 7.6 Lymph # (Auto) 1.7 [place] # (Auto) 0.4 Eos # (Auto) 0.0 Baso # (Auto) 0.1 Immature Gran # (Auto) 0.07 H Absolute Nucleated RBC 0.00 Immature Gran % 1 H Nucleated RBC % 0 Sodium 138 Potassium 3.3 L D Chloride 97 L Carbon Dioxide 29.8 Anion Gap 11 BUN 6 L Creatinine 0.5 L Estim Creat Clear Calc 103.0 eGFR > 60 BUN/Creatinine Ratio 12 Glucose 105 Calculated Osmolality 273 L Calcium 8.7 Phosphorus 3.5 Magnesium 1.6 Impressions Impression: Acute aggravation of the underlying inflammatory bowel disease If PPD negative tomorrow Infliximab 5 mg/kg body weight first dose tomorrow Assessment & Plan A&P Narrative will screen for hiv. note that hep c testing neg and cocci may be false pos as repeat test neg 2d later us with flare multiple allergies ok to treat with flucon 400/day and ok to wait on the qtf before starting the biological agent as that is often more immunosuppressive than steroids alone although for short term, steroid rx often works rather well ok to monitor as outpt as cxr is neg. it may take several days to get the qtf back, so your choice to have her here or at home. response to rx is not instantaneous. will see again prn Time Spent With Patient Time: Total time spent is greater than 50% in coordination of care (as documented) at patient's floor/unit and/or counseling patient:
[2024-11-15 20:00] VITALS: BP 133/85; PULSE 107; PULSE 111; RESP 18; TEMP 36.5; O2SAT 99
[2024-11-15] MEDS: PANTOPRAZOLE 40 MG TABLET PO (21:48)
[2024-11-15] MEDS: HYDROCORTISONE ENEMA 100 MG/60 ML BTL PR (21:49)
[2024-11-16] VITALS (7 sets, daily range): BP systolic 113–139; BP diastolic 78–94; PULSE 84–136; RESP 12–19; TEMP 36.3–37; O2SAT 97–99
[2024-11-16] MEDS: RINGERS LACTATED 1000 ML 1,000 ML 90 ML IV ×2 (01:13→13:18)
[2024-11-16] MEDS: sulfaSALAzine 500 MG TABLET 1000 MG PO ×3 (05:29→21:35)
--- NOTE | 2024-11-16 07:40 | PD.IMCONS ---
HPI Data of Consult Requesting Physician: Sami Harry MD Primary Care Provider: Michael Sena MD Consult Narrative History of present illness: This is a 29-year-old female with diagnosis of ulcerative colitis developed sinus tachycardia 120-130 cardiology consulted pt denies any cardiac symptoms pt had bloody stools cc:: cc: Sami Harry MD Meds Home Medications and Allergies Home Medications ?Medication ?Instructions ?Recorded ?Confirmed ?Type multivitamin (Daily Multi-Vitamin 1 tab PO QAM 10/20/24 11/08/24 History tablet) Allergies Allergy/AdvReac Type Severity Reaction Status Date / Time Penicillins Allergy Mild RASH Verified 11/01/24 08:40 vancomycin Allergy Mild REDNESS, Verified 11/01/24 08:40 ITCHING tree and shrub pollen Allergy Rash Verified 11/01/24 08:40 Exam Vital Signs Temp Pulse Resp BP Pulse Ox O2 Del Method 97.3 F 94 19 136/82 H 99 Room Air 11/16/24 04:00 11/16/24 04:00 11/16/24 04:00 11/16/24 04:00 11/16/24 04:00 11/16/24 04:00 Routine HEENT Exam Head: Present normocephalic and atraumatic Eye: Present EOMI and PERRL ENT: Present mucous membranes moist Routine Neck Exam Neck: Present supple and trachea midline Routine Respiratory Exam Respiratory: Present chest non-tender, lungs clear, normal breath sounds and no resp distress Routine Cardiovascular Exam Cardiovascular: Present RRR Routine Abdominal Exam Abdominal: Present soft and normoactive bowel sounds Routine Extremities Exam Extremities: Present full ROM Routine Skin Exam Skin: Present intact, dry and warm Routine Neurological Exam Neurological: Present alert, oriented X3 and CN II-XII intact Routine Psychiatric Exam Psychiatric: Present normal affect and normal thought process Results Labs 11/15/24 08:05 11/15/24 08:05 Labs: Short CBC 11/15/24 Range/Units 08:05 WBC 9.9 (3.6-11.0) Thou/mm3 Hgb 10.4 L (12.0-16.0) g/dL Hct 32.4 L (36.0-46.0) % Plt Count 520 H (140-440) Thou/mm3 BMP 11/15/24 08:05 Sodium 138 Potassium 3.3 L D Chloride 97 L Carbon Dioxide 29.8 BUN 6 L Creatinine 0.5 L Glucose 105 Calcium 8.7 Assessment and Plan Assessment and plan (1) Rectal bleed: Status: Acute (2) Exacerbation of ulcerative colitis: Status: Acute (3) Tachycardia: Status: Acute Additional Assessment & Plan Additional Plan: pts EKG reviewed appars to be sinus tachycardia currently improving to 90-100 continue telemetry monitoring prior echo unremarkable
[2024-11-16] MEDS: azaTHIOprine 50 MG TABLET 100 MG PO (08:37)
[2024-11-16] MEDS: LOPERAMIDE 2 MG CAPSULE PO ×2 (08:38→21:35)
[2024-11-16] MEDS: FOLIC ACID 1 MG TABLET PO (08:38)
[2024-11-16] MEDS: PANTOPRAZOLE 40 MG TABLET PO ×2 (08:38→21:35)
[2024-11-16 08:53] LABS: Basophils % (Auto) 0 % (0-2.5); Eosinophils % (Auto) 0 % (0-10); Hemoglobin 9.7 g/dL (12.0-16.0); Immature Granulocytes % (Auto) 1 % (0-0); Immature Granulocytes Auto 0.09 Thou/mm3 (0.00-0.00); Lymphocytes # (Auto) 0.6 Thou/mm3 (1.0-4.8); Lymphocytes % (Auto) 7 % (10-50); Mean Corpuscular HGB Conc 31.3 g/dl (31.0-37.0); Mean Corpuscular Hemoglobin 23.5 pg (25.0-35.0); Mean Corpuscular Volume 75 fL (80-100); Monocytes # (Auto) 0.2 Thou/mm3 (0.0-0.8); Monocytes % (Auto) 3 % (0-12); Neutrophils # (Auto) 8.6 Thou/mm3 (1.8-7.7); Neutrophils % (Auto) 90 % (37-80); Nucleated Red Blood Cell % 0 /100 WBC (0); Platelet Count 472 Thou/mm3 (140-440); RDW Standard Deviation 65.2 fL (36.4-46.3); Red Blood Count 4.12 Miln/mm3 (4.00-5.20); White Blood Count 9.6 Thou/mm3 (3.6-11.0)
[2024-11-16 09:11] LABS: Anion Gap 8 (7-16); BUN/Creatinine Ratio 13 Ratio (12-20); Blood Urea Nitrogen 5 mg/dL (9-23); Calcium 8.6 mg/dL (8.3-10.6); Carbon Dioxide 29.3 mMol/L (20.0-31.0); Chloride 99 mMol/L (98-107); Creatinine (Component) 0.4 mg/dL (0.6-1.3); Estimated Creatinine Clearance 128.7 mL/min (>60); Glucose 104 mg/dL (74-106); Magnesium 1.8 mg/dL (1.6-2.6); Osmolality,Calculated 269 (275-295); Phosphorous 3.7 mg/dL (2.4-5.1); Sodium 136 mMol/L (136-145); eGFR > 60 See Note
--- NOTE | 2024-11-16 10:32 | ESPR_ITS ---
<Statement entered by Violeta Nesbitt MD - 11/16/24 16:04> Patient was seen and examined at bedside. No acute overnight events. Patient had approximately 16 bowel movements in 24 hours, nonbloody, patient still receiving hydrocortisone at bedtime tenderness. Hemoglobin stable, cardiology was consulted regarding tachycardia, the atenolol 25 mg was started. Will continue close monitor heart rate PPD test was negative, infliximab infusion started. Will touch base with GI regarding future management. I personally saw and examined the patient and discussed the assessment and plan with the entire medicine team, including my attending Dr. Harry, Violeta Nesbitt M.D. PGY-2 Disclaimer: Despite multiple revisions, due to the dictation software being used, the document bellow may not be free of grammatical errors including phonetic/typographic errors. However, this does not deter from our commitment to providing health care in the patient's best interest in mind. Documentation for date of: 11/16/24 Subjective Subjective Interval history: No acute overnight events noted. Seen and examined at bedside and patient states she had approximately 10 BMs yesterday and 6 BMs this morning, most of which are nonbloody. Was able to get hydrocortisone enema last night without difficulty. Though frequency has slightly increased since admission, amount of blood has decreased. Also remains in sinus tachycardia for which cardio was consulted and recommended starting atenolol 25 mg daily. PPD test was read today and negative so patient was given her first dose of infliximab of 5 mg/kg of body weight and will monitor for reactions. If heart rate remains controlled then anticipate discharge within next 24 hours. Exam Vital Signs Temp Pulse Resp BP Pulse Ox O2 Del Method 98.3 F 136 H 19 118/79 99 Room Air 11/16/24 08:00 11/16/24 08:00 11/16/24 08:00 11/16/24 08:00 11/16/24 08:00 11/16/24 08:00 Narrative Exam General: AOx3, mild distress from N/V, able to speak full sentences HEENT: NC/AT, mucous membranes moist, bilateral sclera anicteric Cardiovascular: tachycardic, regular rhythm, S1/S2 present, no murmurs appreciated Pulmonary: clear to auscultation bilaterally, no rales/rhonchi/wheezes Abdominal: tender to palpation in left abdomen, soft, non-distended, no rebound/guarding, normal bowel sounds present Musculoskeletal: normal ROM, no peripheral edema Skin: warm and dry, intact, no rashes Neuro: CN II-XII intact, no focal deficits Objective Labs 11/17/24 05:23 11/17/24 05:23 Labs: Laboratory Results - last 24 hr 11/09/24 11/16/24 13:50 08:29 WBC 9.6 RBC 4.12 Hgb 9.7 L Hct 31.0 L MCV 75 L MCH 23.5 L MCHC 31.3 RDW Std Deviation 65.2 H Plt Count 472 H D Neut % (Auto) 90 H Lymph % (Auto) 7 L [place] % (Auto) 3 Eos % (Auto) 0 Baso % (Auto) 0 Neut # (Auto) 8.6 H Lymph # (Auto) 0.6 L [place] # (Auto) 0.2 Eos # (Auto) 0.0 Baso # (Auto) 0.0 Immature Gran # (Auto) 0.09 H Absolute Nucleated RBC 0.00 Immature Gran % 1 H Nucleated RBC % 0 Sodium 136 Potassium 4.0 D Chloride 99 Carbon Dioxide 29.3 Anion Gap 8 BUN 5 L Creatinine 0.4 L Estim Creat Clear Calc 128.7 eGFR > 60 BUN/Creatinine Ratio 13 Glucose 104 Calculated Osmolality 269 L Calcium 8.6 Phosphorus 3.7 Magnesium 1.8 TB Test (QFT) See Sep Rpt Quality Measures Quality Measures none Assessment & Plan Assessment Current Active Medications: Generic Name Dose Route Start Last Admin Trade Name Freq PRN Reason Stop Dose Admin Acetaminophen 650 mg 11/01/24 13:14 11/10/24 20:47 Acetaminophen 325 Mg Tablet PO 12/01/24 13:13 650 mg Q6H PRN Administration Fever > 100.4 or Pain 1-3 Azathioprine 100 mg 11/02/24 09:00 11/16/24 08:37 Azathioprine 50 Mg Tablet PO 12/02/24 08:59 100 mg DAILY ELAINE Administration Folic Acid 1 mg 11/01/24 14:15 11/16/24 08:38 Folic Acid 1 Mg Tablet PO 12/01/24 14:14 1 mg QDAY ELAINE Administration Hydrocortisone 100 mg 11/14/24 21:00 11/15/24 21:49 Hydrocortisone Enema 100 Mg/60 Ml Btl HI 12/14/24 20:59 100 mg HS ELAINE Administration Lactated Ringer's 1,000 mls @ 90 mls/hr 11/09/24 11:53 11/16/24 01:13 Lactated Ringers IV 12/09/24 11:52 90 mls/hr .Q11H7M ELAINE Administration Loperamide HCl 2 mg 11/13/24 10:00 11/16/24 08:38 Loperamide 2 Mg Capsule PO 11/20/24 09:59 2 mg BID ELAINE Administration Methylprednisolone Sodium Succinate 40 mg 11/09/24 17:00 11/16/24 05:30 Methylprednisolone Sod Succ 40 Mg Vial IVP 11/16/24 16:59 40 mg Q8HR ELAINE Administration Ondansetron HCl 4 mg 11/01/24 13:20 11/15/24 17:19 Ondansetron Inj 2 Mg/Ml Inj 2 Ml IVP 12/01/24 13:19 4 mg Q6HR PRN Administration NAUSEA OR VOMITING Protocol Pantoprazole Sodium 40 mg 11/15/24 21:00 11/16/24 08:38 Pantoprazole 40 Mg Tablet PO 12/15/24 20:59 40 mg BID ELAINE Administration Protocol Sulfasalazine 1,000 mg 11/01/24 14:15 11/16/24 05:29 Sulfasalazine 500 Mg Tablet PO 12/01/24 14:14 1,000 mg TID ELAINE Administration Plan Noa Ochoa is a 29-year-old female with a past medical history of ulcerative colitis who was admitted on 11/01/2024 for lower GI bleed secondary to ulcerative colitis flare resulting in blood loss anemia. #Ulcerative colitis flare #Lower GI bleed #Acute blood loss anemia, resolved s/p transfusion Presented on 11/01 with hemoglobin of 8.6 that dropped to 6.2 overnight and was transfused 2 unit PRBC. Prior to admission, endorsed having 15+ BMs per day and recently has been in the single digits. Colonoscopy on previous admission showed inflammatory changes on the left-sided colon all the way to the transverse colon with bleeding. CT A/P showed severe colitis pattern of entire colon. Pathology report of left colon showed chronic active colitis with architectural changes and cryptitis, ANCA positive, P ANCA titer 1:80. On 10/21, stool positive for 3+ WBCs and calprotectin 3040. C. difficile, Giardia, norovirus negative. PPD negative, repeat QuantiFERON indeterminate. ? GI following, appreciate recommendations ? Infliximab infusion 5 mg/kg body weight 11/16 ? Methylprednisolone 40 mg IV BID (11/01-11/08) -> TID (11/09-11/16) -> BID (11/17-) ? Hydrocortisone 100 mg HI HS ? Sulfasalazine 1 g p.o. 3 times daily (11/01-) ? Azathioprine 100 mg p.o. daily (11/02-) ? Loperamide 2 mg p.o. BID ? Monitor hemoglobin and transfuse if less than 7 #Nausea/vomiting, improving #Sinus tachycardia most likely due to underlying anemia vs inflammation from ulcerative colitis ? Cardiology following, appreciate recommendations ? Atenolol 25 mg p.o. daily ? Zofran as needed ? LR at 90 cc/hr #Chronic normocytic anemia #Mixed blood loss anemia from ulcerative colitis and iron deficiency anemia Iron 9, TIBC wnl, iron saturation 3%, ferritin wnl. ? Recommend iron supplementation upon discharge or outpatient given currently in IBD flare #Coccidiomycosis, ruled out Denies any URTI except for chills and night sweats. Routine lab workup prior to starting possible biologics for IBD flare showed positive Cocci IgM, however repeat was negative and UCD results were negative so fluconazole was DC'd. ? ID following, appreciate recommendations Hospital management: Disposition: receiving infliximab infusion, sinus tachycardia with cardio following Diet: PUD/GERD diet Lines: PIV DVT prophylaxis: SCDs given GI bleed GI prophylaxis: Pantoprazole 40 mg IV twice daily CODE STATUS: full code ----- Plan discussed with attending physician Dr. Kamryn Baker MD PGY-1 Internal Medicine Attending Provider Attestation/Addendum I have examined the patient, reviewed labs and imaging findings, discussed the case with the resident(s), and reviewed entered orders. I agree with the plan of care as outlined in this note, with these additional summaries/recommendations: Patient seen at bedside. No acute overnight events. Today patient reports she has had 6 bowel movements thus far still slightly bloody but overall some improvement Gastroenterology following for UC flare and patient will continue IV Solu-Medrol, sulfasalazine, azithromycin, and loperamide. Continue Zofran as needed for nausea. Oral intake remains labile between 0-100%. PPD negative and patient will receive first dose of rituximab infusion today. Patient has had intermittent episodes of sinus tachycardia throughout hospitalization for the last 10 days. Cardiology consulted and recommends initiating atenolol. We will continue to monitor heart rate closely. Patient updated on the plan and in agreement. All questions answered to satisfaction. Please see residents note for additional details of management. Dr. Kamryn MD
--- NOTE | 2024-11-16 12:57 | PC.SS ---
SS follow up note; PPD results pending. Patient is sinus tach, Cardio on board. Patient will discharge back home when medically cleared.
[2024-11-16] MEDS: SODIUM CHLORIDE 0.9% IV (14:06)
[2024-11-16] MEDS: INFLIXIMAB DYYB IV (14:06)
[2024-11-16] MEDS: atenoloL 25 MG TABLET PO (14:17)
[2024-11-16] MEDS: HYDROCORTISONE ENEMA 100 MG/60 ML BTL PR (21:35)
--- NOTE | 2024-11-16 21:59 | PD.IMPROG ---
Documentation for date of: 11/16/24 Subjective Subjective Interval history: Multiple stools per day nonbloody PPD is negative given the first dose of infliximab today Exam Vital Signs Temp Pulse Resp BP Pulse Ox O2 Del Method 98.0 F 91 12 121/86 H 98 Room Air 11/16/24 20:00 11/16/24 20:00 11/16/24 20:00 11/16/24 20:00 11/16/24 20:00 11/16/24 20:00 Objective Labs 11/16/24 08:29 11/16/24 08:29 Labs: Laboratory Results - last 24 hr 11/09/24 11/16/24 13:50 08:29 WBC 9.6 RBC 4.12 Hgb 9.7 L Hct 31.0 L MCV 75 L MCH 23.5 L MCHC 31.3 RDW Std Deviation 65.2 H Plt Count 472 H D Neut % (Auto) 90 H Lymph % (Auto) 7 L [place] % (Auto) 3 Eos % (Auto) 0 Baso % (Auto) 0 Neut # (Auto) 8.6 H Lymph # (Auto) 0.6 L [place] # (Auto) 0.2 Eos # (Auto) 0.0 Baso # (Auto) 0.0 Immature Gran # (Auto) 0.09 H Absolute Nucleated RBC 0.00 Immature Gran % 1 H Nucleated RBC % 0 Sodium 136 Potassium 4.0 D Chloride 99 Carbon Dioxide 29.3 Anion Gap 8 BUN 5 L Creatinine 0.4 L Estim Creat Clear Calc 128.7 eGFR > 60 BUN/Creatinine Ratio 13 Glucose 104 Calculated Osmolality 269 L Calcium 8.6 Phosphorus 3.7 Magnesium 1.8 TB Test (QFT) See Sep Rpt Impressions Impression: Acute exacerbation of the underlying inflammatory bowel disease Infliximab first dose today 5 mg/kg body weight Assessment & Plan A&P Narrative pts EKG reviewed appars to be sinus tachycardia currently improving to 90-100 continue telemetry monitoring prior echo unremarkable Time Spent With Patient Time: Total time spent is greater than 50% in coordination of care (as documented) at patient's floor/unit and/or counseling patient:
[2024-11-17] VITALS (10 sets, daily range): BP systolic 98–130; BP diastolic 67–86; PULSE 70–120; RESP 11–20; TEMP 36.1–36.8; O2SAT 96–99; BMI 18.3
[2024-11-17] MEDS: RINGERS LACTATED 1000 ML 1,000 ML 90 ML IV ×2 (01:30→13:01)
[2024-11-17] MEDS: sulfaSALAzine 500 MG TABLET 1000 MG PO ×3 (05:25→22:39)
[2024-11-17 05:37] LABS: Basophils # (Auto) 0.1 Thou/mm3 (0.0-0.2); Basophils % (Auto) 1 % (0-2.5); Eosinophils # (Auto) 0.1 Thou/mm3 (0.0-0.5); Eosinophils % (Auto) 1 % (0-10); Hematocrit 28.5 % (36.0-46.0); Hemoglobin 9.4 g/dL (12.0-16.0); Immature Granulocytes % (Auto) 1 % (0-0); Immature Granulocytes Auto 0.06 Thou/mm3 (0.00-0.00); Lymphocytes # (Auto) 2.8 Thou/mm3 (1.0-4.8); Lymphocytes % (Auto) 30 % (10-50); Mean Corpuscular Hemoglobin 23.7 pg (25.0-35.0); Mean Corpuscular Volume 72 fL (80-100); Monocytes # (Auto) 0.6 Thou/mm3 (0.0-0.8); Monocytes % (Auto) 6 % (0-12); Neutrophils % (Auto) 62 % (37-80); Nucleated Red Blood Cell % 0 /100 WBC (0); Platelet Count 553 Thou/mm3 (140-440); Red Blood Count 3.96 Miln/mm3 (4.00-5.20); White Blood Count 9.6 Thou/mm3 (3.6-11.0)
[2024-11-17 06:40] LABS: Anion Gap 12 (7-16); BUN/Creatinine Ratio 17 Ratio (12-20); Blood Urea Nitrogen < 5 mg/dL (9-23); Calcium 8.4 mg/dL (8.3-10.6); Carbon Dioxide 25.8 mMol/L (20.0-31.0); Chloride 102 mMol/L (98-107); Creatinine (Component) 0.3 mg/dL (0.6-1.3); Estimated Creatinine Clearance 171.6 mL/min (>60); Glucose 109 mg/dL (74-106); Magnesium 1.7 mg/dL (1.6-2.6); Osmolality,Calculated 277 (275-295); Phosphorous 3.3 mg/dL (2.4-5.1); Potassium 3.3 mMol/L (3.4-5.1); Sodium 140 mMol/L (136-145); eGFR > 60 See Note
[2024-11-17] MEDS: POTASSIUM CHLORIDE 20 mEq TABCR 40 MEQ PO (07:48)
--- NOTE | 2024-11-17 09:43 | ESPR_ITS ---
Documentation for date of: 11/17/24 Subjective Subjective Interval history: Case and clinical care discussed with the internal medicine team Discharge planning made Spoke with the patient and her mother who works here as a software security consultant Patient still having about 10 stools at night and about 620 in the daytime but no blood at the moment so there is some improvement Patient will be going home on sulfasalazine folic acid tapering dose of prednisone azathioprine and patient will have a date already scheduled for the next Inflectra infusion Exam Vital Signs Temp Pulse Resp BP Pulse Ox O2 Del Method 97.1 F 110 H 17 116/83 99 Room Air 11/17/24 08:00 11/17/24 08:00 11/17/24 08:00 11/17/24 08:00 11/17/24 08:00 11/17/24 08:00 Objective Labs 11/17/24 05:23 11/17/24 05:23 Labs: Laboratory Results - last 24 hr 11/17/24 05:23 WBC 9.6 RBC 3.96 L Hgb 9.4 L Hct 28.5 L MCV 72 L MCH 23.7 L MCHC 33.0 RDW Std Deviation 61.0 H Plt Count 553 H D Neut % (Auto) 62 Lymph % (Auto) 30 [place] % (Auto) 6 Eos % (Auto) 1 Baso % (Auto) 1 Neut # (Auto) 6.0 Lymph # (Auto) 2.8 [place] # (Auto) 0.6 Eos # (Auto) 0.1 Baso # (Auto) 0.1 Immature Gran # (Auto) 0.06 H Absolute Nucleated RBC 0.00 Immature Gran % 1 H Nucleated RBC % 0 Sodium 140 Potassium 3.3 L D Chloride 102 Carbon Dioxide 25.8 Anion Gap 12 BUN < 5 L Creatinine 0.3 L Estim Creat Clear Calc 171.6 eGFR > 60 BUN/Creatinine Ratio 17 Glucose 109 H Calculated Osmolality 277 Calcium 8.4 Phosphorus 3.3 Magnesium 1.7 Impressions Impression: Acute resolution of the underlying inflammatory bowel disease Plan As under HPI Assessment & Plan A&P Narrative pts EKG reviewed appars to be sinus tachycardia currently improving to 90-100 continue telemetry monitoring prior echo unremarkable Time Spent With Patient Time: Total time spent is greater than 50% in coordination of care (as documented) at patient's floor/unit and/or counseling patient:
[2024-11-17] MEDS: azaTHIOprine 50 MG TABLET 100 MG PO (09:54)
[2024-11-17] MEDS: PANTOPRAZOLE 40 MG TABLET PO ×2 (09:55→21:29)
[2024-11-17] MEDS: FOLIC ACID 1 MG TABLET PO (09:55)
[2024-11-17] MEDS: LOPERAMIDE 2 MG CAPSULE PO ×2 (09:55→21:28)
[2024-11-17] MEDS: atenoloL 25 MG TABLET PO (09:55)
--- NOTE | 2024-11-17 11:33 | PC.SS ---
SS follow up note; Patient will possibly discharge home today.
[2024-11-17] MEDS: POTASSIUM CHLORIDE 20 mEq TABCR PO (11:57)
[2024-11-17] MEDS: METOPROLOL SUCCINATE XL 25 MG TABCR PO ×2 (13:00→21:28)
--- NOTE | 2024-11-17 13:32 | ESPR_ITS ---
Documentation for date of: 11/17/24 Subjective Subjective Interval history: Patient intermittently has sinus tachycardia heart rate currently around 90-100 We will continue beta-blockers Metoprolol 25 twice a day Exam Vital Signs Temp Pulse Resp BP Pulse Ox O2 Del Method 97.0 F 92 14 111/79 96 Room Air 11/17/24 12:00 11/17/24 13:00 11/17/24 12:00 11/17/24 13:00 11/17/24 12:00 11/17/24 12:00 Routine HEENT Exam Head: Present normocephalic and atraumatic Eye: Present EOMI and PERRL ENT: Present mucous membranes moist Routine Neck Exam Neck: Present supple and trachea midline Routine Respiratory Exam Respiratory: Present chest non-tender, lungs clear, normal breath sounds and no resp distress Routine Cardiovascular Exam Cardiovascular: Present RRR Routine Abdominal Exam Abdominal: Present soft and normoactive bowel sounds Routine Extremities Exam Extremities: Present full ROM Routine Skin Exam Skin: Present intact, dry and warm Routine Neurological Exam Neurological: Present alert, oriented X3 and CN II-XII intact Routine Psychiatric Exam Psychiatric: Present normal affect and normal thought process Objective Labs 11/17/24 05:23 11/17/24 05:23 Labs: Laboratory Results - last 24 hr 11/17/24 05:23 WBC 9.6 RBC 3.96 L Hgb 9.4 L Hct 28.5 L MCV 72 L MCH 23.7 L MCHC 33.0 RDW Std Deviation 61.0 H Plt Count 553 H D Neut % (Auto) 62 Lymph % (Auto) 30 [place] % (Auto) 6 Eos % (Auto) 1 Baso % (Auto) 1 Neut # (Auto) 6.0 Lymph # (Auto) 2.8 [place] # (Auto) 0.6 Eos # (Auto) 0.1 Baso # (Auto) 0.1 Immature Gran # (Auto) 0.06 H Absolute Nucleated RBC 0.00 Immature Gran % 1 H Nucleated RBC % 0 Sodium 140 Potassium 3.3 L D Chloride 102 Carbon Dioxide 25.8 Anion Gap 12 BUN < 5 L Creatinine 0.3 L Estim Creat Clear Calc 171.6 eGFR > 60 BUN/Creatinine Ratio 17 Glucose 109 H Calculated Osmolality 277 Calcium 8.4 Phosphorus 3.3 Magnesium 1.7 Assessment & Plan A&P Narrative Continue metoprolol 25 twice a day Time Spent With Patient Time: Total time spent is greater than 50% in coordination of care (as documented) at patient's floor/unit and/or counseling patient:
[2024-11-17] MEDS: ONDANSETRON INJ 2 MG/ML INJ 2 ML 4 MG IVP (17:01)
--- NOTE | 2024-11-17 18:08 | PD.RESPRO ---
Documentation for date of: 11/17/24 Subjective Subjective Interval history: No acute overnight events noted. Seen and examined at bedside and patient endorses approximately 6 BMs today after receiving infliximab treatment 3 of which were bloody but hemoglobin has remained stable. Otherwise, she remains in sinus tachycardia for which atenolol was started yesterday. Touch base with supervisor vendor quality Dr. Parks, recommended to start metoprolol XL 25 mg twice daily. If able to maintain heart rate between 100-110 then will be able to discharge tomorrow. Cleared from GI perspective with current regimen and steroid taper. Exam Vital Signs Temp Pulse Resp BP Pulse Ox O2 Del Method 98.2 F 94 20 115/69 98 Room Air 11/17/24 16:00 11/17/24 16:00 11/17/24 16:00 11/17/24 16:00 11/17/24 16:00 11/17/24 16:00 Narrative Exam General: AOx3, mild distress from N/V, able to speak full sentences HEENT: NC/AT, mucous membranes moist, bilateral sclera anicteric Cardiovascular: tachycardic, regular rhythm, S1/S2 present, no murmurs appreciated Pulmonary: clear to auscultation bilaterally, no rales/rhonchi/wheezes Abdominal: tender to palpation in left abdomen, soft, non-distended, no rebound/guarding, normal bowel sounds present Musculoskeletal: normal ROM, no peripheral edema Skin: warm and dry, intact, no rashes Neuro: CN II-XII intact, no focal deficits Objective Labs 11/18/24 04:32 11/18/24 04:32 Labs: Laboratory Results - last 24 hr 11/17/24 05:23 WBC 9.6 RBC 3.96 L Hgb 9.4 L Hct 28.5 L MCV 72 L MCH 23.7 L MCHC 33.0 RDW Std Deviation 61.0 H Plt Count 553 H D Neut % (Auto) 62 Lymph % (Auto) 30 [place] % (Auto) 6 Eos % (Auto) 1 Baso % (Auto) 1 Neut # (Auto) 6.0 Lymph # (Auto) 2.8 [place] # (Auto) 0.6 Eos # (Auto) 0.1 Baso # (Auto) 0.1 Immature Gran # (Auto) 0.06 H Absolute Nucleated RBC 0.00 Immature Gran % 1 H Nucleated RBC % 0 Sodium 140 Potassium 3.3 L D Chloride 102 Carbon Dioxide 25.8 Anion Gap 12 BUN < 5 L Creatinine 0.3 L Estim Creat Clear Calc 171.6 eGFR > 60 BUN/Creatinine Ratio 17 Glucose 109 H Calculated Osmolality 277 Calcium 8.4 Phosphorus 3.3 Magnesium 1.7 Quality Measures Quality Measures none Assessment & Plan Assessment Current Active Medications: Generic Name Dose Route Start Last Admin Trade Name Freq PRN Reason Stop Dose Admin Acetaminophen 650 mg 11/01/24 13:14 11/10/24 20:47 Acetaminophen 325 Mg Tablet PO 12/01/24 13:13 650 mg Q6H PRN Administration Fever > 100.4 or Pain 1-3 Azathioprine 100 mg 11/02/24 09:00 11/17/24 09:54 Azathioprine 50 Mg Tablet PO 12/02/24 08:59 100 mg DAILY ELAINE Administration Folic Acid 1 mg 11/01/24 14:15 11/17/24 09:55 Folic Acid 1 Mg Tablet PO 12/01/24 14:14 1 mg QDAY ELAINE Administration Hydrocortisone 100 mg 11/14/24 21:00 11/16/24 21:35 Hydrocortisone Enema 100 Mg/60 Ml Btl IA 12/14/24 20:59 100 mg HS ELAINE Administration Lactated Ringer's 1,000 mls @ 90 mls/hr 11/09/24 11:53 11/17/24 13:01 Lactated Ringers IV 12/09/24 11:52 90 mls/hr .[id number] ELAINE Administration Loperamide HCl 2 mg 11/13/24 10:00 11/17/24 09:55 Loperamide 2 Mg Capsule PO 11/20/24 09:59 2 mg BID ELAINE Administration Methylprednisolone Sodium Succinate 40 mg 11/17/24 10:00 11/17/24 10:01 Methylprednisolone Sod Succ 40 Mg Vial IV 11/24/24 09:59 40 mg Q12HR ELAINE Administration Metoprolol Succinate 25 mg 11/17/24 12:00 11/17/24 13:00 Metoprolol Succinate Xl 25 Mg Tabcr PO 12/17/24 11:59 25 mg BID ELAINE Administration Ondansetron HCl 4 mg 11/01/24 13:20 11/17/24 17:01 Ondansetron Inj 2 Mg/Ml Inj 2 Ml IVP 12/01/24 13:19 4 mg Q6HR PRN Administration NAUSEA OR VOMITING Protocol Pantoprazole Sodium 40 mg 11/15/24 21:00 11/17/24 09:55 Pantoprazole 40 Mg Tablet PO 12/15/24 20:59 40 mg BID ELAINE Administration Protocol Sulfasalazine 1,000 mg 11/01/24 14:15 11/17/24 13:03 Sulfasalazine 500 Mg Tablet PO 12/01/24 14:14 1,000 mg TID ELAINE Administration Plan Noa Ochoa is a 29-year-old female with a past medical history of ulcerative colitis who was admitted on 11/01/2024 for lower GI bleed secondary to ulcerative colitis flare resulting in blood loss anemia. #Ulcerative colitis flare #Lower GI bleed #Acute blood loss anemia, resolved s/p transfusion Presented on 11/01 with hemoglobin of 8.6 that dropped to 6.2 overnight and was transfused 2 unit PRBC. Prior to admission, endorsed having 15+ BMs per day and recently has been in the single digits. Colonoscopy on previous admission showed inflammatory changes on the left-sided colon all the way to the transverse colon with bleeding. CT A/P showed severe colitis pattern of entire colon. Pathology report of left colon showed chronic active colitis with architectural changes and cryptitis, ANCA positive, P ANCA titer 1:80. On 10/21, stool positive for 3+ WBCs and calprotectin 3040. C. difficile, Giardia, norovirus negative. PPD negative, repeat QuantiFERON indeterminate. ? GI following, appreciate recommendations ? Infliximab infusion 5 mg/kg body weight 11/16 ? Methylprednisolone 40 mg IV BID (11/01-11/08) -> TID (11/09-11/16) -> BID (11/17-) ? Hydrocortisone 100 mg IA HS ? Sulfasalazine 1 g p.o. 3 times daily (11/01-) ? Azathioprine 100 mg p.o. daily (11/02-) ? Loperamide 2 mg p.o. BID ? Monitor hemoglobin and transfuse if less than 7 #Nausea/vomiting, improving #Sinus tachycardia most likely due to underlying anemia vs inflammation from ulcerative colitis ? Cardiology following, appreciate recommendations ? Metoprolol XL 25 mg daily ? Zofran as needed ? LR at 90 cc/hr #Chronic normocytic anemia #Mixed blood loss anemia from ulcerative colitis and iron deficiency anemia Iron 9, TIBC wnl, iron saturation 3%, ferritin wnl. ? Recommend iron supplementation upon discharge or outpatient given currently in IBD flare #Coccidiomycosis, ruled out Denies any URTI except for chills and night sweats. Routine lab workup prior to starting possible biologics for IBD flare showed positive Cocci IgM, however repeat was negative and UCD results were negative so fluconazole was DC'd. ? ID following, appreciate recommendations Hospital management: Disposition: s/p infliximab, sinus tachycardia with cardio following Diet: PUD/GERD diet Lines: PIV DVT prophylaxis: SCDs given GI bleed GI prophylaxis: Pantoprazole 40 mg IV twice daily CODE STATUS: full code ----- Plan discussed with attending physician Dr. Kamryn Baker MD PGY-1 Internal Medicine Attending Provider Attestation/Addendum I have examined the patient, reviewed labs and imaging findings, discussed the case with the resident(s), and reviewed entered orders. I agree with the plan of care as outlined in this note, with these additional summaries/recommendations: Patient seen at bedside. No acute overnight events. Patient still endorsing bloody BMs although overall improved. Continue IV Solu-Medrol, sulfasalazine, azithromycin, and loperamide for UC flare. Gastroenterology following. Continue Zofran as needed for nausea. PPD negative and patient s/p rituximab infusion. Patient has had intermittent episodes of sinus tachycardia throughout hospitalization. Cardiology consulted and patient was started on atenolol yesterday. Patient unfortantley had sinus tachycardia into the 130s again today. We will discuss with cardiology about increasing atenolol dose and patient will likely need to remain hospitalized for further treatment and monitoring of sinus tachycardia. We will continue to monitor heart rate closely. Patient updated on the plan and in agreement. All questions answered to satisfaction. Please see residents note for additional details of management. Dr. Kamryn MD
[2024-11-17] MEDS: HYDROCORTISONE ENEMA 100 MG/60 ML BTL PR (21:31)
[2024-11-18] VITALS (13 sets, daily range): BP systolic 111–137; BP diastolic 73–95; PULSE 81–112; RESP 14–21; TEMP 36.1–37.1; O2SAT 98–100
[2024-11-18] MEDS: sulfaSALAzine 500 MG TABLET 1000 MG PO ×2 (05:06→13:46)
[2024-11-18 06:02] LABS: Basophils % (Auto) 1 % (0-2.5); Eosinophils % (Auto) 0 % (0-10); Hematocrit 25.8 % (36.0-46.0); Immature Granulocytes % (Auto) 1 % (0-0); Immature Granulocytes Auto 0.05 Thou/mm3 (0.00-0.00); Lymphocytes # (Auto) 0.8 Thou/mm3 (1.0-4.8); Lymphocytes % (Auto) 17 % (10-50); Mean Corpuscular HGB Conc 32.2 g/dl (31.0-37.0); Mean Corpuscular Hemoglobin 23.4 pg (25.0-35.0); Mean Corpuscular Volume 73 fL (80-100); Monocytes # (Auto) 0.3 Thou/mm3 (0.0-0.8); Monocytes % (Auto) 7 % (0-12); Neutrophils # (Auto) 3.4 Thou/mm3 (1.8-7.7); Neutrophils % (Auto) 74 % (37-80); Nucleated Red Blood Cell % 0 /100 WBC (0); Platelet Count 454 Thou/mm3 (140-440); RDW Standard Deviation 62.3 fL (36.4-46.3); Red Blood Count 3.54 Miln/mm3 (4.00-5.20); White Blood Count 4.6 Thou/mm3 (3.6-11.0)
[2024-11-18 06:03] LABS: Hemoglobin 8.3 g/dL (12.0-16.0)
[2024-11-18 06:31] LABS: Anion Gap 12 (7-16); BUN/Creatinine Ratio 17 Ratio (12-20); Blood Urea Nitrogen < 5 mg/dL (9-23); Calcium 8.2 mg/dL (8.3-10.6); Carbon Dioxide 26.3 mMol/L (20.0-31.0); Chloride 102 mMol/L (98-107); Creatinine (Component) 0.3 mg/dL (0.6-1.3); Estimated Creatinine Clearance 171.6 mL/min (>60); Glucose 122 mg/dL (74-106); Magnesium 1.7 mg/dL (1.6-2.6); Osmolality,Calculated 277 (275-295); Phosphorous 4.5 mg/dL (2.4-5.1); Potassium 3.8 mMol/L (3.4-5.1); Sodium 140 mMol/L (136-145); eGFR > 60 See Note
[2024-11-18] MEDS: ONDANSETRON INJ 2 MG/ML INJ 2 ML 4 MG IVP (08:03)
[2024-11-18] MEDS: azaTHIOprine 50 MG TABLET 100 MG PO (09:04)
[2024-11-18] MEDS: CALCIUM CARBONATE 600 MG TABLET PO (09:05)
[2024-11-18] MEDS: METOPROLOL SUCCINATE XL 25 MG TABCR PO (09:05)
[2024-11-18] MEDS: LOPERAMIDE 2 MG CAPSULE PO (09:05)
[2024-11-18] MEDS: PANTOPRAZOLE 40 MG TABLET PO (09:05)
[2024-11-18] MEDS: FOLIC ACID 1 MG TABLET PO (09:06)
[2024-11-18] MEDS: SCOPOLAMINE 1 MG TDSY TOP (13:20)
--- NOTE | 2024-11-18 14:00 | ESDS_ITS ---
Planned Discharge Date 11/18/24 DS: Providers Provider Date of admission: 11/01/24 13:14 Primary care physician: Michael Sena MD Admitting Provider: Keyona Queen MD Attending Provider on Admission: Sami Harry MD Consults: 11/01/24 13:19 Consult to Gastroenterology Routine Comment: Consulting Provider: Eddie Strickland 11/02/24 15:37 Consult to Infectious Diseases Routine Comment: Cocci IgM positive and UC flareup Consulting Provider: Todd Grider 11/07/24 19:03 Referral Registered Dietitian Routine Comment: POOR APP[employer] WE[employer] LOSS 11/15/24 14:16 Consult to Cardiology Routine Comment: sinus tachycardia Consulting Provider: Donovan Parks Attending Provider on DC: Tigre Baker MD Discharging Provider: Tigre Baker MD DS: Diagnosis Problem List Completed Was Problem List Reviewed/Reconciled?: Yes Hospital Course Hospital Course Hospital course: Noa Ochoa is a 29-year-old female with a past medical history of severe ulcerative colitis confirmed via biopsy and colonoscopy with inflammatory changes up to proximal transverse colon who presented on 11/01 for bloody diarrhea. States that she has been having between 10-15 episodes per day that often woke her up at night and began to experience nausea and vomiting just prior to admission. Her home UC regimen includes azathioprine 50 mg twice daily, sulfasalazine 1-3 g daily and was recently on a steroid taper. She did not follow a metal ceiling hanger outpatient and has had difficulties establishing care with one for the last 6 months. Initially started on solu-medrol 40 mg twice daily, sulfasalazine 1 g 3 times daily, azathioprine 100 mg daily, and GI consulted. On admission, hemoglobin stable at 8.6 but noted to drop down to 6.2 for which she was transfused 2 units PRBC. Throughout hospital course, frequency of the patient's BMs started to decrease into the single digits but were still bloody. Given the patient's BMs were still frequent and bloody, decision was made to start hydrocortisone enemas and loperamide but with little improvement. Thus, decision was made to prepare for infliximab therapy. On initial testing, cocci IgM antibodies came back positive and initial QuantiFERON came back indeterminate. Eventually, EGD was confirmed that patient was cocci negative and repeat QuantiFERON in addition to PPD were taken and second QuantiFERON again indeterminant but PPD negative. Patient then got her first infliximab infusion on 11/16 without any complications or reactions. Bowel movements became less frequent and less bloody, only confined to blood in the stool at this time whereas previously blood was noted to be in the bowl and water. Hospital course complicated by persistent sinus tachycardia. Given clinical presentation of frequent bowel movements, nausea, and vomiting suspected to be due to hypovolemia for which patient was on maintenance IVF and received numerous IVF boluses without improvement. Patient also received 1/3 unit of PRBC on 11/10 with initial improvement but sinus tachycardia then persisted. Patient did not have significant pain, had a one-time fever of 100.6 ?F that likely has not contributed to her sinus tachycardia, TSH low but T4 normal, electrolytes within normal limits. EKG persistently showed sinus tachycardia. Thus, cardiology was consulted who initially recommended atenolol 25 mg daily but eventually switched to metoprolol succinate 25 mg p.o. twice daily. On day of discharge, patient received 1/4 unit of PRBC and heart rate remained in 90s when not experiencing nausea or vomiting and decision was made that stable to be discharged with close follow-up with cardiology and GI. Diagnoses during admission: Discharge instructions: ----- Plan discussed with attending physician Dr. Kamryn Baker MD PGY-1 Internal Medicine Time Spent with Patient Time attestation: Total time spent providing and/or coordinating discharge services: Time spent: Greater than 30 minutes Exam Vital Signs Temp Pulse Resp BP Pulse Ox O2 Del Method 97.3 F 104 H 17 131/88 H 98 Room Air 11/18/24 12:11/18/24 12:11/18/24 12:11/18/24 12:11/18/24 12:11/18/24 12:00 Discharge Plan Plan Patient Disposition: HOME (Self Care) Care Plan Goals: ? Your azathiprine was changed to 100 mg daily ? Take prednisone taper as instructed ? Take hydrocortisone enema at night for total of 30 days (please contact PCP for refills) ? Take metoprolol succinate 25 mg twice daily for fast heart rate ? Take loperamide as needed for diarrhea ? Take zofran as needed for nausea ? Continue taking all other home medications as prescribed ? Follow-up with PCP within 1-2 weeks of discharge for infliximab infusion (next scheduled infusion should be on 11/30/2024) ? If you do not have a PCP, you can follow-up at the [facility] (you can call [phone] to make an appointment) ? Return to ED if symptoms worsen or recur Prescriptions/Referrals Prescriptions/Med Rec: New azathioprine 100 mg tablet 100 mg PO DAILY 30 Days Qty: 30 0RF loperamide 2 mg Capsule 2 mg PO BID PRN (Reason: Diarrhea) 30 Days Qty: 60 0RF prednisone 5 mg tablet See Taper PO QDAY Qty: 147 0RF Taper: Prednisone Taper 30 mg DAILY for 7 Days and 0 Hour 25 mg DAILY for 7 Days and 0 Hour 20 mg DAILY for 7 Days and 0 Hour 15 mg DAILY for 7 Days and 0 Hour 10 mg DAILY for 7 Days and 0 Hour 5 mg DAILY for 7 Days and 0 Hour hydrocortisone 100 mg/60 mL enema 100 mg [place] HS Qty: 1260 0RF metoprolol succinate 25 mg tablet extended release 24 hr 25 mg PO BID 30 Days Qty: 60 0RF ondansetron 4 mg tablet,disintegrating 4 mg PO Q8H PRN (Reason: nausea and vomiting) Qty: 20 0RF Continued folic acid 1 mg tablet 1 mg PO QDAY 30 Days Qty: 30 0RF pantoprazole 40 mg tablet,delayed release (DR/EC) 40 mg PO QDAY Qty: 30 0RF sulfasalazine 500 mg tablet 1,000 mg PO TID 30 Days Qty: 180 1RF multivitamin [Daily Multi-Vitamin] Tablet 1 tab PO QAM Discontinued azathioprine 50 mg tablet 50 mg PO BID 30 Days Qty: 60 1RF prednisone 5 mg tablet See Taper PO QDAY Qty: 217 0RF Taper: Prednisone Taper 25 mg TWICE A DAY for 7 Days and 0 Hour 20 mg TWICE A DAY for 7 Days and 0 Hour 15 mg TWICE A DAY for 7 Days and 0 Hour 10 mg TWICE A DAY for 7 Days 5 mg TWICE A DAY for 7 Days 5 mg DAILY for 7 Days Referrals: Tigre Wong MD [Resident] - Michael Bueno MD [Primary Care Provider] - Donovan Parks MD [Physician] - Patient/Caregiver Discharge Instructions Education Materials: What Is Ulcerative Colitis?, Anatomy of the Digestive System, Colitis Ulcerative Lifestyle, Understanding Colitis Print Language: Monegasque Stand Alone Forms: Nancie Award Info., Patient Portal Info Letter Discharge Order Discharge Orders: Discharge (Routine); Ordered 11/18/24 Ordered By: Tigre Baker Quality Discharge Quality Measures VTE prophylaxis MD Attestestation MD Attestation I have examined the patient, reviewed labs and imaging findings, discussed the case with the resident(s), and reviewed entered orders. I agree with the plan of care as outlined in this note. Time Spent: [address] Kamryn MD
--- NOTE | 2024-11-18 15:32 | PD.IMPROG ---
Documentation for date of: 11/18/24 Subjective Subjective Interval history: Patient evaluated She is in the process of getting discharged Medicine at home outlined after discussion with internal medicine team Patient will be followed in the [facility] Exam Vital Signs Temp Pulse Resp BP Pulse Ox O2 Del Method 97.9 F 96 14 111/73 99 Room Air 11/18/24 14:33 11/18/24 14:33 11/18/24 14:33 11/18/24 14:33 11/18/24 14:33 11/18/24 12:00 Objective Labs 11/18/24 04:32 11/18/24 04:32 Labs: Laboratory Results - last 24 hr 11/18/24 11/18/24 04:32 08:47 WBC 4.6 D RBC 3.54 L Hgb 8.3 L Hct 25.8 L MCV 73 L MCH 23.4 L MCHC 32.2 RDW Std Deviation 62.3 H Plt Count 454 H D Neut % (Auto) 74 Lymph % (Auto) 17 [place] % (Auto) 7 Eos % (Auto) 0 Baso % (Auto) 1 Neut # (Auto) 3.4 Lymph # (Auto) 0.8 L [place] # (Auto) 0.3 Eos # (Auto) 0.0 Baso # (Auto) 0.0 Immature Gran # (Auto) 0.05 H Absolute Nucleated RBC 0.00 Immature Gran % 1 H Nucleated RBC % 0 Sodium 140 Potassium 3.8 D Chloride 102 Carbon Dioxide 26.3 Anion Gap 12 BUN < 5 L Creatinine 0.3 L Estim Creat Clear Calc 171.6 eGFR > 60 BUN/Creatinine Ratio 17 Glucose 122 H Calculated Osmolality 277 Calcium 8.2 L Phosphorus 4.5 Magnesium 1.7 Blood Type O Positive Antibody Screen NEGATIVE Crossmatch See Detail Blood Bank Wristband ID Yes Impressions Impression: Acute exacerbation of the underlying inflammatory bowel disease/ulcerative colitis Patient got her first dose of Remicade Second dose in 2 weeks Assessment & Plan A&P Narrative Continue metoprolol 25 twice a day Time Spent With Patient Time: Total time spent is greater than 50% in coordination of care (as documented) at patient's floor/unit and/or counseling patient:
== END 2024-11-18 18:55 | disposition home or self-care (01) | DRG 245 ==
LOC: SERX 12:51 → SERHOLD 13:29 → S3SX 17:12 → S2NX 11-10 23:31
PROVIDERS: Internal Medicine Infectious Disease; Nurse Practitioner Family; Student in an Organized Health Care Education/Training Program; Admitting Provider Internal Medicine; Emergency Provider Emergency Medicine; Visit Provider Student in an Organized Health Care Education/Training Program
DX: K51.911 Ulcerative colitis, unspecified with rectal bleeding (principal); N83.202 Unspecified ovarian cyst, left side; F12.90 Cannabis use, unspecified, uncomplicated; D62 Acute posthemorrhagic anemia; B38.9 Coccidioidomycosis, unspecified; D84.821 Immunodeficiency due to drugs; R76.12 Nonspecific reaction to cell mediated immunity measurement of gamma interferon antigen response without active tuberculosis; E86.1 Hypovolemia; E87.6 Hypokalemia; Z79.624 Long term (current) use of inhibitors of nucleotide synthesis; Z79.899 Other long term (current) drug therapy; R79.1 Abnormal coagulation profile
CPT/HCPCS: 36415; 71046; 74018; 74177; 80048; 80053; 80074; 81001; 81025; 82728; 83540; 83550; 83605; 83690; 83735; 83993; 84100; 84145; 84439; 84443; 85014; 85018; 85025; 85610; 85730; 86171; 86331; 86480; 86580; 86635; 86703; 86850; 86900; 86901; 86923; 87015; 87040; 87045; 87046; 87081; 87086; 87205; 87329; 87338; 87449; 87493; 87899; 93005; 93225; 96361; 96365; 96375; 99285; A4649; J1956; J2405; J2470; J2919; J3475; J7030; J7050; J7120; J7500; P9016; Q5103; Q9967; A9270

== ENCOUNTER 2024-11-22 13:24 | Outpatient (AMB) | payer MEDICAID, SELFPAY | END 2024-11-22 14:39 | disposition home or self-care (01) | LOC: HODAHC 13:24 | PROVIDERS: Supervising Provider Internal Medicine | DX: K51.811 Other ulcerative colitis with rectal bleeding (principal); R00.0 Tachycardia, unspecified | CPT/HCPCS: 99213; G0463 ==

== ENCOUNTER 2024-11-29 13:47 | Outpatient (AMB) | payer MEDICAID, SELFPAY ==
--- NOTE | 2024-11-22 17:10 | PD.RESCLINIC ---
Vital Signs 11/23/24 13:40 11/29/24 14:02 11/29/24 16:16 Height 1.57 m 1.47 m Height Method Stated Measured Weight 38.555 kg 42.241 kg Weight Measurement Method Standing Scale Standing Scale BMI 15.5 19.4 BP 108/75 108/71 108/71 Blood Pressure Source Automatic Cuff Automatic Cuff Blood Pressure Location Right Upper Arm Right Upper Arm Position Sitting Sitting Respiration 18 17 17 Pulse 87 98 98 Pulse Source Monitor Monitor Temp 97.8 F 98.3 F 98.3 F Temp Source Temporal Artery Scan Temporal Artery Scan Pulse Oximetry (%) 94 L 97 97 Oxygen Delivery Method Room Air Room Air Allergies/Meds Allergies & Medications Allergies Penicillins Allergy (Mild, Verified 12/15/24 09:18) RASH vancomycin Allergy (Mild, Verified 12/15/24 09:18) REDNESS, ITCHING tree and shrub pollen Allergy (Verified 12/15/24 09:18) Rash Medication Reconciliation pantoprazole 40 mg tablet,delayed release 40 mg PO QDAY #30 tabs 10/31/24 [Rx Confirmed 12/15/24] prednisone 5 mg tablet See Taper PO QDAY #147 tabs 11/17/24 [Rx Confirmed 12/15/24] azathioprine 100 mg tablet 100 mg PO DAILY 30 days #30 tabs 11/29/24 [Rx Confirmed 12/15/24] sulfasalazine 500 mg tablet 1,000 mg (2 x 500 mg) PO TID 30 days #180 tabs 11/29/24 [Rx Confirmed 12/15/24] metoprolol succinate 25 mg tablet,extended release 24 hr 25 mg PO TID #90 tabs 12/15/24 [Rx] MA Intake Visit Data Collection New Patient or Established: Established Patient (seen at [facility] within 3 years) Seen by Clinical Staff ONLY (RN/MA): No Pain Present Currently: No Pain scale:: 0 Pain Scale Used: Goldman-Waters/Numerical Chemical Waste Management Technician Required: No PCP or OBGYN visit in last 3 months: Yes Date of Last PCP or OBGYN visit: 11/23/24 Hx Now: No Do You Feel Safe at Home: Yes Authorities Contacted: N/A Smoking Status Smoking Status: Never smoker Immunization / Flu Flu Vaccine in the Last 12 Months: No Flu Vaccine Exclusion Criteria: Already Received Past Medical History Past Medical History NEUROLOGIC: Negative Neurological Disorders or Seizures CARDIAC: Negative Cardiac Disorders or Congestive Heart Failure RESPIRATORY: Positive Asthma; Negative Chronic Obstructive Pulmonary Disease (COPD), Bronchitis, Emphysema, Pneumonia, Pulmonary Fibrosis, Cystic Fibrosis, Tuberculosis, Pulmonary Embolism, Pulmonary Edema or Sleep Apnea GASTROINTESTINAL: Positive Gastrointestinal Disorders, Gastrointestinal Bleed and Ulcerative Colitis; Negative Diverticulitis or Ulcer GENITOURINARY: Negative Genitourinary Disorders or Renal Disease ENDOCRINE: Negative Endocrine Disorders, Diabetes Mellitus Type 1 or Diabetes Mellitus Type 2 HEMATOLOGIC: Positive Anemia; Negative Blood Disorders or Sickle Cell Disease OTHER HISTORY: Negative Autoimmune Disease, Falls, Blood Transfusions, Anesthesia Reactions, Organ Transplant, VRSA, Clostridium Difficile or Cancer Family History FAMILY HISTORY: Positive Family Respiratory Disorders, Family Cardiac Disorders, Family Gastrointestinal Problems, Family Cancer and Family Surgery; Negative Family Psychiatric Problems or Family Anesthesia Reaction Surgical History SURGICAL: Negative Organ Transplant Social History SMOKING STATUS: Smoking status: Never smoker SECOND HAND EXPOSURE: second hand exposure: No (heavy medical marijuana x10 yrs- QUIT a month ago.) ALCOHOL: Alcohol Intake: Never HOUSING: Housing: Apartment LIVES WITH: Lives With: Family Patient Portal Questionaires PHQ-9 PHQ-2 Over the last 2 weeks, how often have you been bothered by any of the following problems? 1. Little interest or pleasure in doing things: not at all PHQ-9 8. Moving or speaking so slowly that other people could have noticed? - Or the opposite - being so fidgety or restless that you have been moving around a lot more than usual: not at all Source: Developed by Drs. Jony Milner, Becca Reid, Mario Ramsey and colleagues, with an educational jakob from [employer]. Social History Living Situation History Lives With: Family Housing: Apartment Housing Other:: Patient resides in an apartment with his fiance, daughter, and mother. Tobacco History Smoking Status: Never smoker Second Hand Smoke Exposure: No (heavy medical marijuana x10 yrs- QUIT a month ago.) Alcohol History Alcohol Intake: Never Substance Use History Substance Use: last taken a month ago Domestic Abuse History Do You Feel Safe at Home: Yes Review of Systems Report any current symptoms Only answer those that you have currently: Past Medical History Past Medical History Have you ever been diagnosed with any of the following: Neurological Problems Seizures: No Cardiology Problems Congestive Heart Failure: No Respiratory Problems Chronic Obstructive Pulmonary Disease (COPD): No Asthma: Yes Bronchitis: No Emphysema: No Pneumonia: No Pulmonary Fibrosis: No Tuberculosis: No Pulmonary Embolism: No Pulmonary Edema: No Sleep Apnea: No Stomache/Intestinal Problems Gastrointestinal Bleed: Yes Ulcerative Colitis: Yes Diverticulitis: No Ulcer: No Genital/Urinary Problems Renal Disease: No Endocrine Problems Diabetes Mellitus Type 1: No Diabetes Mellitus Type 2: No Blood Problems Anemia: Yes Sickle Cell Disease: No Other Problems Autoimmune Disease: No Falls: No Blood Transfusions: No Anesthesia Reactions: No Organ Transplant: No VRSA: No Clostridium Difficile: No Cancer: No History of Present Illness [facility] Rebekah Ochoa is a 29-year-old female with a past medical history of severe ulcerative colitis confirmed via biopsy and colonoscopy with inflammatory changes up to proximal transverse colon who presented to [facility] on 11/01 for bloody diarrhea and discharged on 11/18. On presentation, endorse 10-15 episodes of bloody BMs per day with associated nausea and vomiting just prior to admission. Her prior home regimen included azathioprine 50 mg twice daily, sulfasalazine 1 to 3 g daily, and recently started on a steroid taper. 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 Inpatient regimen included Solu-Medrol TID, sulfasalazine 1 g 3 times daily, azathioprine 100 mg daily, and [place] hydrocortisone added. Given that symptoms persisted, she was given infliximab infusion 11/16 without any complications. Hospital course complicated by sinus tachycardia as seen on EKG, heart rate reaching 140s to 160s with associated palpitations but no shortness of breath. She was given significant med of IV fluids, total of 4 units PRBC, TSH low but T4 normal, no significant pain, no fevers. Given persistence of sinus tachycardia, cardiology was eventually consulted and started on metoprolol XL 25 mg twice daily. Since discharge, patient has had troubles obtaining her [place] hydrocortisone but will be able to obtain today. Otherwise, she continues to endorse significant weakness to the point where she states it is difficult to walk. Denies shortness of breath but describes it as musculoskeletal weakness. However, she also endorses palpitations and recently purchased a pulse ox and states that her heart rate reaches to the 120s with minimal activity (i.e. walking) and sleeps downstairs at it is too difficult to walk up and down the stairs. Regarding BMs, states she has on average 6 BMs per day and largely nonbloody. Next infliximab infusion to be on 11/30 and will continue her current regimen that she was discharged with. Will change metoprolol XL regimen from 25 BID to 75 daily in hopes that she will be able to recondition herself without significant tachycardia. Referral to classics professor sent as well. Will also obtain renal panel to monitor electrolytes, CBC to monitor hemoglobin, as well as B12/folate with close follow-up in 1 week. Review of Systems Review of Systems Systems Reviewed: All systems reviewed, normal except as documented Objective/Exam Narrative Physical exam: General: AOx3, no acute distress, able to speak full sentences HEENT: NC/AT, mucous membranes moist, bilateral sclera anicteric Cardiovascular: regular rate and rhythm, S1/S2 present, no murmurs appreciated Pulmonary: clear to auscultation bilaterally, no rales/rhonchi/wheezes Abdominal: soft, non-tender, non-distended, no rebound/guarding, normal bowel sounds present Musculoskeletal: normal ROM, no peripheral edema Skin: warm and dry, intact, no rashes Neuro: CN II-XII intact, no focal deficits Assessment & Plan Diagnosis / Problem List (1) Ulcerative colitis: Status: Acute Qualifiers: Digestive disease complication type: with rectal bleeding Ulcerative colitis location: other ulcerative colitis Qualified Code(s): K51.811 - Other ulcerative colitis with rectal bleeding Assessment & Plan: Presented to [facility] on 11/01 for bloody diarrhea and discharged on 11/18. On presentation had 10-15 episodes of bloody BMs per day and with inpatient regimen (Solu-Medrol TID, sulfasalazine 1 g 3 times daily, azathioprine 100 mg daily, ME hydrocortisone) including infliximab infusion 11/16, BMs decreased to 6 per day and largely nonbloody. Now presents to clinic stating she has around 6 BMs per day that are still largely nonbloody and so will continue current regimen with next infliximab infusion being on 11/30. Plan: ? Azathiprine 100 mg daily ? Continue prednisone taper as instructed ? Hydrocortisone enema at night ? Loperamide as needed for diarrhea ? Zofran as needed for nausea ? Next infliximab infusion planned for 11/30 ? Follow-up in 1 week ? Follow-up CBC, renal panel, folate/B12 (2) Tachycardia: Status: Acute Assessment & Plan: Hospital course complicated by sinus tachycardia refractory to IVF and 4 units pRBC. TSH low, T4 normal, no fevers, no significant pain. Cardiology referral placed and will change metoprolol succinate 25 mg BID to 75 mg daily as patient continues to endrose palpitations and home pulse ox shows HR that reaches up to 120. Plan: ? Metoprolol succinate changed from 25 mg BID to 75 mg once daily ? Follow-up CBC, renal panel, folate/B12 Orders: Orders CA echo doppler complete 11/29/24 Additional Assessment Attending note: I, Alexandr Herron MD, attest that I was physically present for the rice portions of the service and evaluated the patient with the resident and I reviewed and discussed the case with the resident and agree with the resident's findings and plans of care as documented above. Alexandr Herron MD Physician Billing Established Patient Established Patient: E/M Level 3-CPT 79925 Office Procedures [facility] Level of Care Nursing/Assessment Patient Status: Established Patient Nursing Assessment/Reassessment: Medication Reconciliation, Update PMH in EMR and Vital Signs Coordination of Care: Complex Care and Chronic Disease 1-5, Consent,records obtained, informed consent, Education Simp Pt/Fam and Staff clarify orders Established Patient Charge Established Patient Point Assignment: 85 Established Patient Point Charge: Level 3 (80-115) [facility] Level of Care Nursing/Assessment Patient Status: Established Patient Nursing Assessment/Reassessment: Medication Reconciliation, Update PMH in EMR and Vital Signs Coordination of Care: Complex Care and Chronic Disease 1-5, Education Complex Pt/Fam, Consent,records obtained, informed consent, 4+ Authorizations needed and Results/Orders obtained Established Patient Charge Established Patient Point Assignment: 110 Established Patient Point Charge: EP Level 3 (80-115)
[2024-11-23 13:40] VITALS: BP 108/75; PULSE 87; RESP 18; TEMP 36.6; O2SAT 94; BMI 15.5
[2024-11-29 14:02] VITALS: BP 108/71; PULSE 98; RESP 17; TEMP 36.8; O2SAT 97; BMI 19.4
[2024-11-29 16:16] VITALS: BP 108/71; PULSE 98; RESP 17; TEMP 36.8; O2SAT 97
--- NOTE | 2024-11-29 16:16 | ACNOTE_ITS ---
Vital Signs 11/23/24 13:40 11/29/24 14:02 11/29/24 16:16 Height 1.57 m 1.47 m Height Method Stated Measured Weight 38.555 kg 42.241 kg Weight Measurement Method Standing Scale Standing Scale BMI 15.5 19.4 BP 108/75 108/71 108/71 Blood Pressure Source Automatic Cuff Automatic Cuff Blood Pressure Location Right Upper Arm Right Upper Arm Position Sitting Sitting Respiration 18 17 17 Pulse 87 98 98 Pulse Source Monitor Monitor Temp 97.8 F 98.3 F 98.3 F Temp Source Temporal Artery Scan Temporal Artery Scan Pulse Oximetry (%) 94 L 97 97 Oxygen Delivery Method Room Air Room Air Allergies/Meds Allergies & Medications Allergies Penicillins Allergy (Mild, Verified 12/15/24 09:18) RASH vancomycin Allergy (Mild, Verified 12/15/24 09:18) REDNESS, ITCHING tree and shrub pollen Allergy (Verified 12/15/24 09:18) Rash Medication Reconciliation pantoprazole 40 mg tablet,delayed release 40 mg PO QDAY #30 tabs 10/31/24 [Rx Confirmed 12/15/24] prednisone 5 mg tablet See Taper PO QDAY #147 tabs 11/17/24 [Rx Confirmed 12/15/24] azathioprine 100 mg tablet 100 mg PO DAILY 30 days #30 tabs 11/29/24 [Rx Confirmed 12/15/24] sulfasalazine 500 mg tablet 1,000 mg (2 x 500 mg) PO TID 30 days #180 tabs 11/29/24 [Rx Confirmed 12/15/24] metoprolol succinate 25 mg tablet,extended release 24 hr 25 mg PO TID #90 tabs 12/15/24 [Rx] MA Intake Visit Data Collection New Patient or Established: Established Patient (seen at [facility] within 3 years) Seen by Clinical Staff ONLY (RN/MA): No Pain Present Currently: Yes Pain scale:: 0 Pain Scale Used: GoldmanTianaWaters/Numerical Counselor Marriage And Family Required: No PCP or OBGYN visit in last 3 months: Yes Do You Feel Safe at Home: Yes Smoking Status Smoking Status: Never smoker Immunization / Flu Flu Vaccine in the Last 12 Months: Yes Flu Vaccine Exclusion Criteria: Already Received Past Medical History Past Medical History NEUROLOGIC: Negative Neurological Disorders or Seizures CARDIAC: Negative Cardiac Disorders or Congestive Heart Failure RESPIRATORY: Positive Asthma; Negative Chronic Obstructive Pulmonary Disease (COPD), Bronchitis, Emphysema, Pneumonia, Pulmonary Fibrosis, Cystic Fibrosis, Tuberculosis, Pulmonary Embolism, Pulmonary Edema or Sleep Apnea GASTROINTESTINAL: Positive Gastrointestinal Disorders, Gastrointestinal Bleed and Ulcerative Colitis; Negative Diverticulitis or Ulcer GENITOURINARY: Negative Genitourinary Disorders or Renal Disease ENDOCRINE: Negative Endocrine Disorders, Diabetes Mellitus Type 1 or Diabetes Mellitus Type 2 HEMATOLOGIC: Positive Anemia; Negative Blood Disorders or Sickle Cell Disease OTHER HISTORY: Negative Autoimmune Disease, Falls, Blood Transfusions, Anesthesia Reactions, Organ Transplant, VRSA, Clostridium Difficile or Cancer Family History FAMILY HISTORY: Positive Family Respiratory Disorders, Family Cardiac Disorders, Family Gastrointestinal Problems, Family Cancer and Family Surgery; Negative Family Psychiatric Problems or Family Anesthesia Reaction Surgical History SURGICAL: Negative Organ Transplant Social History SMOKING STATUS: Smoking status: Never smoker SECOND HAND EXPOSURE: second hand exposure: No (heavy medical marijuana x10 yrs- QUIT a month ago.) ALCOHOL: Alcohol Intake: Never HOUSING: Housing: Apartment LIVES WITH: Lives With: Family Patient Portal Questionaires PHQ-9 PHQ-2 Over the last 2 weeks, how often have you been bothered by any of the following problems? 1. Little interest or pleasure in doing things: not at all PHQ-9 8. Moving or speaking so slowly that other people could have noticed? - Or the opposite - being so fidgety or restless that you have been moving around a lot more than usual: not at all Source: Developed by Drs. Jony Milner, Becca Reid, Mario Ramsey and colleagues, with an educational jakob from [employer]. Social History Living Situation History Lives With: Family Housing: Apartment Housing Other:: Patient resides in an apartment with his fiance, daughter, and mother. Tobacco History Smoking Status: Never smoker Second Hand Smoke Exposure: No (heavy medical marijuana x10 yrs- QUIT a month ago.) Alcohol History Alcohol Intake: Never Substance Use History Substance Use: last taken a month ago Domestic Abuse History Do You Feel Safe at Home: Yes Review of Systems Report any current symptoms Only answer those that you have currently: Past Medical History Past Medical History Have you ever been diagnosed with any of the following: Neurological Problems Seizures: No Cardiology Problems Congestive Heart Failure: No Respiratory Problems Chronic Obstructive Pulmonary Disease (COPD): No Asthma: Yes Bronchitis: No Emphysema: No Pneumonia: No Pulmonary Fibrosis: No Tuberculosis: No Pulmonary Embolism: No Pulmonary Edema: No Sleep Apnea: No Stomache/Intestinal Problems Gastrointestinal Bleed: Yes Ulcerative Colitis: Yes Diverticulitis: No Ulcer: No Genital/Urinary Problems Renal Disease: No Endocrine Problems Diabetes Mellitus Type 1: No Diabetes Mellitus Type 2: No Blood Problems Anemia: Yes Sickle Cell Disease: No Other Problems Autoimmune Disease: No Falls: No Blood Transfusions: No Anesthesia Reactions: No Organ Transplant: No VRSA: No Clostridium Difficile: No Cancer: No History of Present Illness HPI Narrative Noa Ochoa is a 29-year-old female with a past medical history of severe ulcerative colitis confirmed via biopsy and colonoscopy with inflammatory changes up to proximal transverse colon and sinus tachycardia who presents for [facility] to the [facility]. Previously, patient was seen for the first time after being discharged from [facility] and continued to endorse palpitations and per her pulse ox, heart rate would reach to 120s with activity. Today, she mentions that she has seen her heart rate reach the 180s on pulse oximetry but with exertion equal to that when walking up a flight of stairs. When walked in hallway of [facility], heart rate peaked in 110s. Other than palpitations she does endorse occasional shortness of breath. Regarding her bowel movements, states that she continues to have 6-7 per day but are now largely non-bloody and tends to have one after eating a meal. Labs obtained from last visit show stable and improving hemoglobin of 11. Plans for her second infliximab infusion on 11/30. Regarding her sinus tachycardia, will switch her regimen of metoprolol succinate 75 mg to ivabradine 5 mg BID as patient's systolic blood pressure would be recorded as low 100s after taking metoprolol. Will continue close follow-up in two weeks, follow-up with cardiology consult that was placed during previous visit on 11/22, and also ordered cardiac echo. Review of Systems Review of Systems Systems Reviewed: All systems reviewed, normal except as documented Objective/Exam Narrative Physical exam: General: AOx3, no acute distress, able to speak full sentences HEENT: NC/AT, mucous membranes moist, bilateral sclera anicteric Cardiovascular: tachycardic, regular rhythm, S1/S2 present, no murmurs appreciated Pulmonary: clear to auscultation bilaterally, no rales/rhonchi/wheezes Abdominal: soft, non-tender, non-distended, no rebound/guarding, normal bowel sounds present Musculoskeletal: normal ROM, no peripheral edema Skin: warm and dry, intact, no rashes Neuro: CN II-XII intact, no focal deficits Assessment & Plan Diagnosis / Problem List (1) Ulcerative colitis: Status: Acute Qualifiers: Digestive disease complication type: with rectal bleeding Ulcerative colitis location: other ulcerative colitis Qualified Code(s): K51.811 - Other ulcerative colitis with rectal bleeding Assessment & Plan: Presented to [facility] on 11/01 for bloody diarrhea and discharged on 11/18. On p resentation had 10-15 episodes of bloody BMs per day and with inpatient regimen (Solu-Medrol TID, sulfasalazine 1 g 3 times daily, azathioprine 100 mg daily, [place] hydrocortisone) including infliximab infusion 11/16, BMs decreased to 6 per day and largely nonbloody. Now presents to clinic and continues to have around 6 BMs per day but are now nonbloody. Plan: ? Azathiprine 100 mg daily ? Sulfasalazine 1 g TID ? Continue prednisone taper as instructed ? Hydrocortisone enema at night ? Loperamide as needed for diarrhea ? Zofran as needed for nausea ? Infliximab infusion on 11/30 ? Follow-up in 2 weeks (2) Tachycardia: Status: Acute Assessment & Plan: Hospital course complicated by sinus tachycardia refractory to IVF and 4 units pRBC. TSH low, T4 normal, no fevers, no significant pain. Cardiology referral placed and will change metoprolol succinate 75 mg daily to ivabradine 5 mg BID. Plan: ? Ivabradine 5 mg BID ? Metoprolol 25 mg x1 for washout Orders: Orders CA echo doppler complete 11/29/24 Additional Assessment Attending note: I, Alexandr Herron MD, attest that I was physically present for the rice portions of the service and evaluated the patient with the resident and I reviewed and discussed the case with the resident and agree with the resident's findings and plans of care as documented above. Alexandr Herron MD Physician Billing Established Patient Established Patient: E/M Level 3-CPT 74389 Office Procedures [facility] Level of Care Nursing/Assessment Patient Status: Established Patient Nursing Assessment/Reassessment: Medication Reconciliation, Update PMH in EMR and Vital Signs Coordination of Care: Complex Care and Chronic Disease 1-5, Consent,records obtained, informed consent, Education Simp Pt/Fam and Staff clarify orders Established Patient Charge Established Patient Point Assignment: 85 Established Patient Point Charge: EP Level 3 (80-115) [facility] Level of Care Nursing/Assessment Patient Status: Established Patient Nursing Assessment/Reassessment: Medication Reconciliation, Update PMH in EMR and Vital Signs Coordination of Care: Complex Care and Chronic Disease 1-5, Education Complex Pt/Fam, Consent,records obtained, informed consent, 4+ Authorizations needed and Results/Orders obtained Established Patient Charge Established Patient Point Assignment: 110 Established Patient Point Charge: EP Level 3 (80-115)
== END 2024-11-29 14:28 | disposition home or self-care (01) ==
LOC: HODAHC 13:47
PROVIDERS: Supervising Provider Internal Medicine
DX: K51.911 Ulcerative colitis, unspecified with rectal bleeding (principal); R00.0 Tachycardia, unspecified
CPT/HCPCS: 99213; G0463

== ENCOUNTER → 2024-11-30 | Outpatient (CLI) | payer MEDICAID, SELFPAY ==
[2024-11-30 09:12] VITALS: BMI 19.8
[2024-11-30 09:15] VITALS: BP 117/64; PULSE 104; PULSE 106; RESP 14; TEMP 36.4; O2SAT 98
[2024-11-30 11:54] VITALS: BP 120/66; PULSE 99; RESP 15; TEMP 36.6; O2SAT 97
== END | disposition home or self-care (01) ==
PROC: (CPT 96365; principal; 2024-11-30 09:00)
DX: K51.90 Ulcerative colitis, unspecified, without complications (principal)
CPT/HCPCS: 96365; 96366; J1745; J7050

== ENCOUNTER 2024-12-15 09:01 | Outpatient (AMB) | payer MEDICAID, SELFPAY ==
[2024-12-15 09:17] VITALS: BP 110/75; PULSE 95; RESP 18; TEMP 36.1; O2SAT 98; BMI 20.9
--- NOTE | 2024-12-15 09:17 | PD.RESCLINIC ---
Vital Signs 12/15/24 09:17 Height 1.47 m Height Method Stated Weight 45.416 kg Weight Measurement Method Standing Scale BMI 20.9 BP 110/75 Blood Pressure Source Automatic Cuff Blood Pressure Location Right Upper Arm Position Sitting Respiration 18 Pulse 95 Pulse Source Monitor Temp 96.9 F Temp Source Temporal Artery Scan Pulse Oximetry (%) 98 Oxygen Delivery Method Room Air Allergies/Meds Allergies & Medications Allergies Penicillins Allergy (Mild, Verified 12/15/24 09:18) RASH vancomycin Allergy (Mild, Verified 12/15/24 09:18) REDNESS, ITCHING tree and shrub pollen Allergy (Verified 12/15/24 09:18) Rash Medication Reconciliation pantoprazole 40 mg tablet,delayed release 40 mg PO QDAY #30 tabs 10/31/24 [Rx Confirmed 12/15/24] loperamide 2 mg capsule 2 mg PO BID PRN Diarrhea 30 days #60 caps 11/16/24 [Rx Confirmed 12/15/24] prednisone 5 mg tablet See Taper PO QDAY #147 tabs 11/17/24 [Rx Confirmed 12/15/24] azathioprine 100 mg tablet 100 mg PO DAILY 30 days #30 tabs 11/29/24 [Rx Confirmed 12/15/24] sulfasalazine 500 mg tablet 1,000 mg (2 x 500 mg) PO TID 30 days #180 tabs 11/29/24 [Rx Confirmed 12/15/24] metoprolol succinate 25 mg tablet,extended release 24 hr 25 mg PO TID #90 tabs 12/15/24 [Rx] MA Intake Visit Data Collection New Patient or Established: Established Patient (seen at [facility] within 3 years) Seen by Clinical Staff ONLY (RN/MA): No Pain Present Currently: No Pain scale:: 0 Pain Scale Used: Goldman-Waters/Numerical Waitstaff Captain Required: No PCP or OBGYN visit in last 3 months: No Hx Now: No Do You Feel Safe at Home: Yes Authorities Contacted: N/A Smoking Status Smoking Status: Never smoker Immunization / Flu Flu Vaccine in the Last 12 Months: No Flu Vaccine Exclusion Criteria: No Exclusion Criteria Past Medical History Past Medical History NEUROLOGIC: Negative Neurological Disorders or Seizures CARDIAC: Negative Cardiac Disorders or Congestive Heart Failure RESPIRATORY: Positive Asthma; Negative Chronic Obstructive Pulmonary Disease (COPD), Bronchitis, Emphysema, Pneumonia, Pulmonary Fibrosis, Cystic Fibrosis, Tuberculosis, Pulmonary Embolism, Pulmonary Edema or Sleep Apnea GASTROINTESTINAL: Positive Gastrointestinal Disorders (UC), Gastrointestinal Bleed and Ulcerative Colitis; Negative Diverticulitis or Ulcer GENITOURINARY: Negative Genitourinary Disorders or Renal Disease ENDOCRINE: Negative Endocrine Disorders, Diabetes Mellitus Type 1 or Diabetes Mellitus Type 2 HEMATOLOGIC: Positive Anemia; Negative Blood Disorders or Sickle Cell Disease OTHER HISTORY: Negative Autoimmune Disease, Falls, Blood Transfusions, Anesthesia Reactions, Organ Transplant, VRSA, Clostridium Difficile or Cancer Family History FAMILY HISTORY: Positive Family Respiratory Disorders, Family Cardiac Disorders, Family Gastrointestinal Problems, Family Cancer and Family Surgery; Negative Family Psychiatric Problems or Family Anesthesia Reaction Surgical History SURGICAL: Negative Organ Transplant Social History SMOKING STATUS: Smoking status: Never smoker SECOND HAND EXPOSURE: second hand exposure: No (heavy medical marijuana x10 yrs- QUIT a month ago.) ALCOHOL: Alcohol Intake: Never HOUSING: Housing: Apartment LIVES WITH: Lives With: Family Patient Portal Questionaires PHQ-9 PHQ-2 Over the last 2 weeks, how often have you been bothered by any of the following problems? 1. Little interest or pleasure in doing things: not at all PHQ-9 8. Moving or speaking so slowly that other people could have noticed? - Or the opposite - being so fidgety or restless that you have been moving around a lot more than usual: not at all Source: Developed by Drs. Jony Milner, Becca Reid, Mario Ramsey and colleagues, with an educational jakob from [employer]. Social History Living Situation History Lives With: Family Housing: Apartment Housing Other:: Patient resides in an apartment with his fiance, daughter, and mother. Tobacco History Smoking Status: Never smoker Second Hand Smoke Exposure: No (heavy medical marijuana x10 yrs- QUIT a month ago.) Alcohol History Alcohol Intake: Never Substance Use History Substance Use: last taken a month ago Domestic Abuse History Do You Feel Safe at Home: Yes Review of Systems Report any current symptoms Only answer those that you have currently: Past Medical History Past Medical History Have you ever been diagnosed with any of the following: Neurological Problems Seizures: No Cardiology Problems Congestive Heart Failure: No Respiratory Problems Chronic Obstructive Pulmonary Disease (COPD): No Asthma: Yes Bronchitis: No Emphysema: No Pneumonia: No Pulmonary Fibrosis: No Tuberculosis: No Pulmonary Embolism: No Pulmonary Edema: No Sleep Apnea: No Stomache/Intestinal Problems Gastrointestinal Bleed: Yes Ulcerative Colitis: Yes Diverticulitis: No Ulcer: No Genital/Urinary Problems Renal Disease: No Endocrine Problems Diabetes Mellitus Type 1: No Diabetes Mellitus Type 2: No Blood Problems Anemia: Yes Sickle Cell Disease: No Other Problems Autoimmune Disease: No Falls: No Blood Transfusions: No Anesthesia Reactions: No Organ Transplant: No VRSA: No Clostridium Difficile: No Cancer: No History of Present Illness HPI Narrative Noa Ochoa is a 29-year-old female with a past medical history of severe ulcerative colitis confirmed via biopsy and colonoscopy with inflammatory changes up to proximal transverse colon and inappropriate sinus tachycardia who presents for follow-up to the [facility]. States that her bowel movements are now completely nonbloody, are formed, and has at most three per day with no associated abdominal discomfort. Her most recent infliximab infusion was on 12/14 and she tolerated well. However, she was told that her next infusion will be in February but was at one time scheduled for January and will reach out to pharmacy regarding scheduling issues. Regarding her heart rate, she states that at rest she is asymptomatic and at baseline her heart rate is in the 90s. When active, states that her heart rate continues to increase to the 150s with associated palpitations and shortness of breath but no chest pain. Prescribed ivabradine last visit but due to insurance issues she was not able to obtain the medication and continued taking metoprolol but 25 mg twice daily. Referral to cardiology was approved and will have to schedule an appointment. Patient will call echo department regarding scheduling for echo ordered during last visit. Will continue metoprolol succinate with 50 mg at night and 25 mg in the morning and follow-up on 01/05, prior to her previously scheduled infliximab appointment. Review of Systems Review of Systems Systems Reviewed: All systems reviewed, normal except as documented Objective/Exam Narrative Physical exam: General: AOx3, no acute distress, able to speak full sentences HEENT: NC/AT, mucous membranes moist, bilateral sclera anicteric Cardiovascular: tachycardic, regular rhythm, S1/S2 present, no murmurs appreciated Pulmonary: clear to auscultation bilaterally, no rales/rhonchi/wheezes Abdominal: soft, non-tender, non-distended, no rebound/guarding, normal bowel sounds present Musculoskeletal: normal ROM, no peripheral edema Skin: warm and dry, intact, no rashes Neuro: CN II-XII intact, no focal deficits Assessment & Plan Diagnosis / Problem List (1) Ulcerative colitis: Status: Acute Qualifiers: Ulcerative colitis location: other ulcerative colitis Digestive disease complication type: with rectal bleeding Qualified Code(s): K51.811 - Other ulcerative colitis with rectal bleeding Assessment & Plan: Presented to [facility] on 11/01 for bloody diarrhea and discharged on 11/18. On presentation had 10-15 episodes of bloody BMs per day and with inpatient regimen (Solu-Medrol TID, sulfasalazine 1 g 3 times daily, azathioprine 100 mg daily, [place] hydrocortisone) including infliximab infusion 11/16, BMs decreased to 6 per day and largely nonbloody. Now presents to clinic and continues to have around 6 BMs per day but are now nonbloody. Plan: ? Azathiprine 100 mg daily ? Sulfasalazine 1 g TID ? Continue prednisone taper as instructed ? Hydrocortisone enema at night ? Continue Infliximab infusions ? Follow-up with pharmacy regarding next scheduled infusion (previously supposed to be on 01/11) ? Follow-up on 01/05 (2) Tachycardia: Status: Acute Assessment & Plan: Hospital course complicated by sinus tachycardia refractory to IVF and 4 units pRBC. TSH low, T4 normal, no fevers, no significant pain. Cardiology referral placed and echo ordered to evaluate if any burden from sinus tachycardia. Given insurance issues with ivabradine, will continue with metoprolol as instructed below. Plan: ? Metoprolol succinate 50 mg at night and 25 mg in the morning ? Follow-up with cardiology referral ? Follow-up with echo Office Procedures [facility] Level of Care Nursing/Assessment Patient Status: Established Patient Nursing Assessment/Reassessment: Medication Reconciliation, Update PMH in EMR and Vital Signs Coordination of Care: Complex Care and Chronic Disease 1-5, Consent,records obtained, informed consent, Education Simp Pt/Fam and Staff clarify orders Established Patient Charge Established Patient Point Assignment: 85 Established Patient Point Charge: EP Level 3 (80-115)
== END 2024-12-15 10:34 | disposition home or self-care (01) ==
LOC: HODAHC 09:01
PROVIDERS: Supervising Provider Internal Medicine
DX: K51.811 Other ulcerative colitis with rectal bleeding (principal); R00.0 Tachycardia, unspecified
CPT/HCPCS: 99213; G0463

== ENCOUNTER 2024-12-28 09:00 | Outpatient (RCR) | payer MEDICAID, SELFPAY ==
[2024-12-14 09:52] VITALS: BP 124/74; PULSE 91; RESP 16; TEMP 36.4; O2SAT 99; BMI 20.6
[2024-12-14] MEDS: INFLIXIMAB IV (10:04)
[2024-12-14] MEDS: SODIUM CHLORIDE 0.9% IV (10:04)
[2024-12-14 12:40] VITALS: BP 131/85; PULSE 91; RESP 16; TEMP 36.5; O2SAT 100
== END 2025-01-04 23:59 | disposition home or self-care (01) ==
LOC: SFLEX 09:00
PROC: (CPT 96365; principal; 2024-12-14 10:00)
DX: K51.90 Ulcerative colitis, unspecified, without complications (principal)
CPT/HCPCS: 96365; 96366; J1745; J7050

== ENCOUNTER 2025-04-04 12:59 | Outpatient (AMB) | payer MEDICAID, SELFPAY ==
[2025-04-04 13:12] VITALS: BP 118/77; PULSE 78; RESP 19; TEMP 36.8; O2SAT 98; BMI 21.7
--- NOTE | 2025-04-04 13:12 | PD.RESCLINIC ---
Vital Signs 04/04/25 13:12 Height 1.49 m Height Method Stated Weight 48.251 kg Weight Measurement Method Standing Scale BMI 21.7 BP 118/77 Blood Pressure Source Automatic Cuff Blood Pressure Location Right Upper Arm Position Sitting Respiration 19 Pulse 78 Pulse Source Monitor Temp 98.3 F Temp Source Temporal Artery Scan Pulse Oximetry (%) 98 Oxygen Delivery Method Room Air Allergies/Meds Allergies & Medications Allergies Penicillins Allergy (Mild, Verified 04/04/25 13:14) RASH vancomycin Allergy (Mild, Verified 04/04/25 13:14) REDNESS, ITCHING tree and shrub pollen Allergy (Verified 04/04/25 13:14) Rash Medication Reconciliation pantoprazole 40 mg tablet,delayed release 40 mg PO QDAY #30 tabs 10/31/24 [Rx Confirmed 04/04/25] prednisone 5 mg tablet See Taper PO QDAY #147 tabs 11/17/24 [Rx Confirmed 04/04/25] metoprolol succinate 25 mg tablet,extended release 24 hr 25 mg PO TID #90 tabs 12/15/24 [Rx Confirmed 04/04/25] azathioprine 100 mg tablet 100 mg PO QDAY #30 tabs 04/04/25 [Rx] sulfasalazine 500 mg tablet 1,000 mg (2 x 500 mg) PO TID 30 days #180 tabs 04/04/25 [Rx] MA Intake Visit Data Collection New Patient or Established: Established Patient (seen at [facility] within 3 years) Seen by Clinical Staff ONLY (RN/MA): No Pain Present Currently: No Pain scale:: 0 Pain Scale Used: Goldman-Waters/Numerical Bag Valver Required: No PCP or OBGYN visit in last 3 months: Yes Hx Now: No Do You Feel Safe at Home: Yes Authorities Contacted: N/A Smoking Status Smoking Status: Never smoker Immunization / Flu Flu Vaccine in the Last 12 Months: No Flu Vaccine Exclusion Criteria: No Exclusion Criteria Past Medical History Past Medical History NEUROLOGIC: Negative Neurological Disorders or Seizures CARDIAC: Negative Cardiac Disorders or Congestive Heart Failure RESPIRATORY: Positive Asthma; Negative Chronic Obstructive Pulmonary Disease (COPD), Bronchitis, Emphysema, Pneumonia, Pulmonary Fibrosis, Cystic Fibrosis, Tuberculosis, Pulmonary Embolism, Pulmonary Edema or Sleep Apnea GASTROINTESTINAL: Positive Gastrointestinal Disorders (UC), Gastrointestinal Bleed and Ulcerative Colitis; Negative Diverticulitis or Ulcer GENITOURINARY: Negative Genitourinary Disorders or Renal Disease ENDOCRINE: Negative Endocrine Disorders, Diabetes Mellitus Type 1 or Diabetes Mellitus Type 2 HEMATOLOGIC: Positive Anemia; Negative Blood Disorders or Sickle Cell Disease OTHER HISTORY: Negative Autoimmune Disease, Falls, Blood Transfusions, Anesthesia Reactions, Organ Transplant, VRSA, Clostridium Difficile or Cancer Family History FAMILY HISTORY: Positive Family Respiratory Disorders, Family Cardiac Disorders, Family Gastrointestinal Problems, Family Cancer and Family Surgery; Negative Family Psychiatric Problems or Family Anesthesia Reaction Surgical History SURGICAL: Negative Organ Transplant Social History SMOKING STATUS: Smoking status: Never smoker SECOND HAND EXPOSURE: second hand exposure: No (heavy medical marijuana x10 yrs- QUIT a month ago.) ALCOHOL: Alcohol Intake: Never HOUSING: Housing: Apartment LIVES WITH: Lives With: Family Patient Portal Questionaires PHQ-9 PHQ-2 Over the last 2 weeks, how often have you been bothered by any of the following problems? 1. Little interest or pleasure in doing things: not at all PHQ-9 3. Trouble falling or staying asleep, or sleeping too much: Not at all 4. Feeling tired or having little energy: Not at all 5. Poor appetite or overeating: Not at all 6. Feeling bad about yourself - or that you are a failure or have let yourself or your family down: Not at all 7. Trouble concentrating on things, such as reading the newspaper or watching television: Not at all 8. Moving or speaking so slowly that other people could have noticed? - Or the opposite - being so fidgety or restless that you have been moving around a lot more than usual: not at all 9. Thoughts that you would be better off or of hurting yourself in some way: Not at all If you checked off any problems, how difficult have these problems made it for you to do your work, take care of things at home, or get along with other people?: not difficult at all Source: Developed by Drs. Jony Milner, Becca Reid, Mario Ramsey and colleagues, with an educational jakob from [employer]. Depression screen completed yes Social History Living Situation History Lives With: Family Housing: Apartment Housing Other:: Patient resides in an apartment with his fiance, daughter, and mother. Tobacco History Smoking Status: Never smoker Second Hand Smoke Exposure: No (heavy medical marijuana x10 yrs- QUIT a month ago.) Alcohol History Alcohol Intake: Never Substance Use History Substance Use: last taken a month ago Domestic Abuse History Do You Feel Safe at Home: Yes Review of Systems Report any current symptoms Only answer those that you have currently: Past Medical History Past Medical History Have you ever been diagnosed with any of the following: Neurological Problems Seizures: No Cardiology Problems Congestive Heart Failure: No Respiratory Problems Chronic Obstructive Pulmonary Disease (COPD): No Asthma: Yes Bronchitis: No Emphysema: No Pneumonia: No Pulmonary Fibrosis: No Tuberculosis: No Pulmonary Embolism: No Pulmonary Edema: No Sleep Apnea: No Stomache/Intestinal Problems Gastrointestinal Bleed: Yes Ulcerative Colitis: Yes Diverticulitis: No Ulcer: No Genital/Urinary Problems Renal Disease: No Endocrine Problems Diabetes Mellitus Type 1: No Diabetes Mellitus Type 2: No Blood Problems Anemia: Yes Sickle Cell Disease: No Other Problems Autoimmune Disease: No Falls: No Blood Transfusions: No Anesthesia Reactions: No Organ Transplant: No VRSA: No Clostridium Difficile: No Cancer: No History of Present Illness [facility] Rebekah Ochoa is a 29-year-old female with a past medical history of severe ulcerative colitis confirmed via biopsy and colonoscopy with inflammatory changes up to proximal transverse colon and inappropriate sinus tachycardia who presents for follow-up to the [facility]. 12/15/2024: States that her bowel movements are now completely nonbloody, are formed, and has at most three per day with no associated abdominal discomfort. Her most recent infliximab infusion was on 12/14 and she tolerated well. However, she was told that her next infusion will be in February but was at one time scheduled for January and will reach out to pharmacy regarding scheduling issues. Regarding her heart rate, she states that at rest she is asymptomatic and at baseline her heart rate is in the 90s. When active, states that her heart rate continues to increase to the 150s with associated palpitations and shortness of breath but no chest pain. Prescribed ivabradine last visit but due to insurance issues she was not able to obtain the medication and continued taking metoprolol but 25 mg twice daily. Referral to cardiology was approved and will have to schedule an appointment. Patient will call echo department regarding scheduling for echo ordered during last visit. Will continue metoprolol succinate with 50 mg at night and 25 mg in the morning and follow-up on 01/05, prior to her previously scheduled infliximab appointment. 04/04/2025: Has been doing much better overall. Does not report blood bowel movements but does have some mucous and constipation. Has at most three BMs per day and 4/10 abdominal pain that lasts for minutes at a time and does not need any OTC pain medications. Continues to be on sulfasalazine, azathioprine, folic acid, and infliximab infusions. Her biggest concern is hair loss she has been experiencing in her scalp, arms, and legs. She expresses appreciation of her current GI symptoms but her hair loss has been affecting her mentally. After review of medications, likely culprits are her sulfasalazine and azathioprine vs infliximab but patient also endorses anxiety. Otherwise, her sinus tachycardia is much improved, stating she will experience episodes 1-2 times per week and do not last long. Denies any SOB or chest pain. Next infliximab appointment is on 04/19/2025 but will have to authorization form. Will send GI referral to establish care, refills sent for her medications, and spoke to pharmacy and agreed that infliximab less likely cause of hair loss. Review of Systems Review of Systems Systems Reviewed: All systems reviewed, normal except as documented Objective/Exam Narrative Physical exam: General: AOx3, no acute distress, able to speak full sentences HEENT: thinning of hair follicles on scalp (generalized), NC/AT, mucous membranes moist, bilateral sclera anicteric Cardiovascular: regular rate and rhythm, S1/S2 present, no murmurs appreciated Pulmonary: clear to auscultation bilaterally, no rales/rhonchi/wheezes Abdominal: soft, non-tender, non-distended, no rebound/guarding, normal bowel sounds present Musculoskeletal: normal ROM, no peripheral edema Skin: warm and dry, intact, no rashes Neuro: CN II-XII intact, no focal deficits Assessment & Plan Diagnosis / Problem List (1) Ulcerative colitis: Status: Acute Qualifiers: Digestive disease complication type: with rectal bleeding Ulcerative colitis location: other ulcerative colitis Qualified Code(s): K51.811 - Other ulcerative colitis with rectal bleeding Assessment & Plan: Presented to [facility] on 11/01 for bloody diarrhea and discharged on 11/18. On presentation had 10-15 episodes of bloody BMs per day and with inpatient regimen (Solu-Medrol TID, sulfasalazine 1 g 3 times daily, azathioprine 100 mg daily) including infliximab infusion 11/16, BMs decreased to 6 per day and largely nonbloody. Now presents to clinic and continues to have around 6 BMs per day but are now nonbloody. Plan: ? Azathioprine 100 mg daily ? Sulfasalazine 1 g TID ? Continue Infliximab infusions ? Follow-up with pharmacy regarding next scheduled infusion (tentative date 04/19) ? Follow-up on 04/18 via phone appointment ? Referral to GI sent to establish care (2) Tachycardia: Status: Acute Assessment & Plan: States her symptoms have significantly improved compared to prior and no longer taking metoprolol for her symptoms Orders: Referrals Gastroenterology K51.811 - Other ulcerative colitis with rectal bleeding Office Procedures [facility] Level of Care Nursing/Assessment Patient Status: Established Patient Nursing Assessment/Reassessment: Medication Reconciliation, Update PMH in EMR and Vital Signs Coordination of Care: Complex Care and Chronic Disease 1-5, Complex Care/Chronic Disease 5 or more, Education Complex Pt/Fam, Consent,records obtained, informed consent, Lab and Imaging orders, Results/Orders obtained and Staff clarify orders Established Patient Charge Established Patient Point Assignment: 145 Established Patient Point Charge: Level 4 (120-155) TB Screening LTBI Screening: Has patient traveled, was born, or resided for at least 1 month, or frequent border crossing into a country with an elevated TB rate: No Immunosuppression, current or planned (HIV, organ transplant, treated with biologic agents, steroids, or other immunosuppression medication): No Close contact to someone with infectious TB disease during lifetime: No Homelessness or incarceration, current or past: No TB testing indicated at this time (at least 1 yes above): No
== END 2025-04-04 13:32 | disposition home or self-care (01) ==
LOC: HODAHC 12:59
PROVIDERS: Supervising Provider Internal Medicine
DX: K59.00 Constipation, unspecified (principal); F41.9 Anxiety disorder, unspecified; R00.0 Tachycardia, unspecified; K51.90 Ulcerative colitis, unspecified, without complications
CPT/HCPCS: 99214; G0463

== ENCOUNTER 2025-04-20 14:42 | Outpatient (AMB) | payer MEDICAID, SELFPAY ==
--- NOTE | 2025-04-20 14:19 | PD.RESCLINIC ---
Allergies/Meds Allergies & Medications Allergies Penicillins Allergy (Mild, Verified 04/19/25 09:25) RASH vancomycin Allergy (Mild, Verified 04/19/25 09:25) REDNESS, ITCHING tree and shrub pollen Allergy (Verified 04/19/25 09:25) Rash MA Intake Visit Data Collection PCP or OBGYN visit in last 3 months: Yes Smoking Status Smoking Status: Never smoker Immunization / Flu Flu Vaccine in the Last 12 Months: Yes Flu Vaccine Exclusion Criteria: Already Received Past Medical History Past Medical History NEUROLOGIC: Negative Neurological Disorders or Seizures CARDIAC: Negative Cardiac Disorders or Congestive Heart Failure RESPIRATORY: Positive Asthma; Negative Chronic Obstructive Pulmonary Disease (COPD), Bronchitis, Emphysema, Pneumonia, Pulmonary Fibrosis, Cystic Fibrosis, Tuberculosis, Pulmonary Embolism, Pulmonary Edema or Sleep Apnea GASTROINTESTINAL: Positive Gastrointestinal Disorders, Gastrointestinal Bleed and Ulcerative Colitis; Negative Diverticulitis or Ulcer GENITOURINARY: Negative Genitourinary Disorders or Renal Disease ENDOCRINE: Negative Endocrine Disorders, Diabetes Mellitus Type 1 or Diabetes Mellitus Type 2 HEMATOLOGIC: Positive Anemia; Negative Blood Disorders or Sickle Cell Disease OTHER HISTORY: Negative Autoimmune Disease, Falls, Blood Transfusions, Anesthesia Reactions, Organ Transplant, VRSA, Clostridium Difficile or Cancer Family History FAMILY HISTORY: Positive Family Respiratory Disorders, Family Cardiac Disorders, Family Gastrointestinal Problems, Family Cancer and Family Surgery; Negative Family Psychiatric Problems or Family Anesthesia Reaction Surgical History SURGICAL: Negative Organ Transplant Social History SMOKING STATUS: Smoking status: Never smoker SECOND HAND EXPOSURE: second hand exposure: No (heavy medical marijuana x10 yrs- QUIT a month ago.) ALCOHOL: Alcohol Intake: Never HOUSING: Housing: Apartment LIVES WITH: Lives With: Family Patient Portal Questionaires PHQ-9 PHQ-2 Over the last 2 weeks, how often have you been bothered by any of the following problems? 1. Little interest or pleasure in doing things: not at all PHQ-9 8. Moving or speaking so slowly that other people could have noticed? - Or the opposite - being so fidgety or restless that you have been moving around a lot more than usual: not at all Total score: 0 Source: Developed by Drs. Jony Milner, Becca Reid, Mario Ramsey and colleagues, with an educational jakob from [employer]. Social History Living Situation History Lives With: Family Housing: Apartment Housing Other:: Patient resides in an apartment with his fiance, daughter, and mother. Tobacco History Smoking Status: Never smoker Second Hand Smoke Exposure: No (heavy medical marijuana x10 yrs- QUIT a month ago.) Alcohol History Alcohol Intake: Never Substance Use History Substance Use: last taken a month ago Review of Systems Report any current symptoms Only answer those that you have currently: Past Medical History Past Medical History Have you ever been diagnosed with any of the following: Neurological Problems Seizures: No Cardiology Problems Congestive Heart Failure: No Respiratory Problems Chronic Obstructive Pulmonary Disease (COPD): No Asthma: Yes Bronchitis: No Emphysema: No Pneumonia: No Pulmonary Fibrosis: No Tuberculosis: No Pulmonary Embolism: No Pulmonary Edema: No Sleep Apnea: No Stomache/Intestinal Problems Gastrointestinal Bleed: Yes Ulcerative Colitis: Yes Diverticulitis: No Ulcer: No Genital/Urinary Problems Renal Disease: No Endocrine Problems Diabetes Mellitus Type 1: No Diabetes Mellitus Type 2: No Blood Problems Anemia: Yes Sickle Cell Disease: No Other Problems Autoimmune Disease: No Falls: No Blood Transfusions: No Anesthesia Reactions: No Organ Transplant: No VRSA: No Clostridium Difficile: No Cancer: No History of Present Illness [facility] Rebekah Ochoa is a 29-year-old female with a past medical history of severe ulcerative colitis confirmed via biopsy and colonoscopy with inflammatory changes up to proximal transverse colon and inappropriate sinus tachycardia who presents for follow-up to the [facility]. 12/15/2024: States that her bowel movements are now completely nonbloody, are formed, and has at most three per day with no associated abdominal discomfort. Her most recent infliximab infusion was on 12/14 and she tolerated well. However, she was told that her next infusion will be in February but was at one time scheduled for January and will reach out to pharmacy regarding scheduling issues. Regarding her heart rate, she states that at rest she is asymptomatic and at baseline her heart rate is in the 90s. When active, states that her heart rate continues to increase to the 150s with associated palpitations and shortness of breath but no chest pain. Prescribed ivabradine last visit but due to insurance issues she was not able to obtain the medication and continued taking metoprolol but 25 mg twice daily. Referral to cardiology was approved and will have to schedule an appointment. Patient will call echo department regarding scheduling for echo ordered during last visit. Will continue metoprolol succinate with 50 mg at night and 25 mg in the morning and follow-up on 01/05, prior to her previously scheduled infliximab appointment. 04/04/2025: Has been doing much better overall. Does not report blood bowel movements but does have some mucous and constipation. Has at most three BMs per day and 4/10 abdominal pain that lasts for minutes at a time and does not need any OTC pain medications. Continues to be on sulfasalazine, azathioprine, folic acid, and infliximab infusions. Her biggest concern is hair loss she has been experiencing in her scalp, arms, and legs. She expresses appreciation of her current GI symptoms but her hair loss has been affecting her mentally. After review of medications, likely culprits are her sulfasalazine and azathioprine vs infliximab but patient also endorses anxiety. Otherwise, her sinus tachycardia is much improved, stating she will experience episodes 1-2 times per week and do not last long. Denies any SOB or chest pain. Next infliximab appointment is on 04/19/2025 but will have to authorization form. Will send GI referral to establish care, refills sent for her medications, and spoke to pharmacy and agreed that infliximab less likely cause of hair loss. 04/20/2025: Patient has phone call appointment for follow up. No complaints. Denies bloody bowel movements and infliximab 10 mg/mL 210 mg is improving her symptoms. States that her current authorization for infliximab is due to on 05/13/25 getting infusions every 8 weeks, was told she needs new auth by PCP. Endorses 70% of hairloss and is secondary to immunosuppresants. Also has strong family history of early hair loss. Has not seen GI yet, instructed to call for appointment. Review of Systems Review of Systems Systems Reviewed: All systems reviewed, normal except as documented Objective/Exam Narrative Physical exam: GENERAL: AOx3, no acute distress, conversational Assessment & Plan Diagnosis / Problem List (1) Ulcerative colitis: Status: Acute Qualifiers: Ulcerative colitis location: other ulcerative colitis Digestive disease complication type: with rectal bleeding Qualified Code(s): K51.811 - Other ulcerative colitis with rectal bleeding Assessment & Plan: Controlled on infliximab infusions, requests refill/authorization, with azithioprine and sulfasalazine. Plan: Submitted infliximab infusion refill. Contnue azithioprine and sulfasalazine. Does not require other immunosuppressant refills. GI referral sent last visit, requested patient to make appointment.
--- NOTE | 2025-04-20 14:56 | PD.RESCLINIC ---
Allergies/Meds Allergies & Medications Allergies Penicillins Allergy (Mild, Verified 04/19/25 09:25) RASH vancomycin Allergy (Mild, Verified 04/19/25 09:25) REDNESS, ITCHING tree and shrub pollen Allergy (Verified 04/19/25 09:25) Rash MA Intake Visit Data Collection PCP or OBGYN visit in last 3 months: Yes Smoking Status Smoking Status: Never smoker Immunization / Flu Flu Vaccine in the Last 12 Months: Yes Flu Vaccine Exclusion Criteria: Already Received Past Medical History Past Medical History NEUROLOGIC: Negative Neurological Disorders or Seizures CARDIAC: Negative Cardiac Disorders or Congestive Heart Failure RESPIRATORY: Positive Asthma; Negative Chronic Obstructive Pulmonary Disease (COPD), Bronchitis, Emphysema, Pneumonia, Pulmonary Fibrosis, Cystic Fibrosis, Tuberculosis, Pulmonary Embolism, Pulmonary Edema or Sleep Apnea GASTROINTESTINAL: Positive Gastrointestinal Disorders, Gastrointestinal Bleed and Ulcerative Colitis; Negative Diverticulitis or Ulcer GENITOURINARY: Negative Genitourinary Disorders or Renal Disease ENDOCRINE: Negative Endocrine Disorders, Diabetes Mellitus Type 1 or Diabetes Mellitus Type 2 HEMATOLOGIC: Positive Anemia; Negative Blood Disorders or Sickle Cell Disease OTHER HISTORY: Negative Autoimmune Disease, Falls, Blood Transfusions, Anesthesia Reactions, Organ Transplant, VRSA, Clostridium Difficile or Cancer Family History FAMILY HISTORY: Positive Family Respiratory Disorders, Family Cardiac Disorders, Family Gastrointestinal Problems, Family Cancer and Family Surgery; Negative Family Psychiatric Problems or Family Anesthesia Reaction Surgical History SURGICAL: Negative Organ Transplant Social History SMOKING STATUS: Smoking status: Never smoker SECOND HAND EXPOSURE: second hand exposure: No (heavy medical marijuana x10 yrs- QUIT a month ago.) ALCOHOL: Alcohol Intake: Never HOUSING: Housing: Apartment LIVES WITH: Lives With: Family Patient Portal Questionaires PHQ-9 PHQ-2 Over the last 2 weeks, how often have you been bothered by any of the following problems? 1. Little interest or pleasure in doing things: not at all PHQ-9 8. Moving or speaking so slowly that other people could have noticed? - Or the opposite - being so fidgety or restless that you have been moving around a lot more than usual: not at all Source: Developed by Drs. Jony Milner, Becca Reid, Mario Ramsey and colleagues, with an educational jakob from [employer]. Social History Living Situation History Lives With: Family Housing: Apartment Housing Other:: Patient resides in an apartment with his fiance, daughter, and mother. Tobacco History Smoking Status: Never smoker Second Hand Smoke Exposure: No (heavy medical marijuana x10 yrs- QUIT a month ago.) Alcohol History Alcohol Intake: Never Substance Use History Substance Use: last taken a month ago Review of Systems Report any current symptoms Only answer those that you have currently: Past Medical History Past Medical History Have you ever been diagnosed with any of the following: Neurological Problems Seizures: No Cardiology Problems Congestive Heart Failure: No Respiratory Problems Chronic Obstructive Pulmonary Disease (COPD): No Asthma: Yes Bronchitis: No Emphysema: No Pneumonia: No Pulmonary Fibrosis: No Tuberculosis: No Pulmonary Embolism: No Pulmonary Edema: No Sleep Apnea: No Stomache/Intestinal Problems Gastrointestinal Bleed: Yes Ulcerative Colitis: Yes Diverticulitis: No Ulcer: No Genital/Urinary Problems Renal Disease: No Endocrine Problems Diabetes Mellitus Type 1: No Diabetes Mellitus Type 2: No Blood Problems Anemia: Yes Sickle Cell Disease: No Other Problems Autoimmune Disease: No Falls: No Blood Transfusions: No Anesthesia Reactions: No Organ Transplant: No VRSA: No Clostridium Difficile: No Cancer: No Office Procedures [facility] Level of Care Nursing/Assessment Patient Status: Established Patient Nursing Assessment/Reassessment: Medication Reconciliation and Update PMH in EMR Coordination of Care: Complex Care/Chronic Disease 5 or more, Education Simp Pt/Fam, Lab and Imaging orders, Results/Orders obtained and Staff clarify orders Established Patient Charge Established Patient Point Assignment: 95 Telehealth Telemed Phone/Video with patient at home & DrPA,BUILDING ANALYST/SUPERVISOR: Yes Telemed Phone/Video with patient in Clinic w/DrBUILDING ANALYST/SUPERVISOR,PA outside Clinic: No
== END 2025-04-20 14:54 | disposition home or self-care (01) ==
LOC: HODAHC 14:42
PROVIDERS: Supervising Provider Internal Medicine
DX: K51.811 Other ulcerative colitis with rectal bleeding (principal)
CPT/HCPCS: 99212; G0463

== ENCOUNTER 2025-06-03 09:49 | Inpatient (IN) | payer MEDICAID, SELFPAY ==
[2025-06-03] VITALS (7 sets, daily range): BP systolic 108–126; BP diastolic 69–95; PULSE 71–101; RESP 15–18; TEMP 36.6–37.2; O2SAT 99–100; BMI 22.6; BMI 21.7
--- NOTE | 2025-06-03 10:02 | PD.EDGIBLD ---
ED GI Bleed RME/HPI General Chief complaint: GI Bleed Stated complaint: RECTAL BLEEDING X1 WEEK Time Seen by Provider: 06/03/25 09:55 Arrival date/time: 06/03/25 09:49 Limitations: no limitations RME / HPI RME / HPI Narrative: DR. TABATHA GAYTAN ED EVALUATION: 29-year-old female presents to the Emergency Department with complaint of rectal bleeding. She has a 4 year history of ulcerative colitis and follows with Dr. Strickland. She reports she is currently having a flare. She typically receives Remicade infusions every 8 weeks but has missed recent appointments due to insurance and provider issues, with her last infusion in February. She reports 8 bowel movements yesterday and 2 today, with blood present each time. She is accompanied by her mother. No other complaints reported. Related Data Home Medications ?Medication ?Instructions ?Recorded ?Confirmed metoprolol succinate 25 mg 25 mg PO TID PRN heart palpitations 06/03/25 06/03/25 tablet,extended release 24 hr Previous Rx's ?Medication ?Instructions ?Recorded azathioprine 100 mg tablet 100 mg PO QDAY #30 tabs 04/04/25 sulfasalazine 500 mg tablet 1,000 mg (2 x 500 mg) PO TID 30 04/04/25 days #180 tabs infliximab 100 mg intravenous 210 mg IV Q2-3M #1 ea 04/20/25 solution Allergies Allergy/AdvReac Type Severity Reaction Status Date / Time Penicillins Allergy Mild RASH Verified 06/03/25 09:53 vancomycin Allergy Mild REDNESS, Verified 06/03/25 09:53 ITCHING tree and shrub pollen Allergy Rash Verified 06/03/25 09:53 Review of Systems Review of Systems Systems Reviewed: All systems reviewed, normal except as documented Past Medical History Past Medical History RESPIRATORY: Positive Asthma GASTROINTESTINAL: Positive Gastrointestinal Disorders, Gastrointestinal Bleed, Colitis (ULCERATIVE COLITIS) and Ulcerative Colitis HEMATOLOGIC: Positive Anemia Family History FAMILY HISTORY: Positive Family Respiratory Disorders, Family Cardiac Disorders, Family Gastrointestinal Problems, Family Cancer and Family Surgery Surgical History SURGICAL: Positive Oral Surgery Social History SMOKING STATUS: Never smoker SECOND HAND EXPOSURE: No (heavy medical marijuana x10 yrs- QUIT a month ago.) SUBSTANCE USE: does not use ED Exam General Limitations: Present no limitations General appearance: Present alert and in no apparent distress Head Head exam: Present atraumatic, normocephalic and normal inspection Eye Eye exam: Present normal appearance, PERRL and EOMI ENT ENT exam: Present normal exam, normal oropharynx and mucous membranes moist Neck Neck exam: Present normal inspection, full ROM and trachea midline Chest Chest inspection: Present normal inspection and symmetric chest wall rise Respiratory Respiratory exam: Present normal lung sounds bilaterally Cardiovascular Cardiovascular exam: Present regular rate, normal rhythm and normal heart sounds Abdominal Exam Abdominal exam: Present soft, tenderness (mild generalized abdominal tenderness without rebound or guarding) and normal bowel sounds; Absent guarding or rebound Extremities Exam Extremities exam: Present normal inspection and full ROM Back Exam Back exam: Present normal inspection and full ROM Neurological Exam Neurological exam: Present alert, oriented X3 and CN II-XII intact Psychiatric Psychiatric exam: Present normal affect and normal mood Skin Skin exam: Present warm, dry, intact and normal color Course Quality Measures none Orders Category Date Time Status Admit to Inpatient Status Routine Admission 06/03/25 10:54 Active Patient Condition Routine Admission 06/03/25 10:54 Ordered Cellular Equipment Installer STAT Care 06/03/25 10:10 Active Continuous Pulse Oximetry STAT Care 06/03/25 10:10 Completed Insert IV STAT Care 06/03/25 10:10 Completed Notify provider NEEDED Care 06/03/25 10:54 Active Orthostatic Vitals NOW Care 06/03/25 10:10 Active Consult to Gastroenterology Stat Cons 06/03/25 10:32 Ordered CBC Stat Lab 06/03/25 10:10 Completed Giardia Antigen, EIA, Stool* Stat Lab 06/03/25 11:58 Received Norovirus, EIA (Stool)* Stat Lab 06/03/25 11:58 Received Partial Thromboplastin Time Stat Lab 06/03/25 10:10 Completed Prothrombin Time with INR Stat Lab 06/03/25 10:10 Completed Stool for WBCs Stat Lab 06/03/25 11:58 Completed Type and Screen Stat Lab 06/03/25 10:10 Completed MethylPREDNISolone. [SoluMEDROL Inj] Med 06/03/25 10:30 Discontinued 40 mg IVP X1 ONE Sodium Chloride 0.9% 1000 ml [Ns] 1,000 ml Med 06/03/25 10:10 Discontinued IV 999 mls/hr inFLIXImab INJ 244 mg Med 06/03/25 10:02 Discontinued Sterile Water 12.2 ml Sodium Chloride 0.9% 250 ml [Ns] 250 ml IV X1 Code Status Routine Oth 06/03/25 10:54 Ordered Vital Signs Vital signs: Vital Signs Temperature 98.9 F 06/03/25 09:55 Pulse Rate 87 06/03/25 09:55 Respiratory Rate 18 06/03/25 09:55 Blood Pressure 121/76 06/03/25 09:55 Pulse Oximetry (%) 100 06/03/25 09:55 Oxygen Delivery Method Room Air 06/03/25 09:55 GI Bleed MDM Narrative MDM Narrative:: IMounika am scribing for and in the presence of Dr. Garcia. 29-year-old female with known ulcerative colitis presenting with rectal bleeding and increased bloody bowel movements after missed Remicade infusions. Exam shows mild abdominal tenderness without peritoneal signs. Workup initiated for UC flare and anemia. Differential diagnoses include ulcerative colitis flare, infectious colitis, and lower GI bleeding. Patient data External records reviewed:: [facility] previous records Clinical information provided by:: patient Social determinants that could affect healthcare access:: none Patient has the following chronic illnesses:: 4 year history of ulcerative colitis and follows with Dr. Strickland; she typically receives Remicade infusions every 8 weeks, used to get them every 4 weeks before. How is presenting disease/condition affected by chronic disease/condition?: caused by Evaluation data The following diagnostics were reviewed and interpreted by me:: lab results Lab and/or radiology exams considered but not ordered:: none Interpretation Summary: See MDM narrative above. Medications / Prescriptions Medications or Prescriptions considered but not ordered:: none Medication administrations:: Medication Administration History Acetaminophen (Acetaminophen 325 Mg Tablet) 650 mg PO Q6H PRN PRN Reason: Fever >100.5 or pain 1-3 Stop: 07/03/25 11:45 Azathioprine (Azathioprine 50 Mg Tablet) 50 mg PO BID [facility] Stop: 07/03/25 12:29 Last Admin: 06/03/25 14:10 Dose: Not Given Documented By: GM Non-Admin Reason: Patient Refused Methylprednisolone Sodium Succinate (Methylprednisolone Sod Succ 40 Mg/Ml Vial) 40 mg IV Q12HR [facility] Stop: 06/10/25 20:59 Ondansetron HCl (Ondansetron Inj 2 Mg/Ml Inj 2 Ml) 4 mg IVP Q6H PRN; Protocol PRN Reason: NAUSEA OR VOMITING Stop: 07/03/25 11:45 Pantoprazole Sodium (Pantoprazole Inj 40 Mg Vial) 40 mg IVP BID [facility] Stop: 07/03/25 20:59 Sulfasalazine (Sulfasalazine 500 Mg Tablet) 1,000 mg PO TID ELAINE Stop: 07/03/25 13:59 Last Admin: 06/03/25 15:17 Dose: 1,000 mg Documented By: Discontinued Medications Infliximab 244 mg/ Sterile (Water 12.2 ml/ Sodium Chloride) 262.2 mls @ 131.1 mls/hr IV X1 ONE; Protocol Stop: 06/03/25 12:01 Last Admin: 06/03/25 10:44 Dose: Not Given Documented By: GM Non-Admin Reason: Discontinued Sodium Chloride (Ns) 1,000 mls @ 999 mls/hr IV .Q1H1M ONE Stop: 06/03/25 11:10 Last Infusion: 06/03/25 11:49 Dose: Infused Documented By: Admin: 06/03/25 10:43 Dose: 999 mls/hr Documented By: GM Methylprednisolone Sodium Succinate (Methylprednisolone Sod Succ 40 Mg/Ml Vial) 40 mg IVP X1 ONE Stop: 06/03/25 10:31 Last Admin: 06/03/25 10:40 Dose: 40 mg Documented By: Methylprednisolone Sodium Succinate (Methylprednisolone Sod Succ 40 Mg/Ml Vial) 40 mg IM Q12HR [facility] Stop: 06/10/25 20:59 see above Consultations Consultation(s) initiated? (list below): Yes Consultation #1 (Physician, Specialty, Details): Discussed test HPI, PMHx, lab, radiology results and/or management with Dr. Strickland. Following his recommendations. Time: 10:32 Consultation #2 (Physician, Specialty, Details): Discussed test HPI, PMHx, lab, radiology results and/or management with resident working with the hospitalist. Will admit for further evaluation and management. Accepts patient for admission. Time: 10:54 Diagnosis GI bleed differential diagnosis: other (ulcerative colitis flare, infectious colitis, and lower GI bleeding) Most likely diagnosis given after review of the tests above:: GI bleed Ulcerative colitis Admission Indicated Admission indicated?: indicated Admission Request Was there a request for admission?: Yes Admission Attestation Admission request attestation: Discussed case with [] from Hospitalist service regarding admission. Discussed patients ED course, exam findings, labs, and radiology results. The Hospitalist [agrees,declines] to accept the patient for admission. Disposition Plan Disposition Plan: Admit Discharge Plan Plan Patient Disposition: Admit Acute Care w/in Hospital Problem List Clinical Impression: GI bleed, Ulcerative colitis
--- NOTE | 2025-06-03 10:20 | PC.NURSE ---
SPOKE TO PHARMACIST AND I WAS MADE AWARE BY LATONIA PHARMACIST THAT PT HAD HER INFLIXIMAB INFUSION ON 04/19/25. I VERIFIED WITH PT IF THIS WAS ACCURATE AND PT CONFIRMED GETTING IT ON 04/19/25. [facility]ONIA PHARMACIST ASKING IF STILL OK TO GIVE INFLXIMAB INFUSION AT THIS TIME BECAUSE PT USUALLY RECEIVES IT EVERY 8 [address]. I CONFIRMED WITH DR. MAYS THAT IT IS OK TO ADMINISTER THIS MED TODAY AND TOLD LATONIA PHARMACIST THIS. PER LATONIA, OK WE WILL RECONSTITUTE THE MED.
[2025-06-03 10:24] LABS: Basophils # (Auto) 0.0 Thou/mm3 (0.0-0.2); Basophils % (Auto) 1 % (0-2.5); Eosinophils # (Auto) 0.1 Thou/mm3 (0.0-0.5); Eosinophils % (Auto) 2 % (0-10); Hematocrit 31.1 % (36.0-46.0); Hemoglobin 10.2 g/dL (12.0-16.0); Immature Granulocytes Auto 0.01 Thou/mm3 (0.00-0.00); Lymphocytes # (Auto) 1.0 Thou/mm3 (1.0-4.8); Lymphocytes % (Auto) 30 % (10-50); Mean Corpuscular HGB Conc 32.8 g/dl (31.0-37.0); Mean Corpuscular Hemoglobin 25.2 pg (25.0-35.0); Mean Corpuscular Volume 77 fL (80-100); Monocytes # (Auto) 0.3 Thou/mm3 (0.0-0.8); Monocytes % (Auto) 9 % (0-12); Neutrophils # (Auto) 2.0 Thou/mm3 (1.8-7.7); Neutrophils % (Auto) 58 % (37-80); Nucleated Red Blood Cell # 0.00 Thou/mm3 (0.00-0.00); Nucleated Red Blood Cell % 0 /100 WBC (0); Platelet Count 300 Thou/mm3 (140-440); RDW Standard Deviation 44.2 fL (36.4-46.3); Red Blood Count 4.05 Miln/mm3 (4.00-5.20); White Blood Count 3.4 Thou/mm3 (3.6-11.0)
[2025-06-03 10:42] LABS: INR 1.1 (0.9-1.3); Partial Thromboplastin Time 28.7 Seconds (22.0-36.0); Prothrombin Time 11.9 Seconds (9.0-12.2)
[2025-06-03] MEDS: SODIUM CHLORIDE 0.9% 1000 ML 1,000 ML 999 ML IV (10:43)
--- NOTE | 2025-06-03 11:51 | ESHP_ITS ---
<Statement entered by Tigre Baker MD - 06/03/25 14:33> 29-year-old female with history of ulcerative colitis on infliximab infusions 11/[address] Strickland outpatient who is now presenting with bloody bowel movements. Patient states that she normally has 1 bowel movement per day that may or may not have blood in it but for the past week or so has been having more frequent and bloody bowel movements. States that yesterday she had approximately 8 total day prior to admission. Last infusion was 6 weeks ago and had been getting them every 8 weeks. However, she was unable to get her most recent infusion on 05/30/2025 as prescription was not renewed. Moran, endorses some mild abdominal pain but no fever, chills, nausea, vomiting. In ED, vital signs stable, CBC showed hemoglobin at baseline 10.2, and CHEM panel unremarkable. Stool studies negative for stool WBC, Giardia and norovirus antigen pending. GI consulted and recommended starting Solu-Medrol 40 mg twice daily, sulfasalazine 1 g 3 times daily, and azathioprine 50 mg twice daily. Also recommended to obtain infliximab levels as well as antibodies against infliximab. Concerns for possible development of antibodies. Will follow-up on recommendations. ----- Note reviewed and agree with care plan as documented. Please refer to the note below for further details. Plan discussed with attending physician Dr. Carolina Baker MD PGY-2 Internal Medicine Documentation for date of: 06/03/25 HPI History of Present Illness Chief complaint: U.C. flare History of present illness: Patient is a 29 year old female with history of Ulcerative colitis, has been following with Dr. Strickland, presents with bloody bowel movements. Patient states this flare started around 1 week ago; 6 weeks since her last infusion. Her infusions were switched from q4 weeks to q8 weeks 2-3 transfusions ago. Went to the clinic on 05/30 and was told the order for the infusions . Endorses 8 bloody bowel movements yesterday, 1 today so far. Patient was admitted to the hospital in late October for similar presentation, before starting infusion though (first infliximab infusion on 11/16). Patient endorsed mild dizzyness and ~15 pounds weight loss in the last week (however, states weight fluctuates last few months) and some mild abdominal discomfort. Denies fever, chills, chest pain, shortness of breath. Past Medical History: U.C. Family History: Cousin with U.C. Surgical History: Molars removed Social History: Denies history of smoking, denies current alcohol use, denies recreational drug use Current Medications: Sulfasalazine, azathioprine (pending official med rec) Allergies: penicillin, vancomycin, various environmental allergies ED Course: -Initial vitals were BP 121/76, Pulse 87, RR 18, temp 98.9 F, 100 O2 % saturation on room air -Labs significant for wbc 3.4, hgb 10.2, mcv 77, -Imaging N/A -In the ED, patient was given methylprednisolone 40 mg IV x1, 1 L NS bolus -Patient was admitted for workup and management of U.C. flare Review of Systems Review of systems otherwise negative except what is mentioned above. Exam Vital Signs Temp Pulse Resp BP Pulse Ox O2 Del Method 98.9 F 88 18 111/73 100 Room Air 06/03/25 09:55 06/03/25 10:33 06/03/25 09:55 06/03/25 10:33 06/03/25 09:55 06/03/25 09:55 Narrative Exam General: No acute distress; A&Ox3 Skin: Warm, dry, intact, no obvious rash. HENT: NCAT, EOMI/PERRL, not icteric. External ears normal. No rhinorrhea. Moist mucous membranes Cardiovascular: Regular rate and rhythm, no murmur, +S1/S2. Respiratory: Lungs CTAB GI: Soft, mild diffuse tenderness, non-distended. No guarding or rebound tenderness. : No suprapubic tenderness. No flank tenderness bilaterally. Extremities: no edema, no cyanosis, no clubbing. Extremity pulses present Neuro: Grossly nonfocal. Moving all 4 extremities. CN not formally tested but appear grossly intact. Psychiatric: Cooperative, appropriate affect. Results: Labs 06/03/25 10:10 Labs: Short CBC 06/03/25 Range/Units 10:10 WBC 3.4 L (3.6-11.0) Thou/mm3 Hgb 10.2 L (12.0-16.0) g/dL Hct 31.1 L (36.0-46.0) % Plt Count 300 (140-440) Thou/mm3 Quality Measures Quality Measures VTE prophylaxis (scd's given gi bleed) Medications Home Medications and Allergies Home Medications ?Medication ?Instructions ?Recorded ?Confirmed ?Type metoprolol succinate 25 mg 25 mg PO TID PRN heart palp itations 06/03/25 06/03/25 History tablet,extended release 24 hr Allergies Allergy/AdvReac Type Severity Reaction Status Date / Time Penicillins Allergy Mild RASH Verified 06/03/25 09:53 vancomycin Allergy Mild REDNESS, Verified 06/03/25 09:53 ITCHING tree and shrub pollen Allergy Rash Verified 06/03/25 09:53 Visit Medications Acetaminophen (Acetaminophen 325 Mg Tablet) 650 mg PO Q6H PRN PRN Reason: Fever >100.5 or pain 1-3 Stop: 07/03/25 11:45 Methylprednisolone Sodium Succinate (Methylprednisolone Sod Succ 40 Mg/Ml Vial) 40 mg IV Q12HR ELAINE Stop: 06/10/25 20:59 Ondansetron HCl (Ondansetron Inj 2 Mg/Ml Inj 2 Ml) 4 mg IVP Q6H PRN; Protocol PRN Reason: NAUSEA OR VOMITING Stop: 07/03/25 11:45 Sulfasalazine (Sulfasalazine 500 Mg Tablet) 1,000 mg PO TID ELAINE Stop: 07/03/25 13:59 Discontinued Medications Infliximab 244 mg/ Sterile (Water 12.2 ml/ Sodium Chloride) 262.2 mls @ 131.1 mls/hr IV X1 ONE; Protocol Stop: 06/03/25 12:01 Last Admin: 06/03/25 10:44 Dose: Not Given Sodium Chloride (Ns) 1,000 mls @ 999 mls/hr IV .Q1H1M ONE Stop: 06/03/25 11:10 Last Infusion: 06/03/25 11:49 Dose: Infused Methylprednisolone Sodium Succinate (Methylprednisolone Sod Succ 40 Mg/Ml Vial) 40 mg IVP X1 ONE Stop: 06/03/25 10:31 Last Admin: 06/03/25 10:40 Dose: 40 mg Methylprednisolone Sodium Succinate (Methylprednisolone Sod Succ 40 Mg/Ml Vial) 40 mg IM Q12HR ELAINE Stop: 06/10/25 20:59 Assessment & Plan Plan 29-year-old female with past medical history of ulcerative colitis was admitted to the hospital on 10/20/2024 for lower GI bleed secondary to ulcerative colitis flare and resulting in blood loss anemia. #Ulcerative colitis flareup #Lower GI bleed 2/2 above #Anemia, secondary to blood loss #Leukopenia i/s/o infusions & DMARDs Patinet states this flare started around 1 week ago; 6 weeks since her last infusion. Her infusions were switched from q4 weeks to q8 weeks 2-3 transfusions ago. Her first infliximab infusion on 11/16 without any complications or reactions, with improvement of decreased BM frequency and less blood in stool. Endorses 8 bloody bowel movements yesterday, 1 today so far. Hgb 10.2 today, was 8.3 11/2024 Patient has been taking azathioprine 100 mg po qd, sulfasalazine 1000 mg TID Last colonoscopy 10/2024, showed friability with contact bleeding in rectum, sigmoid colon, descending colon, and transverse colon; biopsy showed left colon involved by chronic active colitis. Plan: methylprednisolone 40 mg iv q12hr azathioprine 50 mg po bid sulfasalazine 1000 mg po tid protonix IV bid stool studies serum infliximab levels - send out antibodies against infliximab - send out bedside glucose checks q6hr Stool studies Type and screen GI consulted, appreciate commendations Disposition: Patient admitted to [facility] for UC flareup. Diet: clear liquid GI prophylaxis: protonix IV BID DVT prophylaxis: SCDs in setting of bleed Code: full Patient plan of care was discussed with the attending physician, Dr. Figueroa & senior resident Dr. Samuel Walters MD PGY-1 Attending Provider Attestation/Addendum I or my resident physicians have discussed care with the ED physician and I have made the decision to admit. I have discussed and was present for the essential components of the history, physical examination, diagnosis, and treatment plan with the resident. I agree with the patient's care as documented by the resident and amended herein by me. Azael Figueroa DO. Although this document has been carefully reviewed, there may still be some phonetic and other typographical errors. These errors are purely grammatical due to imperfections in the software program and should not be construed in any way to compromise the substance of the patient's medical care during this visit.
[2025-06-03 12:28] LABS: Stool for WBCs Negative (Negative)
--- NOTE | 2025-06-03 19:55 | PD.IMCONS ---
HPI Data of Consult Requesting Physician: Link Muir MD Primary Care Provider: Physician No Primary/Family Consult Narrative Reason for consult: Bloody diarrhea History of present illness: 29 years old female came into the emergency room as she was having multiple stools full of blood and mucus On history taking she had 8 stools last night She has been on Remicade infusion after she had it on around a [facility] 4 years in [facility] She has done relatively well since October of this year after the E clinic start taking care of her Unfortunately she has not received Remicade infusions since February because of insurance issues She is currently on sulfasalazine folic acid and azathioprine After discussion with the ER physician she was subsequently admitted She is not running any temperature Colonoscopy on 10/20/2024 showed extensive colitis involving transverse colon descending sigmoid and rectum Biopsies were positive for cryptitis and crypt abscesses Right colon was relatively spared Terminal ileum biopsy were negative for Crohn's disease cc:: cc: Link Muir MD Review of Systems Review of Systems Systems Reviewed: All systems reviewed, normal except as documented Past Medical History Surgical History OTHER SURGICAL HX: As in the history of present illness Meds Home Medications and Allergies Home Medications ?Medication ?Instructions ?Recorded ?Confirmed ?Type metoprolol succinate 25 mg 25 mg PO TID PRN heart palpitations 06/03/25 06/03/25 History tablet,extended release 24 hr Allergies Allergy/AdvReac Type Severity Reaction Status Date / Time Penicillins Allergy Mild RASH Verified 06/03/25 09:53 vancomycin Allergy Mild REDNESS, Verified 06/03/25 09:53 ITCHING tree and shrub pollen Allergy Rash Verified 06/03/25 09:53 Exam Vital Signs Temp Pulse Resp BP Pulse Ox O2 Del Method 97.9 F 75 15 108/69 100 Room Air 06/03/25 19:51 06/03/25 19:51 06/03/25 19:51 06/03/25 19:51 06/03/25 19:51 06/03/25 19:51 Narrative Exam Alert oriented Constitutional Comments: Alert oriented Routine Respiratory Exam Comments: Normal to auscultation Routine Abdominal Exam Comments: Generalized abdominal tenderness no rebound active bowel sounds Results Labs 06/03/25 10:10 Labs: Short CBC 06/03/25 Range/Units 10:10 WBC 3.4 L (3.6-11.0) Thou/mm3 Hgb 10.2 L (12.0-16.0) g/dL Hct 31.1 L (36.0-46.0) % Plt Count 300 (140-440) Thou/mm3 Assessment and Plan Additional Assessment & Plan Additional Plan: # Acute exacerbation of the underlying inflammatory bowel disease Other things to consider is superimposed infectious enterocolitis It all happened because of the breakage in the routine Remicade infusion But it is also possible patient developed antibodies to the Remicade and does not have therapeutic levels Suggestions Complete stool panel CRP Sed rate Fecal calprotectin Fecal stool culture and sensitivity C. difficile by PCR IV Solu-Medrol 40 mg IV push to 12 Infliximab serum levels and antibody levels Start on sulfasalazine folic acid and azathioprine Will follow the patient closely No plans for a colonoscopy if the patient improves On follow-up patient should be followed by Dr. Gibbs at the E clinic
[2025-06-03] MEDS: ACETAMINOPHEN 325 MG TABLET 650 MG PO (21:22)
[2025-06-04] VITALS (7 sets, daily range): BP systolic 109–134; BP diastolic 63–94; PULSE 67–91; RESP 15–25; TEMP 35.9–36.4; O2SAT 98–99; BMI 21.7; BMI 21.8
[2025-06-04 06:44] LABS: Alanine Aminotransferase < 7 U/L (10-49); Albumin, Serum 4.8 gm/dL (3.5-5.0); Albumin/Globulin Ratio 1.8 (1.2-2.2); Alkaline Phosphatase 42 U/L (46-116); Anion Gap 14 (7-16); Aspartate Amino Transferase 19 U/L (0-34); BUN/Creatinine Ratio 10 Ratio (12-20); Bilirubin,Total 0.7 mg/dL (0.3-1.2); Blood Urea Nitrogen < 5 mg/dL (9-23); C-Reactive Protein < 0.5 mg/dL (0.0-0.9); Calcium 9.3 mg/dL (8.3-10.6); Calcium (Corrected) 9.3 mg/dL (8.5-10.1); Carbon Dioxide 22.3 mMol/L (20.0-31.0); Chloride 106 mMol/L (98-107); Creatinine (Component) 0.5 mg/dL (0.6-1.3); Estimated Creatinine Clearance 109.1 mL/min (>60); Globulin 2.6 gm/dL (2.3-3.5); Glucose 94 mg/dL (74-106); Magnesium 1.8 mg/dL (1.6-2.6); Osmolality,Calculated 280 (275-295); Phosphorous 5.8 mg/dL (2.4-5.1); Potassium 3.9 mMol/L (3.4-5.1); Sodium 142 mMol/L (136-145); Thyroid Stimulating Hormone 0.57 uIU/mL (0.55-4.78); Total Protein 7.4 gm/dL (5.7-8.2); eGFR > 60 See Note
[2025-06-04 07:56] LABS: Stool for WBCs Negative (Negative)
[2025-06-04] MEDS: SEVELAMER CARBONATE 800 MG TABLET PO (08:06)
--- NOTE | 2025-06-04 09:03 | ESPR_ITS ---
<Statement entered by Tigre Baker MD - 06/04/25 13:37> No acute overnight events. Seen and examined at bedside and patient resting comfortably in bed. Denies any abdominal pain but states that she had 2 bloody, mucousy bowel movements in total today. States that she had a total of 4 yesterday and ate the day prior. Will continue with Solu-Medrol 40 mg BID, sulfasalazine, and azathioprine. Will follow-up on stool studies, including calprotectin, Giardia, C. difficile, and norovirus. Miscellaneous send outs for serum infliximab levels and antiinfliximab levels as well as stool culture and sensitivities. No plans for colonoscopy at this time per GI and will follow-up on recommendations. ----- Note reviewed and agree with care plan as documented. Please refer to the note below for further details. Plan discussed with attending physician Dr. Carolina Baker MD PGY-2 Internal Medicine Documentation for date of: 06/04/25 Subjective Subjective Interval history: No acute events overnight. Patient states she has had a few bloody bowel movements since yesterday afternoon. Patient denies feeling fever, dizzy, chest pain, shortness of breath, or any abdominal pain. Phos was mildly elevated, gave her sevelamer x1. Exam Vital Signs Temp Pulse Resp BP Pulse Ox O2 Del Method 97.0 F 88 18 121/85 H 99 Room Air 06/04/25 08:00 06/04/25 08:00 06/04/25 08:00 06/04/25 08:00 06/04/25 08:00 06/04/25 08:00 Narrative Exam General: No acute distress; A&Ox3 Skin: Warm, dry, intact, no obvious rash. HENT: NCAT, EOMI/PERRL, not icteric. External ears normal. No rhinorrhea. Moist mucous membranes Cardiovascular: Regular rate and rhythm, no murmur, +S1/S2. Respiratory: Lungs CTAB GI: Soft, minimal tenderness, non-distended. No guarding or rebound tenderness. : No suprapubic tenderness. No flank tenderness bilaterally. Extremities: no edema, no cyanosis, no clubbing. Extremity pulses present Neuro: Grossly nonfocal. Moving all 4 extremities. CN not formally tested but appear grossly intact. Psychiatric: Cooperative, appropriate affect. Objective Labs 06/03/25 10:10 06/04/25 05:00 Labs: Laboratory Results - last 24 hr 06/03/25 06/03/25 06/04/25 10:10 11:58 05:00 WBC 3.4 L RBC 4.05 Hgb 10.2 L Hct 31.1 L MCV 77 L MCH 25.2 MCHC 32.8 RDW Std Deviation 44.2 Plt Count 300 Neut % (Auto) 58 Lymph % (Auto) 30 [place] % (Auto) 9 Eos % (Auto) 2 Baso % (Auto) 1 Neut # (Auto) 2.0 Lymph # (Auto) 1.0 [place] # (Auto) 0.3 Eos # (Auto) 0.1 Baso # (Auto) 0.0 Immature Gran # (Auto) 0.01 H Absolute Nucleated RBC 0.00 Immature Gran % 0 Nucleated RBC % 0 PT 11.9 INR 1.1 APTT 28.7 Sodium 142 Potassium 3.9 Chloride 106 Carbon Dioxide 22.3 Anion Gap 14 BUN < 5 L Creatinine 0.5 L Estim Creat Clear Calc 109.1 eGFR > 60 BUN/Creatinine Ratio 10 L Glucose 94 Calculated Osmolality 280 Calcium 9.3 Corrected Calcium 9.3 Phosphorus 5.8 H Magnesium 1.8 Total Bilirubin 0.7 AST 19 ALT < 7 L Alkaline Phosphatase 42 L C-Reactive Prot, Quant < 0.5 Total Protein 7.4 Albumin 4.8 Globulin 2.6 Albumin/Globulin Ratio 1.8 TSH 0.57 Stool for White Cells Negative Stl Giardia Antigen Cancelled Blood Type O Positive Antibody Screen NEGATIVE Blood Bank Wristband ID Yes 06/04/25 05:19 WBC RBC Hgb Hct MCV MCH MCHC RDW Std Deviation Plt Count Neut % (Auto) Lymph % (Auto) [place] % (Auto) Eos % (Auto) Baso % (Auto) Neut # (Auto) Lymph # (Auto) [place] # (Auto) Eos # (Auto) Baso # (Auto) Immature Gran # (Auto) Absolute Nucleated RBC Immature Gran % Nucleated RBC % PT INR APTT Sodium Potassium Chloride Carbon Dioxide Anion Gap BUN Creatinine Estim Creat Clear Calc eGFR BUN/Creatinine Ratio Glucose Calculated Osmolality Calcium Corrected Calcium Phosphorus Magnesium Total Bilirubin AST ALT Alkaline Phosphatase C-Reactive Prot, Quant Total Protein Albumin Globulin Albumin/Globulin Ratio TSH Stool for White Cells Negative Stl Giardia Antigen Blood Type Antibody Screen Blood Bank Wristband ID Quality Measures Quality Measures VTE prophylaxis (scd's given gi bleed) Assessment & Plan Assessment Current Active Medications: Generic Name Dose Route Start Last Admin Trade Name Freq PRN Reason Stop Dose Admin Acetaminophen 650 mg 06/03/25 11:46 06/03/25 21:22 Acetaminophen 325 Mg Tablet PO 07/03/25 11:45 650 mg Q6H PRN Administration Fever >100.5 or pain 1-3 Azathioprine 50 mg 06/03/25 12:30 06/03/25 20:55 Azathioprine 50 Mg Tablet PO 07/03/25 12:29 Not Given BID ELAINE Methylprednisolone Sodium Succinate 40 mg 06/03/25 21:00 06/04/25 08:07 Methylprednisolone Sod Succ 40 Mg/Ml Vial IV 06/10/25 20:59 40 mg Q12HR ELAINE Administration Ondansetron HCl 4 mg 06/03/25 11:46 Ondansetron Inj 2 Mg/Ml Inj 2 Ml IVP 07/03/25 11:45 Q6H PRN NAUSEA OR VOMITING Protocol Pantoprazole Sodium 40 mg 06/03/25 21:00 06/04/25 08:06 Pantoprazole Inj 40 Mg Vial IVP 07/03/25 20:59 40 mg BID ELAINE Administration Sulfasalazine 1,000 mg 06/03/25 14:00 06/04/25 05:16 Sulfasalazine 500 Mg Tablet PO 07/03/25 13:59 1,000 mg TID ELAINE Administration Plan 29-year-old female with past medical history of ulcerative colitis was admitted to the hospital on 10/20/2024 for lower GI bleed secondary to ulcerative colitis flare and resulting in blood loss anemia. #Ulcerative colitis flareup #Lower GI bleed 2/2 above #Anemia, secondary to blood loss #Leukopenia i/s/o infusions & DMARDs Patinet states this flare started around 1 week ago; 6 weeks since her last infusion. Her infusions were switched from q4 weeks to q8 weeks 2-3 transfusions ago. Her first infliximab infusion on 11/16 without any complications or reactions, with improvement of decreased BM frequency and less blood in stool. Endorses 8 bloody bowel movements yesterday, 1 today so far. Hgb 10.2 today, was 8.3 11/2024 Patient has been taking azathioprine 100 mg po qd, sulfasalazine 1000 mg TID Last colonoscopy 10/2024, showed friability with contact bleeding in rectum, sigmoid colon, descending colon, and transverse colon; biopsy showed left colon involved by chronic active colitis. Plan: methylprednisolone 40 mg iv q12hr azathioprine 50 mg po bid sulfasalazine 1000 mg po tid protonix IV bid stool studies serum infliximab levels - send out antibodies against infliximab - send out bedside glucose checks q6hr Stool studies Type and screen GI consulted, appreciate commendations #Hyperphosphatemia Phos 5.8 -> gave sevelamer x1 Will continue to monitor, treat as appropriate Disposition: Patient admitted to [facility] for UC flareup. Diet: clear liquid GI prophylaxis: protonix IV BID DVT prophylaxis: SCDs in setting of bleed Code: full Patient plan of care was discussed with the attending physician, Dr. Figueroa & senior resident Dr. Samuel Walters MD PGY-1 Attending Provider Attestation/Addendum I have discussed and was present for the essential components of the history, physical examination, diagnosis, and treatment plan with the resident. I agree with the patient's care as documented by the resident and amended herein by me. Azael Figueroa DO. Although this document has been carefully reviewed, there may still be some phonetic and other typographical errors. These errors are purely grammatical due to imperfections in the software program and should not be construed in any way to compromise the substance of the patient's medical care during this visit.
--- NOTE | 2025-06-04 12:08 | PD.IMPROG ---
Documentation for date of: 06/04/25 Subjective Subjective Interval history: patient evaluated Somewhat slowing down of the bloody diarrhea Stool culture and sensitivity is negative No WBCs on the Gram stain Recommend to give patient infliximab 5 mg/kg body weight Give 50 mg of Benadryl and 40 mg of Solu-Medrol prior to the infusion Exam Vital Signs Temp Pulse Resp BP Pulse Ox O2 Del Method 97.2 F 81 24 H 111/77 99 Room Air 06/04/25 11:38 06/04/25 11:38 06/04/25 11:38 06/04/25 11:38 06/04/25 11:38 06/04/25 11:38 Objective Labs 06/03/25 10:10 06/04/25 05:00 Labs: Laboratory Results - last 24 hr 06/03/25 06/03/25 06/04/25 10:10 11:58 05:00 Sodium 142 Potassium 3.9 Chloride 106 Carbon Dioxide 22.3 Anion Gap 14 BUN < 5 L Creatinine 0.5 L Estim Creat Clear Calc 109.1 eGFR > 60 BUN/Creatinine Ratio 10 L Glucose 94 Calculated Osmolality 280 Calcium 9.3 Corrected Calcium 9.3 Phosphorus 5.8 H Magnesium 1.8 Total Bilirubin 0.7 AST 19 ALT < 7 L Alkaline Phosphatase 42 L C-Reactive Prot, Quant < 0.5 Total Protein 7.4 Albumin 4.8 Globulin 2.6 Albumin/Globulin Ratio 1.8 TSH 0.57 Stool for White Cells Negative Stl Giardia Antigen Cancelled Blood Type O Positive Antibody Screen NEGATIVE 06/04/25 05:19 Sodium Potassium Chloride Carbon Dioxide Anion Gap BUN Creatinine Estim Creat Clear Calc eGFR BUN/Creatinine Ratio Glucose Calculated Osmolality Calcium Corrected Calcium Phosphorus Magnesium Total Bilirubin AST ALT Alkaline Phosphatase C-Reactive Prot, Quant Total Protein Albumin Globulin Albumin/Globulin Ratio TSH Stool for White Cells Negative Stl Giardia Antigen Blood Type Antibody Screen Impressions Impression: Acute Reservation of the underlying inflammatory bowel disease/UC Infliximab infusion 5 mg/kg body weight Benadryl 50 mg IV push prior to the infusion Solu-Medrol 40 mg IV push Assessment & Plan A&P Narrative # Acute exacerbation of the underlying inflammatory bowel disease Other things to consider is superimposed infectious enterocolitis It all happened because of the breakage in the routine Remicade infusion But it is also possible patient developed antibodies to the Remicade and does not have therapeutic levels Suggestions Complete stool panel CRP Sed rate Fecal calprotectin Fecal stool culture and sensitivity C. difficile by PCR IV Solu-Medrol 40 mg IV push to 12 Infliximab serum levels and antibody levels Start on sulfasalazine folic acid and azathioprine Will follow the patient closely No plans for a colonoscopy if the patient improves On follow-up patient should be followed by Dr. Gibbs at the E clinic Time Spent With Patient Time: Total time spent is greater than 50% in coordination of care (as documented) at patient's floor/unit and/or counseling patient:
[2025-06-04 13:27] LABS: Misc Send Out* See Sep Rpt
[2025-06-04] MEDS: ACETAMINOPHEN 325 MG TABLET 650 MG PO (17:37)
[2025-06-05] VITALS: BP 117/79; PULSE 76; PULSE 84; RESP 19; TEMP 36.1; O2SAT 98
[2025-06-05 04:00] VITALS: BP 106/61; PULSE 67; PULSE 74; RESP 18; TEMP 35.9; O2SAT 99
[2025-06-05 04:26] VITALS: BMI 21.8
[2025-06-05 06:18] LABS: Basophils # (Auto) 0.0 Thou/mm3 (0.0-0.2); Basophils % (Auto) 0 % (0-2.5); Eosinophils # (Auto) 0.0 Thou/mm3 (0.0-0.5); Eosinophils % (Auto) 0 % (0-10); Hematocrit 28.7 % (36.0-46.0); Hemoglobin 9.5 g/dL (12.0-16.0); Immature Granulocytes Auto 0.01 Thou/mm3 (0.00-0.00); Lymphocytes # (Auto) 1.0 Thou/mm3 (1.0-4.8); Lymphocytes % (Auto) 23 % (10-50); Mean Corpuscular HGB Conc 33.1 g/dl (31.0-37.0); Mean Corpuscular Hemoglobin 25.6 pg (25.0-35.0); Mean Corpuscular Volume 77 fL (80-100); Monocytes # (Auto) 0.3 Thou/mm3 (0.0-0.8); Monocytes % (Auto) 6 % (0-12); Neutrophils # (Auto) 3.2 Thou/mm3 (1.8-7.7); Neutrophils % (Auto) 71 % (37-80); Nucleated Red Blood Cell # 0.00 Thou/mm3 (0.00-0.00); Nucleated Red Blood Cell % 0 /100 WBC (0); Platelet Count 285 Thou/mm3 (140-440); RDW Standard Deviation 43.7 fL (36.4-46.3); Red Blood Count 3.71 Miln/mm3 (4.00-5.20); White Blood Count 4.6 Thou/mm3 (3.6-11.0)
[2025-06-05 06:41] LABS: Alanine Aminotransferase < 7 U/L (10-49); Albumin, Serum 4.5 gm/dL (3.5-5.0); Albumin/Globulin Ratio 1.6 (1.2-2.2); Alkaline Phosphatase 41 U/L (46-116); Anion Gap 13 (7-16); Aspartate Amino Transferase 15 U/L (0-34); BUN/Creatinine Ratio 12 Ratio (12-20); Bilirubin,Total 0.6 mg/dL (0.3-1.2); Blood Urea Nitrogen 6 mg/dL (9-23); Calcium 9.4 mg/dL (8.3-10.6); Calcium (Corrected) 9.4 mg/dL (8.5-10.1); Carbon Dioxide 25.4 mMol/L (20.0-31.0); Chloride 103 mMol/L (98-107); Creatinine (Component) 0.5 mg/dL (0.6-1.3); Estimated Creatinine Clearance 112.1 mL/min (>60); Globulin 2.8 gm/dL (2.3-3.5); Glucose 99 mg/dL (74-106); Magnesium 1.8 mg/dL (1.6-2.6); Osmolality,Calculated 278 (275-295); Phosphorous 5.8 mg/dL (2.4-5.1); Potassium 3.6 mMol/L (3.4-5.1); Sodium 141 mMol/L (136-145); Total Protein 7.3 gm/dL (5.7-8.2); eGFR > 60 See Note
[2025-06-05 08:00] VITALS: BP 124/86; PULSE 82; PULSE 95; RESP 16; TEMP 36.4; O2SAT 99
[2025-06-05] MEDS: SEVELAMER CARBONATE 800 MG TABLET PO (08:44)
--- NOTE | 2025-06-05 09:17 | ESPR_ITS ---
<Statement entered by Tigre Baker MD - 06/05/25 10:39> No acute overnight events. Seen and examined at bedside patient resting comfortably in bed. States she only had 3 bloody BMs yesterday and so far today has had 1, but overall has been decreasing over time. She was evaluated by GI yesterday and recommended to start infliximab infusion at 5 mg/kg with Solu- Medrol and Benadryl prior to infusion. Otherwise, will continue Solu-Medrol 40 mg twice daily, sulfasalazine, and azathioprine and follow-up on stool studies and lab Sette balance for infliximab titers. Vital signs stable, CBC shows slight drop in hemoglobin but overall stable, and CHEM panel showing elevated phosphorus for which sevelamer was given. ----- Note reviewed and agree with care plan as documented. Please refer to the note below for further details. Plan discussed with attending physician Dr. Kamryn Baker MD PGY-2 Internal Medicine Documentation for date of: 06/05/25 Subjective Subjective Interval history: Patient had no acute events overnight, patient's vital signs are stable. Patient endorses bowel movements with less blood and less frequent bloody bowel movements, described as streaks of blood in the bowel movements. Patient reiterated today that before her flare occurred she was not having any blood in the bowel movements. Patient again was given sevelamer for mildly elevated phosphorus of 5.8. Patient was given infusion of infliximab 5 mg/kg, with Benadryl 50 mg x 1 and 40 mg Solu-Medrol x 1 being given prior to the infusion, per GI Dr. Strickland's recommendations. Exam Vital Signs Temp Pulse Resp BP Pulse Ox O2 Del Method 97.6 F 95 16 124/86 H 99 Room Air 06/05/25 08:00 06/05/25 08:00 06/05/25 08:00 06/05/25 08:00 06/05/25 08:00 06/05/25 08:00 Narrative Exam General: No acute distress; A&Ox3 Skin: Warm, dry, intact, no obvious rash. HENT: NCAT, EOMI/PERRL, not icteric. External ears normal. No rhinorrhea. Moist mucous membranes Cardiovascular: Regular rate and rhythm, no murmur, +S1/S2. Respiratory: Lungs CTAB GI: Soft, non-tender, non-distended. No guarding or rebound tenderness. : No suprapubic tenderness. No flank tenderness bilaterally. Extremities: no edema, no cyanosis, no clubbing. Extremity pulses present Neuro: Grossly nonfocal. Moving all 4 extremities. CN not formally tested but appear grossly intact. Psychiatric: Cooperative, appropriate affect. Objective Labs 06/06/25 04:20 06/06/25 04:20 Labs: Laboratory Results - last 24 hr 06/05/25 05:45 WBC 4.6 RBC 3.71 L Hgb 9.5 L Hct 28.7 L MCV 77 L MCH 25.6 MCHC 33.1 RDW Std Deviation 43.7 Plt Count 285 Neut % (Auto) 71 Lymph % (Auto) 23 [place] % (Auto) 6 Eos % (Auto) 0 Baso % (Auto) 0 Neut # (Auto) 3.2 Lymph # (Auto) 1.0 [place] # (Auto) 0.3 Eos # (Auto) 0.0 Baso # (Auto) 0.0 Immature Gran # (Auto) 0.01 H Absolute Nucleated RBC 0.00 Immature Gran % 0 Nucleated RBC % 0 Sodium 141 Potassium 3.6 Chloride 103 Carbon Dioxide 25.4 Anion Gap 13 BUN 6 L Creatinine 0.5 L Estim Creat Clear Calc 112.1 eGFR > 60 BUN/Creatinine Ratio 12 Glucose 99 Calculated Osmolality 278 Calcium 9.4 Corrected Calcium 9.4 Phosphorus 5.8 H Magnesium 1.8 Total Bilirubin 0.6 AST 15 ALT < 7 L Alkaline Phosphatase 41 L Total Protein 7.3 Albumin 4.5 Globulin 2.8 Albumin/Globulin Ratio 1.6 Quality Measures Quality Measures VTE prophylaxis (scd's given gi bleed) Assessment & Plan Assessment Current Active Medications: Generic Name Dose Route Start Last Admin Trade Name Freq PRN Reason Stop Dose Admin Acetaminophen 650 mg 06/03/25 11:46 06/04/25 17:37 Acetaminophen 325 Mg Tablet PO 07/03/25 11:45 650 mg Q6H PRN Administration Fever >100.5 or pain 1-3 Azathioprine 50 mg 06/03/25 12:30 06/05/25 08:44 Azathioprine 50 Mg Tablet PO 07/03/25 12:29 50 mg BID ELAINE Administration Methylprednisolone Sodium Succinate 40 mg 06/03/25 21:00 06/05/25 08:44 Methylprednisolone Sod Succ 40 Mg/Ml Vial IV 06/10/25 20:59 40 mg Q12HR ELAINE Administration Ondansetron HCl 4 mg 06/03/25 11:46 Ondansetron Inj 2 Mg/Ml Inj 2 Ml IVP 07/03/25 11:45 Q6H PRN NAUSEA OR VOMITING Protocol Pantoprazole Sodium 40 mg 06/03/25 21:00 06/05/25 08:44 Pantoprazole Inj 40 Mg Vial IVP 07/03/25 20:59 40 mg BID ELAINE Administration Sulfasalazine 1,000 mg 06/03/25 14:00 06/05/25 05:10 Sulfasalazine 500 Mg Tablet PO 07/03/25 13:59 1,000 mg TID ELAINE Administration Plan 29-year-old female with past medical history of ulcerative colitis was admitted to the hospital on 10/20/2024 for lower GI bleed secondary to ulcerative colitis flare and resulting in blood loss anemia. #Ulcerative colitis flareup #Lower GI bleed 2/2 above #Anemia, secondary to blood loss #Leukopenia i/s/o infusions & DMARDs Patinet states this flare started around 1 week ago; 6 weeks since her last infusion. Her infusions were switched from q4 weeks to q8 weeks 2-3 transfusions ago. Her first infliximab infusion on 11/16 without any complications or reactions, with improvement of decreased BM frequency and less blood in stool. Endorses 8 bloody bowel movements yesterday, 1 today so far. Hgb 10.2 today, was 8.3 11/2024 Patient has been taking azathioprine 100 mg po qd, sulfasalazine 1000 mg TID Last colonoscopy 10/2024, showed friability with contact bleeding in rectum, sigmoid colon, descending colon, and transverse colon; biopsy showed left colon involved by chronic active colitis. Plan: Gave infusion today of infliximab 5 mg/kg, with Benadryl 50 mg x 1 and 40 mg Solu-Medrol x 1 being given prior to the infusion, per GI Dr. Strickland's recommendations. methylprednisolone 40 mg iv q12hr azathioprine 50 mg po bid sulfasalazine 1000 mg po tid protonix IV bid stool studies serum infliximab levels - send out antibodies against infliximab - send out bedside glucose checks q6hr Stool studies Type and screen GI consulted, appreciate commendations #Hyperphosphatemia Phos 5.8 -> gave sevelamer x1 Will continue to monitor, treat as appropriate Disposition: Patient admitted to [facility] for UC flareup. Diet: clear liquid GI prophylaxis: protonix IV BID DVT prophylaxis: SCDs in setting of bleed Code: full Patient plan of care was discussed with the attending physician, Dr. Harry & senior resident Dr. Samuel Walters MD PGY-1 Attending Provider Attestation/Addendum I have examined the patient, reviewed labs and imaging findings, discussed the case with the resident(s), and reviewed entered orders. I agree with the plan of care as outlined in this note. Dr. Kamryn MD
[2025-06-05 12:00] VITALS: BP 115/71; PULSE 83; PULSE 87; RESP 19; TEMP 36.4; O2SAT 99
--- NOTE | 2025-06-05 12:15 | PC.SS ---
Initial assessment: Patient is a 29-year old female admitted for ulcerative colotis flare. Met with patient to complete assessment and discus the discharge plan. Patient appeared to be alert and oriented to self, place and situation. Patient informs [place] [address] [facility] [address] [place] [address]. Patient informs she lives with her mother, daughter and boyfriend. Patient assigned her mother, Nadiya Batres as her emergency contact. Patient informs she is independent with her ADL's and denies use of DME. Patient informs she follows up with the [facility]- Dr. Baker for primary care. Patient plans to return home upon discharge and confirms having reliable transportation home. Patient denies having any needs at this time. A community resource handout was provided to the patient. D/c plan: Home Next of kin: motherNadiya
--- NOTE | 2025-06-05 14:35 | PC.SS ---
Rounding note: GI is consulting. Patient identified as a possible discharge home later today.
[2025-06-05 16:00] VITALS: BP 111/73; PULSE 70; RESP 15; TEMP 36.6; O2SAT 97
--- NOTE | 2025-06-05 16:29 | ESPR_ITS ---
Documentation for date of: 06/05/25 Subjective Subjective Interval history: Patient evaluated On infliximab Exam Vital Signs Temp Pulse Resp BP Pulse Ox O2 Del Method 97.6 F 83 19 115/71 99 Room Air 06/05/25 12:00 06/05/25 12:00 06/05/25 12:00 06/05/25 12:00 06/05/25 12:00 06/05/25 12:00 Objective Labs 06/05/25 05:45 06/05/25 05:45 Labs: Laboratory Results - last 24 hr 06/05/25 05:45 WBC 4.6 RBC 3.71 L Hgb 9.5 L Hct 28.7 L MCV 77 L MCH 25.6 MCHC 33.1 RDW Std Deviation 43.7 Plt Count 285 Neut % (Auto) 71 Lymph % (Auto) 23 [place] % (Auto) 6 Eos % (Auto) 0 Baso % (Auto) 0 Neut # (Auto) 3.2 Lymph # (Auto) 1.0 [place] # (Auto) 0.3 Eos # (Auto) 0.0 Baso # (Auto) 0.0 Immature Gran # (Auto) 0.01 H Absolute Nucleated RBC 0.00 Immature Gran % 0 Nucleated RBC % 0 Sodium 141 Potassium 3.6 Chloride 103 Carbon Dioxide 25.4 Anion Gap 13 BUN 6 L Creatinine 0.5 L Estim Creat Clear Calc 112.1 eGFR > 60 BUN/Creatinine Ratio 12 Glucose 99 Calculated Osmolality 278 Calcium 9.4 Corrected Calcium 9.4 Phosphorus 5.8 H Magnesium 1.8 Total Bilirubin 0.6 AST 15 ALT < 7 L Alkaline Phosphatase 41 L Total Protein 7.3 Albumin 4.5 Globulin 2.8 Albumin/Globulin Ratio 1.6 Impressions Impression: Acute exacerbation with underlying inflammatory bowel disease Advise infliximab infusion at 5 mg/kg body Assessment & Plan A&P Narrative # Acute exacerbation of the underlying inflammatory bowel disease Other things to consider is superimposed infectious enterocolitis It all happened because of the breakage in the routine Remicade infusion But it is also possible patient developed antibodies to the Remicade and does not have therapeutic levels Suggestions Complete stool panel CRP Sed rate Fecal calprotectin Fecal stool culture and sensitivity C. difficile by PCR IV Solu-Medrol 40 mg IV push to 12 Infliximab serum levels and antibody levels Start on sulfasalazine folic acid and azathioprine Will follow the patient closely No plans for a colonoscopy if the patient improves On follow-up patient should be followed by Dr. Gibbs at the E clinic Time Spent With Patient Time: Total time spent is greater than 50% in coordination of care (as documented) at patient's floor/unit and/or counseling patient:
[2025-06-05 20:00] VITALS: BP 106/68; PULSE 77; PULSE 88; RESP 19; TEMP 36.2; O2SAT 97
[2025-06-06] VITALS: BP 105/66; PULSE 68; PULSE 71; RESP 15; TEMP 36.3; O2SAT 99
[2025-06-06 04:00] VITALS: BP 111/72; PULSE 60; PULSE 74; RESP 12; TEMP 36.4; O2SAT 98
[2025-06-06 05:50] VITALS: BMI 21.8
[2025-06-06 06:10] LABS: Basophils # (Auto) 0.0 Thou/mm3 (0.0-0.2); Basophils % (Auto) 0 % (0-2.5); Eosinophils # (Auto) 0.0 Thou/mm3 (0.0-0.5); Eosinophils % (Auto) 0 % (0-10); Hematocrit 28.8 % (36.0-46.0); Hemoglobin 9.3 g/dL (12.0-16.0); Immature Granulocytes Auto 0.02 Thou/mm3 (0.00-0.00); Lymphocytes # (Auto) 1.3 Thou/mm3 (1.0-4.8); Lymphocytes % (Auto) 20 % (10-50); Mean Corpuscular HGB Conc 32.3 g/dl (31.0-37.0); Mean Corpuscular Hemoglobin 25.1 pg (25.0-35.0); Mean Corpuscular Volume 78 fL (80-100); Monocytes # (Auto) 0.6 Thou/mm3 (0.0-0.8); Monocytes % (Auto) 9 % (0-12); Neutrophils # (Auto) 4.6 Thou/mm3 (1.8-7.7); Neutrophils % (Auto) 71 % (37-80); Nucleated Red Blood Cell # 0.00 Thou/mm3 (0.00-0.00); Nucleated Red Blood Cell % 0 /100 WBC (0); Platelet Count 299 Thou/mm3 (140-440); RDW Standard Deviation 43.0 fL (36.4-46.3); Red Blood Count 3.71 Miln/mm3 (4.00-5.20); White Blood Count 6.5 Thou/mm3 (3.6-11.0)
[2025-06-06 06:52] LABS: Alanine Aminotransferase < 7 U/L (10-49); Albumin, Serum 4.7 gm/dL (3.5-5.0); Albumin/Globulin Ratio 1.7 (1.2-2.2); Alkaline Phosphatase 40 U/L (46-116); Anion Gap 13 (7-16); Aspartate Amino Transferase 14 U/L (0-34); BUN/Creatinine Ratio 14 Ratio (12-20); Bilirubin,Total 0.5 mg/dL (0.3-1.2); Blood Urea Nitrogen 7 mg/dL (9-23); Calcium 9.2 mg/dL (8.3-10.6); Calcium (Corrected) 9.2 mg/dL (8.5-10.1); Carbon Dioxide 26.6 mMol/L (20.0-31.0); Chloride 104 mMol/L (98-107); Creatinine (Component) 0.5 mg/dL (0.6-1.3); Estimated Creatinine Clearance 112.1 mL/min (>60); Globulin 2.7 gm/dL (2.3-3.5); Glucose 107 mg/dL (74-106); Magnesium 1.8 mg/dL (1.6-2.6); Osmolality,Calculated 284 (275-295); Phosphorous 5.8 mg/dL (2.4-5.1); Potassium 3.8 mMol/L (3.4-5.1); Sodium 144 mMol/L (136-145); Total Protein 7.4 gm/dL (5.7-8.2); eGFR > 60 See Note
[2025-06-06 07:59] VITALS: BP 109/74; PULSE 61; RESP 13; TEMP 36.2; O2SAT 98
[2025-06-06 08:00] VITALS: PULSE 75
[2025-06-06] MEDS: SEVELAMER CARBONATE 800 MG TABLET PO (08:59)
--- NOTE | 2025-06-06 09:06 | PC.SS ---
Follow up note: Patient may d/c today. However, she needs to be set up with her o/p infusions. SS spoke to [facility] and patient is not set up for Jun. and will need new auth request. Patient was receiving her infusions in [facility] monthly. SS updated transfer nurse as well. Transfer nurse has the check off list for instructions on how this is to be completed. Updated physician team. Patient follows up with the [facility]. Possible d/c today.
--- NOTE | 2025-06-06 10:03 | ESDS_ITS ---
<Statement entered by Tigre Baker MD - 06/06/25 11:35> Note reviewed and agree with care plan as documented. Please refer to the note below for further details. Plan discussed with attending physician Dr. Kamryn Baker MD PGY-2 Internal Medicine Planned Discharge Date 06/06/25 DS: Providers Provider Date of admission: 06/03/25 10:55 Primary care physician: Physician No Primary/Family Admitting Provider: Juanpablo Figueroa DO Attending Provider on Admission: Link Muir MD Consults: 06/03/25 10:32 Consult to Gastroenterology Stat Comment: Consulting Provider: Eddie Strickland 06/03/25 14:48 Referral Registered Dietitian Routine Comment: Attending Provider on DC: Sami Harry MD Discharging Provider: Sami Harry MD DS: Diagnosis Problem List Completed Was Problem List Reviewed/Reconciled?: Yes Hospital Course Hospital Course Hospital course: Patient is a 29 year old female with history of Ulcerative colitis, has been following with Dr. Strickland, presents with bloody bowel movements, admitted for workup and management of U.C. flare. Patient states this flare started around 1 week ago; 6 weeks since her last infusion. Her infusions were switched from q4 weeks to q8 weeks 2-3 transfusions ago. Went to the clinic on 05/30 and was told the order for the infusions . Patient was started on azathioprine, sulfasalazine, methylprednisone, Protonix. Serum infliximab levels and infliximab antibodies were sent out. GI Dr. Strickland was consulted and recommended these interventions along with infliximab infusion. Patient's stool studies were largely negative for infectious etiologies. Patient's bowel movements improved regarding decreased amount of blood in the stool and decreased stool frequency as well. Discharge Instructions ? Follow up scheduled appointment with GI Dr. Strickland in June ? Follow prednisone taper as prescribed ? Continue taking all other home medications as prescribed ? Regarding infliximab infusions, follow-up at [facility] for further instructions ? Follow-up at [facility] (you can call [phone] to make an appointment) with Dr. Walters on 06/14/2025 ? Return to ED if any other signs or symptoms worsen or recur #Ulcerative colitis flareup #Lower GI bleed 2/2 above #Anemia, secondary to blood loss #Leukopenia i/s/o infusions & DMARDs #Hyperphosphatemia Patient plan of care was discussed with the attending physician, Dr. Harry & senior resident Dr. Samuel Walters MD PGY-1 Time Spent with Patient Time attestation: Total time spent providing and/or coordinating discharge services: Time spent: Greater than 30 minutes Exam Vital Signs Temp Pulse Resp BP Pulse Ox O2 Del Method 97.1 F 61 13 109/74 98 Room Air 06/06/25 07:59 06/06/25 07:59 06/06/25 07:59 06/06/25 07:59 06/06/25 07:59 06/06/25 07:59 Narrative Exam General: No acute distress; A&Ox3 Skin: Warm, dry, intact, no obvious rash. HENT: NCAT, EOMI/PERRL, not icteric. External ears normal. No rhinorrhea. Moist mucous membranes Cardiovascular: Regular rate and rhythm, no murmur, +S1/S2. Respiratory: Lungs CTAB GI: Soft, non-tender, non-distended. No guarding or rebound tenderness. : No suprapubic tenderness. No flank tenderness bilaterally. Extremities: no edema, no cyanosis, no clubbing. Extremity pulses present Neuro: Grossly nonfocal. Moving all 4 extremities. CN not formally tested but appear grossly intact. Psychiatric: Cooperative, appropriate affect. Discharge Plan Plan Patient Disposition: HOME (Self Care) Patient condition on transfer: Stable Care Plan Goals: ? Follow up scheduled appointment with GI Dr. Strickland in June ? Follow prednisone taper as prescribed ? Continue taking all other home medications as prescribed ? Regarding infliximab infusions, follow-up at [facility] for further instructions ? Follow-up at [facility] (you can call [phone] to make an appointment) with Dr. Walters on 06/14/2025 ? Return to ED if any other signs or symptoms worsen or recur Prescriptions/Referrals Prescriptions/Med Rec: New prednisone 5 mg tablet 5 mg PO QDAY Qty: 100 0RF Taper: Prednisone Taper 15 mg TWICE A DAY for 7 Days and 0 Hour 25 mg DAILY for 7 Days and 0 Hour 20 mg DAILY for 7 Days and 0 Hour 15 mg DAILY for 7 Days and 0 Hour 10 mg DAILY for 7 Days and 0 Hour 5 mg DAILY for 7 Days and 0 Hour Rx Instructions: For one week take 3 tablets twice per day (in AM then PM) for total of 30 mg per day For one week take 3 tablets in AM and 2 tablets in PM for total of 25 mg per day For one week take 2 tablets twice per day (in AM then PM) for total of 20 mg per day For one week take 2 tablets in AM and 1 tablet in PM for total of 15 mg per day For one week take 2 tablets per day for a total of 10 mg per day For one week take 2 tablets per day for a total of 5 mg per day metoprolol succinate 25 mg capsule,sprinkle,ER 24hr 25 mg PO BID PRN (Reason: tachycardia) Qty: 30 0RF Rx Instructions: 25 mg orally as needed Continued azathioprine 100 mg tablet 100 mg PO QDAY Qty: 30 3RF sulfasalazine 500 mg tablet 1,000 mg PO TID 30 Days Qty: 180 3RF infliximab 100 mg recon soln 210 mg IV Q2-3M Qty: 1 3RF Rx Instructions: Obtain at [facility] every 8 weeks Follow-up at [facility] clinic monthly Discontinued metoprolol succinate 25 mg tablet extended release 24 hr 25 mg PO TID PRN (Reason: heart palpitations) Rx Instructions: Two at night, one in the morning Referrals: No Primary/Family,Physician [Primary Care Provider] Patient/Caregiver Discharge Instructions Education Materials: What Is Ulcerative Colitis?, Colitis Ulcerative Dc, Colitis Ulcerative Lifestyle, Understanding Colitis Print Language: Luxembourgish Stand Alone Forms: Nancie Award Info., Patient Portal Info Letter Discharge Order Discharge Orders: Discharge (Routine); Ordered 06/06/25 Ordered By: Juan Luis Walters Quality Discharge Quality Measures VTE prophylaxis Attestestation MD Attestation I have examined the patient, reviewed labs and imaging findings, discussed the case with the resident(s), and reviewed entered orders. I agree with the plan of care as outlined in this note. Time Spent: [address] Kamryn MD
[2025-06-06 11:50] VITALS: BP 118/77; PULSE 87; RESP 18; TEMP 36.2; O2SAT 99
[2025-06-06 13:32] LABS: Norovirus, EIA (Stool)* NOT DETECTED
--- NOTE | 2025-06-06 16:58 | ESPR_ITS ---
Documentation for date of: 06/06/25 Subjective Subjective Interval history: Late entry for the note Patient evaluated discharge planning discussed with the internal medicine resident team Including steroid taper off Exam Vital Signs Temp Pulse Resp BP Pulse Ox O2 Del Method 97.1 F 87 18 118/77 99 Room Air 06/06/25 11:50 06/06/25 11:50 06/06/25 11:50 06/06/25 11:50 06/06/25 11:50 06/06/25 11:50 Objective Labs 06/06/25 04:20 06/06/25 04:20 Labs: Laboratory Results - last 24 hr 06/03/25 06/06/25 11:58 04:20 WBC 6.5 D RBC 3.71 L Hgb 9.3 L Hct 28.8 L MCV 78 L MCH 25.1 MCHC 32.3 RDW Std Deviation 43.0 Plt Count 299 Neut % (Auto) 71 Lymph % (Auto) 20 [place] % (Auto) 9 Eos % (Auto) 0 Baso % (Auto) 0 Neut # (Auto) 4.6 Lymph # (Auto) 1.3 [place] # (Auto) 0.6 Eos # (Auto) 0.0 Baso # (Auto) 0.0 Immature Gran # (Auto) 0.02 H Absolute Nucleated RBC 0.00 Immature Gran % 0 Nucleated RBC % 0 Sodium 144 Potassium 3.8 Chloride 104 Carbon Dioxide 26.6 Anion Gap 13 BUN 7 L Creatinine 0.5 L Estim Creat Clear Calc 112.1 eGFR > 60 BUN/Creatinine Ratio 14 Glucose 107 H Calculated Osmolality 284 Calcium 9.2 Corrected Calcium 9.2 Phosphorus 5.8 H Magnesium 1.8 Total Bilirubin 0.5 AST 14 ALT < 7 L Alkaline Phosphatase 40 L Total Protein 7.4 Albumin 4.7 Globulin 2.7 Albumin/Globulin Ratio 1.7 Stool Norovirus Ag NOT DETECTED Impressions Impression: Acute exacerbation of the underlying inflammatory bowel disease Steroid taper off Continue sulfasalazine along with folic acid and azathioprine Infliximab every 8 weeks Patient to be followed at the E clinic Assessment & Plan A&P Narrative # Acute exacerbation of the underlying inflammatory bowel disease Other things to consider is superimposed infectious enterocolitis It all happened because of the breakage in the routine Remicade infusion But it is also possible patient developed antibodies to the Remicade and does not have therapeutic levels Suggestions Complete stool panel CRP Sed rate Fecal calprotectin Fecal stool culture and sensitivity C. difficile by PCR IV Solu-Medrol 40 mg IV push to 12 Infliximab serum levels and antibody levels Start on sulfasalazine folic acid and azathioprine Will follow the patient closely No plans for a colonoscopy if the patient improves On follow-up patient should be followed by Dr. Gibbs at the E clinic Time Spent With Patient Time: Total time spent is greater than 50% in coordination of care (as documented) at patient's floor/unit and/or counseling patient:
[2025-06-11 07:18] LABS: Giardia Result NOT DETECTED
== END 2025-06-06 11:50 | disposition home or self-care (01) | DRG 245 ==
LOC: SERX 11:10 → SERHOLD 11:12 → S2NX 14:27
PROVIDERS: Specialist; Admitting Provider Student in an Organized Health Care Education/Training Program; Emergency Provider Emergency Medicine; Visit Provider Internal Medicine
DX: K51.911 Ulcerative colitis, unspecified with rectal bleeding (principal); D50.0 Iron deficiency anemia secondary to blood loss (chronic); D72.819 Decreased white blood cell count, unspecified; E83.39 Other disorders of phosphorus metabolism; Z59.71 Insufficient health insurance coverage; Z79.624 Long term (current) use of inhibitors of nucleotide synthesis
CPT/HCPCS: 36415; 80053; 80230; 83735; 83993; 84100; 84443; 85025; 85610; 85652; 85730; 86140; 86850; 86900; 86901; 87205; 87329; 87449; 87493; 96374; 99284; A4216; J1200; J1745; J2470; J2919; J7030; J7050; J7500; A9270